=== PATIENT | male | born 1955 | race Caucasian/White ===

== ENCOUNTER 2018-11-27 08:23 | Outpatient (REF) | payer OTHER, SELFPAY ==
[2018-11-27 14:50] LABS: Anion Gap 4.6 mmol/L (3-11); BUN 12 mg/dL (7-18); CO2 33.4 mmol/L (21.0-32.0); CREATININE 0.86 mg/dL (0.70-1.30); Calcium 9.2 mg/dL (8.5-10.1); Chloride 102 mmol/L (98-107); Cholesterol 158 mg/dL (50-200); Glucose 118 mg/dL (70-100); HDL Cholesterol 49 mg/dL (40-60); LDL CHOLESTEROL 94 mg/dL (<100); Potassium 4.3 mmol/L (3.5-5.1); Sodium 140 mmol/L (136-145); Triglyceride 96 mg/dL (30-150)
== END 2018-11-27 08:43 ==
LOC: NCHCN 08:23
PROVIDERS: PCP Nurse Practitioner Family; Visit Provider Nurse Practitioner Family
DX: I10 Essential (primary) hypertension (principal)
CPT/HCPCS: 80048; 80061; 83721

== ENCOUNTER 2019-01-20 12:29 | Emergency (ER) | payer OTHER, SELFPAY ==
[2019-01-20] VITALS (12 sets, daily range): BP systolic 133–153; BP diastolic 53–78; PULSE 49–67; RESP 12–26; TEMP 36.5; O2SAT 87–96
--- NOTE | 2019-01-20 13:06 | DI.RAD_ITS ---
SYMPTOM/DIAGNOSIS: PAIN, FELL LEFT SHOULDER: Three views. There is an anterior dislocation of the left shoulder. No fracture is identified. The soft tissues are unremarkable. Degenerative changes are seen at the acromioclavicular and the glenohumeral joint. IMPRESSION: Left anterior shoulder dislocation. LEFT SHOULDER: Two views. Comparison is made with examination from earlier in the day. There has been successful reduction of the left shoulder dislocation. There is an 8 mm osseous density inferior to the glenoid suspicious for a displaced fracture fragment. Soft tissues are unremarkable. IMPRESSION: Interval reduction of the left shoulder dislocation with a tiny fracture fragment inferior to the glenoid.
--- NOTE | 2019-01-20 13:29 | ED.GENADUL_ITS ---
Discharge Plan Disposition Patient Disposition: HOME Discharge Details Chief Complaint: Orthopedic Clinical Impression: Anterior dislocation of left shoulder Primary Care Provider: Kimberly Stout ED Provider: Altaf Fletcher Home Meds and New Rx's Prescriptions: Continued diphenhydramine HCl 12.5 MG/5 ML liquid 25 mg PO Q4H PRN RF: 0 atenolol 100 MG tablet 100 mg PO DAILY RF: 0 aspirin [Aspir-81] 81 MG tablet,delayed release (DR/EC) 81 mg PO DAILY RF: 0 allopurinol 300 MG tablet 300 mg PO DAILY RF: 0 calcipotriene 60 ML solution 60 ml Topical BID PRNRF: 0 ibuprofen 600 MG tablet 600 mg PO Q8H PRN PRNQty: 30 RF: 0 amlodipine 2.5 mg Tablet 2.5 mg PO DAILY RF: 0 furosemide 20 mg Tablet 20 mg PO DAILY RF: 0 Discharge Instructions Additional Instructions: Use sling for the next 2 weeks. Remove your arm from sling on and perform pendulum exercises daily as discussed. Please follow-up with orthopedics. Return to the ER for any worsening or new concerning symptoms. Referrals: Kimberly Stout [Primary Care Provider] - Tashi Saba MD [ [facility] STAFF PHYSICIAN] - Medical Decision Making Medical Records 13:30 -- 63-year-old male presents with left shoulder pain after mechanical slip and fall on ice that occurred earlier today. Patient is tender left shoulder. He is neurovascularly intact distal left upper extremity. Concern for fracture versus dislocation. Plan to obtain x-ray. 14:23 --x-ray of the shoulder reviewed and interpreted by me and radiology: Anterior shoulder dislocation. Patient given Ativan for muscle relaxation. Attempted fares technique and unable to reduce. Plan for procedural sedation and joint reduction. Patient provided informed consent to procedure was sedated for procedure. 14:50 -- Patient sedated with 150mg propofol and joint reduced by Dr. Sanches and myself. Sling applied. --Postreduction film interpreted by radiology: Interval relocation of anterior shoulder dislocation with tiny fracture fragment. HPI General Mode of arrival: ambulatory . Date/Time Provider Initiated Documentation: 01/20/19 13:06 . Limitations to Documentation: no limitations . Information obtained by: patient . HPI Narrative: 63-year-old male presents with chief complaint of shoulder pain. Patient notes severe left shoulder pain that started around noon today when he slipped on the ice and fell on his shoulder. Pain is constant and worse with any movement of his shoulder. He has limited range of motion secondary to pain. He has no associated numbness or weakness. He did not hit his head or lose consciousness and denies neck pain. No other injuries were sustained during the fall. Pain feels exactly the same as when he dislocated his shoulder in the past. Prior dislocation required procedural sedation for relocation. Related Data Home Medications Medication Instructions Recorded Confirmed allopurinol 300 mg PO DAILY tab-cap 08/18/14 01/20/19 aspirin [Aspir-81] 81 mg PO DAILY tab-cap 08/18/14 01/20/19 atenolol 100 mg PO DAILY tab-cap 08/18/14 01/20/19 calcipotriene 60 ml TOPICAL BID PRN script 08/18/14 01/20/19 diphenhydramine HCl 25 mg PO Q4H PRN ml 08/18/14 01/20/19 ibuprofen 600 mg PO Q8H PRN PRN #30 tab 09/27/15 01/20/19 amlodipine 2.5 mg PO DAILY 01/20/19 furosemide 20 mg PO DAILY 01/20/19 01/20/19 Previous Rx's Medication Instructions Recorded ibuprofen 600 mg PO Q8H PRN PRN #30 tab 09/27/15 Allergies Allergy/AdvReac Type Severity Reaction Status Date / Time ampicillin Allergy Unknown rash,bliste Unverified 01/20/19 12:38 rs lisinopril AdvReac Unknown cough Unverified 01/20/19 12:38 losartan [Losartan] AdvReac Unknown leg cramps Unverified 01/20/19 12:38 General Stated Complaint: Orthopedic SUE: 4 Review of Systems Cardiovascular Denies chest pain and Denies dyspnea Respiratory Denies dyspnea Musculoskeletal Reports as per HPI Neurologic Reports as per HPI PFSH Medical History Shoulder dislocation (Acute) Social History Smoking/Tobacco Use Status: Never Alcohol Intake: current Alcohol Intake frequency: 0-2 drinks per day Alcohol type: beer Drug use: Never Substance use type: does not use Do you feel safe at home: Yes Do you feel safe in your relationship?: Yes Exam Const General: cooperative and no acute distress HENMT Head: normocephalic and atraumatic Mouth: moist mucous membranes Eyes Conjunctivae: normal conjunctivae Sclera: normal sclerae Neck Neck: trachea midline and supple Resp Auscultation: clear to auscultation bilaterally, no rales, no rhonchi and no wheezes Cardio Jugular venous pressure: no JVD Rate: regular rate and not tachycardic Rhythm: regular rhythm GI Palpation: soft, not firm, no guarding, no masses, not rigid and nontender Skin General skin exam: no rashes or lesions noted Neuro General: alert, awake and tone normal Extrem General: no edema Left upper extremity: shoulder/upper arm Details: tenderness Location: of the proximal humerus, axillary nerve sensory function normal and abnormal ROM Details: pain with active ROM Details: in ABduction and elbow/forearm Details: normal ROM; no tenderness and no swelling Psych Mental Status: mental status grossly normal Course Vital Signs Temperature 36.5 C 01/20/19 12:35 Pulse 61 01/20/19 12:35 Respiratory Rate 26 H 01/20/19 12:35 Blood Pressure 133/53 L 01/20/19 12:35 Pulse Oximetry 94 L 01/20/19 12:35 Temperature 36.5 C 01/20/19 12:35 Temperature Source Skin 01/20/19 12:35 Pulse 61 01/20/19 12:35 Respiratory Rate 26 H 01/20/19 12:35 Respiratory Effort 01/20/19 12:39 Blood Pressure 133/53 L 01/20/19 12:35 Blood Pressure Position Sitting 01/20/19 12:35 Pulse Oximetry 94 L 01/20/19 12:35 Oxygen Delivery Method Room Air 01/20/19 12:35 Oxygen Flow Rate 0 01/20/19 12:35 Pain Level 7 01/20/19 13:24 Procedures Orthopedic Joint Reduction Joint #1: Time Out Performed: Yes Side: left Joint Reduction Location: shoulder Analgesia: procedural sedation Shoulder Technique Used (if applicable): traction/counter-traction and external rotation Post-reduction neuro exam: intact Post-reduction vascular: intact Post Reduction X-Ray Obtained: Yes Post Reduction X-Ray Results: reduced Splint Applied: Yes Patient Tolerated Procedure: well Procedural Sedation Indication: fracture/dislocation reduction ASA Class: II Time of Last PO Intake: 00:00 Preparation: radiation monitor applied, pulse oximeter, capnometry used, supplemental O2 applied, suction/airway equipment at bedside and IV secured IV Propofol dose (mg): 150 Patient Tolerated Procedure: well and no complications Complications: none Interventions: oxygen applied Additional Comments: Dr. Sanches pushed med
--- NOTE | 2019-01-20 13:59 | DI.VRAD_ITS ---
EXAM: XR Left Shoulder, Complete, 2 or More Views EXAM DATE/TIME: 01/20/2019 1:07 PM CLINICAL HISTORY: 63 years old, male; Signs and symptoms; Other: Fall, pain; Additional info: Best images possible TECHNIQUE: XR Left shoulder, complete 2 or more views. COMPARISON: CR LEFT SHOULDER COMP. POST REDUC 09/27/2015 1:06 PM FINDINGS: Anterior shoulder dislocation. Degenerative changes of the shoulder joint and acromioclavicular joint. No definite evidence of acute fracture. IMPRESSION: Anterior shoulder dislocation. Dictated and Authenticated by: Attila Wilder MD. Ordering:ENA Solitario MD
[2019-01-20] MEDS: LORazepam 2 MG/ML VIAL 1 MG IVP (14:00)
[2019-01-20] MEDS: Propofol 200 MG/20 ML VIAL 142 MG IVP (14:45)
--- NOTE | 2019-01-20 15:42 | DI.VRAD_ITS ---
EXAM: XR Left Shoulder, Complete, 2 or More Views EXAM DATE/TIME: 01/20/2019 2:51 PM CLINICAL HISTORY: 63 years old, male; Signs and symptoms; Other: Post reduction lt shoulder TECHNIQUE: XR Left shoulder, complete 2 or more views. COMPARISON: CR XR shoulder LT complete 2+V 01/20/2019 1:34 PM FINDINGS: Interval relocation of an anterior shoulder dislocation. Approximate 8mm calcific density just beneath the glenoid on the frontal view suggesting a tiny fracture fragment. No other evidence of acute fracture. IMPRESSION: Interval relocation of anterior shoulder dislocation with tiny fracture fragment. Dictated and Authenticated by: Attila Wilder MD. Ordering:ENA Solitario MD
== END 2019-01-20 16:18 | disposition home or self-care (01) ==
PROVIDERS: Emergency Provider Student in an Organized Health Care Education/Training Program; PCP Nurse Practitioner Family
DX: S53.012A Anterior subluxation of left radial head, initial encounter (principal); W00.0XXA Fall on same level due to ice and snow, initial encounter
CPT/HCPCS: 23650; 73030; 96374; 96375; 96376; J2060; L3650

== ENCOUNTER 2019-11-07 13:07 | Outpatient (REF) | payer MEDICARE, SELFPAY ==
[2019-11-07 13:33] LABS: Anion Gap 6.4 mmol/L (3-11); BUN 12 mg/dL (7-18); CO2 32.6 mmol/L (21.0-32.0); CREATININE 0.67 mg/dL (0.70-1.30); Calcium 9.1 mg/dL (8.5-10.1); Chloride 102 mmol/L (98-107); Glucose 117 mg/dL (74-106); Potassium 4.4 mmol/L (3.5-5.1); Sodium 141 mmol/L (136-145)
[2019-11-07 13:58] LABS: Hemoglobin A1C 5.9 % (3.8-5.6)
== END 2019-11-07 13:27 ==
LOC: NCHCN 13:07
PROVIDERS: PCP Nurse Practitioner Family; Visit Provider Nurse Practitioner Family
DX: R73.03 Prediabetes (principal); I10 Essential (primary) hypertension
CPT/HCPCS: 80048; 83036

== ENCOUNTER → 2020-01-10 10:53 | Outpatient (BNVA) | payer MEDICARE, SELFPAY | PROVIDERS: PCP Nurse Practitioner Family; Referring Provider Nurse Practitioner Family; Visit Provider Internal Medicine Cardiovascular Disease | DX: R69 Illness, unspecified (principal) ==

== ENCOUNTER 2020-01-10 11:12 | Outpatient (CLI) | payer MEDICARE, SELFPAY | END 2020-01-10 11:32 | PROVIDERS: PCP Nurse Practitioner Family; Visit Provider Internal Medicine Cardiovascular Disease | DX: I48.91 Unspecified atrial fibrillation (principal); I10 Essential (primary) hypertension | CPT/HCPCS: 99204; 99215; 93005; 93010 ==

== ENCOUNTER 2020-01-14 10:22 | Outpatient (CLI) | payer MEDICARE, SELFPAY ==
--- NOTE | 2020-01-14 07:33 | DI.US_ITS ---
APPROVED REPORT EXAM: Comprehensive 2D, Doppler, and color-flow Echocardiogram Patient Location: Out-Patient Rn Cardiac Rehab: Ana Gupta RDCS ([facility]) Indications: Atrial Fibrillation Conclusion Left Ventricle : The left ventricle is grossly normal size. The overall left ventricular systolic fu nction appears normal. Left ventricular systolic function is normal. The posterior wall thickness is mildly increased. The septal thickness is mildly increased. Regional wall motion is grossly normal. L V diastolic function appears normal. LVEF is 55-59%. Right Ventricle : Right ventricle is not well visualized. Atria : Left atrium is borderline dilated. Right atrium is borderline dilated. Aortic Valve : Aortic valve is calcified and not well visualized. Mild aortic stenosis. No aortic reg urgitation is present. Mitral Valve : The mitral valve is normal in structure. Trace mitral regurgitation. Great Vessels : The IVC was not well visualized. Estimated RVSP is 35-40 mmHg. There is no prior echocardiogram available for comparison. Wall motion Left Ventricle The left ventricle is grossly normal size. The overall left ventricular systolic function appears nor mal. Left ventricular systolic function is normal. The posterior wall thickness is mildly increased. The septal thickness is mildly increased. Regional wall motion is grossly normal. LV diastolic functi on appears normal. LVEF is 55-59%. Right Ventricle Right ventricle is not well visualized. Atria Left atrium is borderline dilated. Right atrium is borderline dilated. Aortic Valve Aortic valve is calcified and not well visualized. Mild aortic stenosis. No aortic regurgitation is p resent. Mitral Valve The mitral valve is normal in structure. No evidence of mitral valve stenosis. Trace mitral regurgita tion. Tricuspid Valve The tricuspid valve is normal in structure. There is no tricuspid valve stenosis. Trace tricuspid reg urgitation. Pulmonic Valve Pulmonic valve is not well visualized. There is no pulmonic valvular stenosis. There is no pulmonic v alvular regurgitation. Great Vessels The aortic root is normal in size. The ascending aorta is mildly dilated. The IVC was not well visual ized. Estimated RVSP is 35-40 mmHg. Pericardium There is no pericardial effusion. 2D Dimensions IVSD d PLAX 1.28 cm M: 0.6-1.2 LV Vol A2C d MOD 187.0 mL LVPW d PLAX 1.25 cm M: 0.6 - 1.2 LV Vol A4C d MOD 158.1 mL LVID d PLAX 4.66 cm M: 4.2 - 5.8 LA vol/ BSA A2C s A-L 55.1 mL/m2 LVDs 3.35 cm M: 2.5 - 4.0 LA vol/ BSA A4C s A-L 54.6 mL/m2 Ao Root d 3.71 cm M: 3.1 - 3.7 LA Vol/ BSA Biplane s A-L 54.9 mL/m2 RA Area A4C 36.09 cm2 LA Area A4C s MOD 34.19 cm2 RA Vol/ BSA A4C s A-L 60.8 mL/m2 LA Area A2C s MOD 34.33 cm2 Ao Asc Diam d 4.24 cm M: 2.6 - 3.4 LV EF A4C MOD 51.1 % LV EF Teichholz 53.4 % LV EF A2C MOD 60.0 % LVEF (Calle's) 55.35 % M: 52 - 72 LV EF Biplane MOD 55.3 % LV Volume 128.09 mL M: 62 - 150 LV Volume Index 50.23 mL/m2 M: 34 - 74 LV Vol Biplane MOD 184.1 mL FS 27.45 % LV Diastology MV E' medial 0.100 (>0.07 m/s) E/A Ratio 3.6 LV E/e MED 12.65 (<14) MV E Vmax 1.27 (0.4-1.3 m/s) MV E' lateral 0.110 (>0.1 m/s) MV A Vmax 0.35 (0.4-1.3 m/s) LV E/e LAT 11.45 (<14) MV E/A Ratio 3.55 MV E/E' medial 12.70 MV E/E' lateral 11.46 Aortic Valve LVOT Area 3.35 cm2 AoV Area Vmax 1.46 cm2 LVOT Vmax 1.01 m/s AoV Area/ BSA (Vmax) 0.57 cm2/m2 LVOT Mean Zi. 0.67 m/s ALINE Mean Zi. 1.46 cm2 LVOT Peak Grad 4.1 mmHg ALINE Mean Zi. Index 0.57 cm2/m2 LVOT Mean Grad 2.1 mmHg LVOT VTI 0.230 m LVOT Diam s 2.05 cm (M/F) 1.5-2.5 AoV Vmax 2.33 (0.5-1.3 m/s) Velocity Ratio 0.43 AoV Mean Zi. 1.54 m/s AoV Peak Grad 21.7 mmHg LVOT SV 77.01 mL AoV Mean Grad 10.9 (<5 mmHg) AoV VTI 0.492 (0.18-0.25 m) AoV Area VTI 1.57 (2.5-4.5 cm2) AoV Area/ BSA (VTI) 0.61 cm/m2 Mitral Valve MV DT 220 (160-240 msec) MV PHT 64 msec MV Area PHT 3.45 cm2 Pulmonary Valve PV Vmax 0.79 (0.5-1.5 m/s) RVOT Peak Gr. 1.90 mmHg PV Peak Grad 2.5 mmHg RVOT Mean Gr. 0.95 mmHg PV Mean Grad 1.3 mmHg RVOT VTI 0.154 m PV VTI 0.174 m RVOT Vmax 0.69 m/s Tricuspid Valve TR Peak Grad 36.7 mmHg TR Vmax 3.03 m/s RA Pressure 3.00 mmHg RVSP (TR) 39.8 mmHg
== END 2020-01-14 10:42 ==
PROVIDERS: PCP Nurse Practitioner Family; Visit Provider Internal Medicine Cardiovascular Disease
DX: I48.91 Unspecified atrial fibrillation (principal); I35.0 Nonrheumatic aortic (valve) stenosis; I10 Essential (primary) hypertension
CPT/HCPCS: 93306

== ENCOUNTER 2020-07-02 08:23 | Outpatient (REF) | payer MEDICARE, SELFPAY ==
[2020-07-02 18:56] LABS: Prothrombin Time 27.9 sec (9.3-11.0)
[2020-07-02 18:57] LABS: INR 2.8 (0.9-1.1)
== END 2020-07-02 08:43 ==
LOC: NCHCN 08:23
PROVIDERS: PCP Nurse Practitioner Family; Visit Provider Nurse Practitioner Family
DX: I48.0 Paroxysmal atrial fibrillation (principal); Z79.01 Long term (current) use of anticoagulants
CPT/HCPCS: 85610

== ENCOUNTER 2020-08-28 07:44 | Outpatient (CLI) | payer MEDICARE, SELFPAY ==
[2020-08-29 12:44] LABS: COVID-19 RT-PCR Result NEGATIVE (Negative)
== END 2020-08-28 08:04 ==
PROVIDERS: PCP Nurse Practitioner Family; Visit Provider Internal Medicine Sleep Medicine
DX: Z01.818 Encounter for other preprocedural examination (principal); Z11.59 Encounter for screening for other viral diseases
CPT/HCPCS: U0003

== ENCOUNTER 2020-09-27 12:29 | Emergency (ER) | payer MEDICARE, SELFPAY ==
[2020-09-27 12:37] VITALS: BP 164/78; PULSE 67; RESP 20; TEMP 36.7; O2SAT 96
--- NOTE | 2020-09-27 12:44 | W.ED.GENAD ---
Discharge Plan Disposition Patient Disposition: HOME Condition: Improving Discharge Details Clinical Impression: Ear ache Primary Care Provider: Kimberly Stout ED Provider: Sohail Sanches Home Meds and New Rx's Prescriptions: Continued amlodipine 10 mg tablet 10 mg PO DAILY RF: 0 furosemide 40 mg tablet 80 mg PO DAILY RF: 0 diphenhydramine HCl 12.5 MG/5 ML liquid 25 mg PO Q4H PRN RF: 0 atenolol 100 MG tablet 100 mg PO DAILY RF: 0 allopurinol 300 MG tablet 300 mg PO DAILY RF: 0 calcipotriene 60 ML solution 60 ml Topical BID PRNRF: 0 warfarin 5 mg tablet 5 mg PO DAILY Qty: 60 RF: 3 Discharge Instructions Instructions: Earache (ED) Additional Instructions: If you develop foul-smelling discharge from the ear, progressive pain, or any other acute concerns please return for reevaluation. Continue your regular medications. Medical Decision Making 65-year-old male presents from home stating he put his right hearing aid in this morning, then took it out and felt the silicone earpiece remained lodged in the right ear. He attempted to remove with a paperclip and was unsuccessful. No clear evidence of retained foreign body on my exam. The ear was irrigated and reexamined with the same finding. Discussed with patient that there is no clear evidence of foreign body at this time. He will maintain home surveillance for developing otorrhea or pain. He is stable for discharge home at this time. HPI General Mode of arrival: ambulatory. Date/Time Provider Initiated Documentation: 09/27/20 12:29. Limitations to Documentation: no limitations. Information obtained by: patient. History of Present Illness 65 year old M presents to the emergency department with the chief complaint of Right ear retained foreign body, described as mild and moderate, Quality is described as dull and constant, and is localized to the head and right. Patient reports no radiation. and it has been constant. No relieving factors improve symptom(s), No exacerbating factors reported . Patient did receive the following treatments prior to arrival, none Related Data Home Medications Medication Instructions Recorded Confirmed allopurinol 300 mg PO DAILY tab-cap 08/18/14 09/27/20 atenolol 100 mg PO DAILY tab-cap 08/18/14 09/27/20 calcipotriene 60 ml TOPICAL BID PRN script 08/18/14 09/27/20 diphenhydramine HCl 25 mg PO Q4H PRN ml 08/18/14 09/27/20 amlodipine 10 mg tablet 10 mg PO DAILY 01/02/20 09/27/20 furosemide 40 mg tablet 80 mg PO DAILY tab 01/02/20 09/27/20 warfarin 5 mg tablet 5 mg PO DAILY #60 tab 04/21/20 09/27/20 Previous Rx's Medication Instructions Recorded warfarin 5 mg tablet 5 mg PO DAILY #60 tab 04/21/20 Allergies Allergy/AdvReac Type Severity Reaction Status Date / Time ampicillin Allergy Unknown rash,bliste Unverified 09/27/20 12:40 rs lisinopril AdvReac Unknown cough Unverified 09/27/20 12:40 losartan [Losartan] AdvReac Unknown leg cramps Unverified 09/27/20 12:40 General Stated Complaint: EarProblem SUE: 4 Review of Systems Narrative: 5 systems reviewed and otherwise negative [facility] Medical History (Updated 09/27/20 @ 12:56 by Sohail Sanches MD) Atrial fibrillation Bilateral leg edema BMI 50.0-59.9, adult Erectile dysfunction Gout Hypertension Peripheral neuropathy Prediabetes Psoriasis Shoulder dislocation Social History Smoking/Tobacco Use Status: Never Smoking risk assessment performed?: Yes Alcohol Intake: current Alcohol Intake frequency: a few times a week Alcohol type: beer Drug use: Never Substance use type: does not use What type of physical activity do you participate in: independent ambulation Do you feel safe at home: Yes Do you feel safe in your relationship?: Yes Exam Narrative Exam Narrative: GEN: awake, alert, oriented 3. Pleasant, well groomed, interactive. HEAD: Normocephalic, atraumatic ENT: Mucous membranes moist, oropharynx unremarkable, tympanic membranes visualized bilaterally, small amount of blood external ear canal right. External ear exam unremarkable EYES: PERRL, EOMI NECK: Full ROM, no JAMI, no menigismus Neuro: Grossly normal neurologic exam, conversant, interactive. Psych: Speech fluent, thoughts congruent, affect normal Course Vital Signs Vital signs: Vital Signs Temperature 36.7 C 09/27/20 12:37 Pulse 67 09/27/20 12:37 Respiratory Rate 20 09/27/20 12:37 Blood Pressure 164/78 H 09/27/20 12:37 Pulse Oximetry 96 09/27/20 12:37 Temperature 36.7 C 09/27/20 12:37 Temperature Source Temporal Artery Scan 09/27/20 12:37 Pulse 67 09/27/20 12:37 Respiratory Rate 20 09/27/20 12:37 Respiratory Effort Non-Labored 09/27/20 12:42 Blood Pressure 164/78 H 09/27/20 12:37 Blood Pressure Position Sitting 09/27/20 12:37 Pulse Oximetry 96 09/27/20 12:37 Oxygen Delivery Method Room Air 09/27/20 12:37 Oxygen Flow Rate 0 09/27/20 12:37 Pain Level 5 09/27/20 12:37
--- NOTE | 2020-09-27 12:50 | NUR.NOTE ---
Nursing Note: Irrigated patient's right ear, only clear irrigation fluid produced, no sign of any foreign body. Dr Sanches notified. Patient's ear canal with some mild irritation.
== END 2020-09-27 13:01 | disposition home or self-care (01) ==
PROVIDERS: Emergency Provider Emergency Medicine; PCP Nurse Practitioner Family
DX: H92.01 Otalgia, right ear (principal); I10 Essential (primary) hypertension
CPT/HCPCS: 69209; 99282; 99283

== ENCOUNTER 2020-12-31 09:13 | Outpatient (REF) | payer MEDICARE, SELFPAY ==
[2020-12-31 15:38] LABS: HCT 39.9 % (40.0-50.0); MCH 33.4 pg (27.0-33.0); MCHC 35.1 % (32.0-36.0); MCV 95.2 fL (80-95); MPV 11.5 fL (8.0-11.0); Platelet Count 241 10^3/uL (130-400); RBC 4.19 10^6/uL (4.36-5.78); RDW 12.3 % (11.8-14.1); RDW-SD 41.8 fL
[2020-12-31 15:53] LABS: ALT 39 U/L (16-63); AST 30 U/L (15-37); Albumin 3.4 g/dL (3.4-5.0); Alkaline Phosphatase 99 U/L (46-116); Anion Gap 6.5 mmol/L (3-11); BUN 18 mg/dL (7-18); Bilirubin, Total 0.6 mg/dL (0.2-1.0); CO2 30.5 mmol/L (21.0-32.0); CREATININE 0.9 mg/dL (0.70-1.30); Calcium 9.1 mg/dL (8.5-10.1); Calculated LDL 80 mg/dL (<100); Chloride 104 mmol/L (98-107); Cholesterol 149 mg/dL (<200); Glucose 107 mg/dL (74-106); HDL Cholesterol 41 mg/dL (40-60); Potassium 4.5 mmol/L (3.5-5.1); Sodium 141 mmol/L (136-145); Triglyceride 142 mg/dL (<150)
[2020-12-31 16:20] LABS: Hemoglobin A1C 5.8 % (<5.7)
[2020-12-31 22:03] LABS: PSA, Screening 1.5 ng/mL (0.0-4.5)
== END 2020-12-31 09:14 | disposition home or self-care (01) ==
LOC: NCHCN 09:13
PROVIDERS: PCP Nurse Practitioner Family; Visit Provider Physician Assistant
DX: I10 Essential (primary) hypertension (principal); R73.03 Prediabetes; Z12.5 Encounter for screening for malignant neoplasm of prostate
CPT/HCPCS: 80053; 80061; 84153; 85027; 83036

== ENCOUNTER → 2021-01-11 09:55 | Outpatient (BNVA) | payer MEDICARE, SELFPAY | PROVIDERS: PCP Nurse Practitioner Family; Referring Provider Nurse Practitioner Family; Visit Provider Internal Medicine Cardiovascular Disease | DX: I48.21 Permanent atrial fibrillation (principal); I10 Essential (primary) hypertension; G47.33 Obstructive sleep apnea (adult) (pediatric); Z79.01 Long term (current) use of anticoagulants | CPT/HCPCS: 99214; 99213 ==

== ENCOUNTER 2021-06-24 12:53 | Emergency (ER) | payer MEDICARE, SELFPAY ==
[2021-06-24 13:00] VITALS: BP 155/79; PULSE 67; RESP 18; TEMP 36.6; O2SAT 95
--- NOTE | 2021-06-24 13:38 | W.ED.GENAD ---
Discharge Plan Disposition Patient Disposition: HOME Condition: Stable Discharge Details Clinical Impression: Elevated INR, Bleeding from wound Primary Care Provider: Kimberly Stout ED Provider: Carlos Giron Home Meds and New Rx's Prescriptions: Continued warfarin 5 mg tablet 5 mg PO DAILY Qty: 90 RF: 3 amlodipine 10 mg tablet 10 mg PO DAILY RF: 0 furosemide 40 mg tablet 80 mg PO DAILY RF: 0 diphenhydramine HCl 12.5 MG/5 ML liquid 25 mg PO Q4H PRN RF: 0 atenolol 100 MG tablet 100 mg PO DAILY RF: 0 allopurinol 300 MG tablet 300 mg PO DAILY RF: 0 calcipotriene 60 ML solution 60 ml Topical BID PRNRF: 0 Discharge Instructions Additional Instructions: INR is elevated at 3.6. I recommend holding any Coumadin dose today and tomorrow and then starting the regular dose, contact your primary care provider to have your INR rechecked to make sure it is therapeutic. The wound was thoroughly cleaned and dressed, leave the most tender dressing on for the next few days this will help stop the bleeding, do not pull this from your skin as it will begin to bleed once again. You may change the outer dressing daily. Please watch for new or worsening symptoms and return to the ER for any concerns. Please contact your primary care provider to discuss your ER visit and need for outpatient reevaluation Discharge Data Discharge Date/Time-TO BE ENTERED AT DEPARTURE: 06/24/21 15:03 Medical Decision Making 66-year-old gentleman presenting with bleeding wound to his pannus, no obvious injury, tetanus status is up-to-date, is chronically anticoagulated. I would like to check his INR level. The wound was to be thoroughly cleaned and treated appropriately. There is no indication for closure, rather we will place on a Xeroform dressing to help with the hemostasis INR is 3.6, supratherapeutic. Discussed laboratory values with patient. He will hold his Coumadin dose today and tomorrow and then initiate his normal regimen, also recommend having his levels checked in the next 2-3 days to be sure they are appropriate. Xeroform dressing was applied without difficulty. Patient has no additional questions or concerns and is comfortable this plan. Encouraged to return to the ER for new or worsening symptoms. This documentation was generated using Jemstepation system, please disregard any oddities of phrase or misspellings. Medical Records Medical records reviewed: Yes I reviewed the patient's medical records. Lab Data Lab results reviewed: Yes I reviewed the patient's lab results. Labs: Laboratory Tests Range/Units 06/24/21 13:52 PT (9.3-11.0) sec 35.3 H INR (0.9-1.1) 3.6 H HPI General Mode of arrival: ambulatory. Date/Time Provider Initiated Documentation: 06/24/21 13:09. Limitations to Documentation: no limitations. Information obtained by: patient. HPI Narrative: This is a 66-year-old gentleman, past medical history of hypertension, atrial fibrillation, chronic anticoagulation, morbid obesity, presenting for a wound on his right abdomen. Patient states that he was working outside today getting up and down off of his tractor multiple times, denies any obvious injury but noticed that the area was bleeding. The area that is bleeding is in an area of higher friction, on his large pannus. Patient states that his tetanus status is up-to-date. He denies any discomfort. No additional concerns or complaints Related Data Home Medications Medication Instructions Recorded Confirmed allopurinol 300 mg PO DAILY tab-cap 08/18/14 06/24/21 atenolol 100 mg PO DAILY tab-cap 08/18/14 06/24/21 calcipotriene 60 ml TOPICAL BID PRN script 08/18/14 06/24/21 diphenhydramine HCl 25 mg PO Q4H PRN ml 08/18/14 06/24/21 amlodipine 10 mg tablet 10 mg PO DAILY 01/02/20 06/24/21 furosemide 40 mg tablet 80 mg PO DAILY tab 01/02/20 06/24/21 warfarin 5 mg tablet 5 mg PO DAILY #90 tab 01/11/21 06/24/21 Previous Rx's Medication Instructions Recorded warfarin 5 mg tablet 5 mg PO DAILY #90 tab 01/11/21 Allergies Allergy/AdvReac Type Severity Reaction Status Date / Time ampicillin Allergy Unknown rash,bliste Unverified 06/24/21 13:05 rs lisinopril AdvReac Unknown cough Unverified 06/24/21 13:05 losartan [Losartan] AdvReac Unknown leg cramps Unverified 06/24/21 13:05 General Stated Complaint: Laceration SUE: 4 Review of Systems Constitutional Constitutional: Denies fever(s) Gastrointestinal Gastrointestinal: Denies abdominal pain, Denies nausea and Denies vomiting Integumentary/Breasts Skin/Breast: Denies rash Hematologic/Lymphatic Hematologic/Lymphatic: Reports easy bleeding and Reports easy bruising [facility] Medical History Atrial fibrillation Bilateral leg edema BMI 50.0-59.9, adult Erectile dysfunction Gout Hypertension Peripheral neuropathy Prediabetes Psoriasis Shoulder dislocation Social History Smoking/Tobacco Use Status: Never Smoking risk assessment performed?: Yes Alcohol Intake: current Alcohol Intake frequency: a few times a week Alcohol type: beer Drug use: Never Substance use type: does not use Household members: none Housing: house Communication Needs: Hard of Hearing Pets and animals: No What type of physical activity do you participate in: independent ambulation Do you feel safe at home: Yes Do you feel safe in your relationship?: Yes Exam Const General: cooperative, comfortable and no acute distress Orientation: alert and awake [facility] Head: normal to inspection, normocephalic and atraumatic Face and sinus: normal facial exam Mouth: moist mucous membranes Eyes General: appearance normal, both eyes and all related structures Conjunctivae: conjunctivae normal Neck Neck: normal visual inspection, trachea midline and supple Resp Effort & Inspection: normal respiratory effort and able to speak in complete sentences GI Inspection: large pannus and obesity Palpation: soft and nontender Other: Along the right inferior lateral aspect of his hand there is a circular wound-abrasion approximately 0.5 diameter. There is no pulsatile bleeding but there is a small ooze of blood. There is no true laceration to repair. Without erythema, warmth, tenderness, foreign body Skin General skin exam: no rashes or lesions noted Neuro General: patient alert, patient awake, moves all extremities and no focal motor deficits Sensory Exam: no sensory deficits noted Psych Appearance: grossly normal Mental Status: mental status grossly normal Course Vital Signs Vital signs: Vital Signs Temperature 36.6 C 06/24/21 13:00 Pulse 67 06/24/21 13:00 Respiratory Rate 18 06/24/21 13:00 Blood Pressure 155/79 H 06/24/21 13:00 Pulse Oximetry 95 06/24/21 13:00 Temperature 36.6 C 06/24/21 13:00 Temperature Source Temporal Artery Scan 06/24/21 13:00 Pulse 67 06/24/21 13:00 Respiratory Rate 18 06/24/21 13:00 Respiratory Effort Non-Labored 06/24/21 13:07 Blood Pressure 155/79 H 06/24/21 13:00 Blood Pressure Position Sitting 06/24/21 13:00 Pulse Oximetry 95 06/24/21 13:00 Oxygen Delivery Method Room Air 06/24/21 13:00 Oxygen Flow Rate 0 06/24/21 13:00
[2021-06-24 14:27] LABS: INR 3.6 (0.9-1.1); Prothrombin Time 35.3 sec (9.3-11.0)
== END 2021-06-24 15:03 | disposition home or self-care (01) ==
PROVIDERS: Emergency Provider Physician Assistant; PCP Nurse Practitioner Family
DX: S31.113A Laceration without foreign body of abdominal wall, right lower quadrant without penetration into peritoneal cavity, initial encounter (principal); X58.XXXA Exposure to other specified factors, initial encounter; R79.1 Abnormal coagulation profile; Z79.01 Long term (current) use of anticoagulants
CPT/HCPCS: 99281; 85610; 99283

== ENCOUNTER 2022-01-10 12:18 | Outpatient (REF) | payer MEDICARE, SELFPAY ==
[2022-01-10 15:51] LABS: Anion Gap 8.1 mmol/L (3-11); BUN 11 mg/dL (7-18); CO2 28.9 mmol/L (21.0-32.0); CREATININE 0.8 mg/dL (0.70-1.30); Calcium 8.8 mg/dL (8.5-10.1); Calculated LDL 74 mg/dL (<100); Chloride 103 mmol/L (98-107); Cholesterol 141 mg/dL (<200); Glucose 103 mg/dL (74-106); HDL Cholesterol 40 mg/dL (40-60); Potassium 4.2 mmol/L (3.5-5.1); Sodium 140 mmol/L (136-145); Triglyceride 139 mg/dL (<150)
== END 2022-01-10 12:19 | disposition home or self-care (01) ==
LOC: NCHCN 12:18
PROVIDERS: PCP Nurse Practitioner Family; Visit Provider Nurse Practitioner Family
DX: I10 Essential (primary) hypertension (principal); R73.03 Prediabetes; Z68.43 Body mass index [BMI] 50.0-59.9, adult
CPT/HCPCS: 80048; 80061

== ENCOUNTER → 2022-01-11 10:04 | Outpatient (BNVA) | payer MEDICARE, SELFPAY | PROVIDERS: PCP Nurse Practitioner Family; Visit Provider Internal Medicine Cardiovascular Disease | DX: I10 Essential (primary) hypertension (principal); I48.21 Permanent atrial fibrillation | CPT/HCPCS: 99213 ==

== ENCOUNTER 2022-05-06 15:35 | Outpatient (REF) | payer MEDICARE, SELFPAY ==
[2022-05-06 15:26] LABS: C-Reactive Protein 1.84 mg/dL (0.0-0.3)
[2022-05-06 15:36] LABS: ESR 15 mm/hr (0-20)
== END 2022-05-06 15:36 | disposition home or self-care (01) ==
LOC: NCHCN 15:35
PROVIDERS: PCP Nurse Practitioner Family; Visit Provider Nurse Practitioner Family
DX: H54.7 Unspecified visual loss (principal)
CPT/HCPCS: 85652; 86140

== ENCOUNTER 2022-05-14 17:56 | Inpatient (IN) | payer MEDICARE, SELFPAY ==
[2022-05-14] VITALS (63 sets, daily range): BP systolic 120–158; BP diastolic 62–94; PULSE 48–95; RESP 14–36; TEMP 36.8–39.3; O2SAT 93–98
--- NOTE | 2022-05-14 18:00 | RT.EKG_ITS ---
APPROVED REPORT Exam: Resting ECG Reason for Exam: sob Patient Location: E HR:83 bpm ECG Measurements Heart Rate 83 AXIS WI [id number] P [id number] QRSd 101 QRS 61 QT 393 T 43 QTc 462 Conclusion Atrial fibrillation...V-rate 61-100, irreg A-activity. Afib. Normal axis. No STEMI. I have reviewed and interpreted ECG and agree with software generated interpretation.
--- NOTE | 2022-05-14 18:21 | ED.GENADUL_ITS ---
Discharge Plan Disposition Patient Disposition: [facility] INPATIENT Condition: Stable Discharge Details Clinical Impression: Fever, Elevated LFTs, Leukocytosis Admit Date/Time: 05/14/22 22:18 Admit Provider: Yolanda Velasquez Attending Provider: Yolanda Velasquez Primary Care Provider: Kimberly Stout ED Provider: Giovanny Gao Discharge Data Discharge Date/Time-TO BE ENTERED AT DEPARTURE: 05/14/22 22:15 Medical Decision Making <Kourtney Harden DO - Last Filed: 05/15/22 18:09> 05/14/22 Dr. Harden 67-year-old male with a history of obesity, prediabetes, hypertension, atrial fibrillation on warfarin, psoriasis who presents with sweats, chills, slight headache and dry mouth today. He states he has received a total of 3 COVID vaccines. Oral temp on arrival 102.8. Patient is diaphoretic but answering questions appropriately and oriented x3. Normal ENT exam. Lungs clear bilaterally. Abdomen soft and nontender. No meningeal signs. Differential diagnosis includes COVID, influenza, pneumonia, UTI. History and presentation does not appear consistent with meningitis however if work-up negative and headache remains, consider possible LP. We will place an IV, bolus IV fluids, screening labs, lactate, blood cultures, fluvid, urinalysis and give IV Tylenol and reassess. Labs reviewed. White blood cell count 18. Elevation of LFTs and bilirubin. Will refer for CT chest, abdomen and pelvis imaging. Case endorsed to Dr. Gao to follow-up on labs and imaging and final disposition. 05/14/22 Dr. Gao pt signed out to me, his ct shows gallstones and otherwise limited exam, does have ruq tenderness on exam though due to obesity exam is limited. Given the fever, leukocytosis and elevated lfts suspect cholecystitis, ordered cipro and flagyl due to ampicillin allergy. Discussed with Dr. Silver who accepts for admission. Medical Records Medical records reviewed: Yes I reviewed the patient's medical records. ECG Data Attestation: I personally reviewed and interpreted this ECG (s) as follows: Interpretation: Rate of 83, atrial fibrillation, normal axis, no STEMI <Giovanny Gao MD - Last Filed: 05/14/22 22:27> 67-year-old male with a history of obesity, prediabetes, hypertension, atrial fibrillation on warfarin, psoriasis who presents with sweats, chills, slight headache and dry mouth today. He states he has received a total of 3 COVID vaccines. Oral temp on arrival 102.8. Patient is diaphoretic but answering questions appropriately and oriented x3. Normal ENT exam. Lungs clear bilaterally. Abdomen soft and nontender. No meningeal signs. Differential diagnosis includes COVID, influenza, pneumonia, UTI. History and presentation does not appear consistent with meningitis however if work-up negative and headache remains, consider possible LP. We will place an IV, bolus IV fluids, screening labs, lactate, blood cultures, fluvid, urinalysis and give IV Tylenol and reassess. Labs reviewed. White blood cell count 18. Significant elevation of LFTs and bilirubin. Will refer for CT chest, abdomen and pelvis imaging. Case endorsed to Dr. Gao to follow-up on labs and imaging and final disposition. pt signed out to me, his ct shows gallstones and otherwise limited exam, does have ruq tenderness on exam though due to obesity exam is limited. Given the fever, leukocytosis and elevated lfts suspect cholecystitis, ordered cipro and flagyl due to ampicillin allergy. Discussed with Dr. Silver who accepts for admission Imaging Data Radiologic Study: Attestation: I personally reviewed and interpreted this imaging study as follows: Imaging: CT Scan Radiologist's impression: IMPRESSION: 1. Multiple stones are seen in the gallbladder. There is suboptimal evaluation of gallbladder wall for gallbladder pathology secondary to significant motion related artifact at the time of imaging. Recommend ultrasound for more detailed evaluation if there is clinical concern for acute cholecystitis and further imaging evaluation is needed. 2. Hepatomegaly with fatty changes in the liver. 3. Fluid filled large bowel. Lab Data Lab results reviewed: Yes I reviewed the patient's lab results. HPI <Kourtney Harden DO - Last Filed: 05/15/22 18:09> General Mode of arrival: ambulatory . Date/Time Provider Initiated Documentation: 05/14/22 17:57 . Limitations to Documentation: no limitations . Information obtained by: patient . HPI Narrative: Patient is a 67-year-old male with a history of obesity, atrial fibrillation on warfarin, hypertension, and psoriasis who presents with fever, chills and sweating today. Patient is unaware of having a fever. He admits to slight diffuse headache and dry throat but otherwise denies neck pain, ear pain, chest pain, shortness of breath, abdominal pain, coughing, vomiting, diarrhea or urinary symptoms. Related Data Home Medications Medication Instructions Recorded Confirmed allopurinol 300 mg tablet 300 mg PO DAILY 08/18/14 05/14/22 atenolol 100 mg tablet 100 mg PO DAILY 08/18/14 05/14/22 calcipotriene 0.005 % scalp 60 ml topical BID PRN 08/18/14 05/14/22 solution diphenhydramine HCl 12.5 mg/5 mL 25 mg PO Q4H PRN 08/18/14 05/14/22 oral liquid amlodipine 10 mg tablet 10 mg PO DAILY 01/02/20 05/14/22 furosemide 40 mg tablet 80 mg PO DAILY 01/02/20 05/14/22 warfarin 5 mg tablet 5 mg PO DAILY #90 tabs 12/21/21 05/14/22 Previous Rx's Medication Instructions Recorded warfarin 5 mg tablet 5 mg PO DAILY #90 tabs 12/21/21 Allergies Allergy/AdvReac Type Severity Reaction Status Date / Time ampicillin Allergy Unknown rash,bliste Unverified 05/14/22 18:02 rs lisinopril AdvReac Unknown cough Unverified 05/14/22 18:02 losartan [Losartan] AdvReac Unknown leg cramps Unverified 05/14/22 18:02 General Stated Complaint: GenMedical SUE: 4 Review of Systems <Kourtney Harden DO - Last Filed: 05/15/22 18:09> All systems reviewed & are unremarkable except as noted in HPI and below Constitutional Constitutional: Reports body ache(s), Reports chills, Denies excessive sweating, Denies fatigue, Reports fever(s), Denies weakness and Denies weight loss Eyes Eyes: Reports system reviewed and no additional complaints, except as documented and Denies blurry vision ENT Ears, Nose, Mouth, and Throat: Denies vertigo, Denies dizziness, Denies otalgia, Denies nasal congestion, Denies sore throat and Denies throat swelling Cardiovascular Cardiovascular: Denies chest pain, Denies syncope, Denies rapid heart rate and D enies dyspnea Respiratory Respiratory: Denies chest congestion, Denies cough, Denies pain on inspiration and Denies dyspnea Gastrointestinal Gastrointestinal: Denies abdominal pain, Denies diarrhea and Denies vomiting Genitourinary Genitourinary: Denies hematuria, Denies dysuria and Denies flank pain Musculoskeletal Musculoskeletal: Denies back pain and Denies joint swelling Integumentary/Breasts Skin/Breast: Denies lesions and Denies rash Neurologic Neurologic: Denies behavioral changes, Denies confusion, Denies vertigo, Denies dizziness, Denies syncope, Denies localized weakness and Denies weakness Psychiatric Psychiatric: Denies behavioral changes, Denies confusion and Denies depression Endocrine Endocrine: Denies excessive sweating and Denies fatigue Hematologic/Lymphatic Hematologic/Lymphatic: Denies easy bruising and Denies lymphadenopathy Allergic/Immunologic Allergic/Immunologic: Denies throat swelling PFSH <Kourtney Harden DO - Last Filed: 05/15/22 18:09> All Active Problems Fever (Acute) Elevated LFTs (Acute) Leukocytosis (Acute) Elevated INR (Acute) Bleeding from wound (Acute) Hypertension (Chronic) Atrial fibrillation (Chronic) Medical History Bilateral leg edema BMI 50.0-59.9, adult Erectile dysfunction Gout Peripheral neuropathy Prediabetes Psoriasis Shoulder dislocation Social History Smoking/Tobacco Use Status: Never Smoking risk assessment performed?: Yes Alcohol Intake: current Alcohol Intake frequency: a few times a week Alcohol type: beer Drug use: Never Substance use type: does not use Household members: none Housing: house Communication Needs: Hard of Hearing Pets and animals: No What type of physical activity do you participate in: independent ambulation Do you feel safe at home: Yes Do you feel safe in your relationship?: Yes Exam <Kourtney Harden DO - Last Filed: 05/15/22 18:09> Const General: cooperative and disheveled Nutritional Appearance: obese morbidly obese Orientation: alert, awake and oriented x3 HENMT Head: normal to inspection Ears: hearing grossly normal bilaterally, external ears normal and TM's normal bilaterally General nose exam: external nose normal Face and sinus: normal facial exam Mouth: oral mucosae normal Teeth and gingiva: dentition normal Throat: posterior oropharynx normal Eyes General: appearance normal, both eyes and all related structures Eyelids: eyelids normal Pupils: PERRL EOM: EOM intact bilaterally Neck Neck: normal visual inspection Lymphatic: no lymphadenopathy noted Chest Chest: normal inspection of the chest Resp Effort & Inspection: normal respiratory effort and able to speak in complete sentences Auscultation: clear to auscultation bilaterally Cardio Rate: tachycardic Rhythm: regular rhythm GI Inspection: normal to inspection Palpation: soft, not firm, no guarding, no hepatosplenomegaly, no masses and nontender Auscultation: normal bowel sounds Back/Spine/Pelvis Back: no CVA tenderness Skin General skin exam: no rashes or lesions noted Neuro General: patient alert and patient awake Cognition: normal cognition Speech: speech normal Gait: normal gait Motor: muscle tone normal throughout Sensory Exam: no sensory deficits noted Extrem General: normal to inspection, full ROM and capillary refill normal Psych Appearance: grossly normal Mental Status: mental status grossly normal Speech and Movement: speech and movement normal Affect: normal affect Thought Process: normal Course <DO Harvinder Loja Last Filed: 05/15/22 18:09> Vital Signs Vital signs: Vital Signs Temperature 99.3 F 05/14/22 17:59 Pulse 95 H 05/14/22 17:59 Respiratory Rate 16 05/14/22 17:59 Blood Pressure 158/75 H 05/14/22 17:59 Pulse Oximetry 95 05/14/22 17:59 Temperature 99.3 F 05/14/22 17:59 Temperature Source Temporal Artery Scan 05/14/22 17:59 Pulse 95 H 05/14/22 17:59 Respiratory Rate 16 05/14/22 17:59 Respiratory Effort 05/14/22 18:01 Blood Pressure 158/75 H 05/14/22 17:59 Blood Pressure Position Supine 05/14/22 17:59 Pulse Oximetry 95 05/14/22 17:59 Oxygen Delivery Method Room Air 05/14/22 17:59 Oxygen Flow Rate 0 05/14/22 17:59 Pain Level 5 05/14/22 17:59 Sign Out <DO Harvinder Loja Filed: 05/15/22 18:09> Sign Out Data: Sign Out Comment: Follow-up on labs and imaging and final disposition. Consider admission for possible sepsis. Last updated by Kourtney Harden DO at 05/14/22 19:51
[2022-05-14] MEDS: ACETAMINOPHEN 1,000 MG/100 ML BTL 400 MG IVPB (19:00)
[2022-05-14 19:03] LABS: Abs Immature Grans 0.14 10^3/uL (0.0-0.06); Absolute Basophil Count 0.06 10^3/uL (0.0-0.2); Absolute Lymphocyte Count 0.41 10^3/uL (1.2-3.4); Basophils % 0.3; Eosinophils % 0.1; HGB 14.5 g/dL (13.5-17.5); Immature Grans % 0.8; Lymphocytes % 2.2; MCH 31.8 pg (27.0-33.0); MCHC 34.5 % (32.0-36.0); MCV 92 fL (80-95); MPV 11.4 fL (8.0-11.0); Monocytes % 8.2; Neutrophils % 88.4; Platelet Count 185 10^3/uL (130-400); RBC 4.56 10^6/uL (4.36-5.78); RDW 12.7 % (11.8-14.1); RDW-SD 42.5 fL; WBC 18.62 10^3/uL (4.4-10.8)
[2022-05-14] MEDS: Normal Saline 1,000 ML 1000 ML IV (19:03)
[2022-05-14 19:09] LABS: Lactate 2.3 mmol/L (0.6-1.4)
[2022-05-14 19:32] LABS: ALT 168 U/L (16-63); AST 103 U/L (15-37); Albumin 3.5 g/dL (3.4-5.0); Alkaline Phosphatase 117 U/L (46-116); Anion Gap 11.2 mmol/L (3-11); BUN 22 mg/dL (7-18); Bilirubin, Total 1.4 mg/dL (0.2-1.0); CO2 26.8 mmol/L (21.0-32.0); CREATININE 1.1 mg/dL (0.70-1.30); Calcium 9.1 mg/dL (8.5-10.1); Chloride 100 mmol/L (98-107); Glucose 116 mg/dL (74-106); Lipase 36 U/L (73-393); PTT Activated 36.3 sec (21.0-27.5); Potassium 3.6 mmol/L (3.5-5.1); Prothrombin Time 19.6 sec (9.3-11.0); Sodium 138 mmol/L (136-145); Total Protein 7.8 g/dL (6.4-8.2)
[2022-05-14 19:40] LABS: Absolute Eosinophil Count 0.02 10^3/uL (0.0-0.7); Absolute Monocyte Count 1.53 10^3/uL (0.1-0.8); Absolute Neutrophil Count 16.46 10^3/uL (1.2-6.7); Diff Comment Agrees w/ Instrument
--- NOTE | 2022-05-14 20:15 | DI.CT_ITS ---
Exam(s) CT CHEST/ABD/PEL WO EXAM: CT CHEST/ABD/PEL WO CLINICAL HISTORY: fever, ?pneumonia vs cholecystitis TECHNIQUE: Imaging Protocol: Axial computed tomography images with coronal and sagittal reformatted images were created and reviewed COMPARISON: CT ABD PELVIS WITH CONTRAST from 05/18/2012 FINDINGS: The examination is limited due to patient motion artifact. CHEST: Tracheobronchial tree: Patent where visualized. Pulmonary parenchyma: No consolidation or dominant measurable mass. No architectural distortion. Mediastinum and Gillian: No dominant adenopathy or fluid collection. The esophagus is unremarkable. Thyroid gland: Unremarkable. Pleura: No effusion or pneumothorax. Heart: Moderate cardiomegaly. Coronary artery calcifications are present. No pericardial effusion. Aorta: Thoracic aorta non-dilated. Atherosclerosis is present. Lymph nodes: Within normal limits. Bones:Within normal limits for the patient's age. Right rib deformities are seen anterior laterally likely reflecting old fractures. Soft tissues: Unremarkable. ABDOMEN: Liver: There is diffuse fatty infiltration of the liver. No measurable mass. Hepatomegaly. Gallbladder and Biliary Tract: Cholelithiasis. No biliary ductal dilatation. Pancreas: Normal density, no abnormal calcifications or inflammatory process. Spleen: Normal. Adrenals: No masses seen. Kidneys: Normal size, contour and axis. No radiodense stones or obstructive uropathy. No masses seen. Abdominal Aorta: Abdominal portion non-dilated. Marked atherosclerosis. Bowel: No obstruction or bowel wall thickening. The appendix is not visualized. The large bowel is l obe predominantly fluid-filled. Peritoneal Cavity: No ascites, collection or mesenteric inflammatory response. No free air. Lymph Nodes: Within normal limits. Bones: Within normal limits for the patient's age. Unchanged sclerosis seen in the right pubic bone. Soft Tissues: Unremarkable. There is a small fat containing left paracentral anterior abdominal wall hernia. PELVIS: Bladder: Symmetric distention, no gross wall thickening. Reproductive Organs: Unremarkable as visualized. Lymph Nodes: Within normal limits. Bones: Within normal limits for the patient's age. IMPRESSION: 1. No acute pulmonary process. 2. Cholelithiasis. No definite biliary ductal dilatation. There is patient motion artifact which do es limit the evaluation. If there is continued clinical concern, ultrasound may be indicated. 3. Hepatomegaly and hepatic steatosis. RADIATION DOSE DELIVERED: 2,152.27mGy.cm Total DLP 2,152.27mGy.cm Total DLP DATA REPOSITORY: All CT scans at this facility are submitted to the National Radiology Data Registry (NRDR) Dose Index Registry (DIR) with the [employer] (A[employer]). RADIATION OPTIMIZATION: All CT scans at this facility use at least one of these dose optimization te chniques: automated exposure control; mA and/or kV adjustment per patient size (includes targeted exa ms where dose is matched to clinical indication); or iterative reconstruction.
[2022-05-14 20:57] LABS: COVID-19 PCR Negative (Negative)
[2022-05-14 20:58] LABS: Source Nasopharynx
[2022-05-14 21:19] LABS: Influenza A PCR Negative (Negative); Influenza B PCR Negative (Negative); RSV PCR Negative (Negative)
[2022-05-14] MEDS: CIPROFLOXACIN 400 MG/200 ML BAG 200 MG IVPB (21:51)
[2022-05-14] MEDS: metroNIDAZOLE 500 MG/100 ML BAG 100 MG IVPB (21:59)
--- NOTE | 2022-05-14 22:07 | DI.VRAD_ITS ---
PROCEDURE INFORMATION: Exam: CT Chest Without Contrast; Diagnostic Exam date and time: 05/14/2022 9:00 PM Age: 67 years old Clinical indication: Patient HX: Fever, ? pneumonia vs cholecystitis TECHNIQUE: Imaging protocol: Diagnostic computed tomography of the chest without contrast. COMPARISON: CR XR shoulder LT comp post reduc 01/20/2019 3:34 PM FINDINGS: Lungs: No infiltrates. No mass lesion or nodule seen. Pleural spaces: Unremarkable. No pneumothorax. No pleural effusion. Heart: Atherosclerotic calcifications seen in coronary arteries. Mild cardiomegaly. Lymph nodes: Unremarkable. No enlarged lymph nodes. Vasculature: Unremarkable. No aortic aneurysm. Bones/joints: Unremarkable. No acute fracture. Soft tissues: Unremarkable. IMPRESSION: No infiltrates are seen in the lungs to suggest pneumonia. No evidence of acute pathology. Atherosclerotic calcifications are seen in coronary arteries with mild cardiomegaly. PROCEDURE INFORMATION: Exam: CT Abdomen And Pelvis Without Contrast Exam date and time: 05/14/2022 9:00 PM Age: 67 years old Clinical indication: Patient HX: Fever, ? pneumonia vs cholecystitis TECHNIQUE: Imaging protocol: Computed tomography of the abdomen and pelvis without contrast. COMPARISON: MRI - LUMBAR SPINE WO CONTRAST 06/12/2015 10:38 PM FINDINGS: Liver: Liver is enlarged with diffuse fatty changes in the liver parenchyma. Liver measures 30.0 x 13.8 cm. Gallbladder and bile ducts: Multiple stones are seen in the gallbladder. Gallbladder is partially contracted and there is significant motion related artifact overlying the gallbladder at the time of imaging. Evaluation for gallbladder wall thickening or pericholecystic fluid is very limited. Pancreas: Normal. No ductal dilation. Spleen: Normal. No splenomegaly. Adrenal glands: Normal. No mass. Kidneys and ureters: Normal. No hydronephrosis. Stomach and bowel: Fluid filled large bowel. No areas of wall thickening in the large bowel. No evidence of large bowel obstruction. No pericolonic inflammatory changes to suggest acute diverticulitis. Stomach is unremarkable. Appendix: No evidence of appendicitis. Intraperitoneal space: Unremarkable. No free air. No significant fluid collection. Vasculature: Moderate atherosclerotic disease in the aorta. No significant aneurysmal dilatation. Lymph nodes: Unremarkable. No enlarged lymph nodes. Urinary bladder: Unremarkable as visualized. Reproductive: Unremarkable as visualized. Bones/joints: Unremarkable. No acute fracture. Soft tissues: Unremarkable. IMPRESSION: 1. Multiple stones are seen in the gallbladder. There is suboptimal evaluation of gallbladder wall for gallbladder pathology secondary to significant motion related artifact at the time of imaging. Recommend ultrasound for more detailed evaluation if there is clinical concern for acute cholecystitis and further imaging evaluation is needed. 2. Hepatomegaly with fatty changes in the liver. 3. Fluid filled large bowel. Dictated and Authenticated by: Sage Ashby MD. Ordering:KARTHIKEYAN Baltazar MD
[2022-05-14] MEDS: Normal Saline 1,000 ML 150 ML IV (23:34)
[2022-05-15] VITALS (11 sets, daily range): BP systolic 111–133; BP diastolic 57–77; PULSE 49–69; RESP 18–26; TEMP 36.6–38.6; O2SAT 88–96
[2022-05-15] MEDS: Acetaminophen 500 MG TAB 1000 MG PO (01:10)
[2022-05-15] MEDS: Ondansetron 4 MG/2 ML VIAL IVP (01:16)
[2022-05-15] MEDS: Normal Saline 1,000 ML 150 ML IV (06:05)
[2022-05-15] MEDS: Lactated Ringers 1,000 ML 125 ML IV (07:43)
[2022-05-15 07:59] LABS: Abs Immature Grans 0.11 10^3/uL (0.0-0.06); Absolute Basophil Count 0.03 10^3/uL (0.0-0.2); Absolute Eosinophil Count 0.03 10^3/uL (0.0-0.7); Absolute Lymphocyte Count 0.46 10^3/uL (1.2-3.4); Absolute Monocyte Count 1.07 10^3/uL (0.1-0.8); Basophils % 0.2; Eosinophils % 0.2; HCT 39.2 % (40.0-50.0); HGB 13.2 g/dL (13.5-17.5); Immature Grans % 0.8; Lymphocytes % 3.5; MCHC 33.7 % (32.0-36.0); MCV 95 fL (80-95); MPV 10.8 fL (8.0-11.0); Monocytes % 8.2; Neutrophils % 87.1; Platelet Count 144 10^3/uL (130-400); RBC 4.13 10^6/uL (4.36-5.78); RDW 12.9 % (11.8-14.1); WBC 13.01 10^3/uL (4.4-10.8)
[2022-05-15] MEDS: Enoxaparin 40 MG/0.4 ML SYR SC (07:59)
[2022-05-15] MEDS: amLODIPine 10 MG TAB PO (07:59)
[2022-05-15] MEDS: Pantoprazole 40 MG VIAL IVP (07:59)
[2022-05-15] MEDS: Atenolol 50 MG TAB 100 MG PO (08:04)
[2022-05-15] MEDS: Allopurinol 300 MG TAB PO (08:05)
[2022-05-15] MEDS: Furosemide 40 MG TAB 80 MG PO (08:05)
[2022-05-15 08:06] LABS: Absolute Neutrophil Count 11.33 10^3/uL (1.2-6.7)
[2022-05-15 08:18] LABS: ALT 159 U/L (16-63); AST 89 U/L (15-37); Albumin 2.8 g/dL (3.4-5.0); Alkaline Phosphatase 97 U/L (46-116); Anion Gap 8.9 mmol/L (3-11); BUN 23 mg/dL (7-18); Bilirubin, Total 0.9 mg/dL (0.2-1.0); CO2 27.1 mmol/L (21.0-32.0); Calcium 8.2 mg/dL (8.5-10.1); Chloride 106 mmol/L (98-107); Glucose 126 mg/dL (74-106); Potassium 3.5 mmol/L (3.5-5.1); Sodium 142 mmol/L (136-145); Total Protein 6.7 g/dL (6.4-8.2)
[2022-05-15] MEDS: metroNIDAZOLE 500 MG/100 ML BAG 100 MG IVPB ×3 (09:18→20:08)
[2022-05-15 09:37] LABS: Bilirubin Negative (Negative); Blood Negative (Negative); Clarity Clear (Clear); Glucose Negative (Negative); Ketones Negative (Negative); Leukocyte Esterase Negative (Negative); Nitrite Negative (Negative); Specific Gravity 1.025 (1.005-1.025); Urobilinogen 0.2 EU/dL (Up TO 0.2)
--- NOTE | 2022-05-15 10:02 | INITIAL_ITS ---
- If Service Date Differs Date of service: 05/15/22 Time of Service: 10:03 Care Management Initial Assess REASON FOR HOSPITALIZATION:: cholecystitis PAST MEDICAL HISTORY/PAST SURGICAL HISTORY:: All Active Problems. Fever (Acute). Elevated LFTs (Acute). Leukocytosis (Acute). Elevated INR (Acute). Bleeding from wound (Acute). Hypertension (Chronic). Atrial fibrillation (Chronic). Medical History. Bilateral leg edema. BMI 50.0-59.9, adult. Erectile dysfunction. Gout. Peripheral neuropathy. Prediabetes. Psoriasis. Shoulder dislocation PREVIOUS FUNCTIONAL STATUS/SOCIAL/FAMILY SUPPORTS:: Hunter lives in [facility] th his girlfriend, Suri. They have separate houses, but spend all of their time together, between the two houses. He is retired from working at [employer], but keeps himself busy working on his property. He grew up in [place] with 8 siblings on a farm, and is close with his family. His children are grown up and live locally. He has friends and family to support him if needed, but he is very independent. CURRENT FUNCTIONAL STATUS:: Hunter was sitting up in bed when CM met with him. He stated that he is feeling a lot better today, but was very worried about how high his fever was yesterday when he arrived at the ED. He stated that per MD, he will have an ultrasound tomorrow, and may be ready for discharge. He stated that he does not have prescription coverage, and pays out of pocket for all of his meds. CM sent a referral to [employer] to assist with prescription coverage. CM will continue to follow. ADVANCE DIRECTIVES:: None on file. Has patient been provided with info about the portal/API?: Yes Did the patient sign up for the portal?: No CODE STATUS:: Full Code INSURANCE COVERAGE / FINANCIAL ISSUES:: [facility]/ [employer] CURRENT HOME/COMMUNITY SERVICES/EQUIPMENT:: None PRIMARY CARE PHYSICIAN:: Kimberly Stout POTENTIAL DISCHARGE NEEDS:: Follow up appointments. PATIENT/FAMILY EDUCATION NEEDS:: Review discharge instructions and limitations, discussion of self care needs including ask me three. ANTICIPATED BARRIERS TO DISCHARGE:: None identified. TRANSPORTATION:: Via private vehicle PLAN:: Anticipate Hunter will return home when medically cleared. He will be driven home via private vehicle by a friend vs RCT. He will follow up with his PCP and discharge plan of care. CM will continue to follow.
--- NOTE | 2022-05-15 10:30 | HPE_ITS ---
Date of service: 05/15/22 Time of Service: 10:30 Assessment and Plan Assessment and plan (1) Fever: Status: Acute Assessment and plan: Unknown source (2) Elevated LFTs: Status: Acute Assessment and plan: Improving (3) Leukocytosis: Status: Acute Assessment and plan: 67 year old male with fevers, leukocytosis, roiggors and slight elevation of his LFTs. CT showed Gallstones. There are no signs of inflammation on the CT scan. He has never had any pain. He has lost some weight intentionally over the last year. I doubt that this is cholecystitis. ? viral vs bacterial infection Blood Cx are pending- will continue Abx until Blood Cx are back P: Diet: Heart Healthy until midnight then NPO Activity: Up and walk tid US tomorrow If US negative and blood Cx negative then will D/C to home and follow up with PCP (4) Atrial fibrillation: Status: Chronic Assessment and plan: On his meds and Lovenox (5) Hypertension: Status: Chronic History of Present Illness Narrative: Mr. Ortiz is a pleasant 67 year old male who came to the ER complaining of riggors, headache, sweats and fevers. Denies abdominal pain, N/V, changes in bowel habits or unrinary symptoms. Workup in the ER revealed a leukocytosis of >18, fever of 103.8. CT scan done of the chest/abdo/ pelvis showed Gallstones. I was called to admit patient for cholecystitis. Patient has no symptoms of cholecystitis. He was started on Cipro and Flagyl and Leukocytosis has improved. LFTs were slightly elevated and also have improved overnight with hydration. His PMHx is significant for Afib for which he is on Coumadin. His HR is well controlled. He is obese, per patient and girlfriend he has lost more the 70 lb over the last year and his HgA1C is now normal. Review of Systems Constitutional Constitutional: Reports as per HPI Eyes Eyes: Denies change in vision ENT Ears, Nose, Mouth, and Throat: Reports system reviewed and no additional complaints, except as documented and Reports change in voice Cardiovascular Cardiovascular: Denies chest pain, Denies chest pain at rest, Denies irregular heart rhythm, Denies palpitations and Denies dyspnea Respiratory Respiratory: Denies cough and Denies dyspnea Gastrointestinal Gastrointestinal: Denies abdominal pain, Denies bloating, Denies change in bowel habits, Denies constipation, Denies dyspepsia, Denies heartburn, Denies diarrhea, Denies nausea and Denies vomiting Genitourinary Genitourinary: Denies oliguria, Denies difficulty urinating, Denies dysuria, Denies urinary frequency and Denies urinary incontinence Musculoskeletal Musculoskeletal: Reports system reviewed and no additional complaints, except as documented Integumentary/Breasts Skin/Breast: Reports system reviewed and no additional complaints, except as documented Neurologic Neurologic: Reports system reviewed and no additional complaints, except as documented Psychiatric Psychiatric: Reports system reviewed and no additional complaints, except as documented Endocrine Endocrine: Reports system reviewed and no additional complaints, except as documented and Denies palpitations Hematologic/Lymphatic Hematologic/Lymphatic: Reports system reviewed and no additional complaints, except as documented PFSH All Active Problems Fever (Acute) Elevated LFTs (Acute) Leukocytosis (Acute) Elevated INR (Acute) Bleeding from wound (Acute) Hypertension (Chronic) Atrial fibrillation (Chronic) Medical History Bilateral leg edema BMI 50.0-59.9, adult Erectile dysfunction Gout Peripheral neuropathy Prediabetes Psoriasis Shoulder dislocation Social History Smoking/Tobacco Use Status: Never Smoking risk assessment performed?: Yes Alcohol Intake: current Alcohol Intake frequency: a few times a week Alcohol type: beer Drug use: Never Substance use type: does not use Household members: none Housing: house Communication Needs: Hard of Hearing Pets and animals: No What type of physical activity do you participate in: independent ambulation Do you feel safe at home: Yes Do you feel safe in your relationship?: Yes Meds Allergies and Home Medications Allergies Allergy/AdvReac Type Severity Reaction Status Date / Time ampicillin Allergy Unknown rash,bliste Unverified 05/14/22 18:02 rs lisinopril AdvReac Unknown cough Unverified 05/14/22 18:02 losartan [Losartan] AdvReac Unknown leg cramps Unverified 05/14/22 18:02 Home Medications Medication Instructions Recorded Confirmed Type allopurinol 300 mg tablet 300 mg PO DAILY 08/18/14 05/14/22 History atenolol 100 mg tablet 100 mg PO DAILY 08/18/14 05/14/22 History calcipotriene 0.005 % scalp 60 ml topical BID PRN 08/18/14 05/14/22 History solution diphenhydramine HCl 12.5 mg/5 mL 25 mg PO Q4H PRN 08/18/14 05/14/22 History oral liquid amlodipine 10 mg tablet 10 mg PO DAILY 01/02/20 05/14/22 History furosemide 40 mg tablet 80 mg PO DAILY 01/02/20 05/14/22 History warfarin 5 mg tablet 5 mg PO DAILY #90 tabs 12/21/21 05/14/22 Rx Exam Const General: cooperative, healthy appearing, comfortable and no acute distress Nutritional Appearance: obese Orientation: alert and oriented x3 HENMT Head: normocephalic and atraumatic Eyes Pupils: PERRL Resp Effort & Inspection: normal respiratory effort Auscultation: clear to auscultation bilaterally Cardio Rate: regular rate Rhythm: regular rhythm Heart Sounds: no gallops, no murmurs and no rubs GI Inspection: large pannus Palpation: soft, no hernias, no masses and nontender Auscultation: normal bowel sounds Rectal Exam: deferred Male General Exam: Yes normal external exam Skin Other: No open wounds noted anywhere Has some scabs on his bilateral lower extremities Groins- Left groin with redness in the fold- looks fungal Extrem Other: Lower extremities- venous stasis changes noted. No edema Results Labs Result diagrams: 05/15/22 07:50 05/15/22 07:50 Labs: Laboratory Results - last 24 hr 05/14/22 05/14/22 05/14/22 18:30 18:30 18:30 WBC 18.62 H RBC 4.56 Hgb 14.5 Hct 42.0 MCV 92 MCH 31.8 MCHC 34.5 RDW 12.7 Plt Count 185 MPV 11.4 H Immature Gran % 0.8 Neutrophils % 88.4 Lymphocytes % 2.2 Monocytes % 8.2 Eosinophils % 0.1 Basophils % 0.3 Nucleated RBC % 0.0 Absolute Neutrophils 16.46 H Absolute Lymphocytes 0.41 L Absolute Monocytes 1.53 H Absolute Eosinophils 0.02 Absolute Basophils 0.06 PT 19.6 H INR 2.0 H APTT 36.3 H VBG Lactate Sodium 138 Potassium 3.6 Chloride 100 Carbon Dioxide 26.8 Anion Gap 11.2 H BUN 22 H Creatinine 1.1 Estimated GFR/1.73 m2 >= 60.00 Glucose 116 H Calcium 9.1 Total Bilirubin 1.4 H AST 103 H ALT 168 H Alkaline Phosphatase 117 H Total Protein 7.8 Albumin 3.5 Lipase 36 Urine Color Urine Clarity Urine pH Ur Specific [place] Urine Protein Urine Ketones Urine Blood Urine Nitrite Urine Bilirubin Urine Urobilinogen Ur Leukocyte Esterase Urine Glucose COVID-19 Source SARS-CoV-2 (PCR) Influenza Type A (PCR) Influenza Type B (PCR) RSV (PCR) 05/14/22 05/14/22 05/15/22 18:30 18:50 07:50 WBC RBC Hgb Hct MCV MCH MCHC RDW Plt Count MPV Immature Gran % Neutrophils % Lymphocytes % Monocytes % Eosinophils % Basophils % Nucleated RBC % Absolute Neutrophils Absolute Lymphocytes Absolute Monocytes Absolute Eosinophils Absolute Basophils PT INR APTT VBG Lactate 2.3 H* Sodium 142 Potassium 3.5 Chloride 106 Carbon Dioxide 27.1 Anion Gap 8.9 BUN 23 H Creatinine 1.0 Estimated GFR/1.73 m2 >= 60.00 Glucose 126 H Calcium 8.2 L Total Bilirubin 0.9 AST 89 H ALT 159 H Alkaline Phosphatase 97 Total Protein 6.7 Albumin 2.8 L Lipase Urine Color Urine Clarity Urine pH Ur Specific [place] Urine Protein Urine Ketones Urine Blood Urine Nitrite Urine Bilirubin Urine Urobilinogen Ur Leukocyte Esterase Urine Glucose COVID-19 Source Nasopharynx SARS-CoV-2 (PCR) Negative Influenza Type A (PCR) Negative Influenza Type B (PCR) Negative RSV (PCR) Negative 05/15/22 05/15/22 07:50 09:22 WBC 13.01 H RBC 4.13 L Hgb 13.2 L Hct 39.2 L MCV 95 MCH 32.0 MCHC 33.7 RDW 12.9 Plt Count 144 MPV 10.8 Immature Gran % 0.8 Neutrophils % 87.1 Lymphocytes % 3.5 Monocytes % 8.2 Eosinophils % 0.2 Basophils % 0.2 Nucleated RBC % 0.0 Absolute Neutrophils 11.33 H Absolute Lymphocytes 0.46 L Absolute Monocytes 1.07 H Absolute Eosinophils 0.03 Absolute Basophils 0.03 PT INR APTT VBG Lactate Sodium Potassium Chloride Carbon Dioxide Anion Gap BUN Creatinine Estimated GFR/1.73 m2 Glucose Calcium Total Bilirubin AST ALT Alkaline Phosphatase Total Protein Albumin Lipase Urine Color Yellow Urine Clarity Clear Urine pH 6.0 Ur Specific [place] 1.025 Urine Protein Negative Urine Ketones Negative Urine Blood Negative Urine Nitrite Negative Urine Bilirubin Negative Urine Urobilinogen 0.2 Ur Leukocyte Esterase Negative Urine Glucose Negative COVID-19 Source SARS-CoV-2 (PCR) Influenza Type A (PCR) Influenza Type B (PCR) RSV (PCR) Last Vital Signs Temp 97.9 F 05/15/22 07:19 Pulse 65 05/15/22 08:05 Resp 18 05/15/22 07:19 BP 122/76 05/15/22 07:19 Pulse Ox 95 05/15/22 07:19
[2022-05-15] MEDS: CIPROFLOXACIN 400 MG/200 ML BAG 200 MG IVPB ×2 (10:33→21:53)
[2022-05-15 10:50] LABS: INR 1.9 (0.9-1.1); Prothrombin Time 18.3 sec (9.3-11.0)
[2022-05-15] MEDS: Normal Saline Flush 10 ML SYR IVP ×2 (20:08→22:08)
[2022-05-15] MEDS: Nystatin POWDER 60 GM JAR TP (21:53)
[2022-05-15] MEDS: Normal Saline 500 ML 30 ML IV (21:53)
--- NOTE | 2022-05-16 | DI.US_ITS ---
Exam(s) US ABDOMEN LIMITED EXAM: US ABDOMEN LIMITED CLINICAL HISTORY: Abdominal pain, fevers TECHNIQUE: Ultrasound abdomen performed using standard protocol. COMPARISON: US US ECHOCARDIOGRAM from 01/14/[address] CHEST/ABD/PEL WO from 05/14/2022 FINDINGS: There is no ascites evident. LIVER: Liver is hyperechoic indicating steatosis. There are no discrete focal hepatic lesions GALLBLADDER/BILIARY: There are multiple small gallstones. No obvious gallbladder wall edema. No per icholecystic fluid. The common hepatic duct isnot dilated, measuring 4-5mm at the level of paz hepatis. PANCREAS: There is no evidence of pancreatic mass nor dilatation of the pancreatic duct. RIGHT KIDNEY:No evidence of solid mass, calculus, nor hydronephrosis. No cortical cysts evident. IMPRESSION: 1. Cholelithiasis. There are multiple layering gallstones in the gallbladder, consistent with what is seen on recent CT scan. Gallbladder wall does not appear edematous and there is no pericholecysti c fluid. There is no dilatation of the common hepatic duct which measures 4.6 millimeters. 2. Liver is hyperechoic indicating steatosis. No discrete focal hepatic lesions identified. 3. No ascites nor other significant right upper quadrant ultrasound findings. DATA REPOSITORY:
[2022-05-16 00:01] VITALS: BP 138/73; PULSE 58; RESP 18; TEMP 37.2; O2SAT 98
[2022-05-16] MEDS: metroNIDAZOLE 500 MG/100 ML BAG 100 MG IVPB ×2 (01:09→07:58)
[2022-05-16 03:48] VITALS: BP 126/71; PULSE 57; RESP 18; TEMP 36.5; O2SAT 92
[2022-05-16] MEDS: Lactated Ringers 1,000 ML 125 ML IV (05:53)
[2022-05-16] MEDS: Normal Saline Flush 10 ML SYR IVP ×2 (05:54→08:23)
[2022-05-16 07:22] LABS: Abs Immature Grans 0.08 10^3/uL (0.0-0.06); Absolute Basophil Count 0.03 10^3/uL (0.0-0.2); Absolute Eosinophil Count 0.31 10^3/uL (0.0-0.7); Absolute Lymphocyte Count 0.83 10^3/uL (1.2-3.4); Absolute Monocyte Count 1.03 10^3/uL (0.1-0.8); Basophils % 0.4; HCT 36.8 % (40.0-50.0); HGB 12.5 g/dL (13.5-17.5); Lymphocytes % 10.8; MCH 32.2 pg (27.0-33.0); MCV 95 fL (80-95); MPV 11.1 fL (8.0-11.0); Monocytes % 13.4; Neutrophils % 70.4; Platelet Count 148 10^3/uL (130-400); RBC 3.88 10^6/uL (4.36-5.78); RDW 12.8 % (11.8-14.1); RDW-SD 44.1 fL; WBC 7.68 10^3/uL (4.4-10.8)
[2022-05-16 07:53] LABS: ALT 146 U/L (16-63); AST 70 U/L (15-37); Albumin 2.8 g/dL (3.4-5.0); Alkaline Phosphatase 98 U/L (46-116); Anion Gap 9.3 mmol/L (3-11); BUN 16 mg/dL (7-18); Bilirubin, Total 0.6 mg/dL (0.2-1.0); CO2 27.7 mmol/L (21.0-32.0); CREATININE 0.8 mg/dL (0.70-1.30); Calcium 8.4 mg/dL (8.5-10.1); Chloride 106 mmol/L (98-107); Glucose 119 mg/dL (74-106); Magnesium 1.6 mg/dL (1.8-2.4); Potassium 3.5 mmol/L (3.5-5.1); Sodium 143 mmol/L (136-145); Total Protein 6.5 g/dL (6.4-8.2)
[2022-05-16] MEDS: Furosemide 40 MG TAB 80 MG PO (07:56)
[2022-05-16] MEDS: Atenolol 50 MG TAB 100 MG PO (07:56)
[2022-05-16] MEDS: amLODIPine 10 MG TAB PO (07:57)
[2022-05-16] MEDS: Enoxaparin 40 MG/0.4 ML SYR SC (07:57)
[2022-05-16] MEDS: Nystatin POWDER 60 GM JAR TP (07:59)
--- NOTE | 2022-05-16 08:12 | PGE_ITS ---
Date of Service Date of service: 05/16/22 Time of Service: 08:12 Assessment and Plan Assessment and plan (1) Fever: Status: Acute Assessment and plan: Unknown source (2) Elevated LFTs: Status: Acute Assessment and plan: Improving (3) Leukocytosis: Status: Acute Assessment and plan: Patient reports all of his symptoms have resolved and he is feeling much better. Ultrasound this morning N.p.o. until after the ultrasound Encourage activity out of bed, ambulation and sitting in the chair. Will reassess labs and ultrasound results if patient continues to improve will discharge home later today. Pt was d/c'ed home by Dr. Velasquez (4) Atrial fibrillation: Status: Chronic Assessment and plan: On his meds and Lovenox (5) Hypertension: Status: Chronic Subjective Subjective Interval history since last seen: Arrived with the patient sitting comfortably at the edge of bed. Patient denies having any abdominal pain, nausea or vomiting. Patient states he feels great and his feels better than he has in the past several days. Patient verbalized understanding that he is n.p.o. until after he has the ultrasound. Exam Const General: cooperative, healthy appearing and comfortable Orientation: alert and oriented x3 Resp Effort & Inspection: normal respiratory effort, no audible wheezes and no cough GI Inspection: normal to inspection Palpation: soft, no guarding and nontender Auscultation: normal bowel sounds Objective Last Vital Signs Temp 36.5 C 05/16/22 03:48 Pulse 57 L 05/16/22 03:48 Resp 18 05/16/22 03:48 BP 126/71 05/16/22 03:48 Pulse Ox 92 05/16/22 03:48 Laboratory Results - last 24 hr 05/15/22 05/15/22 05/15/22 07:50 09:22 10:10 WBC RBC Hgb Hct MCV MCH MCHC RDW Plt Count MPV Immature Gran % Neutrophils % Lymphocytes % Monocytes % Eosinophils % Basophils % Nucleated RBC % Absolute Neutrophils Absolute Lymphocytes Absolute Monocytes Absolute Eosinophils Absolute Basophils PT 18.3 H INR 1.9 H Sodium 142 Potassium 3.5 Chloride 106 Carbon Dioxide 27.1 Anion Gap 8.9 BUN 23 H Creatinine 1.0 Estimated GFR/1.73 m2 >= 60.00 Glucose 126 H Calcium 8.2 L Magnesium Total Bilirubin 0.9 AST 89 H ALT 159 H Alkaline Phosphatase 97 Total Protein 6.7 Albumin 2.8 L Urine Color Yellow Urine Clarity Clear Urine pH 6.0 Ur Specific [place] 1.025 Urine Protein Negative Urine Ketones Negative Urine Blood Negative Urine Nitrite Negative Urine Bilirubin Negative Urine Urobilinogen 0.2 Ur Leukocyte Esterase Negative Urine Glucose Negative 05/16/22 05/16/22 07:12 07:12 WBC 7.68 RBC 3.88 L Hgb 12.5 L Hct 36.8 L MCV 95 MCH 32.2 MCHC 34.0 RDW 12.8 Plt Count 148 MPV 11.1 H Immature Gran % 1.0 Neutrophils % 70.4 Lymphocytes % 10.8 Monocytes % 13.4 Eosinophils % 4.0 Basophils % 0.4 Nucleated RBC % 0.0 Absolute Neutrophils 5.40 Absolute Lymphocytes 0.83 L Absolute Monocytes 1.03 H Absolute Eosinophils 0.31 Absolute Basophils 0.03 PT INR Sodium 143 Potassium 3.5 Chloride 106 Carbon Dioxide 27.7 Anion Gap 9.3 BUN 16 Creatinine 0.8 Estimated GFR/1.73 m2 >= 60.00 Glucose 119 H Calcium 8.4 L Magnesium 1.6 L Total Bilirubin 0.6 AST 70 H ALT 146 H Alkaline Phosphatase 98 Total Protein 6.5 Albumin 2.8 L Urine Color Urine Clarity Urine pH Ur Specific [place] Urine Protein Urine Ketones Urine Blood Urine Nitrite Urine Bilirubin Urine Urobilinogen Ur Leukocyte Esterase Urine Glucose
[2022-05-16] MEDS: Pantoprazole 40 MG VIAL IVP (08:23)
[2022-05-16 08:27] VITALS: BP 142/90; PULSE 60; RESP 18; TEMP 36.4; O2SAT 97
[2022-05-16] MEDS: Allopurinol 300 MG TAB PO (11:29)
[2022-05-16] MEDS: CIPROFLOXACIN 400 MG/200 ML BAG 200 MG IVPB (11:30)
[2022-05-16 11:54] VITALS: BP 138/86; PULSE 71; RESP 18; TEMP 36.6; O2SAT 95
[2022-05-16 12:28] LABS: Lyme Ab w Rflx to Lyme Confirm Negative (Negative)
--- NOTE | 2022-05-16 12:57 | W.PM.DS.N ---
Date of service: 05/16/22 Time of Service: 13:06 DS: Diagnosis Discharge Diagnosis (1) Fever: Status: Acute (2) Elevated LFTs: Status: Acute (3) Leukocytosis: Status: Acute (4) Atrial fibrillation: Status: Chronic (5) Hypertension: Status: Chronic Discharge Plan Disposition Patient Disposition: HOME Condition: Stable Discharge Details Reason For Visit: Cholecystitis Admit Date/Time: 05/14/22 22:18 Admit Provider: Yolanda Velasquez Attending Provider: Yolanda Velasquez [facility]: Hunter is a pleasant 67 year old male admitted on Monday evening with riggors, fevers and headache. He had a leukocytosis and gallstones on his CT scan. He never complained of abdominal pain, N/V or changes in bowel habits. US on Monday showed Stones as well but no pericholecystic fluid, wall thickening or inflammatory changes. He has been able to eat. One of 2 blood cultures was positive for Gram Positive cocci in chains. ? Contaminant. I will d/c him home on Cipro and flagyl to finish out a 7 day course of antibiotics. I am not sure were the infection was. Home Meds and New Rx's Prescriptions: New ciprofloxacin HCl [Cipro] 500 mg tablet 500 mg PO Q12H Qty: 10 0RF metronidazole 500 mg tablet 500 mg PO TID Qty: 15 0RF nystatin 100,000 unit/gram Powder 1 applic topical BID Qty: 60 5RF Continued amlodipine 10 mg tablet 10 mg PO DAILY furosemide 40 mg tablet 80 mg PO DAILY diphenhydramine HCl 12.5 MG/5 ML liquid 25 mg PO Q4H PRN Label Comments: 09/05/14- took about 1 month ago atenolol 100 MG tablet 100 mg PO DAILY allopurinol 300 MG tablet 300 mg PO DAILY calcipotriene 60 ML solution 60 ml Topical BID PRN Label Comments: 09/05/14- pt has not used for about 1 month.KL warfarin 5 mg tablet 5 mg PO DAILY Qty: 90 3RF Discharge Instructions Additional Instructions: Activity at Home after surgery: 1. As tolerated Diet, Nutrition, & wound healin. Heart Healthy New Medicaqtions; Antibiotics- Cipro and Flagyl. Take until finished Anti-fungal powder For Constipation: 1. Take Milk of Magnesia or MiraLax as needed for constipation Other: 1. You may shower daily. Do not scrub the incisions 2. Do not soak the incisions for 1 week 3. You may alternate ice and heat as needed for pain and swelling Please call our office if you develop: 1. Fevers >101.5 2. Nausea or Vomiting 3. Worsening pain 4. Redness and thick discharge from the wounds If after hours please call the Hospital at and ask to speak to the on-call surgeon Referrals: Kimberly Stout [Primary Care Provider] - (7-10 days ) Activity:: Activity as Tolerated Equipment/Supplies:: No Equipment Needed Diet:: As Tolerated DS: Summary Time Spent with Patient providing and/or coordinating discharge services: Greater than 30 minutes Status at Discharge Functional status at discharge: independent ambulation Overall status at discharge: patient is back to baseline Mental Status: mental status grossly normal Speech and Movement: speech and movement normal Mood: congruent mood Affect: normal affect Exam Psych Mental Status: mental status grossly normal Speech and Movement: speech and movement normal Mood: congruent mood Affect: normal affect DS: Data Vitals/I&O Vitals and I&O: Vital Signs Temperature 97.9 F 05/16/22 11:54 Temperature Source Tympanic 05/16/22 11:54 Pulse 71 05/16/22 11:54 Pulse Rhythm Regular 05/16/22 07:35 Pulse 63 05/14/22 20:53 Respiratory Rate 18 05/16/22 11:54 Respiratory Effort Non-Labored 05/16/22 07:35 Respiratory Depth Normal 05/16/22 07:35 Respiratory Pattern Normal 05/16/22 07:35 Blood Pressure 138/86 05/16/22 11:54 Blood Pressure Mean 100 05/14/22 20:36 Blood Pressure Position Supine 05/14/22 17:59 Pulse Oximetry 95 05/16/22 11:54 Oxygen Delivery Method Room Air 05/16/22 11:54 Oxygen Flow Rate 0 05/16/22 11:54 Pain Level 0 05/16/22 11:54 Intake & Output 05/15/22 05/16/22 05/16/22 23:59 11:59 23:59 Intake Total 682.5 / 2554.583 242 / 242 Output Total 600 / 600 Balance 82.5 / 1954.583 242 / 242 Weight 304 lb 0.279 oz Intake: IV 442.5 / 2314.583 242 / 242 Oral 240 / 240 Output: Urine 600 / 600 Other: Urine Appearance Clear Comment voided in toilet Voiding Methods Toilet Toilet Data Completed and Pending Labs on day of discharge: Labs from last 24 hours 05/16/22 05/16/22 05/16/22 11:37 11:37 07:12 WBC 7.68 RBC 3.88 L Hgb 12.5 L Hct 36.8 L MCV 95 MCH 32.2 MCHC 34.0 RDW 12.8 Plt Count 148 MPV 11.1 H Immature Gran % 1.0 Neutrophils % 70.4 Lymphocytes % 10.8 Monocytes % 13.4 Eosinophils % 4.0 Basophils % 0.4 Nucleated RBC % 0.0 Absolute Neutrophils 5.40 Absolute Lymphocytes 0.83 L Absolute Monocytes 1.03 H Absolute Eosinophils 0.31 Absolute Basophils 0.03 PT Cancelled INR Cancelled Sodium Potassium Chloride Carbon Dioxide Anion Gap BUN Creatinine Estimated GFR/1.73 m2 Glucose Calcium Magnesium Total Bilirubin AST ALT Alkaline Phosphatase Total Protein Albumin Patient ABO/Rh Cancelled 05/16/22 07:12 WBC RBC Hgb Hct MCV MCH MCHC RDW Plt Count MPV Immature Gran % Neutrophils % Lymphocytes % Monocytes % Eosinophils % Basophils % Nucleated RBC % Absolute Neutrophils Absolute Lymphocytes Absolute Monocytes Absolute Eosinophils Absolute Basophils PT INR Sodium 143 Potassium 3.5 Chloride 106 Carbon Dioxide 27.7 Anion Gap 9.3 BUN 16 Creatinine 0.8 Estimated GFR/1.73 m2 >= 60.00 Glucose 119 H Calcium 8.4 L Magnesium 1.6 L Total Bilirubin 0.6 AST 70 H ALT 146 H Alkaline Phosphatase 98 Total Protein 6.5 Albumin 2.8 L Patient ABO/Rh Preliminary micro results at discharge 05/14/22 19:10 Blood Culture - Preliminary Blood Enterococcus Species 05/14/22 19:10 Blood Culture - Preliminary Blood NO GROWTH 24 HOURS PFSH All Active Problems Fever (Acute) Elevated LFTs (Acute) Leukocytosis (Acute) Elevated INR (Acute) Bleeding from wound (Acute) Hypertension (Chronic) Atrial fibrillation (Chronic) Medical History Bilateral leg edema BMI 50.0-59.9, adult Erectile dysfunction Gout Peripheral neuropathy Prediabetes Psoriasis Shoulder dislocation Social History Smoking/Tobacco Use Status: Never Smoking risk assessment performed?: Yes Alcohol Intake: current Alcohol Intake frequency: a few times a week Alcohol type: beer Drug use: Never Substance use type: does not use Household members: none Housing: house Communication Needs: Hard of Hearing Pets and animals: No What type of physical activity do you participate in: independent ambulation Do you feel safe at home: Yes Do you feel safe in your relationship?: Yes
--- NOTE | 2022-05-16 17:28 | PDOC.CMDIS ---
- If Service Date Differs Date of service: 05/16/22 Time of Service: 17:28 LACE Index Scoring Tool - Questions: Length of Stay (in days): 2 Acuity (Admit via E.D.?): Yes E.D. Visits: 1 - Answers: Total Score: 6 Risk of Readmission: Low Risk Care Management Discharge Reason for Hospitalization: cholecystitis Discharge Plan: Hunter returned home today with no new services. His girlfriend drove him home via private vehicle. He will follow up with his PCP and discharge plan of care. He is happy to be going home. Patient/Family Education Needs: Review discharge instructions and limitations, discussion of self care needs including ask me three.
[2022-05-18 12:00] LABS: Anaplasma phagocytophilum Negative (Negative); B. miyamotoi PCR Negative (Negative); Babesia divergens/MO-1 Negative (Negative); Babesia duncani Negative (Negative); Babesia microti Negative (Negative); Ehrlichia chaffeensis Negative (Negative); Ehrlichia ewingii/canis Negative (Negative); Ehrlichia muris eauclairensis Negative (Negative)
== END 2022-05-16 14:43 | disposition home or self-care (01) | DRG 864 ==
LOC: ER 22:27 → MS 23:09
PROVIDERS: Physician Assistant; Admitting Provider Surgery; Emergency Provider Emergency Medicine; PCP Nurse Practitioner Family; Visit Provider Surgery
DX: R50.9 Fever, unspecified (principal); I48.20 Chronic atrial fibrillation, unspecified; Z68.41 Body mass index [BMI] 40.0-44.9, adult; R74.01 Elevation of levels of liver transaminase levels; I10 Essential (primary) hypertension; Z79.01 Long term (current) use of anticoagulants; E66.9 Obesity, unspecified; D72.829 Elevated white blood cell count, unspecified; R51.9 Headache, unspecified; K80.20 Calculus of gallbladder without cholecystitis without obstruction
CPT/HCPCS: 36415; 71250; 80053; 83690; 86900; 86901; 87040; 87077; 87637; 87798; 93005; 96365; 96367; 96375; 99223; 99232; 99239; 99285; J1650; 74176; 76705; 81003; 83605; 83735; 85025; 85610; 85730; 86618; 87186; 93010; J0131; J0744; J2405

== ENCOUNTER 2022-07-28 14:43 | Inpatient (IN) | payer MEDICARE, SELFPAY ==
[2022-07-28] VITALS (13 sets, daily range): BP systolic 106–154; BP diastolic 58–78; PULSE 68–99; RESP 18–22; TEMP 37.2–38.6; O2SAT 88–95
--- NOTE | 2022-07-28 14:45 | RT.EKG_ITS ---
APPROVED REPORT Exam: Resting ECG Reason for Exam: SOB Patient Location: E HR:96 bpm ECG Measurements Heart Rate 96 AXIS RI [id number] P [id number] QRSd 99 QRS 58 QT 447 T 42 QTc 564 Conclusion Atrial fibrillation. Minimal ST depression, diffuse leads...ST <-0.03mV, ant/lat/inf Prolonged QT interval...QTc >500mS
[2022-07-28 15:30] LABS: Source Nasal/Nares
[2022-07-28 15:41] LABS: Abs Immature Grans 0.23 10^3/uL (0.0-0.06); Absolute Basophil Count 0.02 10^3/uL (0.0-0.2); Absolute Eosinophil Count 0.06 10^3/uL (0.0-0.7); Absolute Lymphocyte Count 0.38 10^3/uL (1.2-3.4); Absolute Monocyte Count 0.69 10^3/uL (0.1-0.8); Basophils % 0.2; Eosinophils % 0.6; HCT 41.4 % (40.0-50.0); HGB 14.1 g/dL (13.5-17.5); Immature Grans % 2.2; Lymphocytes % 3.6; MCH 31.8 pg (27.0-33.0); MCHC 34.1 % (32.0-36.0); MCV 94 fL (80-95); MPV 10.7 fL (8.0-11.0); Monocytes % 6.5; Neutrophils % 86.9; Platelet Count 219 10^3/uL (130-400); RBC 4.43 10^6/uL (4.36-5.78); RDW 12.6 % (11.8-14.1); RDW-SD 43.3 fL; WBC 10.68 10^3/uL (4.4-10.8)
[2022-07-28 15:54] LABS: INR 2.7 (0.9-1.1); PTT Activated 31.8 sec (21.0-27.5); Prothrombin Time 25.6 sec (9.3-11.0)
[2022-07-28 16:02] LABS: ALT 238 U/L (16-63); AST 362 U/L (15-37); Albumin 3.3 g/dL (3.4-5.0); Alkaline Phosphatase 193 U/L (46-116); Anion Gap 8.9 mmol/L (3-11); BUN 19 mg/dL (7-18); Bilirubin, Total 2.3 mg/dL (0.2-1.0); CO2 30.1 mmol/L (21.0-32.0); Calcium 9.2 mg/dL (8.5-10.1); Chloride 101 mmol/L (98-107); Estimated GFR 81.98 (mL/min/1.73m2); Glucose 110 mg/dL (74-106); Potassium 3.6 mmol/L (3.5-5.1); Sodium 140 mmol/L (136-145); Total Protein 7.4 g/dL (6.4-8.2)
[2022-07-28 16:04] LABS: COVID-19 PCR Negative (Negative)
[2022-07-28 16:07] LABS: NT-proBNP 935 pg/mL (<300); Troponin I < 50 ng/L (<or=60)
[2022-07-28 16:17] LABS: D-Dimer 644 ng/mlFEU (<500)
--- NOTE | 2022-07-28 16:26 | DI.CT_ITS ---
Exam(s) CT CHEST PE ABD PELVIS W EXAM: CT CHEST PE ABD PELVIS W CLINICAL HISTORY: elevated dimer, shortness of breath. TECHNIQUE: Imaging Protocol: Axial CT angiography was performed with multi-slice acquisition and mu lti-planar and/or 3D reconstructions. CONTRAST MATERIAL: Intravenous: Omnipaque 350 Contrast volume:100 ml COMPARISON: CT CT CHEST/ABD/PEL WO from 05/14/2022 FINDINGS: CHEST: Pulmonary Arteries: No evidence of filling defect to suggest pulmonary emboli. Tracheobronchial tree: Patent where visualized. Mediastinum and Gillian: No dominant adenopathy or fluid collection. Pulmonary parenchyma: No consolidation or dominant measurable mass. Pleura: No effusion or pneumothorax. Heart: The heart is moderately dilated. Moderate coronary artery calcifications are seen. Calcifica tion is also noted at the aortic valve and mitral valve. Aorta: Thoracic aorta non-dilated. Bones: No compression fracture. Prominent endplate osteophytes. ABDOMEN: Liver: Enlarged. Hepatic steatosis.. No measurable mass. Portal, Superior Mesenteric, and Splenic Veins: Unremarkable. Gallbladder and Biliary Tract: Several tiny calcified gallstones. Question stone in gallbladder neck versus gallbladder wall. No gallbladder wall thickening. No pericholecystic fluid or abnormal dist ension. No change in appearance from prior exam. No biliary dilation. Pancreas: Normal density, no abnormal calcifications or inflammatory process. Spleen: Normal. Adrenals: No masses seen. Kidneys: Normal size, contour and axis. No radiodense stones or obstructive uropathy. No masses seen. Abdominal Aorta: Abdominal portion non-dilated. Moderate atherosclerotic changes. Bowel: Right partial colectomy. Anastomosis is unremarkable. Normal quantity of stool. Diverticul osis is noted in the sigmoid region. No diverticulitis. No obstruction or bowel wall thickening. Peritoneal Cavity: No ascites, collection or mesenteric inflammatory response. Lymph Nodes: Within normal limits. Bones: Degenerative disc changes and facet degenerative changes. No compression fractures. Soft Tissues: Large inferior abdominal wall pannus, not fully included in field of view. Some skin th ickening is seen. No focal collection visible in field of view. PELVIS: Bladder: Symmetric distention, no gross wall thickening. Reproductive Organs: Unremarkable as visualized. Lymph Nodes: Within normal limits. Bones: Within normal limits. IMPRESSION: 1. No evidence of pulmonary embolism. Cardiomegaly. 2. No acute abdominal or pelvic process. Cholelithiasis. Diverticulosis. RADIATION DOSE DELIVERED: 2,659.4mGy.cm Total DLP 2,659.4mGy.cm Total DLP DATA REPOSITORY: All CT scans at this facility are submitted to the National Radiology Data Registry (NRDR) Dose Index Registry (DIR) with the [employer] (ACR). RADIATION OPTIMIZATION: All CT scans at this facility use at least one of these dose optimization te chniques: automated exposure control; mA and/or kV adjustment per patient size (includes targeted exa ms where dose is matched to clinical indication); or iterative reconstruction.
[2022-07-28] MEDS: Omnipaque 350 MG/ML 100 ML BTL IJ (17:16)
[2022-07-28] MEDS: Normal Saline Flush 10 ML SYR IVP ×2 (17:17→23:24)
[2022-07-28] MEDS: Albuterol/Ipratropium 3 ML UPD VIAL UPD ×2 (17:49→19:22)
--- NOTE | 2022-07-28 17:55 | DI.VRAD_ITS ---
PROCEDURE INFORMATION: Exam: CTA Chest With Contrast Exam date and time: 07/28/2022 5:07 PM Age: 67 years old Clinical indication: Abdominal pain; Other: Elevated bili and lfts; Other: Elevated d-dimer, SOB; Prior surgery; Surgery date: 6+ months; Surgery type: Partial colectomy 10 years ago TECHNIQUE: Imaging protocol: Computed tomographic angiography of the chest with contrast. 3D rendering (Not supervised by radiologist): MIP and/or 3D reconstructed images were created by the technologist. Contrast material: OMNIPAQUE 350; Contrast volume: 100 ml; Contrast route: INTRAVENOUS (IV); COMPARISON: CT CHEST/ABD/PEL WO 05/14/2022 9:00 PM FINDINGS: Pulmonary arteries: Pulmonary arteries unremarkable. Study is not optimized for pulmonary arterial opacification. No PE is identified. Aorta: Thoracic aorta with atherosclerotic calcium. No aneurysm. No dissection. Lungs: No acute lung infiltrates or edema. No suspicious focal lung lesions. Pleural spaces: No pleural effusion. Heart: Moderate cardiac enlargement. Moderate coronary artery atherosclerotic calcium. No pericardial effusion. Mitral valve calcium. Aortic valve calcium. Lymph nodes: Unremarkable. No enlarged lymph nodes. Bones/joints: Degenerative thoracic spine disease. Soft tissues: Unremarkable. IMPRESSION: 1. No acute lung infiltrates. 2. Pulmonary arteries are fairly well opacified. No embolism evident. Study is not optimized based on contrast opacification for high sensitivity evaluation. 3. Thoracic aorta is unremarkable. 4. Cardiomegaly. Coronary artery atherosclerotic calcium. PROCEDURE INFORMATION: Exam: CT Abdomen And Pelvis With Contrast Exam date and time: 07/28/2022 5:07 PM Age: 67 years old Clinical indication: Abdominal pain; Other: Elevated bili and lfts; Other: Elevated d-dimer, SOB; Prior surgery; Surgery date: 6+ months; Surgery type: Partial colectomy 10 years ago TECHNIQUE: Imaging protocol: Computed tomography of the abdomen and pelvis with contrast. Contrast material: OMNIPAQUE 350; Contrast volume: 100 ml; Contrast route: INTRAVENOUS (IV); COMPARISON: CT CHEST/ABD/PEL WO 05/14/2022 9:00 PM FINDINGS: Liver: Diffuse moderate fatty liver infiltration and mild hepatic enlargement. Gallbladder and bile ducts: Multiple gallstones are seen layering within the gallbladder. There is a small stone which appears to be impacted in the gallbladder neck or possibly the proximal cystic duct. This measures 5 mm. See series 12, image 28. There is gallbladder distension. There is no gallbladder wall thickening or pericholecystic fluid. There is no extrahepatic biliary dilatation. Ultrasound follow-up of the gallbladder is suggested. Similar features of the gallbladder were noted 05/14/2022, however. Pancreas: Moderate pancreatic atrophy. No acute inflammation. Spleen: The spleen is normal in size, contour and attenuation. Adrenal glands: The adrenal glands are normal in size and contour bilaterally. Kidneys and ureters: Normal. No hydronephrosis. Stomach and bowel: Gastric morphology is unremarkable. No edema. No gastric outlet obstruction. Small bowel loops are normal in course and caliber. There is no mucosal edema or bowel wall thickening. No obstructive features. Large bowel with diverticulosis . No acute diverticulitis. Patient has had a previous right-sided partial colectomy. No acute features. Small hiatal hernia. No acute features. Appendix: Appendix: No evidence of appendicitis. Intraperitoneal space: Unremarkable. No free air. No significant fluid collection. Vasculature: Atherosclerotic aortoiliac calcifications. No aneurysmal features. Lymph nodes: Unremarkable. No enlarged lymph nodes. Urinary bladder: Unremarkable as visualized. Reproductive: Unremarkable as visualized. Bones/joints: Degenerative lumbar spine disease. No acute skeletal pathology. Soft tissues: Unremarkable. IMPRESSION: 1. Fatty liver change. 2. Gallstones. No biliary dilatation. Correlation with serum bilirubin and right upper quadrant ultrasound may be warranted. Similar appearance of the gallbladder 05/14/2022. 3. Degenerative lumbar spine changes. 4. Colonic diverticulosis. No acute diverticulitis. The previous right hemicolectomy. 5. Previous abdominal wall hernia repair. Patulous nature of the linea alba region. Dictated and Authenticated by: Roger Coffey MD. Ordering:OLIVER Arnold MD
--- NOTE | 2022-07-28 19:10 | W.ED.GENAD ---
Discharge Plan Disposition Patient Disposition: [facility] INPATIENT Condition: Serious Discharge Details Clinical Impression: Hypoxemia, Cholelithiasis, Respiratory failure, Sepsis, CHF (congestive heart failure) Admit Date/Time: 07/28/22 21:02 Admit Provider: Naveed Foley Attending Provider: Naveed Foley Primary Care Provider: Kimberly Stout ED Provider: Catalina Waterman Discharge Data Discharge Date/Time-TO BE ENTERED AT DEPARTURE: 07/28/22 22:09 Medical Decision Making Patient with hypoxia, diminished lung sounds, 2 DuoNeb's administered mild improvement in symptoms, cardiomegaly on CT scan, it is evident of gallbladder sludge and stone in the presence of elevated bilirubin and elevated LFTs Radiologist states that CT is similar in appearance to prior assessment Of note, patient does have a temperature of 102.0 on reassessment Blood cultures and lactate obtained, lactate positive at 229 Antibiotics initiated, ceftriaxone, doxycycline initially to cover respiratory and subsequently Flagyl to cover intra-abdominal process Consult with Dr. Reese as GI do not see a respiratory cause of patient's fever, however concern regarding his gallbladder He is not reporting any abdominal pain but have abnormal CTA with elevated lab with concern for biliary process At this time, patient is on 2 L oxygen and 94% Given dose of 40 mg of IV Lasix to treat for CHF He is agreeable to admission for further evaluation and observation with INR elevated at 2.7, chronic anticoagulation on Coumadin, denies any bleeding Medical Records Medical records reviewed: Yes I reviewed the patient's medical records. Lab Data Lab results reviewed: Yes I reviewed the patient's lab results. HPI General Date/Time Provider Initiated Documentation: 07/28/22 14:52. HPI Narrative: this 67 yo male presents with pmh of chf, afib, and chronic anticoagulation for acute onset of dypnea. denies chest pain complaints but reports chills and myalgias. states felt well this morning and was walking out from eating breakfast when symptoms began. He has taken tylenol x2 for chills. denies new calf pain or swelling. denies known sick contacts. denies nausea, vomiting, diarrhea. Related Data Home Medications Medication Instructions Recorded Confirmed allopurinol 300 mg tablet 300 mg PO DAILY 08/18/14 07/28/22 atenolol 100 mg tablet 100 mg PO DAILY 08/18/14 07/28/22 calcipotriene 0.005 % scalp 60 ml topical BID PRN 08/18/14 07/28/22 solution diphenhydramine HCl 12.5 mg/5 mL 25 mg PO Q4H PRN 08/18/14 07/28/22 oral liquid amlodipine 10 mg tablet 10 mg PO DAILY 01/02/20 07/28/22 furosemide 40 mg tablet 80 mg PO DAILY 01/02/20 07/28/22 warfarin 5 mg tablet 5 mg PO DAILY #90 tabs 12/21/21 07/28/22 ciprofloxacin HCl 500 mg tablet 500 mg PO Q12H #10 tabs 05/16/22 07/28/22 (Cipro) metronidazole 500 mg tablet 500 mg PO TID #15 tabs 05/16/22 07/28/22 nystatin 100,000 unit/gram topical 1 applic topical BID #60 grams 05/16/22 07/28/22 powder Previous Rx's Medication Instructions Recorded warfarin 5 mg tablet 5 mg PO DAILY #90 tabs 12/21/21 ciprofloxacin HCl 500 mg tablet 500 mg PO Q12H #10 tabs 05/16/22 (Cipro) metronidazole 500 mg tablet 500 mg PO TID #15 tabs 05/16/22 nystatin 100,000 unit/gram topical 1 applic topical BID #60 grams 05/16/22 powder Allergies Allergy/AdvReac Type Severity Reaction Status Date / Time ampicillin Allergy Unknown rash,bliste Unverified 07/28/22 20:50 rs lisinopril AdvReac Unknown cough Unverified 07/28/22 20:50 losartan [Losartan] AdvReac Unknown leg cramps Unverified 07/28/22 20:50 General Stated Complaint: RespSymp SUE: 2 Review of Systems All systems reviewed & are unremarkable except as noted in HPI and below PFSH All Active Problems (Updated 07/29/22 @ 09:59 by CITLALI Dia) Cholelithiasis (Acute) Respiratory failure (Acute) Sepsis (Acute) CHF (congestive heart failure) (Chronic) Hypoxemia (Acute) Acute right-sided CHF (congestive heart failure) (Acute) Cholelithiasis (Acute) Elevated INR (Acute) Bleeding from wound (Acute) Medical History Atrial fibrillation Bilateral leg edema BMI 50.0-59.9, adult Elevated LFTs Erectile dysfunction Gout Hypertension Peripheral neuropathy Prediabetes Psoriasis Shoulder dislocation Surgical History S/P exploratory laparotomy S/P right hemicolectomy Social History Smoking/Tobacco Use Status: Never Smoking risk assessment performed?: Yes Alcohol Intake: current Alcohol Intake frequency: a few times a week Alcohol type: beer Drug use: Never Substance use type: does not use Household members: none Housing: house Communication Needs: Hard of Hearing Pets and animals: No What type of physical activity do you participate in: independent ambulation Do you feel safe at home: Yes Do you feel safe in your relationship?: Yes Exam Const General: cooperative and no acute distress Eyes Pupils: PERRL Resp Auscultation: diminished lung sounds Cardio Rate: regular rate Heart Sounds: no murmurs Skin Other: see below Neuro General: patient alert and patient oriented x3 Extrem Other: peripheral edema noted 3+ non-tender, discoloration likely associated with peripheral vascular disease Course Vital Signs Vital signs: Vital Signs Temperature 37.2 C 07/28/22 14:48 Pulse 95 H 07/28/22 14:48 Respiratory Rate 18 07/28/22 14:48 Blood Pressure 152/58 H 07/28/22 14:48 Pulse Oximetry 88 L 07/28/22 14:48 Temperature 37.2 C 07/28/22 14:48 Temperature Source Temporal Artery Scan 07/28/22 14:48 Pulse 68 07/28/22 19:03 Pulse 96 H 07/28/22 15:21 Respiratory Rate 18 07/28/22 19:03 Respiratory Effort Labored 07/28/22 17:49 Respiratory Depth Shallow 07/28/22 17:49 Blood Pressure 154/78 H 07/28/22 19:03 Blood Pressure Position Sitting 07/28/22 14:48 Pulse Oximetry 93 07/28/22 19:03 Oxygen Delivery Method Nasal Cannula 07/28/22 19:03 Oxygen Flow Rate 2 07/28/22 15:19 Pain Level 0 07/28/22 14:48 Lab/Test Results Lab/Test Results: 07/28/22 19:04 Blood Blood Culture - Pending 07/28/22 19:04 Blood Blood Culture - Pending Laboratory Tests Range/Units 07/28/22 07/28/22 07/28/22 15:25 15:30 15:30 WBC (4.4-10.8) 10^3/uL 10.68 RBC (4.36-5.78) 10^6/uL 4.43 Hgb (13.5-17.5) g/dL 14.1 Hct (40.0-50.0) % 41.4 MCV (80-95) fL 94 MCH (27.0-33.0) pg 31.8 MCHC (32.0-36.0) % 34.1 RDW (11.8-14.1) % 12.6 Plt Count (130-400) 10^3/uL 219 MPV (8.0-11.0) fL 10.7 Immature Gran % 2.2 Neutrophils % 86.9 Lymphocytes % 3.6 Monocytes % 6.5 Eosinophils % 0.6 Basophils % 0.2 Nucleated RBC % (0.0-0.3) % 0.0 Absolute Neutrophils (1.2-6.7) 10^3/uL 9.30 H Absolute Lymphocytes (1.2-3.4) 10^3/uL 0.38 L Absolute Monocytes (0.1-0.8) 10^3/uL 0.69 Absolute Eosinophils (0.0-0.7) 10^3/uL 0.06 Absolute Basophils (0.0-0.2) 10^3/uL 0.02 PT (9.3-11.0) sec INR (0.9-1.1) APTT (21.0-27.5) sec D-Dimer (<500) ng/mlFEU Sodium (136-145) mmol/L 140 Potassium (3.5-5.1) mmol/L 3.6 Chloride (98-107) mmol/L 101 Carbon Dioxide (21.0-32.0) mmol/L 30.1 Anion Gap (3-11) mmol/L 8.9 BUN (7-18) mg/dL 19 H Creatinine (0.70-1.30) mg/dL 1.0 Est GFR (CKD-EPI 2020) (mL/min/1.73m2) 81.98 Glucose (74-106) mg/dL 110 H Calcium (8.5-10.1) mg/dL 9.2 Total Bilirubin (0.2-1.0) mg/dL 2.3 H AST (15-37) U/L 362 H ALT (16-63) U/L 238 H Alkaline Phosphatase (46-116) U/L 193 H Troponin I (<or=60) ng/L NT-Pro-B Natriuret Pep (<300) pg/mL Total Protein (6.4-8.2) g/dL 7.4 Albumin (3.4-5.0) g/dL 3.3 L COVID-19 Source Nasal/Nares SARS-CoV-2 (PCR) (Negative) Negative Range/Units 07/28/22 07/28/22 07/28/22 15:30 15:30 15:30 WBC (4.4-10.8) 10^3/uL RBC (4.36-5.78) 10^6/uL Hgb (13.5-17.5) g/dL Hct (40.0-50.0) % MCV (80-95) fL MCH (27.0-33.0) pg MCHC (32.0-36.0) % RDW (11.8-14.1) % Plt Count (130-400) 10^3/uL MPV (8.0-11.0) fL Immature Gran % Neutrophils % Lymphocytes % Monocytes % Eosinophils % Basophils % Nucleated RBC % (0.0-0.3) % Absolute Neutrophils (1.2-6.7) 10^3/uL Absolute Lymphocytes (1.2-3.4) 10^3/uL Absolute Monocytes (0.1-0.8) 10^3/uL Absolute Eosinophils (0.0-0.7) 10^3/uL Absolute Basophils (0.0-0.2) 10^3/uL PT (9.3-11.0) sec 25.6 H INR (0.9-1.1) 2.7 H APTT (21.0-27.5) sec 31.8 H D-Dimer (<500) ng/mlFEU 644 H Sodium (136-145) mmol/L Potassium (3.5-5.1) mmol/L Chloride (98-107) mmol/L Carbon Dioxide (21.0-32.0) mmol/L Anion Gap (3-11) mmol/L BUN (7-18) mg/dL Creatinine (0.70-1.30) mg/dL Est GFR (CKD-EPI 2020) (mL/min/1.73m2) Glucose (74-106) mg/dL Calcium (8.5-10.1) mg/dL Total Bilirubin (0.2-1.0) mg/dL AST (15-37) U/L ALT (16-63) U/L Alkaline Phosphatase (46-116) U/L Troponin I (<or=60) ng/L < 50 NT-Pro-B Natriuret Pep (<300) pg/mL 935 H Total Protein (6.4-8.2) g/dL Albumin (3.4-5.0) g/dL COVID-19 Source SARS-CoV-2 (PCR) (Negative) Critical Care Time Critical Care Time Critical Care Time: Yes Total Critical Care Time: 45 Attestation: Acute respiratory failure with oxygen supplementation, 2 L, IV antibiotics for suspected sepsis, causes intra-abdominal versus respiratory, admission to hospital, diagnostic lab interpretation, diagnostic imaging interpretation
[2022-07-28] MEDS: Acetaminophen 325 MG TAB 650 MG PO (19:21)
[2022-07-28] MEDS: Furosemide 40 MG/4 ML VIAL IVP (19:22)
[2022-07-28 19:56] LABS: Lactate 2.9 mmol/L (0.6-1.4)
[2022-07-28 20:05] LABS: Lipase 96 U/L (73-393)
[2022-07-28] MEDS: cefTRIAXone 1 GM/50 ML BAG IVPB (20:14)
--- NOTE | 2022-07-28 20:21 | SCONE_ITS ---
Date of service: 07/28/22 Time of Service: 20:21 Assessment and Plan Assessment and plan (1) Cholelithiasis: Status: Acute Assessment and plan: Similar to his last hospital admission, his absence of abdominal complaints make acute cholecystitis less likely diagnosis. Certainly, his elevated BNP suggest some element of heart failure here. I suppose that could be contributing to the elevated bilirubin and some of the abnormal biochemistry. I suppose the most definitive test to rule out cholecystitis would be a HIDA scan. Since his obesity and previous open abdominal surgeries increases risk for perioperative complications, I think that would be the most useful test if he does not start to improve in the next day or so. In the meantime, I think it would be reasonable to add broad-spectrum antibiotics in light of his leukocytosis, fevers, and rigors. I would also be repeat the LFTs in the next 24 hours. History of Present Illness History of Present Illness Chief Complaint: Shortness of breath Narrative: Hunter is 67 years old. He went out to breakfast with his girlfriend this morning. After that, he started to develop some shortness of breath and a sense that he did not feel himself. He denied any coughing at that time. He denied any chest pain. He says his shortness of breath got worse through the day, so he came to the emergency department to get checked out. While he was in the emergency department, he was found to have a mild leukocytosis at 10,000. He had an elevated BNP, as well as elevated liver transaminases, alkaline phosphatase, and total bilirubin (2.3). He underwent a CAT scan of the abdomen and pelvis that demonstrated some cholelithiasis, but no biliary ductal dilatation. The CAT scan was interpreted as similar to a study performed in May. When I spoke with him tonight, his chief complaint was shaking that seems consistent with rigors during a fever. He says he felt short of breath through the day. He denied nausea, vomiting, abdominal pain, or change in his bowel habits. He says the breakfast he had this morning was about his usual, and did not have any postprandial symptoms. He says the symptoms that brought him to the hospital today are the same the brought him back here in May. He tells me this past surgical history is significant for a polyp that was not amenable to colonoscopic resection. Therefore, he underwent exploratory laparotomy with right hemicolectomy. 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 He tells me he also underwent a second laparotomy afterwards for what sounds like a bowel obstruction. Review of Systems Constitutional Constitutional: Denies difficulty sleeping, Denies poor appetite, Denies weakness and Denies weight loss Eyes Eyes: Reports system reviewed and no additional complaints, except as documented ENT Ears, Nose, Mouth, and Throat: Reports system reviewed and no additional complaints, except as documented Cardiovascular Cardiovascular: Denies chest pain, Reports leg edema and Denies dyspnea Respiratory Respiratory: Reports cough and Denies dyspnea Gastrointestinal Gastrointestinal: Denies abdominal pain, Denies belching, Denies change in bowel habits, Denies constipation, Denies early satiety, Denies dyspepsia, Denies heartburn, Denies nausea and Denies vomiting Musculoskeletal Musculoskeletal: Reports back pain and Denies myalgias Neurologic Neurologic: Reports system reviewed and no additional complaints, except as documented and Denies weakness Hematologic/Lymphatic Hematologic/Lymphatic: Reports easy bleeding and Reports easy bruising Comments: He is on warfarin for atrial fibrillation PFSH All Active Problems (Updated 07/28/22 @ 20:34 by Jarocho Reese MD) Cholelithiasis (Acute) Elevated INR (Acute) Bleeding from wound (Acute) Medical History (Updated 07/28/22 @ 20:34 by Jarocho Reese MD) Atrial fibrillation Bilateral leg edema BMI 50.0-59.9, adult Elevated LFTs Erectile dysfunction Gout Hypertension Peripheral neuropathy Prediabetes Psoriasis Shoulder dislocation Surgical History (Updated 07/28/22 @ 20:31 by Jarocho Reese MD) S/P exploratory laparotomy S/P right hemicolectomy Social History Smoking/Tobacco Use Status: Never Smoking risk assessment performed?: Yes Alcohol Intake: current Alcohol Intake frequency: a few times a week Alcohol type: beer Drug use: Never Substance use type: does not use Household members: none Housing: house Communication Needs: Hard of Hearing Pets and animals: No What type of physical activity do you participate in: independent ambulation Do you feel safe at home: Yes Do you feel safe in your relationship?: Yes Exam Const General: cooperative and ill appearing Orientation: awake and oriented x3 HENMT Mouth: moist mucous membranes Eyes General: appearance normal, both eyes and all related structures Conjunctivae: conjunctivae normal Sclera: sclerae normal Neck Neck: normal visual inspection, full ROM, supple and no lymphadenopathy noted Resp Effort & Inspection: normal respiratory effort, able to speak in complete sentences and cough Auscultation: clear to auscultation bilaterally Cardio Rate: regular rate Rhythm: regular rhythm Heart Sounds: S1 normal and S2 normal GI Inspection: non-distended, large pannus and scar Palpation: soft, no guarding, no hernias and nontender Auscultation: normal bowel sounds Skin General skin exam: normal turgor Neuro General: patient alert, patient awake and patient oriented x3 Cognition: normal cognition Extrem Right lower extremity: edema Left lower extremity: edema Results Last Vital Signs Temp 101.5 F H 07/28/22 20:20 Pulse 68 07/28/22 19:03 Resp 18 07/28/22 19:03 BP 154/78 H 07/28/22 19:03 Pulse Ox 93 07/28/22 19:03 Labs Result diagrams: 07/28/22 15:30 07/28/22 15:30 Labs: Laboratory Results - last 24 hr 07/28/22 07/28/22 07/28/22 15:25 15:30 15:30 WBC 10.68 RBC 4.43 Hgb 14.1 Hct 41.4 MCV 94 MCH 31.8 MCHC 34.1 RDW 12.6 Plt Count 219 MPV 10.7 Immature Gran % 2.2 Neutrophils % 86.9 Lymphocytes % 3.6 Monocytes % 6.5 Eosinophils % 0.6 Basophils % 0.2 Nucleated RBC % 0.0 Absolute Neutrophils 9.30 H Absolute Lymphocytes 0.38 L Absolute Monocytes 0.69 Absolute Eosinophils 0.06 Absolute Basophils 0.02 PT INR APTT D-Dimer VBG Lactate Sodium 140 Potassium 3.6 Chloride 101 Carbon Dioxide 30.1 Anion Gap 8.9 BUN 19 H Creatinine 1.0 Est GFR (CKD-EPI 2020) 81.98 Glucose 110 H Calcium 9.2 Total Bilirubin 2.3 H AST 362 H ALT 238 H Alkaline Phosphatase 193 H Troponin I NT-Pro-B Natriuret Pep Total Protein 7.4 Albumin 3.3 L COVID-19 Source Nasal/Nares SARS-CoV-2 (PCR) Negative 07/28/22 07/28/22 07/28/22 15:30 15:30 15:30 WBC RBC Hgb Hct MCV MCH MCHC RDW Plt Count MPV Immature Gran % Neutrophils % Lymphocytes % Monocytes % Eosinophils % Basophils % Nucleated RBC % Absolute Neutrophils Absolute Lymphocytes Absolute Monocytes Absolute Eosinophils Absolute Basophils PT 25.6 H INR 2.7 H APTT 31.8 H D-Dimer 644 H VBG Lactate Sodium Potassium Chloride Carbon Dioxide Anion Gap BUN Creatinine Est GFR (CKD-EPI 2020) Glucose Calcium Total Bilirubin AST ALT Alkaline Phosphatase Troponin I < 50 NT-Pro-B Natriuret Pep 935 H Total Protein Albumin COVID-19 Source SARS-CoV-2 (PCR) 07/28/22 19:30 WBC RBC Hgb Hct MCV MCH MCHC RDW Plt Count MPV Immature Gran % Neutrophils % Lymphocytes % Monocytes % Eosinophils % Basophils % Nucleated RBC % Absolute Neutrophils Absolute Lymphocytes Absolute Monocytes Absolute Eosinophils Absolute Basophils PT INR APTT D-Dimer VBG Lactate 2.9 H* Sodium Potassium Chloride Carbon Dioxide Anion Gap BUN Creatinine Est GFR (CKD-EPI 2020) Glucose Calcium Total Bilirubin AST ALT Alkaline Phosphatase Troponin I NT-Pro-B Natriuret Pep Total Protein Albumin COVID-19 Source SARS-CoV-2 (PCR)
[2022-07-28 20:24] LABS: Troponin I < 50 ng/L (<or=60)
--- NOTE | 2022-07-28 20:45 | HPE_ITS ---
Date of service: 07/28/22 Time of Service: 20:45 Assessment and Plan Assessment and plan (1) Acute right-sided CHF (congestive heart failure): Start date: 07/28/22 Status: Acute Assessment and plan: This is a 67-year-old gentleman who had sudden onset of shortness of breath prior to admission and is respond to IV Lasix therapy. He is on 40 mg twice daily. He is also having significant fever with a question of cholecystitis and gallstones in his gallbladder though the imaging appears stable. He may have a viral respiratory process exacerbating his chronic gallbladder issues but was negative for COVID-19. Surgical consultation will be sought. The patient was given Rocephin and Flagyl for antibiotic coverage of lungs and abdomen. He appears more comfortable. He is a full code. (2) Hypoxemia: Status: Acute Assessment and plan: Oxygen supplementation and diuresed with IV Lasix. Monitor labs. (3) Cholelithiasis: Status: Chronic Assessment and plan: Previously present but now question of cholecystitis. IV antibiotic coverage and surgical consultation. Further imaging with ultrasound if indicated. (4) Atrial fibrillation: Assessment and plan: Rate controlled and patient to continue on medical therapy with Coumadin held and to be adjusted according to PT/INR done daily. Metoprolol will be used in split dosing rather than his usual atenolol. Qualifiers: Atrial fibrillation type: longstanding persistent Qualified Code(s): I4 8.11 - Longstanding persistent atrial fibrillation History of Present Illness History of Present Illness Chief Complaint: Fever, Dyspnea, Hypoxemia, Peripheral Edema, Cholelithiasis Asymptomatic Narrative: This is a 67-year-old male patient who the morning of presentation to the ED had breakfast and then became acutely short of breath. He had fevers with chills and myalgias and denied chest pain. Dyspnea was of acute onset. He has had no calf pain or swelling in his lower extremities and had no nausea, vomiting or diarrhea. ED evaluation did reveal temperature up to 102 ?F [address] evaluation revealed gallstones with a question of cholecystitis the patient had no abdominal pain. He was on oxygen supplement and was initiated on IV Lasix for treatment of CHF. He did have diminished sounds in his lungs but no overt infiltrate on imaging. He was covered with Rocephin and Flagyl for his possible respiratory infection which appear to be viral but non-COVID and possible c holecystitis. Patient did have penicillin allergies. Patient is a full code. He appeared more comfortable at the time I examined him. He does have a history of chronic atrial fibrillation on Coumadin and PT/INR was therapeutic with Coumadin held and daily PT/INR to be checked prior to restarting therapy. Review of Systems Narrative: 13 point review of systems otherwise unrevealing or stable per patient. He does live at home. PFS All Active Problems (Updated 07/29/22 @ 19:21 by Naveed Foley) Cholelithiasis (Acute) Respiratory failure (Acute) Sepsis (Acute) CHF (congestive heart failure) (Chronic) Hypoxemia (Acute) Acute right-sided CHF (congestive heart failure) (Acute) Cholelithiasis (Chronic) Elevated INR (Acute) Bleeding from wound (Acute) Medical History Atrial fibrillation Bilateral leg edema BMI 50.0-59.9, adult Elevated LFTs Erectile dysfunction Gout Hypertension Peripheral neuropathy Prediabetes Psoriasis Shoulder dislocation Surgical History S/P exploratory laparotomy S/P right hemicolectomy Social History Smoking/Tobacco Use Status: Never Smoking risk assessment performed?: Yes Alcohol Intake: current Alcohol Intake frequency: a few times a week Alcohol type: beer Drug use: Never Substance use type: does not use Household members: none Housing: house Communication Needs: Hard of Hearing Pets and animals: No What type of physical activity do you participate in: independent ambulation Do you feel safe at home: Yes Do you feel safe in your relationship?: Yes Meds Allergies and Home Medications Allergies Allergy/AdvReac Type Severity Reaction Status Date / Time ampicillin Allergy Unknown rash,bliste Unverified 07/28/22 20:50 rs lisinopril AdvReac Unknown cough Unverified 07/28/22 20:50 losartan [Losartan] AdvReac Unknown leg cramps Unverified 07/28/22 20:50 Home Medications Medication Instructions Recorded Confirmed Type allopurinol 300 mg tablet 300 mg PO DAILY 08/18/14 07/28/22 History atenolol 100 mg tablet 100 mg PO DAILY 08/18/14 07/28/22 History calcipotriene 0.005 % scalp 60 ml topical BID PRN 08/18/14 07/28/22 History solution diphenhydramine HCl 12.5 mg/5 mL 25 mg PO Q4H PRN 08/18/14 07/28/22 History oral liquid amlodipine 10 mg tablet 10 mg PO DAILY 01/02/20 07/28/22 History furosemide 40 mg tablet 80 mg PO DAILY 01/02/20 07/28/22 History warfarin 5 mg tablet 5 mg PO DAILY #90 tabs 12/21/21 07/28/22 Rx ciprofloxacin HCl 500 mg tablet 500 mg PO Q12H #10 tabs 05/16/22 07/28/22 Rx (Cipro) metronidazole 500 mg tablet 500 mg PO TID #15 tabs 05/16/22 07/28/22 Rx nystatin 100,000 unit/gram topical 1 applic topical BID #60 grams 05/16/22 07/28/22 Rx powder Exam Narrative Exam Narrative: General: Patient appears older than stated age, moderately obese, alert and oriented x3 and in no acute distress. He does have rigors and sweats at the time I was examined him with a temperature just biking at 39.1 ?C. HEENT: Normocephalic, eyes with pupils equal and reactive light symmetrically, extraocular movement intact and sclera anicteric. Oropharynx with dry mucosa. Neck: Supple without JVD. Back: Stooped posture without CVA tenderness. Lungs: Bronchovesicular breath sounds diffusely without any focalizing rales or rhonchi. Abdomen: Obese contour, soft and nontender to palpation except for slight guarding right upper quadrant with negative Mcfarland sign. No rebound. Bowel sounds positive all quadrants. Genitalia/rectal: Exam deferred. Extremities: Chronic nonpitting edema over lower extremities with chronic skin changes but no skin breakdown. No clubbing or cyanosis. Cap refill fair. Skin: Normal color except over lower extremities, warm and dry. Normal turgor. Neuro: Cranial nerves II to XII grossly intact, no focalized motor deficits or tremor. Psych: Normal affect and mood. No abnormal thought processes. Remote and recent memory grossly intact. Results Imaging Additional studies: EXAM: Comprehensive 2D, Doppler, and color-flow Echocardiogram 01/14/2020 Patient Location: Out-Patient [facility] Machine Operator: Ana Gupta RDCS (AE) Indications: Atrial Fibrillation Conclusion Left Ventricle : The left ventricle is grossly normal size.? The overall left ventricular systolic function appears normal. Left ventricular systolic function is normal. The posterior wall thickness is mildly increased. The septal th ickness is mildly increased. Regional wall motion is grossly normal. LV diastolic function appears normal. LVEF is 55-59%. Right Ventricle : Right ventricle is not well visualized. Atria : Left atrium is borderline dilated. Right atrium is borderline dilated. Aortic Valve : Aortic valve is calcified and not well visualized. Mild aortic stenosis. No aortic regurgitation is present. Mitral Valve : The mitral valve is normal in structure. Trace mitral regurgitation. Great Vessels : The IVC was not well visualized.? Estimated RVSP is 35-40 mmHg. There is no prior echocardiogram available for comparison. Imaging Studies: Exam: CTA Chest With Contrast Exam date and time: 07/28/2022 5:07 PM Age: 67 years old Clinical indication: Abdominal pain; Other: Elevated bili and lfts; Other: Elevated d-dimer, SOB; Prior surgery; Surgery date: 6+ months; Surgery type: Partial colectomy 10 years ago TECHNIQUE: Imaging protocol: Computed tomographic angiography of the chest with contrast. 3D rendering (Not supervised by radiologist): MIP and/or 3D reconstructed images were created by the technologist. Contrast material: OMNIPAQUE 350; Contrast volume: 100 ml; Contrast route: INTRAVENOUS (IV);? COMPARISON: CT CHEST/ABD/PEL WO 05/14/2022 9:00 PM FINDINGS: Pulmonary arteries: Pulmonary arteries unremarkable. Study is not optimized for pulmonary arterial opacification. No PE is identified. Aorta: Thoracic aorta with atherosclerotic calcium. No aneurysm. No dissection. Lungs: No acute lung infiltrates or edema. No suspicious focal lung lesions. Pleural spaces: No pleural effusion. Heart: Moderate cardiac enlargement. Moderate coronary artery atherosclerotic calcium. No pericardial effusion. Mitral valve calcium. Aortic valve calcium. Lymph nodes: Unremarkable. No enlarged lymph nodes. Bones/joints: Degenerative thoracic spine disease. Soft tissues: Unremarkable. IMPRESSION: 1. No acute lung infiltrates. 2. Pulmonary arteries are fairly well opacified. No embolism evident. Study is not optimized based on contrast opacification for high sensitivity evaluation. 3. Thoracic aorta is unremarkable. 4. Cardiomegaly. Coronary artery atherosclerotic calcium. PROCEDURE INFORMATION: Exam: CT Abdomen And Pelvis With Contrast Exam date and time: 07/28/2022 5:07 PM Age: 67 years old Clinical indication: Abdominal pain; Other: Elevated bili and lfts; Other: Elevated d-dimer, SOB; Prior surgery; Surgery date: 6+ months; Surgery type: Partial colectomy 10 years ago TECHNIQUE: Imaging protocol: Computed tomography of the abdomen and pelvis with contrast. Contrast material: OMNIPAQUE 350; Contrast volume: 100 ml; Contrast route: INTRAVENOUS (IV);? COMPARISON: CT CHEST/ABD/PEL WO 05/14/2022 9:00 PM FINDINGS: Liver: Diffuse moderate fatty liver infiltration and mild hepatic enlargement. Gallbladder and bile ducts: Multiple gallstones are seen layering within the gallbladder. There is a small stone which appears to be impacted in the gallbladder neck or possibly the proximal cystic duct. This measures 5 mm. See series 12, image 28. There is gallbladder distension. There is no gallbladder wall thickening or pericholecystic fluid. There is no extrahepatic biliary dilatation. Ultrasound follow-up of the gallbladder is suggested. Similar features of the gallbladder were noted 05/14/2022, however. Pancreas: Moderate pancreatic atrophy. No acute inflammation. Spleen: The spleen is normal in size, contour and attenuation. Adrenal glands: The adrenal glands are normal in size and contour bilaterally. Kidneys and ureters: Normal. No hydronephrosis. Stomach and bowel: Gastric morphology is unremarkable. No edema. No gastric outlet obstruction. Small bowel loops are normal in course and caliber. There is no mucosal edema or bowel wall thickening. No obstructive features. Large bowel with diverticulosis . No acute diverticulitis. Patient has had a previous right-sided partial colectomy. No acute features.? Small hiatal hernia.? No acute features. Appendix: Appendix: No evidence of appendicitis. Intraperitoneal space: Unremarkable. No free air. No significant fluid collection. Vasculature: Atherosclerotic aortoiliac calcifications. No aneurysmal features. Lymph nodes: Unremarkable. No enlarged lymph nodes. Urinary bladder: Unremarkable as visualized. Reproductive: Unremarkable as visualized. Bones/joints: Degenerative lumbar spine disease. No acute skeletal pathology. Soft tissues: Unremarkable. IMPRESSION: 1. Fatty liver change. 2. Gallstones. No biliary dilatation. Correlation with serum bilirubin and right upper quadrant ultrasound may be warranted. Similar appearance of the gallbladder 05/14/2022. 3. Degenerative lumbar spine changes. 4. Colonic diverticulosis. No acute diverticulitis.? The previous right hemicolectomy. 5. Previous abdominal wall hernia repair. Patulous nature of the linea alba region. Labs Result diagrams: 07/29/22 06:25 07/29/22 06:25 Labs: Laboratory Results - last 24 hr 07/28/22 07/28/22 07/28/22 15:25 15:30 15:30 WBC 10.68 RBC 4.43 Hgb 14.1 Hct 41.4 MCV 94 MCH 31.8 MCHC 34.1 RDW 12.6 Plt Count 219 MPV 10.7 Immature Gran % 2.2 Neutrophils % 86.9 Lymphocytes % 3.6 Monocytes % 6.5 Eosinophils % 0.6 Basophils % 0.2 Nucleated RBC % 0.0 Absolute Neutrophils 9.30 H Absolute Lymphocytes 0.38 L Absolute Monocytes 0.69 Absolute Eosinophils 0.06 Absolute Basophils 0.02 PT INR APTT D-Dimer VBG Lactate Sodium 140 Potassium 3.6 Chloride 101 Carbon Dioxide 30.1 Anion Gap 8.9 BUN 19 H Creatinine 1.0 Est GFR (CKD-EPI 2020) 81.98 Glucose 110 H Calcium 9.2 Total Bilirubin 2.3 H AST 362 H ALT 238 H Alkaline Phosphatase 193 H Troponin I NT-Pro-B Natriuret Pep Total Protein 7.4 Albumin 3.3 L Lipase COVID-19 Source Nasal/Nares SARS-CoV-2 (PCR) Negative 07/28/22 07/28/22 07/28/22 15:30 15:30 15:30 WBC RBC Hgb Hct MCV MCH MCHC RDW Plt Count MPV Immature Gran % Neutrophils % Lymphocytes % Monocytes % Eosinophils % Basophils % Nucleated RBC % Absolute Neutrophils Absolute Lymphocytes Absolute Monocytes Absolute Eosinophils Absolute Basophils PT 25.6 H INR 2.7 H APTT 31.8 H D-Dimer 644 H VBG Lactate Sodium Potassium Chloride Carbon Dioxide Anion Gap BUN Creatinine Est GFR (CKD-EPI 2020) Glucose Calcium Total Bilirubin AST ALT Alkaline Phosphatase Troponin I < 50 NT-Pro-B Natriuret Pep 935 H Total Protein Albumin Lipase COVID-19 Source SARS-CoV-2 (PCR) 07/28/22 07/28/22 07/28/22 19:30 19:30 19:30 WBC RBC Hgb Hct MCV MCH MCHC RDW Plt Count MPV Immature Gran % Neutrophils % Lymphocytes % Monocytes % Eosinophils % Basophils % Nucleated RBC % Absolute Neutrophils Absolute Lymphocytes Absolute Monocytes Absolute Eosinophils Absolute Basophils PT INR APTT D-Dimer VBG Lactate 2.9 H* Sodium Potassium Chloride Carbon Dioxide Anion Gap BUN Creatinine Est GFR (CKD-EPI 2020) Glucose Calcium Total Bilirubin AST ALT Alkaline Phosphatase Troponin I < 50 NT-Pro-B Natriuret Pep Total Protein Albumin Lipase 96 COVID-19 Source SARS-CoV-2 (PCR) Last Vital Signs Temp 38.6 C H 07/28/22 20:20 Pulse 68 07/28/22 19:03 Resp 18 07/28/22 19:03 BP 154/78 H 07/28/22 19:03 Pulse Ox 93 07/28/22 19:03
[2022-07-28] MEDS: DOXYCYCLINE 100 MG in Normal Saline 100 ML IVPB (21:00)
[2022-07-28] MEDS: metroNIDAZOLE 500 MG/100 ML BAG 100 MG IVPB (23:25)
[2022-07-29] VITALS (10 sets, daily range): BP systolic 105–150; BP diastolic 52–80; PULSE 50–88; RESP 17–20; TEMP 36.4–39.1; O2SAT 92–98
--- NOTE | 2022-07-29 | DI.NM_ITS ---
Exam(s) NM HEPATOBILIARY SCAN GRP EXAM: NM HEPATOBILIARY SCAN GRP CLINICAL HISTORY: ? cholecystitis. TECHNIQUE: Injected dose: 5 mCi Tc-99 mebrofenin Initial dynamic images: 60 minutes Delayed images performed 90 minutes, 2 hours and at 3 hour delay. COMPARISON: CT CT CHEST PE ABD PELVIS W from 07/28/2022 FINDINGS: Normal hepatic transit time. Prompt excretion into the small bowel. Nonvisualization of the gallbladder at 3 hours, suspicious for acute cholecystitis. IMPRESSION: 1. Nonvisualization of the gallbladder 3 hours, suspicious for acute cholecystitis [facility] guidelines: Gallbladder visualization should be present by 3 hours. Delayed [id number] bee sit beyond 60 min raises the suspicion for partial common bile duct (CBD) obstruction. Gallbladder ejection fraction <35% has a good correlation with acalculous disease (i.e., chronic acal culous cholecystitis, cystic duct syndrome, sphincter of Oddi disease).
[2022-07-29] MEDS: Acetaminophen 325 MG TAB PO ×2 (01:17→21:22)
[2022-07-29] MEDS: metroNIDAZOLE 500 MG/100 ML BAG 100 MG IVPB ×3 (05:43→21:23)
[2022-07-29 06:32] LABS: Absolute Basophil Count 0.03 10^3/uL (0.0-0.2); Absolute Eosinophil Count 0.12 10^3/uL (0.0-0.7); Absolute Lymphocyte Count 0.86 10^3/uL (1.2-3.4); Absolute Monocyte Count 1.48 10^3/uL (0.1-0.8); Absolute Neutrophil Count 11.24 10^3/uL (1.2-6.7); Basophils % 0.2; Eosinophils % 0.9; HGB 13.6 g/dL (13.5-17.5); Immature Grans % 0.7; Lactate 1.5 mmol/L (0.6-1.4); Lymphocytes % 6.2; MCH 32.1 pg (27.0-33.0); MCV 94 fL (80-95); MPV 10.8 fL (8.0-11.0); Monocytes % 10.7; Neutrophils % 81.3; Platelet Count 180 10^3/uL (130-400); RBC 4.24 10^6/uL (4.36-5.78); RDW 12.9 % (11.8-14.1); RDW-SD 44.5 fL; WBC 13.83 10^3/uL (4.4-10.8)
[2022-07-29 06:44] LABS: INR 2.3 (0.9-1.1); Prothrombin Time 21.8 sec (9.3-11.0)
[2022-07-29 06:54] LABS: ALT 299 U/L (16-63); AST 229 U/L (15-37); Albumin 3.1 g/dL (3.4-5.0); Alkaline Phosphatase 162 U/L (46-116); Anion Gap 9.5 mmol/L (3-11); BUN 19 mg/dL (7-18); Bilirubin, Total 2.9 mg/dL (0.2-1.0); CO2 28.5 mmol/L (21.0-32.0); Calcium 9.1 mg/dL (8.5-10.1); Chloride 101 mmol/L (98-107); Estimated GFR 81.98 (mL/min/1.73m2); Glucose 108 mg/dL (74-106); Potassium 3.5 mmol/L (3.5-5.1); Sodium 139 mmol/L (136-145); Total Protein 7.3 g/dL (6.4-8.2); Troponin I < 50 ng/L (<or=60)
[2022-07-29] MEDS: amLODIPine 10 MG TAB PO (08:59)
[2022-07-29] MEDS: Allopurinol 300 MG TAB PO (09:00)
[2022-07-29] MEDS: Atenolol 50 MG TAB 100 MG PO (09:00)
[2022-07-29] MEDS: Nystatin POWDER 15 GM JAR TP (09:28)
[2022-07-29] MEDS: Furosemide 40 MG/4 ML VIAL IVP ×2 (09:57→17:16)
[2022-07-29] MEDS: Normal Saline Flush 10 ML SYR IVP ×3 (09:58→20:03)
--- NOTE | 2022-07-29 10:15 | INITIAL_ITS ---
- If Service Date Differs Date of service: 07/29/22 Time of Service: 10:15 Care Management Initial Assess REASON FOR HOSPITALIZATION:: Acute right-sided CHF, Hypoxemia, Cholelithiasis PAST MEDICAL HISTORY/PAST SURGICAL HISTORY:: All Active Problems (Updated 07/29/22 @ 05:58 by Naveed Foley). Hypoxemia (Acute). Acute right-sided CHF (congestive heart failure) (Acute). Cholelithiasis (Acute). Elevated INR (Acute). Bleeding from wound (Acute). Medical History . Atrial fibrillation. Bilateral leg edema. BMI 50.0-59.9, adult. Elevated LFTs. Erectile dysfunction. Gout. Hypertension. Peripheral neuropathy. Prediabetes. Psoriasis. Shoulder dislocation. Surgical History . S/P exploratory laparotomy. S/P right hemicolectomy PREVIOUS FUNCTIONAL STATUS/SOCIAL/FAMILY SUPPORTS:: Hunter lives in [place]. He is retired from working at [employer], but keeps himself busy working on his property. He grew up in [place] with 8 siblings on a farm, and is close with his family. His children are grown up and live locally. He has friends and family to support him if needed, but he is very independent. 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 CURRENT FUNCTIONAL STATUS:: Hunter was sitting up in his chair when CM met with him. He is alert, oriented and pleasant. He has been keeping himself busy drawing. 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 ADVANCE DIRECTIVES:: None on file, CM will offer forms. Has patient been provided with info about the portal/API?: Yes Did the patient sign up for the portal?: No CODE STATUS:: Full Code INSURANCE COVERAGE / FINANCIAL ISSUES:: Medicare, [employer] CURRENT HOME/COMMUNITY SERVICES/EQUIPMENT:: None PRIMARY CARE PHYSICIAN:: Kimberly Stout POTENTIAL DISCHARGE NEEDS:: [facility] up [facility]. PATIENT/FAMILY EDUCATION NEEDS:: Review discharge instructions and limitations, discussion of self care needs including ask me three. TRANSPORTATION:: Via private vehicle with [facility]. PLAN:: Anticipate, Hunter will return home when medically cleared. He will be driven home via private vehicle by a friend, but also has a car in the parkinglot if able to drive home. He will follow up with his PCP and discharge plan of care. CM will continue to follow.
[2022-07-29 12:22] LABS: Lab Add On Test DONE
[2022-07-29 12:53] LABS: COVID-19 PCR Negative (Negative); Influenza A PCR Negative (Negative); Influenza B PCR Negative (Negative); RSV PCR Negative (Negative)
[2022-07-29 12:58] LABS: Procalcitonin 12.8 ng/mL
--- NOTE | 2022-07-29 13:28 | W.PM.PROGNOT ---
Date of Service Date of service: 07/29/22 Time of Service: 13:29 Assessment and Plan Assessment and plan (1) Cholelithiasis: Status: Acute Assessment and plan: Similar to his last hospital admission, his absence of abdominal complaints make acute cholecystitis less likely diagnosis. Because his WBC count is elevated and his Bili is slightly worse I have ordered a HIDA scan for today. Once I have the results I will make more recommendations Subjective Subjective Interval history since last seen: Hunter is feeling better today. He has no abdominal pain just like the last time he was admitted. His labs show a bump in his WBC. T.Bili is elevated at 2.9 (2.3 yesterday), AST and ALK Phos have decreased and ALT in elevated. INR is still elevated at 2.3 Exam Const General: cooperative, comfortable and no acute distress Nutritional Appearance: obese Orientation: alert and oriented x3 HENMT Head: normocephalic and atraumatic Resp Effort & Inspection: normal respiratory effort Auscultation: clear to auscultation bilaterally Cardio Rate: regular rate Rhythm: regular rhythm GI Inspection: obesity Palpation: soft, no hepatosplenomegaly and nontender Auscultation: normal bowel sounds Objective Last Vital Signs Temp 97.5 F L 07/29/22 11:31 Pulse 54 L 07/29/22 11:31 Resp 20 07/29/22 11:31 BP 130/77 07/29/22 11:31 Pulse Ox 94 07/29/22 11:31 Laboratory Results - last 24 hr 07/28/22 07/28/22 07/28/22 15:25 15:30 15:30 WBC 10.68 RBC 4.43 Hgb 14.1 Hct 41.4 MCV 94 MCH 31.8 MCHC 34.1 RDW 12.6 Plt Count 219 MPV 10.7 Immature Gran % 2.2 Neutrophils % 86.9 Lymphocytes % 3.6 Monocytes % 6.5 Eosinophils % 0.6 Basophils % 0.2 Nucleated RBC % 0.0 Absolute Neutrophils 9.30 H Absolute Lymphocytes 0.38 L Absolute Monocytes 0.69 Absolute Eosinophils 0.06 Absolute Basophils 0.02 PT INR APTT D-Dimer VBG Lactate Sodium 140 Potassium 3.6 Chloride 101 Carbon Dioxide 30.1 Anion Gap 8.9 BUN 19 H Creatinine 1.0 Est GFR (CKD-EPI 2020) 81.98 Glucose 110 H Calcium 9.2 Total Bilirubin 2.3 H AST 362 H ALT 238 H Alkaline Phosphatase 193 H Troponin I NT-Pro-B Natriuret Pep Total Protein 7.4 Albumin 3.3 L Lipase Procalcitonin COVID-19 Source Nasal/Nares SARS-CoV-2 (PCR) Negative Influenza Type A (PCR) Influenza Type B (PCR) RSV (PCR) Add-On Test Request 07/28/22 07/28/22 07/28/22 15:30 15:30 15:30 WBC RBC Hgb Hct MCV MCH MCHC RDW Plt Count MPV Immature Gran % Neutrophils % Lymphocytes % Monocytes % Eosinophils % Basophils % Nucleated RBC % Absolute Neutrophils Absolute Lymphocytes Absolute Monocytes Absolute Eosinophils Absolute Basophils PT 25.6 H INR 2.7 H APTT 31.8 H D-Dimer 644 H VBG Lactate Sodium Potassium Chloride Carbon Dioxide Anion Gap BUN Creatinine Est GFR (CKD-EPI 2020) Glucose Calcium Total Bilirubin AST ALT Alkaline Phosphatase Troponin I < 50 NT-Pro-B Natriuret Pep 935 H Total Protein Albumin Lipase Procalcitonin COVID-19 Source SARS-CoV-2 (PCR) Influenza Type A (PCR) Influenza Type B (PCR) RSV (PCR) Add-On Test Request 07/28/22 07/28/22 07/28/22 19:30 19:30 19:30 WBC RBC Hgb Hct MCV MCH MCHC RDW Plt Count MPV Immature Gran % Neutrophils % Lymphocytes % Monocytes % Eosinophils % Basophils % Nucleated RBC % Absolute Neutrophils Absolute Lymphocytes Absolute Monocytes Absolute Eosinophils Absolute Basophils PT INR APTT D-Dimer VBG Lactate 2.9 H* Sodium Potassium Chloride Carbon Dioxide Anion Gap BUN Creatinine Est GFR (CKD-EPI 2020) Glucose Calcium Total Bilirubin AST ALT Alkaline Phosphatase Troponin I < 50 NT-Pro-B Natriuret Pep Total Protein Albumin Lipase 96 Procalcitonin COVID-19 Source SARS-CoV-2 (PCR) Influenza Type A (PCR) Influenza Type B (PCR) RSV (PCR) Add-On Test Request 07/29/22 07/29/22 07/29/22 06:25 06:25 06:25 WBC 13.83 H RBC 4.24 L Hgb 13.6 Hct 40.0 MCV 94 MCH 32.1 MCHC 34.0 RDW 12.9 Plt Count 180 MPV 10.8 Immature Gran % 0.7 Neutrophils % 81.3 Lymphocytes % 6.2 Monocytes % 10.7 Eosinophils % 0.9 Basophils % 0.2 Nucleated RBC % 0.0 Absolute Neutrophils 11.24 H Absolute Lymphocytes 0.86 L Absolute Monocytes 1.48 H Absolute Eosinophils 0.12 Absolute Basophils 0.03 PT 21.8 H INR 2.3 H APTT D-Dimer VBG Lactate Sodium 139 Potassium 3.5 Chloride 101 Carbon Dioxide 28.5 Anion Gap 9.5 BUN 19 H Creatinine 1.0 Est GFR (CKD-EPI 2020) 81.98 Glucose 108 H Calcium 9.1 Total Bilirubin 2.9 H AST 229 H ALT 299 H Alkaline Phosphatase 162 H Troponin I < 50 NT-Pro-B Natriuret Pep Total Protein 7.3 Albumin 3.1 L Lipase Procalcitonin COVID-19 Source SARS-CoV-2 (PCR) Influenza Type A (PCR) Influenza Type B (PCR) RSV (PCR) Add-On Test Request 07/29/22 07/29/22 07/29/22 06:25 06:25 06:25 WBC RBC Hgb Hct MCV MCH MCHC RDW Plt Count MPV Immature Gran % Neutrophils % Lymphocytes % Monocytes % Eosinophils % Basophils % Nucleated RBC % Absolute Neutrophils Absolute Lymphocytes Absolute Monocytes Absolute Eosinophils Absolute Basophils PT INR APTT D-Dimer VBG Lactate 1.5 H Sodium Potassium Chloride Carbon Dioxide Anion Gap BUN Creatinine Est GFR (CKD-EPI 2020) Glucose Calcium Total Bilirubin AST ALT Alkaline Phosphatase Troponin I NT-Pro-B Natriuret Pep Total Protein Albumin Lipase Procalcitonin 12.8 COVID-19 Source SARS-CoV-2 (PCR) Influenza Type A (PCR) Influenza Type B (PCR) RSV (PCR) Add-On Test Request DONE 07/29/22 12:00 WBC RBC Hgb Hct MCV MCH MCHC RDW Plt Count MPV Immature Gran % Neutrophils % Lymphocytes % Monocytes % Eosinophils % Basophils % Nucleated RBC % Absolute Neutrophils Absolute Lymphocytes Absolute Monocytes Absolute Eosinophils Absolute Basophils PT INR APTT D-Dimer VBG Lactate Sodium Potassium Chloride Carbon Dioxide Anion Gap BUN Creatinine Est GFR (CKD-EPI 2020) Glucose Calcium Total Bilirubin AST ALT Alkaline Phosphatase Troponin I NT-Pro-B Natriuret Pep Total Protein Albumin Lipase Procalcitonin COVID-19 Source Not Applicable SARS-CoV-2 (PCR) Negative Influenza Type A (PCR) Negative Influenza Type B (PCR) Negative RSV (PCR) Negative Add-On Test Request
--- NOTE | 2022-07-29 19:20 | W.PM.PROGNOT ---
Date of Service Date of service: 07/29/22 Time of Service: 17:40 Assessment and Plan Assessment and plan (1) Acute cholecystitis: Status: Acute Assessment and plan: Confirmed by HIDA scan. Defer surgical plans to general surgery. Continue ceftriaxone + flagyl. (2) Hypoxemia: Status: Resolved Assessment and plan: In setting of acute on chronic R-sided CHF (milld to moderate pulmonary hypertension). On RA by the time of my exam. Plan is to transition to PO lasix tomorrow. (3) Acute on chronic right heart failure: Status: Acute Assessment and plan: As above (4) Atrial fibrillation: Assessment and plan: Rate controlled. Continue beta blockers. Hold anticoagulation in anticipation of surgery. Qualifiers: Atrial fibrillation type: longstanding persistent Qualified Code(s): I48.11 - Longstanding persistent atrial fibrillation (5) IMMANUEL treated with BiPAP: Status: Acute Assessment and plan: Provide BiPAp at night. (6) DVT prophylaxis: Status: Acute Assessment and plan: SCDs while INR subtherapeutic (7) Discharge planning issues: Status: Acute Assessment and plan: Full code Disposition dependent on surgical plans Subjective Subjective Interval history since last seen: Mr Ortiz states he feels better. Denies dizziness, chest pain, shortness of breath, nausea, abdominal pain. Exam Narrative Exam Narrative: General: Pleasant obese male who is sitting up in a chair eating dinner, A&Ox3, appears comfortable, on room air HEENT: EOMI, MMM Heart: seemingly regular rate and rhythm, nom/r/g Lungs: CTAB Abdomen: soft,nontender, no Mcfarland's sign, obese Extremities: +1 edema BLEs Objective Last Vital Signs Temp 36.4 C L 07/29/22 11:31 Pulse 54 L 07/29/22 11:31 Resp 20 07/29/22 11:31 BP 130/77 07/29/22 11:31 Pulse Ox 94 07/29/22 11:31 Laboratory Results - last 24 hr 07/28/22 07/28/22 07/28/22 19:30 19:30 19:30 WBC RBC Hgb Hct MCV MCH MCHC RDW Plt Count MPV Immature Gran % Neutrophils % Lymphocytes % Monocytes % Eosinophils % Basophils % Nucleated RBC % Absolute Neutrophils Absolute Lymphocytes Absolute Monocytes Absolute Eosinophils Absolute Basophils PT INR VBG Lactate 2.9 H* Sodium Potassium Chloride Carbon Dioxide Anion Gap BUN Creatinine Est GFR (CKD-EPI 2020) Glucose Calcium Total Bilirubin AST ALT Alkaline Phosphatase Troponin I < 50 Total Protein Albumin Lipase 96 Procalcitonin COVID-19 Source SARS-CoV-2 (PCR) Influenza Type A (PCR) Influenza Type B (PCR) RSV (PCR) Add-On Test Request 07/29/22 07/29/22 07/29/22 06:25 06:25 06:25 WBC 13.83 H RBC 4.24 L Hgb 13.6 Hct 40.0 MCV 94 MCH 32.1 MCHC 34.0 RDW 12.9 Plt Count 180 MPV 10.8 Immature Gran % 0.7 Neutrophils % 81.3 Lymphocytes % 6.2 Monocytes % 10.7 Eosinophils % 0.9 Basophils % 0.2 Nucleated RBC % 0.0 Absolute Neutrophils 11.24 H Absolute Lymphocytes 0.86 L Absolute Monocytes 1.48 H Absolute Eosinophils 0.12 Absolute Basophils 0.03 PT 21.8 H INR 2.3 H VBG Lactate Sodium 139 Potassium 3.5 Chloride 101 Carbon Dioxide 28.5 Anion Gap 9.5 BUN 19 H Creatinine 1.0 Est GFR (CKD-EPI 2020) 81.98 Glucose 108 H Calcium 9.1 Total Bilirubin 2.9 H AST 229 H ALT 299 H Alkaline Phosphatase 162 H Troponin I < 50 Total Protein 7.3 Albumin 3.1 L Lipase Procalcitonin COVID-19 Source SARS-CoV-2 (PCR) Influenza Type A (PCR) Influenza Type B (PCR) RSV (PCR) Add-On Test Request 07/29/22 07/29/22 07/29/22 06:25 06:25 06:25 WBC RBC Hgb Hct MCV MCH MCHC RDW Plt Count MPV Immature Gran % Neutrophils % Lymphocytes % Monocytes % Eosinophils % Basophils % Nucleated RBC % Absolute Neutrophils Absolute Lymphocytes Absolute Monocytes Absolute Eosinophils Absolute Basophils PT INR VBG Lactate 1.5 H Sodium Potassium Chloride Carbon Dioxide Anion Gap BUN Creatinine Est GFR (CKD-EPI 2020) Glucose Calcium Total Bilirubin AST ALT Alkaline Phosphatase Troponin I Total Protein Albumin Lipase Procalcitonin 12.8 COVID-19 Source SARS-CoV-2 (PCR) Influenza Type A (PCR) Influenza Type B (PCR) RSV (PCR) Add-On Test Request DONE 07/29/22 12:00 WBC RBC Hgb Hct MCV MCH MCHC RDW Plt Count MPV Immature Gran % Neutrophils % Lymphocytes % Monocytes % Eosinophils % Basophils % Nucleated RBC % Absolute Neutrophils Absolute Lymphocytes Absolute Monocytes Absolute Eosinophils Absolute Basophils PT INR VBG Lactate Sodium Potassium Chloride Carbon Dioxide Anion Gap BUN Creatinine Est GFR (CKD-EPI 2020) Glucose Calcium Total Bilirubin AST ALT Alkaline Phosphatase Troponin I Total Protein Albumin Lipase Procalcitonin COVID-19 Source Not Applicable SARS-CoV-2 (PCR) Negative Influenza Type A (PCR) Negative Influenza Type B (PCR) Negative RSV (PCR) Negative Add-On Test Request
[2022-07-29] MEDS: cefTRIAXone 1 GM/50 ML BAG IVPB (20:08)
[2022-07-30] VITALS (9 sets, daily range): BP systolic 118–155; BP diastolic 64–92; PULSE 44–78; RESP 16–18; TEMP 36.3–36.9; O2SAT 93–97
[2022-07-30] MEDS: metroNIDAZOLE 500 MG/100 ML BAG 100 MG IVPB ×4 (03:54→22:15)
[2022-07-30] MEDS: Normal Saline Flush 10 ML SYR IVP ×3 (03:55→22:15)
[2022-07-30 07:15] LABS: Abs Immature Grans 0.13 10^3/uL (0.0-0.06); Absolute Basophil Count 0.04 10^3/uL (0.0-0.2); Absolute Eosinophil Count 0.37 10^3/uL (0.0-0.7); Absolute Lymphocyte Count 0.98 10^3/uL (1.2-3.4); Absolute Monocyte Count 1.11 10^3/uL (0.1-0.8); Absolute Neutrophil Count 6.17 10^3/uL (1.2-6.7); Basophils % 0.5; Eosinophils % 4.2; HCT 40.4 % (40.0-50.0); Immature Grans % 1.5; Lymphocytes % 11.1; MCH 32.6 pg (27.0-33.0); MCHC 34.7 % (32.0-36.0); MCV 94 fL (80-95); MPV 11.1 fL (8.0-11.0); Monocytes % 12.6; Neutrophils % 70.1; Platelet Count 212 10^3/uL (130-400); RDW-SD 44.8 fL
[2022-07-30 07:21] LABS: INR 1.5 (0.9-1.1); Prothrombin Time 14.8 sec (9.3-11.0)
[2022-07-30 07:26] LABS: ALT 275 U/L (16-63); AST 134 U/L (15-37); Albumin 3.1 g/dL (3.4-5.0); Alkaline Phosphatase 157 U/L (46-116); Anion Gap 6.5 mmol/L (3-11); BUN 18 mg/dL (7-18); Bilirubin, Direct 0.9 mg/dL (0.0-0.2); Bilirubin, Total 1.6 mg/dL (0.2-1.0); CO2 30.5 mmol/L (21.0-32.0); Calcium 9.1 mg/dL (8.5-10.1); Chloride 102 mmol/L (98-107); Estimated GFR 81.98 (mL/min/1.73m2); Glucose 115 mg/dL (74-106); Magnesium 1.7 mg/dL (1.8-2.4); Potassium 3.7 mmol/L (3.5-5.1); Sodium 139 mmol/L (136-145); Total Protein 7.6 g/dL (6.4-8.2)
[2022-07-30] MEDS: Atenolol 50 MG TAB 100 MG PO (08:13)
[2022-07-30] MEDS: Allopurinol 300 MG TAB PO (08:13)
[2022-07-30] MEDS: amLODIPine 10 MG TAB PO (08:13)
[2022-07-30] MEDS: Furosemide 40 MG/4 ML VIAL IVP (08:55)
[2022-07-30] MEDS: cefTRIAXone 2 GM/50 ML BAG IVPB (10:25)
--- NOTE | 2022-07-30 10:39 | W.PM.PROGNOT ---
Date of Service Date of service: 07/30/22 Time of Service: 10:39 Assessment and Plan Assessment and plan (1) Acute cholecystitis: Status: Acute Assessment and plan: Medically cleared for surgery. Continue ceftriaxone + flagyl. (2) Hypoxemia: Status: Resolved Assessment and plan: In setting of acute on chronic R-sided CHF (milld to moderate pulmonary hypertension). On RA by the time of my exam. Transition to PO furosemide. (3) Acute on chronic right heart failure: Status: Acute Assessment and plan: As above (4) Atrial fibrillation: Assessment and plan: Rate controlled. Continue beta blockers. Hold anticoagulation in anticipation of surgery. Qualifiers: Atrial fibrillation type: longstanding persistent Qualified Code(s): I48.11 - Longstanding persistent atrial fibrillation (5) IMMANUEL treated with BiPAP: Status: Acute Assessment and plan: Provide BiPAp at night. (6) DVT prophylaxis: Status: Acute Assessment and plan: SCDs while INR subtherapeutic (7) Discharge planning issues: Status: Acute Assessment and plan: Full code Disposition dependent on surgical plans Discussed with Dr Velasquez. Subjective Subjective Interval history since last seen: Mr Ortiz states that he is feeling better. He states that his breathing is back to his baseline. He denies dizziness, chest pain, shortness of breath, nausea, abdominal pain. He is being planned for a cholecystectomy either today or tomorrow. Exam Narrative Exam Narrative: General: Pleasant obese male who is sitting up in a chair, A&Ox3, looks well, on RA HEENT: EOMI, MMM Heart: seemingly regular rate and rhythm, no m/r/g Lungs: CTAB Abdomen: soft,nontender, no Mcfarland's sign, obese Extremities: +1 edema BLEs, unchanged Objective Last Vital Signs Temp 36.5 C 07/30/22 07:49 Pulse 62 07/30/22 07:49 Resp 18 07/30/22 07:49 BP 135/83 07/30/22 07:49 Pulse Ox 95 07/30/22 07:49 Laboratory Results - last 24 hr 07/29/22 07/29/22 07/29/22 06:25 06:25 12:00 WBC RBC Hgb Hct MCV MCH MCHC RDW Plt Count MPV Immature Gran % Neutrophils % Lymphocytes % Monocytes % Eosinophils % Basophils % Nucleated RBC % Absolute Neutrophils Absolute Lymphocytes Absolute Monocytes Absolute Eosinophils Absolute Basophils PT INR Sodium Potassium Chloride Carbon Dioxide Anion Gap BUN Creatinine Est GFR (CKD-EPI 2020) Glucose Calcium Magnesium Total Bilirubin Conjugated Bilirubin AST ALT Alkaline Phosphatase Total Protein Albumin Procalcitonin 12.8 COVID-19 Source Not Applicable SARS-CoV-2 (PCR) Negative Influenza Type A (PCR) Negative Influenza Type B (PCR) Negative RSV (PCR) Negative Add-On Test Request DONE 07/30/22 07/30/22 07/30/22 07:00 07:00 07:00 WBC 8.80 RBC 4.30 L Hgb 14.0 Hct 40.4 MCV 94 MCH 32.6 MCHC 34.7 RDW 13.0 Plt Count 212 MPV 11.1 H Immature Gran % 1.5 Neutrophils % 70.1 Lymphocytes % 11.1 Monocytes % 12.6 Eosinophils % 4.2 Basophils % 0.5 Nucleated RBC % 0.0 Absolute Neutrophils 6.17 Absolute Lymphocytes 0.98 L Absolute Monocytes 1.11 H Absolute Eosinophils 0.37 Absolute Basophils 0.04 PT 14.8 H INR 1.5 H Sodium 139 Potassium 3.7 Chloride 102 Carbon Dioxide 30.5 Anion Gap 6.5 BUN 18 Creatinine 1.0 Est GFR (CKD-EPI 2020) 81.98 Glucose 115 H Calcium 9.1 Magnesium 1.7 L Total Bilirubin 1.6 H Conjugated Bilirubin 0.9 H AST 134 H ALT 275 H Alkaline Phosphatase 157 H Total Protein 7.6 Albumin 3.1 L Procalcitonin COVID-19 Source SARS-CoV-2 (PCR) Influenza Type A (PCR) Influenza Type B (PCR) RSV (PCR) Add-On Test Request
--- NOTE | 2022-07-30 11:00 | W.PM.PROGNOT ---
Date of Service Date of service: 07/30/22 Time of Service: 11:00 Assessment and Plan Assessment and plan (1) Cholelithiasis: Status: Chronic Assessment and plan: Similar to his last hospital admission, his absence of abdominal complaints makes his diagnosis more complicated. The HIDA scan showed no uptake of dye into his GB, this is suggestive of acute Cholecystitis. Despite the fact that he has no pain this is his second admission with elevated LFT's and this time he had Leukocytosis. No signs of pneumonia. He is on ABX. Blood cultures grew strep. Dr. Bird has cleared the patient for surgery. The plan will be for admission to the ICU for close monitoring after surgery. I discussed Laparoscopic Cholecystectomy, possible open, possible Cholangiogram. I reviewed the risks which include injury to the CBD which would require transfer to [facility] or [facility] and pssible Liver transplant. Risks, benefits, complications were reviewed with the patient in the office. Complications include but are not limited to bleeding, infection, injury to stomach, small bowel and large bowel, injury to the pancreas, injury to the common bile duct necessitating drainage and referral to tertiary center for repair, bile leak, adverse reactions to the medications, complications of intubation including a sore throat or injury to the uvula, CT, stroke and even . Questions were entertained and answered to her satisfaction and she wished to proceed. No guarantees were given or implied. Laparoscopic Cholecystectomy tomorrow Subjective Subjective Interval history since last seen: Mr. Harrison is a pleasant 67 year old admitted for SOB, Fevers and abnormal LFT's. HIDA scan from yesterday showed no uptake into the GB which is suggestive of acute Cholecystitis. He had a previous admission for SOB and elevated LFTs which normalized. He did have a Leukocytosis yesterday. Today his Labs show normalization of his WBC count and decrease in LFTs. He has never had abdominal pain. He does have a history of CHF. There was question on admission about acute on chronic CHF. He is back to baseline. He is not on O2. He does have IMMANUEL and is on CPAP at night. Exam Const General: comfortable and no acute distress Orientation: alert and oriented x3 HENMT Head: normocephalic and atraumatic Resp Effort & Inspection: normal respiratory effort Auscultation: clear to auscultation bilaterally Cardio Rate: regular rate Rhythm: abnormal rhythm GI Inspection: normal to inspection Palpation: soft, no hepatosplenomegaly and nontender Auscultation: normal bowel sounds Objective Last Vital Signs Temp 97.7 F 07/30/22 07:49 Pulse 62 07/30/22 07:49 Resp 18 07/30/22 07:49 BP 135/83 07/30/22 07:49 Pulse Ox 95 07/30/22 07:49 Laboratory Results - last 24 hr 07/29/22 07/29/22 07/29/22 06:25 06:25 12:00 WBC RBC Hgb Hct MCV MCH MCHC RDW Plt Count MPV Immature Gran % Neutrophils % Lymphocytes % Monocytes % Eosinophils % Basophils % Nucleated RBC % Absolute Neutrophils Absolute Lymphocytes Absolute Monocytes Absolute Eosinophils Absolute Basophils PT INR Sodium Potassium Chloride Carbon Dioxide Anion Gap BUN Creatinine Est GFR (CKD-EPI 2020) Glucose Calcium Magnesium Total Bilirubin Conjugated Bilirubin AST ALT Alkaline Phosphatase Total Protein Albumin Procalcitonin 12.8 COVID-19 Source Not Applicable SARS-CoV-2 (PCR) Negative Influenza Type A (PCR) Negative Influenza Type B (PCR) Negative RSV (PCR) Negative Add-On Test Request DONE 07/30/22 07/30/22 07/30/22 07:00 07:00 07:00 WBC 8.80 RBC 4.30 L Hgb 14.0 Hct 40.4 MCV 94 MCH 32.6 MCHC 34.7 RDW 13.0 Plt Count 212 MPV 11.1 H Immature Gran % 1.5 Neutrophils % 70.1 Lymphocytes % 11.1 Monocytes % 12.6 Eosinophils % 4.2 Basophils % 0.5 Nucleated RBC % 0.0 Absolute Neutrophils 6.17 Absolute Lymphocytes 0.98 L Absolute Monocytes 1.11 H Absolute Eosinophils 0.37 Absolute Basophils 0.04 PT 14.8 H INR 1.5 H Sodium 139 Potassium 3.7 Chloride 102 Carbon Dioxide 30.5 Anion Gap 6.5 BUN 18 Creatinine 1.0 Est GFR (CKD-EPI 2020) 81.98 Glucose 115 H Calcium 9.1 Magnesium 1.7 L Total Bilirubin 1.6 H Conjugated Bilirubin 0.9 H AST 134 H ALT 275 H Alkaline Phosphatase 157 H Total Protein 7.6 Albumin 3.1 L Procalcitonin COVID-19 Source SARS-CoV-2 (PCR) Influenza Type A (PCR) Influenza Type B (PCR) RSV (PCR) Add-On Test Request
[2022-07-30] MEDS: MAGNESIUM SULFATE 2 GM/50 ML BAG IVPB (11:34)
[2022-07-30] MEDS: Furosemide 40 MG TAB PO (15:28)
[2022-07-31] VITALS (122 sets, daily range): BP systolic 101–155; BP diastolic 55–95; PULSE 35–136; RESP 11–32; TEMP 36.3–36.6; O2SAT 83–97; BMI 44.1
[2022-07-31] MEDS: metroNIDAZOLE 500 MG/100 ML BAG 100 MG IVPB ×2 (03:22→11:24)
[2022-07-31 06:43] LABS: Abs Immature Grans 0.09 10^3/uL (0.0-0.06); Absolute Basophil Count 0.04 10^3/uL (0.0-0.2); Absolute Eosinophil Count 0.32 10^3/uL (0.0-0.7); Absolute Lymphocyte Count 0.95 10^3/uL (1.2-3.4); Absolute Monocyte Count 0.94 10^3/uL (0.1-0.8); Absolute Neutrophil Count 5.51 10^3/uL (1.2-6.7); Basophils % 0.5; Eosinophils % 4.1; HCT 38.6 % (40.0-50.0); HGB 13.3 g/dL (13.5-17.5); Immature Grans % 1.1; Lymphocytes % 12.1; MCHC 34.5 % (32.0-36.0); MCV 93 fL (80-95); MPV 11.4 fL (8.0-11.0); Neutrophils % 70.2; Platelet Count 200 10^3/uL (130-400); RBC 4.16 10^6/uL (4.36-5.78); RDW 12.6 % (11.8-14.1); RDW-SD 43.5 fL; WBC 7.85 10^3/uL (4.4-10.8)
[2022-07-31 06:56] LABS: ALT 186 U/L (16-63); AST 58 U/L (15-37); Albumin 2.9 g/dL (3.4-5.0); Alkaline Phosphatase 137 U/L (46-116); Anion Gap 8.6 mmol/L (3-11); BUN 17 mg/dL (7-18); Bilirubin, Direct 0.4 mg/dL (0.0-0.2); Bilirubin, Total 0.9 mg/dL (0.2-1.0); CO2 27.4 mmol/L (21.0-32.0); CREATININE 0.7 mg/dL (0.70-1.30); Calcium 8.7 mg/dL (8.5-10.1); Chloride 103 mmol/L (98-107); Estimated GFR 100.37 (mL/min/1.73m2); Glucose 117 mg/dL (74-106); Lipase 67 U/L (73-393); Magnesium 1.8 mg/dL (1.8-2.4); Potassium 3.5 mmol/L (3.5-5.1); Sodium 139 mmol/L (136-145); Total Protein 7.1 g/dL (6.4-8.2)
[2022-07-31 06:58] LABS: INR 1.2 (0.9-1.1); Prothrombin Time 12.3 sec (9.3-11.0)
[2022-07-31] MEDS: Atenolol 50 MG TAB 100 MG PO (07:38)
[2022-07-31] MEDS: Normal Saline Flush 10 ML SYR IVP (07:39)
--- NOTE | 2022-07-31 08:05 | W.ANESPRE ---
General Info Date of Service Date Performed: 07/31/22 Height: 5 ft 9 in Weight: 135.8 kg Body Mass Index (BMI): 44.1 Meds Allergies and Home Medications Allergies Allergy/AdvReac Type Severity Reaction Status Date / Time ampicillin Allergy Unknown rash,bliste Unverified 07/28/22 20:50 rs lisinopril AdvReac Unknown cough Unverified 07/28/22 20:50 losartan [Losartan] AdvReac Unknown leg cramps Unverified 07/28/22 20:50 Home Medication Medication Instructions Recorded allopurinol 300 mg tablet 300 mg PO DAILY 08/18/14 atenolol 100 mg tablet 100 mg PO DAILY 08/18/14 calcipotriene 0.005 % scalp 60 ml topical BID PRN 08/18/14 solution diphenhydramine HCl 12.5 mg/5 mL 25 mg PO Q4H PRN 08/18/14 oral liquid amlodipine 10 mg tablet 10 mg PO DAILY 01/02/20 furosemide 40 mg tablet 80 mg PO DAILY 01/02/20 warfarin 5 mg tablet 5 mg PO DAILY #90 tabs 12/21/21 ciprofloxacin HCl 500 mg tablet 500 mg PO Q12H #10 tabs 05/16/22 (Cipro) metronidazole 500 mg tablet 500 mg PO TID #15 tabs 05/16/22 nystatin 100,000 unit/gram topical 1 applic topical BID #60 grams 05/16/22 powder Current Visit Medications: Current Medications Generic Name Dose Route Start Last Admin Trade Name Freq PRN Reason Stop Dose Admin Acetaminophen 0 mg 07/28/22 21:02 07/29/22 21:22 Acetaminophen 325 Mg Tab PO 650 mg Q4H PRN PRN Administration Al Hydrox/Mg Hydrox/Simethicone 30 ml 07/28/22 21:02 Mylanta Suspension 30 Ml Cup PO Q2H PRN PRN Albuterol Sulfate 2.5 mg 07/28/22 21:02 Albuterol 2.5 Mg/3 Ml Inh Soln Vial UPD Q2H PRN PRN Albuterol/Ipratropium 3 ml 07/28/22 21:02 Albuterol/Ipratropium 3 Ml Upd Vial UPD Q6H PRN PRN Allopurinol 300 mg 07/29/22 08:30 07/30/22 08:13 Allopurinol 300 Mg Tab PO 300 mg DAILY CHUNG Administration Amlodipine Besylate 10 mg 07/29/22 08:30 07/30/22 08:13 Amlodipine 10 Mg Tab PO 10 mg DAILY CHUNG Administration Atenolol 100 mg 07/29/22 08:30 07/31/22 07:38 Atenolol 50 Mg Tab PO 100 mg DAILY CHUNG Administration Dimethicone/Zinc Oxide 0 gm 07/28/22 21:02 Yue Protect Cream 142 Gm Tube TP PRN PRN Diphenhydramine HCl 25 mg 07/28/22 22:44 Diphenhydramine 25 Mg Cap PO Q4H PRN PRN Docusate Sodium 100 mg 07/28/22 21:02 Docusate Sodium 100 Mg Cap PO TID PRN PRN Furosemide 40 mg 07/30/22 16:00 07/30/22 15:28 Furosemide 40 Mg Tab PO 40 mg BID@0830,1600 CHUNG Administration Metronidazole 500 mg in 100 mls @ 100 mls/hr 07/29/22 16:00 07/31/22 04:25 Flagyl IVPB Infused Q6H CHUNG Infusion Ceftriaxone Sodium/Dextrose 2 gm in 50 mls @ 100 mls/hr 07/30/22 10:00 07/30/22 11:10 Rocephin IVPB Infused Q24H CHUNG Infusion Vancomycin HCl / Sodium 250 mls @ 0 mls/hr 07/31/22 08:00 Chloride IVPB .[facility] Protocol As Directed IV Miscellaneous Supplies 1 each 07/28/22 15:15 Iv Access IV [facility] Magnesium Hydroxide 30 ml 07/28/22 21:02 Milk Of Magnesia 30 Ml Cup PO DAILY PRN PRN Nystatin 0 gm 07/29/22 08:30 07/30/22 20:15 Nystatin Powder 15 Gm Jar TP Not Given BID CHUNG Polyethylene Glycol 17 gm 07/28/22 21:02 Polyethylene Glycol 3350 17 Gm Packet PO DAILY PRN PRN Constipation Sodium Chloride 0 ml 07/28/22 15:05 07/31/22 07:39 Normal Saline Flush 10 Ml Syr IVP 10 ml PRN PRN Administration PFSH Active Problems Active Problems: Problem Status Onset Code Acute cholecystitis K81.0 Discharge planning issues Z02.9 DVT prophylaxis Z29.9 Acute on chronic right heart failure I50.813 IMMANUEL treated with BiPAP G47.33 Cholelithiasis K80.20 Respiratory failure J96.90 Sepsis A41.9 CHF (congestive heart failure) I50.9 Hypoxemia R09.02 Acute right-sided CHF (congestive heart failure) I50.811 Cholelithiasis K80.20 Elevated INR R79.1 Bleeding from wound T14.8XXA Medical History Medical History Atrial fibrillation Bilateral leg edema BMI 50.0-59.9, adult Elevated LFTs Erectile dysfunction Gout Hypertension Peripheral neuropathy Prediabetes Psoriasis Shoulder dislocation Surgical History Surgical History S/P exploratory laparotomy S/P right hemicolectomy Tobacco Smoking/Tobacco Use Status: Never Alcohol Alcohol Intake: current Alcohol intake frequency: a few times a week Alcohol type: beer Substance Use Substance use: Never Substance use type: does not use Vital Signs and Lab Results Vital Signs Most Recent Vital Signs in EMR: Most Recent Vital Signs Temp Pulse Resp BP Pulse Ox 36.3 C L 63 18 147/82 H 93 07/31/22 07:48 07/31/22 07:48 07/31/22 07:48 07/31/22 07:48 07/31/22 07:48 Lab Results Result Diagrams: 07/31/22 05:56 07/31/22 05:56 Blood Type / Crossmatch: No Data to Display Complete Blood Count: White Blood Count 7.85 10^3/uL (4.4-10.8) 07/31/22 05:56 Red Blood Count 4.16 10^6/uL (4.36-5.78) L 07/31/22 05:56 Hemoglobin 13.3 g/dL (13.5-17.5) L 07/31/22 05:56 Hematocrit 38.6 % (40.0-50.0) L 07/31/22 05:56 Platelet Count 200 10^3/uL (130-400) 07/31/22 05:56 Venous Blood Lactate 1.5 mmol/L (0.6-1.4) H 07/29/22 06:25 Complete Metabolic Panel: Sodium Level 139 mmol/L (136-145) 07/31/22 05:56 Potassium Level 3.5 mmol/L (3.5-5.1) 07/31/22 05:56 Chloride Level 103 mmol/L (98-107) 07/31/22 05:56 Carbon Dioxide Level 27.4 mmol/L (21.0-32.0) 07/31/22 05:56 Blood Urea Nitrogen 17 mg/dL (7-18) 07/31/22 05:56 Creatinine 0.7 mg/dL (0.70-1.30) 07/31/22 05:56 Magnesium Level 1.8 mg/dL (1.8-2.4) 07/31/22 05:56 Calcium Level 8.7 mg/dL (8.5-10.1) 07/31/22 05:56 Albumin 2.9 g/dL (3.4-5.0) L 07/31/22 05:56 Glucose Level 117 mg/dL (74-106) H 07/31/22 05:56 Liver Function Panel: Alanine Aminotransferase (ALT/SGPT) 186 U/L (16-63) H 07/31/22 05:56 Aspartate Amino Transf (AST/SGOT) 58 U/L (15-37) H 07/31/22 05:56 Coagulation Panel: INR International Normalized Ratio 1.2 (0.9-1.1) H 07/31/22 05:56 Prothrombin Time 12.3 sec (9.3-11.0) H 07/31/22 05:56 Activated Partial Thromboplast Time 31.8 sec (21.0-27.5) H 07/28/22 15:30 D-Dimer 644 ng/mlFEU (<500) H 07/28/22 15:30 Cardiac Panel: Troponin I < 50 ng/L (<or=60) 07/29/22 CM-Srw-U-Type Natriuretic Peptide 935 pg/mL (<300) H 07/28/22 Arterial Blood Gas: No Data to Display Venous Blood Gas: No Data to Display Pancreas Panel: Lipase 67 U/L (73-393) 07/31/22 05:56 Thyroid Panel: No Data to Display Infectious Disease: Coronavirus (COVID-19)(PCR) Negative (Negative) 07/29/22 12:00 Coronavirus 2019 Source Not Applicable 07/29/22 12:00 Influenza Virus Type A (PCR) Negative (Negative) 07/29/22 12:00 Influenza Virus Type B (PCR) Negative (Negative) 07/29/22 12:00 Respiratory Syncytial Virus (PCR) Negative (Negative) 07/29/22 12:00 Blood Cultures: No Data to Display Toxicology Panel: No Data to Display Imaging and Studies Imaging and Studies Study information below may be from another EMR and interpreted by another provider. Please see original notes in EMR for more complete details. EKG Summary: 07/28/2022: Conclusion Atrial fibrillation. Minimal ST depression, diffuse leads...ST <-0.03mV, ant/lat/inf Prolonged QT interval...QTc >500mS Echocardiogram Summary: 01/14/2020: Conclusion Left Ventricle : The left ventricle is grossly normal size. The overall left ventricular systolic function appears normal. Left ventricular systolic function is normal. The posterior wall thickness is mildly increased. The septal thickness is mildly increased. Regional wall motion is grossly normal. LV diastolic function appears normal. LVEF is 55-59%. Right Ventricle : Right ventricle is not well visualized. Atria : Left atrium is borderline dilated. Right atrium is borderline dilated. Aortic Valve : Aortic valve is calcified and not well visualized. Mild aortic stenosis. No aortic regurgitation is present. Mitral Valve : The mitral valve is normal in structure. Trace mitral regurgitation. Great Vessels : The IVC was not well visualized. Estimated RVSP is 35-40 mmHg. There is no prior echocardiogram available for comparison. Anesthesia Assessment and Plan Anesthesia History Personal History: No History of Anesthesia Complications Family History: No Family History of Anesthesia Complications Exercise Tolerance Exercise Tolerance: Metabolic Equivalents>4 Pertinent Negatives Pertinent Negatives: No Symptoms of GERD Cardiac & Pulmonary Exam Cardiac Exam: Normal S1/S2 Heart Sounds Pulmonary Exam: Clear Bilateral Breath Sounds Implantable Cardiac Device Does patient have a Pacemaker or an ICD?: No Airway Exam Known Difficult Airway: No Mallampati Class: 2 Mouth Opening: Normal (> 3cm) Thyromental Distance: Greater than 3 cm Neck Range of Motion: Full ROM Neck Circumference: Thick Teeth Condition: Edentulous ASA Classification ASA Score: ASA 3 Emergency Case?: No NPO Status NPO Status: NPO Clears >2 hours, Solids >8 hours Anesthesia Plan Resuscitation Status: Full Code Anesthesia Technique: General Anesthesia Airway Planned: Endotracheal Tube Monitors Used: Standard Monitors
[2022-07-31] MEDS: Furosemide 40 MG TAB PO ×2 (08:18→16:29)
[2022-07-31] MEDS: Lactated Ringers 1,000 ML 30 ML IV (08:53)
--- NOTE | 2022-07-31 09:51 | GB_PTH ---
PATIENT: Hunter Ortiz LOC: U#:[id number] AGE/SX: 67/M [facility]: Naveed Foley : 1955 BED: A DIS: 08/05/2022 SPEC #: [id number] RECD: 08/01/22 12:19 STATUS: KENNY REQ #: [id number] KATALINA: 07/31/22 09:[address]: Naveed Foley DEPT: Surgical Specimen RECD BY: Catalina Greene ENTERED: 08/01/22 12:20 SP TYPE: GB OTHR DR: MD Girish Lino Ruth Tissues: 1 - GALLBLADDER Procedures: GROSS AND MICRO LEVEL 3 Comments: [id number]
[2022-07-31] MEDS: Bupivacaine 0.25% Pres-Free 30 ML VIAL (10:03)
--- NOTE | 2022-07-31 11:16 | W.PM.OP ---
Date of service: 07/31/22 Time of Service: 11:16 Operative Note Operative Note DATE OF PROCEDURE: 07/31/22 PRE-OP DIAGNOSIS: acute Colecytitis POST-OP DIAGNOSIS: same PROCEDURE: Open Cholecystectomy SURGEON: Yolanda Velasquez GLASSWARE DEFECT REPAIRER: Eda Bonilla ANESTHESIA TYPE: General LMA/ETT Refer to Anesthesia Record ESTIMATED BLOOD LOSS: 25 PATHOLOGY: other (gallbladder) COMPLICATIONS: None Patient was transported to: ICU Patient's condition: stable Indications: Similar to his last hospital admission, his absence of abdominal complaints makes his diagnosis more complicated.? The HIDA scan showed no uptake of dye into his GB, this is suggestive of acute Cholecystitis.? Despite the fact that he has no pain this is his second admission with elevated LFT's and this time he had Leukocytosis. No signs of pneumonia. He is on ABX. Blood cultures grew strep. Dr. Bird has cleared the patient for surgery. The plan will be for admission to the ICU for close monitoring after surgery. I discussed Laparoscopic Cholecystectomy, possible open, possible Cholangiogram. I reviewed the risks which include injury to the CBD which would require transfer to [facility] or [facility] and pssible Liver transplant.? Risks, benefits, complications were reviewed with the patient in the office.? Complications include but are not limited to bleeding, infection, injury to stomach, small bowel and large bowel, injury to the pancreas, injury to the common bile duct necessitating drainage and referral to tertiary center for repair, bile leak, adverse reactions to the medications, complications of intubation including a sore throat or injury to the uvula, [place], stroke and even .? Questions were entertained and answered to her satisfaction and she wished to proceed.? No guarantees were given or implied. Laparoscopic Cholecystectomy tomorrow, possible open Findings: Thickened Gallbladder wall. enlarged lymph node Procedure Description: After informed consent was obtained the patient was brought to the operating room, placed in a supine position and monitors were applied. SCDs were applied to her lower extremities and she was placed under general anesthesia and intubated without difficulty. A ferrer catheter was placed in a standard fashion. His abdomen was then prepped and draped in a sterile fashion using ChloraPrep. At this point a timeout was done and the patient's name, date of , procedure type, allergies to medications, metal in her body, antibiotic and DVT prophylaxis, and fire risk was assessed. At this point 0.25% Bupivocaine was injected just to the right of midline, at the level of the hip, into the dermis and subcutaneous tissue. A 5 mm incision was made with an 11 blade. Dissection was done with a hemostat down to the fascia. The fascia was cut and the edges grasped with cockers. A long 5 mm visiport was then gently inserted. Once through the peritoneum all I could see was omentum. The port was removed. The patient had a midline incision from pruior surgery so I was afraid to injure the intestine if it was adhered to the abdominal wall. The local was injected in the RUQ and another 5 mm incision was made. Dissection again was done down to the fascia. The fascia was opened and The port was again gently placed through the fascia and the peritoneum. Again all I could see was omentum and even with some insufflation the omentum would not fall away from the abdominal wall. The port was removed and I made the decision to open. The local was injected about 1 inch below the right costal margine. An incision was made with a 15 blade. Dissection through the subcutaneous tissue down to the fascia was done with cuatery. The fascia was then opened with cautery. Using cautery the rectus muscle was dissected. The peritoneum was entered sharply with scissors. I then swept my finger under the peritoneum and dissected away some adhesions. The peritoneum was then opened. Omentum was retracted inferiorly. The falsiform ligament was identified and clamped, cut and suture ligated. The liver was retracted and I was then able to see the dome of the Gallbladder. The Gallbladder was grasped with a Rhett. I then the Gallbladder wall from the liver with cautery and was then able to remove the entire Gallbladder from the liver using blunt dissection with my finger. I was then able to see the Lymph node. The lymph node was dissected away with a right angle. The cystic duct and cystic artery was identified. I was able to see it go into the gallbladder. 2 clipps were placed distally on the duct and artery and both were cut. The gallbladder was removed and placed in formalin. Next the Liver bed was inspected and there was some small amount of bleeding. The right upper quadrant was irrigated and the fluid suctioned. A Lap was placed onto the liver bed and pressure was held. While The floseal was being brought to the room I lenghthened the mid abdominal incision. Using cautery the subcutaneous tissue and fascia was opened. I was then able to place my finger though the peritoneum and swept for bowel. I noted omentum stuck up. I identified a small hematoma in the omentum which is where the port was going in. I explored the omentum and the bowel behind it. No injury to the bowel was noted. The fascia was closed with #1 Vicryl. The subcutaneous tissue was re-approximated with #1 vicryl. Floseal was then placed into the liver bed to help with hemostasis. At this point the fascia in the RUQ was closed in 2 layers with #1 Vicryl. The subcutaneous tissue was re-approximated with 0 Vicryl. Both skin incision was closed with ras. The skin was cleaned and dried. A ANDREW was placed over the RUQ incision. A 4x4 was placed over the midline incision and covered with tegaderm. Sponge, instruments and needle counts were correct x 2. The patient was woken up, extubated and taken to the ICU in stable condition.
[2022-07-31] MEDS: cefTRIAXone 2 GM/50 ML BAG IVPB (11:24)
[2022-07-31] MEDS: VANCOMYCIN/WATER (PEG) 1.75 GM/350 ML BAG IVPB (11:55)
--- NOTE | 2022-07-31 12:59 | W.PM.PROGNOT ---
Date of Service Date of service: 07/31/22 Time of Service: 13:00 Assessment and Plan Assessment and plan (1) Acute cholecystitis: Status: Acute Assessment and plan: Medically cleared for surgery. Blood culture growing enterococcus faecium. D/C rocephin and flagyl. Begin Vancomying. Blood cultures in AM. (2) Hypoxemia: Status: Resolved Assessment and plan: In setting of acute on chronic R-sided CHF (milld to moderate pulmonary hypertension). Now diuresed and on RA. PO furosemide. (3) Acute on chronic right heart failure: Status: Acute Assessment and plan: As above (4) Atrial fibrillation: Assessment and plan: Rate controlled. Continue beta blockers. Holding anticoagulation in anticipation of surgery. Restart coumadin tomorrow if no evidece of bleeding. Qualifiers: Atrial fibrillation type: longstanding persistent Qualified Code(s): I48.11 - Longstanding persistent atrial fibrillation (5) IMMANUEL treated with BiPAP: Status: Acute Assessment and plan: Provide BiPAp at night. (6) DVT prophylaxis: Status: Acute Assessment and plan: SCDs while INR subtherapeutic (7) Discharge planning issues: Status: Acute Assessment and plan: Full code Likely home with nursing. Subjective Subjective Patient reports: no new complaints, feels better and afebrile; denies nausea, vomiting or shortness of breath Interval history since last seen: He states he is hungry. Feels prepared for his cholecystectomy. Exam Narrative Exam Narrative: General: Pleasant obese male who is sitting on side of bed. Pleasant, conversant. HEENT: Sclera clear , MMM Heart: regular rate and rhythm, no m/r/g Lungs: CTAB. On RA Abdomen: soft,nontender, no Mcfarland's sign, obese Extremities: +1 edema BLEs, unchanged Objective Last Vital Signs Temp 36.6 C 07/31/22 11:01 Pulse 55 L 07/31/22 11:01 Resp 21 07/31/22 11:01 BP 123/62 07/31/22 11:00 Pulse Ox 93 07/31/22 11:01 Laboratory Results - last 24 hr 07/31/22 07/31/22 07/31/22 05:56 05:56 05:56 WBC 7.85 RBC 4.16 L Hgb 13.3 L Hct 38.6 L MCV 93 MCH 32.0 MCHC 34.5 RDW 12.6 Plt Count 200 MPV 11.4 H Immature Gran % 1.1 Neutrophils % 70.2 Lymphocytes % 12.1 Monocytes % 12.0 Eosinophils % 4.1 Basophils % 0.5 Nucleated RBC % 0.0 Absolute Neutrophils 5.51 Absolute Lymphocytes 0.95 L Absolute Monocytes 0.94 H Absolute Eosinophils 0.32 Absolute Basophils 0.04 PT 12.3 H INR 1.2 H Sodium 139 Potassium 3.5 Chloride 103 Carbon Dioxide 27.4 Anion Gap 8.6 BUN 17 Creatinine 0.7 Est GFR (CKD-EPI 2020) 100.37 Glucose 117 H Calcium 8.7 Magnesium 1.8 Total Bilirubin 0.9 Conjugated Bilirubin 0.4 H AST 58 H ALT 186 H Alkaline Phosphatase 137 H Total Protein 7.1 Albumin 2.9 L Lipase 67 07/31/22 05:56 WBC RBC Hgb Hct MCV MCH MCHC RDW Plt Count MPV Immature Gran % Neutrophils % Lymphocytes % Monocytes % Eosinophils % Basophils % Nucleated RBC % Absolute Neutrophils Absolute Lymphocytes Absolute Monocytes Absolute Eosinophils Absolute Basophils PT INR Sodium Potassium Chloride Carbon Dioxide Anion Gap BUN Creatinine Est GFR (CKD-EPI 2020) Glucose Calcium Magnesium Total Bilirubin Cancelled Conjugated Bilirubin Cancelled AST Cancelled ALT Cancelled Alkaline Phosphatase Cancelled Total Protein Cancelled Albumin Cancelled Lipase
[2022-07-31] MEDS: oxyCODONE 5 MG TAB PO ×2 (13:43→20:50)
[2022-07-31] MEDS: Docusate Sodium 100 MG CAP PO (13:43)
[2022-07-31] MEDS: Acetaminophen 325 MG TAB PO ×2 (13:43→20:50)
[2022-08-01] VITALS (108 sets, daily range): BP systolic 105–157; BP diastolic 64–90; PULSE 49–96; RESP 16–35; TEMP 36.8–38.6; O2SAT 93–95
[2022-08-01] MEDS: VANCOMYCIN/WATER (PEG) 1.75 GM/350 ML BAG IVPB ×2 (00:55→12:52)
[2022-08-01 06:27] LABS: Abs Immature Grans 0.18 10^3/uL (0.0-0.06); Absolute Monocyte Count 1.28 10^3/uL (0.1-0.8); Basophils % 0.3; Eosinophils % 0.1; HCT 43.2 % (40.0-50.0); HGB 14.9 g/dL (13.5-17.5); Immature Grans % 1.2; Lymphocytes % 5.4; MCH 32.4 pg (27.0-33.0); MCHC 34.5 % (32.0-36.0); MCV 94 fL (80-95); MPV 11.8 fL (8.0-11.0); Monocytes % 8.3; Neutrophils % 84.7; Platelet Count 243 10^3/uL (130-400); RDW 12.8 % (11.8-14.1); WBC 15.48 10^3/uL (4.4-10.8)
[2022-08-01 06:30] LABS: Absolute Basophil Count 0.05 10^3/uL (0.0-0.2); Absolute Eosinophil Count 0.02 10^3/uL (0.0-0.7); Absolute Lymphocyte Count 0.84 10^3/uL (1.2-3.4); Absolute Neutrophil Count 13.11 10^3/uL (1.2-6.7)
[2022-08-01 06:33] LABS: Anion Gap 11.3 mmol/L (3-11); BUN 22 mg/dL (7-18); CO2 25.7 mmol/L (21.0-32.0); Calcium 8.9 mg/dL (8.5-10.1); Chloride 100 mmol/L (98-107); Estimated GFR 81.98 (mL/min/1.73m2); Glucose 126 mg/dL (74-106); Potassium 3.9 mmol/L (3.5-5.1); Sodium 137 mmol/L (136-145)
[2022-08-01 06:35] LABS: INR 1.2 (0.9-1.1); Prothrombin Time 12.3 sec (9.3-11.0)
--- NOTE | 2022-08-01 07:17 | PGE_ITS ---
Date of Service Date of service: 08/01/22 Time of Service: 07:17 Assessment and Plan Assessment and plan (1) Cholelithiasis: Status: Chronic Assessment and plan: Hunter is POD #1 after open Cholecystectomy He has a leukocytosis and slight fever this morning- this is not unusual after surgery. recommend continuation of his antibiotics Will remove his ferrer and transfer back [facility] Possibly home tomorrow if Leukocytosis improved and afebrile Subjective Subjective Interval history since last seen: Hunter feels OK. Having some discomfort along his incisions. Pain is well controlled on Oxycodon and tylenol. He is tolerating a clear liquid diet. His biggest complaint is the ferrer catheter Exam HENIA Head: normocephalic and atraumatic Resp Effort & Inspection: normal respiratory effort Auscultation: clear to auscultation bilaterally Cardio Rate: regular rate Rhythm: regular rhythm GI Inspection: incision (c/d/i) Palpation: soft and tender (appropriatly tender along incisions) Auscultation: normal bowel sounds Objective Last Vital Signs Temp 99.9 F H 08/01/22 06:55 Pulse 71 08/01/22 04:00 Resp 21 08/01/22 04:40 BP 126/68 08/01/22 04:00 Pulse Ox 96 07/31/22 15:00 Laboratory Results - last 24 hr 08/01/22 08/01/22 08/01/22 05:20 05:20 05:20 WBC 15.48 H RBC 4.60 Hgb 14.9 Hct 43.2 MCV 94 MCH 32.4 MCHC 34.5 RDW 12.8 Plt Count 243 MPV 11.8 H Immature Gran % 1.2 Neutrophils % 84.7 Lymphocytes % 5.4 Monocytes % 8.3 Eosinophils % 0.1 Basophils % 0.3 Nucleated RBC % 0.0 Absolute Neutrophils 13.11 H Absolute Lymphocytes 0.84 L Absolute Monocytes 1.28 H Absolute Eosinophils 0.02 Absolute Basophils 0.05 PT 12.3 H INR 1.2 H Sodium 137 Potassium 3.9 Chloride 100 Carbon Dioxide 25.7 Anion Gap 11.3 H BUN 22 H Creatinine 1.0 Est GFR (CKD-EPI 2020) 81.98 Glucose 126 H Calcium 8.9
--- NOTE | 2022-08-01 08:07 | W.ANESPOSTOP ---
Postoperative Evaluation Date, Time and Location Date Performed: 08/01/22 Time Performed: 08:07 Patient Location: Intensive Care Unit Vital Signs Most Recent Imported Vital Signs: Most Recent Vital Signs Temp Pulse Resp BP Pulse Ox 37.7 C H 85 22 145/84 H 93 08/01/22 07:36 08/01/22 07:36 08/01/22 07:36 08/01/22 07:36 08/01/22 07:36 Pain Score Most Recent Pain Score: Most Recent Pain Score Pain Level 2 08/01/22 06:22 Assessment Mental Status: Awake (Alert & Oriented to Patient Baseline) Airway and Respiratory Function: Patent airway with normal (patient baseline) respiratory exam Cardiovascular Function: Hemodynamically Stable Hydration Status: Adequately Hydrated Nausea & Vomiting: No Nausea or Vomiting Pain: Pain is tolerable per patient (states severely sore across his stomach, but he is okay and feels well. states he has a high pain tolerance. ) Peripheral Nerve Block: Patient did not receive a nerve block
[2022-08-01] MEDS: Polyethylene Glycol 3350 17 GM PACKET PO (08:34)
[2022-08-01] MEDS: oxyCODONE 5 MG TAB PO (08:35)
[2022-08-01] MEDS: Allopurinol 300 MG TAB PO (08:35)
[2022-08-01] MEDS: amLODIPine 10 MG TAB PO (08:36)
[2022-08-01] MEDS: Acetaminophen 325 MG TAB PO ×3 (08:36→19:21)
[2022-08-01] MEDS: Furosemide 40 MG TAB PO ×2 (08:36→15:18)
[2022-08-01] MEDS: Atenolol 50 MG TAB 100 MG PO (08:37)
[2022-08-01] MEDS: Docusate Sodium 100 MG CAP PO (08:37)
[2022-08-01] MEDS: Nystatin POWDER 15 GM JAR TP (08:42)
--- NOTE | 2022-08-01 08:44 | CMPROGNOTE_ITS ---
- If Service Date Differs Date of service: 08/01/22 Time of Service: 08:44 Care Management Progress Note S/O: Hunter is transferred back to the [facility] floor following a short stay in the ICU, after his cholesystectomy. He is alert, oriented and easy to engage in conversation. He is sitting in his chair and is feeling good, other than intermitted abdominal tenderness which he just received Tylenol for. Hunter mentioned that he is allergic to onions, and he had some in his lunch. CM notified nursing and allergy is now listed on his white board. A: 67 year old male admitted to [facility] on 07/28/22 for Acute right-sided CHF, Hypoxemia, Cholelithiasis. P: Anticipate, Hunter will discharge home when medically ready per Surgery, with [facility] RN services. He will be transported via private vehicle with his girlfriend Suri. He is willing to drive himself home, if able. Hunter will follow his discharge plan of care as prescribed, and follow up with community providers. CM will continue to follow.
[2022-08-01] MEDS: Enoxaparin 40 MG/0.4 ML SYR SC (10:09)
--- NOTE | 2022-08-01 15:20 | W.PM.PROGNOT ---
Date of Service Date of service: 08/01/22 Time of Service: 15:20 Assessment and Plan Assessment and plan (1) Acute cholecystitis: Status: Acute Assessment and plan: s/p open cholecystectomy Blood culture growing enterococcus faecium. D/C'd rocephin and flagyl. Cont. Vancomying. Repeated blood cultures today. (2) Hypoxemia: Status: Resolved Assessment and plan: In setting of acute on chronic R-sided CHF (milld to moderate pulmonary hypertension). He was diuresed and now continues on RA. PO furosemide. (3) Acute on chronic right heart failure: Status: Acute Assessment and plan: As above (4) Atrial fibrillation: Assessment and plan: Rate controlled. Continue beta blockers. Restart coumadin today. Hgb stable. Qualifiers: Atrial fibrillation type: longstanding persistent Qualified Code(s): I48.11 - Longstanding persistent atrial fibrillation (5) IMMNAUEL treated with BiPAP: Status: Acute Assessment and plan: Provide BiPAp at night. (6) DVT prophylaxis: Status: Acute Assessment and plan: SCDs while INR subtherapeutic / started back on coumadin. (7) Discharge planning issues: Status: Acute Assessment and plan: Full code Likely home with nursing. Subjective Subjective Patient reports: no new complaints and feels better; denies diarrhea, nausea, vomiting or shortness of breath Exam Narrative Exam Narrative: General: Pleasant obese male who is sitting in chair. Conversant. HEENT: Sclera clear , MMM Heart: regular rate and rhythm, no m/r/g Lungs: CTAB. On RA Abdomen: soft,appropriately tender at incision site. Extremities: edema BLEs, unchanged. No calf tenderness Objective Last Vital Signs Temp 38.6 C H 08/01/22 15:19 Pulse 77 08/01/22 15:19 Resp 20 08/01/22 15:19 BP 146/73 H 08/01/22 15:19 Pulse Ox 95 08/01/22 15:19 Laboratory Results - last 24 hr 08/01/22 08/01/22 08/01/22 05:20 05:20 05:20 WBC 15.48 H RBC 4.60 Hgb 14.9 Hct 43.2 MCV 94 MCH 32.4 MCHC 34.5 RDW 12.8 Plt Count 243 MPV 11.8 H Immature Gran % 1.2 Neutrophils % 84.7 Lymphocytes % 5.4 Monocytes % 8.3 Eosinophils % 0.1 Basophils % 0.3 Nucleated RBC % 0.0 Absolute Neutrophils 13.11 H Absolute Lymphocytes 0.84 L Absolute Monocytes 1.28 H Absolute Eosinophils 0.02 Absolute Basophils 0.05 PT 12.3 H INR 1.2 H Sodium 137 Potassium 3.9 Chloride 100 Carbon Dioxide 25.7 Anion Gap 11.3 H BUN 22 H Creatinine 1.0 Est GFR (CKD-EPI 2020) 81.98 Glucose 126 H Calcium 8.9
--- NOTE | 2022-08-01 16:47 | NUR.NOTE ---
Nursing Note: Pt brought from ICU room 221 to room 225. Patient is alert and oriented. Has IID x2, ANDREW dressing to abdomen with some old blood on the dressing. See shift assessment for full details.
[2022-08-01 17:12] LABS: Source Nasal/Nares
[2022-08-01] MEDS: Warfarin 5 MG TAB PO (17:40)
[2022-08-01 18:52] LABS: COVID-19 PCR Negative (Negative)
[2022-08-01 19:38] LABS: Bilirubin Negative (Negative); Blood Moderate (Negative); Clarity Clear (Clear); Glucose Negative (Negative); Ketones Negative (Negative); Leukocyte Esterase Negative (Negative); Nitrite Negative (Negative); Urobilinogen 0.2 EU/dL (Up TO 0.2); pH 5.5 (5-8)
[2022-08-01 19:53] LABS: Bacteria Negative HPF (Negative); C & S Indicated? Yes; Casts Negative LPF (Negative); Crystals Negative HPF (Negative); Epithelial Cells Rare HPF (Negative); Mucus Negative (Negative); Other Cells Negative (Negative); RBC 20-50 HPF (0-2)
[2022-08-02] VITALS (13 sets, daily range): BP systolic 124–161; BP diastolic 84–93; PULSE 77–89; RESP 18–20; TEMP 36.4–38.5; O2SAT 93–96
--- NOTE | 2022-08-02 | DI.RAD_ITS ---
Exam(s) XR CHEST 2V PA LATERAL EXAM: XR CHEST 2V PA LATERAL CLINICAL HISTORY: elevated wbc TECHNIQUE: 2D digital imaging was performed of the chest. Two images were obtained. PA and lateral views were obtained. COMPARISON: CR ABD FLAT UPRIGHT PA CHEST from 03/22/2010 FINDINGS: The examination is limited due to patient motion artifact. MEDIASTINUM: Normal. HEART: Mild cardiomegaly. PULMONARY VASCULATURE: Normal. LUNGS: Clear. PLEURAL SPACE: No pleural effusion or pneumothorax. BONE:Within normal limits for the patient's age. OTHER FINDINGS:Normal. IMPRESSION: No acute pulmonary findings. DATA REPOSITORY: RADIATION DOSE DELIVERED:
[2022-08-02] MEDS: Acetaminophen 325 MG TAB PO ×3 (00:38→15:30)
[2022-08-02] MEDS: VANCOMYCIN/WATER (PEG) 1.75 GM/350 ML BAG IVPB ×2 (00:38→12:01)
[2022-08-02] MEDS: Normal Saline Flush 10 ML SYR IVP ×5 (00:39→18:51)
[2022-08-02 06:16] LABS: Absolute Lymphocyte Count 1.66 10^3/uL (1.2-3.4); Absolute Monocyte Count 2.75 10^3/uL (0.1-0.8); Basophils % 0.5; Eosinophils % 0.1; HCT 44.8 % (40.0-50.0); Immature Grans % 2.5; MCH 32.1 pg (27.0-33.0); MCHC 33.5 % (32.0-36.0); MCV 96 fL (80-95); MPV 11.6 fL (8.0-11.0); Monocytes % 11.6; Neutrophils % 78.3; RBC 4.67 10^6/uL (4.36-5.78); RDW 12.8 % (11.8-14.1); WBC 23.68 10^3/uL (4.4-10.8)
[2022-08-02 06:20] LABS: Absolute Basophil Count 0.12 10^3/uL (0.0-0.2); Absolute Eosinophil Count 0.02 10^3/uL (0.0-0.7); Absolute Neutrophil Count 18.54 10^3/uL (1.2-6.7)
[2022-08-02 06:26] LABS: INR 1.3 (0.9-1.1)
[2022-08-02 06:36] LABS: Diff Comment Diff Reviewed; Platelet Count 225 10^3/uL (130-400); RBC Morphology Normal
[2022-08-02] MEDS: Furosemide 40 MG TAB PO ×2 (08:18→16:34)
[2022-08-02] MEDS: Allopurinol 300 MG TAB PO (08:18)
[2022-08-02] MEDS: amLODIPine 10 MG TAB PO (08:18)
[2022-08-02] MEDS: Atenolol 50 MG TAB 100 MG PO (08:18)
[2022-08-02] MEDS: Nystatin POWDER 15 GM JAR TP (08:18)
[2022-08-02] MEDS: Docusate Sodium 100 MG CAP PO (08:19)
[2022-08-02] MEDS: Enoxaparin 40 MG/0.4 ML SYR SC (10:09)
[2022-08-02] MEDS: IMIPENEM/CILASTATIN 1,000 MG in Normal Saline 250 ML 250 MG IVPB ×2 (10:09→18:51)
[2022-08-02 10:33] LABS: D-Dimer 5031 ng/mlFEU (<500)
[2022-08-02 10:38] LABS: Ferritin 584 ng/mL (26-388)
[2022-08-02 11:02] LABS: Vancomycin, Trough 17.2 ug/mL (10.0-20.0)
[2022-08-02 11:09] LABS: Procalcitonin 1.3 ng/mL
--- NOTE | 2022-08-02 11:56 | PGE_ITS ---
Date of Service Date of service: 08/02/22 Time of Service: 11:56 Assessment and Plan Assessment and plan (1) Acute cholecystitis: Status: Acute Assessment and plan: POD#2 open odell no drain abx: rocephin & flagyl were stopped yesterday. Resume Imipenen for acute odell pepcid & lovenox & IS pt appears to be developing ileus. Encourage ambulation no pneumonia on CXR no leg pain or swelling no temps UA from 08/01 is nl procal is 1.3 08/02 wound is c/d/i. PICOs in place (2) Acute on chronic right heart failure: Status: Acute Assessment and plan: per hospitalists (3) IMMANUEL treated with BiPAP: Status: Acute Assessment and plan: -cont IS (4) Sepsis: Status: Acute (5) CHF (congestive heart failure): Status: Chronic (6) Elevated INR: Status: Acute (7) Atrial fibrillation: Qualifiers: Atrial fibrillation type: longstanding persistent Qualified Code(s): I48.11 - Longstanding persistent atrial fibrillation (8) Bilateral leg edema: (9) BMI 50.0-59.9, adult: (10) Gout: (11) Hypertension: (12) Peripheral neuropathy: (13) Prediabetes: (14) Psoriasis: (15) Leukocytosis (leucocytosis): Status: Acute Assessment and plan: UA- pd CXR- negative wound: DVT: d dimer (16) Bacteremia due to Enterobacter species: Status: Acute Assessment and plan: vanco Subjective Subjective Interval history since last seen: Pt is doing well. no headaches. No CP or SOB. no productive cough. no d ysuria. no leg pain or swelling. He was passing gas earlier today. This afternoon he feels bloated adn belching. His abdomen is disteneded w/ minimal BS. Exam Const General: cooperative and no acute distress Nutritional Appearance: obese HENMT Other: No jaundice Resp Effort & Inspection: normal respiratory effort and able to speak in complete sentences Auscultation: clear to auscultation bilaterally Cardio Rate: regular rate Rhythm: regular rhythm GI Inspection: distended, large pannus and obesity Auscultation: hypoactive bowel sounds Other: PCOS dressing is over the incision. There is no strikethrough. Extrem General: no clubbing, cyanosis or edema Objective Last Vital Signs Temp 37.2 C 08/02/22 11:13 Pulse 77 08/02/22 11:13 Resp 20 08/02/22 11:13 BP 127/89 08/02/22 11:13 Pulse Ox 96 08/02/22 11:13 Laboratory Results - last 24 hr 08/01/22 08/01/22 08/02/22 17:00 19:10 05:30 WBC RBC Hgb Hct MCV MCH MCHC RDW Plt Count MPV Immature Gran % Neutrophils % Lymphocytes % Monocytes % Eosinophils % Basophils % Nucleated RBC % Absolute Neutrophils Absolute Lymphocytes Absolute Monocytes Absolute Eosinophils Absolute Basophils RBC Morphology PT 13.0 H INR 1.3 H D-Dimer Ferritin Procalcitonin Urine Color Yellow Urine Clarity Clear Urine pH 5.5 Ur Specific [place] 1.020 Urine Protein Negative Urine Ketones Negative Urine Blood Moderate H Urine Nitrite Negative Urine Bilirubin Negative Urine Urobilinogen 0.2 Ur Leukocyte Esterase Negative Urine RBC 20-50 H Urine WBC 5-10 Ur Epithelial Cells Rare Urine Crystals Negative Urine Bacteria Negative Urine Casts Negative Urine Mucus Negative Urine Other Negative Ur Culture Indicated? Yes Urine Glucose Negative Vancomycin Trough COVID-19 Source Nasal/Nares SARS-CoV-2 (PCR) Negative 08/02/22 08/02/22 08/02/22 05:30 09:45 09:45 WBC 23.68 H RBC 4.67 Hgb 15.0 Hct 44.8 MCV 96 H MCH 32.1 MCHC 33.5 RDW 12.8 Plt Count 225 MPV 11.6 H Immature Gran % 2.5 Neutrophils % 78.3 Lymphocytes % 7.0 Monocytes % 11.6 Eosinophils % 0.1 Basophils % 0.5 Nucleated RBC % 0.0 Absolute Neutrophils 18.54 H Absolute Lymphocytes 1.66 Absolute Monocytes 2.75 H Absolute Eosinophils 0.02 Absolute Basophils 0.12 RBC Morphology Normal PT INR D-Dimer Ferritin 584 H Procalcitonin Urine Color Urine Clarity Urine pH Ur Specific [place] Urine Protein Urine Ketones Urine Blood Urine Nitrite Urine Bilirubin Urine Urobilinogen Ur Leukocyte Esterase Urine RBC Urine WBC Ur Epithelial Cells Urine Crystals Urine Bacteria Urine Casts Urine Mucus Urine Other Ur Culture Indicated? Urine Glucose Vancomycin Trough 17.2 COVID-19 Source SARS-CoV-2 (PCR) 08/02/22 08/02/22 09:45 09:45 WBC RBC Hgb Hct MCV MCH MCHC RDW Plt Count MPV Immature Gran % Neutrophils % Lymphocytes % Monocytes % Eosinophils % Basophils % Nucleated RBC % Absolute Neutrophils Absolute Lymphocytes Absolute Monocytes Absolute Eosinophils Absolute Basophils RBC Morphology PT INR D-Dimer 5031 H Ferritin Procalcitonin 1.3 Urine Color Urine Clarity Urine pH Ur Specific [place] Urine Protein Urine Ketones Urine Blood Urine Nitrite Urine Bilirubin Urine Urobilinogen Ur Leukocyte Esterase Urine RBC Urine WBC Ur Epithelial Cells Urine Crystals Urine Bacteria Urine Casts Urine Mucus Urine Other Ur Culture Indicated? Urine Glucose Vancomycin Trough COVID-19 Source SARS-CoV-2 (PCR)
--- NOTE | 2022-08-02 13:33 | W.PM.PROGNOT ---
Date of Service Date of service: 08/02/22 Time of Service: 13:33 Assessment and Plan Assessment and plan (1) Acute cholecystitis: Status: Acute Assessment and plan: s/p open cholecystectomy Blood culture growing enterococcus faecium. D/C'd rocephin and flagyl. Cont. Vancomyacin Repeated blood cultures pending WBC today 23.68 Imipenem started (2) Hypoxemia: Status: Resolved Assessment and plan: In setting of acute on chronic R-sided CHF (milld to moderate pulmonary hypertension). He was diuresed and now continues on RA. SPO2>96% PO furosemide. (3) Acute on chronic right heart failure: Status: Acute Assessment and plan: As above (4) IMMANUEL treated with BiPAP: Status: Acute Assessment and plan: Provide BiPAp at night. (5) DVT prophylaxis: Status: Acute Assessment and plan: SCDs while INR subtherapeutic / started back on coumadin. INR 1.3 (6) Discharge planning issues: Status: Acute Assessment and plan: Full code Likely home with nursing. Subjective Subjective Patient reports: no new complaints Exam Narrative Exam Narrative: General: Pleasant obese male who is sitting in a chair. Pleasant, conversant. HEENT: Sclera clear , MMM Heart: regular rate and rhythm, no m/r/g Lungs: CTAB. On RA Abdomen: soft,nontender, obese Extremities: +1 edema BLEs, unchanged HENMT Head: normocephalic and atraumatic Resp Effort & Inspection: normal respiratory effort Auscultation: clear to auscultation bilaterally Cardio Rate: regular rate Rhythm: regular rhythm GI Inspection: incision (c/d/i) Palpation: soft and tender (appropriatly tender along incisions) Auscultation: normal bowel sounds Objective Last Vital Signs Temp 37.2 C 08/02/22 11:13 Pulse 77 08/02/22 11:13 Resp 20 08/02/22 11:13 BP 127/89 08/02/22 11:13 Pulse Ox 96 08/02/22 11:13 Laboratory Results - last 24 hr 08/01/22 08/01/22 08/02/22 17:00 19:10 05:30 WBC RBC Hgb Hct MCV MCH MCHC RDW Plt Count MPV Immature Gran % Neutrophils % Lymphocytes % Monocytes % Eosinophils % Basophils % Nucleated RBC % Absolute Neutrophils Absolute Lymphocytes Absolute Monocytes Absolute Eosinophils Absolute Basophils RBC Morphology PT 13.0 H INR 1.3 H D-Dimer Ferritin Procalcitonin Urine Color Yellow Urine Clarity Clear Urine pH 5.5 Ur Specific [place] 1.020 Urine Protein Negative Urine Ketones Negative Urine Blood Moderate H Urine Nitrite Negative Urine Bilirubin Negative Urine Urobilinogen 0.2 Ur Leukocyte Esterase Negative Urine RBC 20-50 H Urine WBC 5-10 Ur Epithelial Cells Rare Urine Crystals Negative Urine Bacteria Negative Urine Casts Negative Urine Mucus Negative Urine Other Negative Ur Culture Indicated? Yes Urine Glucose Negative Vancomycin Trough COVID-19 Source Nasal/Nares SARS-CoV-2 (PCR) Negative 08/02/22 08/02/22 08/02/22 05:30 09:45 09:45 WBC 23.68 H RBC 4.67 Hgb 15.0 Hct 44.8 MCV 96 H MCH 32.1 MCHC 33.5 RDW 12.8 Plt Count 225 MPV 11.6 H Immature Gran % 2.5 Neutrophils % 78.3 Lymphocytes % 7.0 Monocytes % 11.6 Eosinophils % 0.1 Basophils % 0.5 Nucleated RBC % 0.0 Absolute Neutrophils 18.54 H Absolute Lymphocytes 1.66 Absolute Monocytes 2.75 H Absolute Eosinophils 0.02 Absolute Basophils 0.12 RBC Morphology Normal PT INR D-Dimer Ferritin 584 H Procalcitonin Urine Color Urine Clarity Urine pH Ur Specific [place] Urine Protein Urine Ketones Urine Blood Urine Nitrite Urine Bilirubin Urine Urobilinogen Ur Leukocyte Esterase Urine RBC Urine WBC Ur Epithelial Cells Urine Crystals Urine Bacteria Urine Casts Urine Mucus Urine Other Ur Culture Indicated? Urine Glucose Vancomycin Trough 17.2 COVID-19 Source SARS-CoV-2 (PCR) 08/02/22 08/02/22 09:45 09:45 WBC RBC Hgb Hct MCV MCH MCHC RDW Plt Count MPV Immature Gran % Neutrophils % Lymphocytes % Monocytes % Eosinophils % Basophils % Nucleated RBC % Absolute Neutrophils Absolute Lymphocytes Absolute Monocytes Absolute Eosinophils Absolute Basophils RBC Morphology PT INR D-Dimer 5031 H Ferritin Procalcitonin 1.3 Urine Color Urine Clarity Urine pH Ur Specific [place] Urine Protein Urine Ketones Urine Blood Urine Nitrite Urine Bilirubin Urine Urobilinogen Ur Leukocyte Esterase Urine RBC Urine WBC Ur Epithelial Cells Urine Crystals Urine Bacteria Urine Casts Urine Mucus Urine Other Ur Culture Indicated? Urine Glucose Vancomycin Trough COVID-19 Source SARS-CoV-2 (PCR)
--- NOTE | 2022-08-02 14:41 | CHAPLAIN ---
Hunter was sitting up in the chair when I visited. He said he also more comfortable sleeping there too. He's beginning to feel better after having his gallbladder out, he explained, but it said it will take a while as he gallbladder wasn't good for a long time and his body is adjusting. He's in touch with family and friends and he said his girlfriend has been calling often.
--- NOTE | 2022-08-02 16:11 | PHA.REVIEW2 ---
Pharmacy Admission Review - Admission Clinical Review (Last Reviewed 07/29/22 @ 19:16 by Naveed Foley) Bacteremia due to Enterobacter species (Acute) Leukocytosis (leucocytosis) (Acute) Acute cholecystitis (Acute) Discharge planning issues (Acute) DVT prophylaxis (Acute) Acute on chronic right heart failure (Acute) IMMANUEL treated with BiPAP (Acute) Cholelithiasis (Acute) Respiratory failure (Acute) Sepsis (Acute) Acute right-sided CHF (congestive heart failure) (Acute) Elevated INR (Acute) onion Allergy (Severe, Unverified 08/01/22 12:24) Swelling/Edema ampicillin Allergy (Unknown, Unverified 07/28/22 20:50) rash,blisters lisinopril Adverse Reaction (Unknown, Unverified 07/28/22 20:50) cough losartan [Losartan] Adverse Reaction (Unknown, Unverified 07/28/22 20:50) leg cramps Resuscitation Status Full Code Height 5 ft 9 in Weight 136.5 kg - Renal Dosing Renal Dosing: BUN 22 mg/dL (7-18) H 08/01/22 05:20 Creatinine 1.0 mg/dL (0.70-1.30) 08/01/22 05:20 Medications needing adjustments: Reviewed (crcl = 97, no adjustments needed) - Anticoagulation Anticoagulation: Hgb 15.0 g/dL (13.5-17.5) 08/02/22 05:30 Hct 44.8 % (40.0-50.0) 08/02/22 05:30 Plt Count 225 10^3/uL (130-400) 08/02/22 05:30 INR 1.3 (0.9-1.1) H 08/02/22 05:30 Creatinine 1.0 mg/dL (0.70-1.30) 08/01/22 05:20 DVT Prophylaxis: Reviewed (enoxaparin 40 mg daily) Medications: Enoxaparin Therapeutic Anticoagulation: Reviewed Medications: Warfarin (warfarin 5 mg daily (restarted 08/01), INR = 1.3 - continue enoxaparin until INR therapeutic) - Opiate Usage Evaluate Pain Scale/Pains Meds: Reviewed (hydromorphone 1mg IV q3h prn ordered, has not received any) - Relevant Labs Sodium 137 mmol/L (136-145) 08/01/22 05:20 Potassium 3.9 mmol/L (3.5-5.1) 08/01/22 05:20 Chloride 100 mmol/L (98-107) 08/01/22 05:20 Magnesium 1.8 mg/dL (1.8-2.4) 07/31/22 05:56 Electrolytes, C-Reactive P, ESR: Reviewed - DM Control DM Control: Glucose 126 mg/dL (74-106) H 08/01/22 05:20 DM Control: N/A - Cardiac Review Cardiac Review: Troponin I < 50 ng/L (<or=60) 07/29/22 06:25 NT-Pro-B Natriuret Pep 935 pg/mL (<300) H 07/28/22 15:30 BP, HR, EF%: Reviewed - Qtc Review QTc: Reviewed (QTc = 564 on 07/28) - IV to PO Switch IV Medications: Reviewed - Home Meds Home Med List reviewed: Reviewed - Current meds Current Medication Order Review: Reviewed Antibiotic Review - Pharmacy Antibiotic Review Pharmacy Antibiotic Activity: Reviewed, no change (dc'd abx: doxy x 1 dose 07/28, ceftriaxone 07/28 - 07/31, flagyl 500 mg 07/29 - 07/31) Relevant Labs: Relevant Labs 08/02/22 09:45 Procalcitonin 1.3 - Antibiotic Information Antibiotic Review Info: imipenem/cilast 1 g q8h added today, continue vanco 1.75 g Q12h (trough today = 17.2 (drawn early per lab request, extrapolated = 13.1)
[2022-08-02] MEDS: Warfarin 5 MG TAB PO (16:34)
--- NOTE | 2022-08-02 17:28 | CMPROGNOTE_ITS ---
- If Service Date Differs Date of service: 08/02/22 Time of Service: 17:28 Care Management Progress Note S/O: Patient not seen by this specification writer, noted in hospitalist documentation; IV ABX changed per culture results. No change to overall plan, CM continues to follow. A: 67 year old male admitted to [facility] on 07/28/22 for Acute right-sided CHF, Hypoxemia, Cholelithiasis. P: Anticipate, Hunter will discharge home when medically ready per Surgery, with [facility] RN services. He will be transported via private vehicle with his girlfriend Suri. He is willing to drive himself home, if able. Hunter will follow his discharge plan of care as prescribed, and follow up with community providers. CM will continue to follow.
[2022-08-02] MEDS: FAMOTIDINE 20 MG in Normal Saline 100 ML 400 MG IVPB (20:06)
[2022-08-02] MEDS: Calcium Carbonate *TUMS* 500 MG CHEW 1000 MG PO (20:06)
[2022-08-02] MEDS: ACETAMINOPHEN 1,000 MG/100 ML BTL 400 MG IVPB (22:18)
[2022-08-03] VITALS (7 sets, daily range): BP systolic 118–146; BP diastolic 58–90; PULSE 51–79; RESP 16–20; TEMP 36.1–36.8; O2SAT 94–97
[2022-08-03] MEDS: Lactated Ringers 1,000 ML 100 ML IV (00:18)
[2022-08-03] MEDS: VANCOMYCIN/WATER (PEG) 1.75 GM/350 ML BAG IVPB (01:10)
[2022-08-03] MEDS: IMIPENEM/CILASTATIN 1,000 MG in Normal Saline 250 ML 250 MG IVPB ×3 (03:12→17:44)
[2022-08-03] MEDS: Calcium Carbonate *TUMS* 500 MG CHEW 1000 MG PO (04:22)
[2022-08-03 04:59] LABS: Abs Immature Grans 0.78 10^3/uL (0.0-0.06); Absolute Basophil Count 0.14 10^3/uL (0.0-0.2); Absolute Eosinophil Count 0.24 10^3/uL (0.0-0.7); Absolute Lymphocyte Count 1.59 10^3/uL (1.2-3.4); Basophils % 0.6; HCT 36.8 % (40.0-50.0); HGB 12.2 g/dL (13.5-17.5); Immature Grans % 3.2; Lymphocytes % 6.6; MCH 31.9 pg (27.0-33.0); MCHC 33.2 % (32.0-36.0); MCV 96 fL (80-95); MPV 11.8 fL (8.0-11.0); Monocytes % 10.2; Neutrophils % 78.4; RBC 3.83 10^6/uL (4.36-5.78); RDW-SD 45.4 fL; WBC 24.13 10^3/uL (4.4-10.8)
[2022-08-03 05:03] LABS: Absolute Monocyte Count 2.46 10^3/uL (0.1-0.8); Absolute Neutrophil Count 18.92 10^3/uL (1.2-6.7)
[2022-08-03 05:08] LABS: INR 1.4 (0.9-1.1); Prothrombin Time 13.5 sec (9.3-11.0)
[2022-08-03 05:13] LABS: Anion Gap 10.1 mmol/L (3-11); BUN 33 mg/dL (7-18); CO2 26.9 mmol/L (21.0-32.0); CREATININE 1.2 mg/dL (0.70-1.30); Chloride 99 mmol/L (98-107); Estimated GFR 65.87 (mL/min/1.73m2); Glucose 131 mg/dL (74-106); Potassium 3.2 mmol/L (3.5-5.1); Sodium 136 mmol/L (136-145)
[2022-08-03] MEDS: ACETAMINOPHEN 1,000 MG/100 ML BTL 400 MG IVPB ×3 (05:31→21:28)
[2022-08-03 05:53] LABS: C-Reactive Protein > 25.00 mg/dL (0.0-0.3)
[2022-08-03 06:16] LABS: Diff Comment Agrees w/ Instrument; Platelet Count 247 10^3/uL (130-400); RBC Morphology Normal
--- NOTE | 2022-08-03 07:26 | W.PM.PROGNOT ---
Date of Service Date of service: 08/03/22 Time of Service: : Assessment and Plan Assessment and plan (1) Acute cholecystitis: Status: Acute Assessment and plan: POD#3 open odell no drain abx: Continue imipenem. WBC count stable pepcid & lovenox & IS pt appears to be developing ileus. Encourage ambulation no pneumonia on CXR no leg pain or swelling no temps UA from 08/01 is nl procal is 1.3 08/02 wound is c/d/i. PICOs in place (2) Acute on chronic right heart failure: Status: Acute Assessment and plan: per hospitalists (3) IMMANUEL treated with BiPAP: Status: Acute Assessment and plan: -cont IS (4) Sepsis: Status: Acute (5) CHF (congestive heart failure): Status: Chronic (6) Elevated INR: Status: Acute (7) Atrial fibrillation: Qualifiers: Atrial fibrillation type: longstanding persistent Qualified Code(s): I48.11 - Longstanding persistent atrial fibrillation (8) Bilateral leg edema: (9) BMI 50.0-59.9, adult: (10) Gout: (11) Hypertension: (12) Peripheral neuropathy: (13) Prediabetes: (14) Psoriasis: (15) Leukocytosis (leucocytosis): Status: Acute Assessment and plan: UA- pd CXR- negative wound: DVT: d dimer (16) Bacteremia due to Enterobacter species: Status: Acute Assessment and plan: vanco Subjective Subjective Interval history since last seen: Hunter is feeling OK. He is not complaining of pain. Abdomen does feel distended to him. He states he is passing flatus and had a BM last night Afebrile and VSS are stable Exam Resp Effort & Inspection: normal respiratory effort Auscultation: clear to auscultation bilaterally Cardio Rate: regular rate Rhythm: regular rhythm GI Inspection: distended Palpation: soft and tender (along incisions) Auscultation: hypoactive bowel sounds Objective Last Vital Signs Temp 97.3 F L 08/03/22 03:47 Pulse 63 08/03/22 03:47 Resp 18 08/03/22 03:47 BP 146/79 H 08/03/22 03:47 Pulse Ox 95 08/03/22 03:47 Laboratory Results - last 24 hr 08/02/22 08/02/22 08/02/22 09:45 09:45 09:45 WBC RBC Hgb Hct MCV MCH MCHC RDW Plt Count MPV Immature Gran % Neutrophils % Lymphocytes % Monocytes % Eosinophils % Basophils % Nucleated RBC % Absolute Neutrophils Absolute Lymphocytes Absolute Monocytes Absolute Eosinophils Absolute Basophils RBC Morphology PT INR D-Dimer 5031 H Sodium Potassium Chloride Carbon Dioxide Anion Gap BUN Creatinine Est GFR (CKD-EPI 2020) Glucose Calcium Magnesium Ferritin 584 H C-Reactive Protein Procalcitonin Vancomycin Trough 17.2 08/02/22 08/03/22 08/03/22 09:45 04:40 04:40 WBC RBC Hgb Hct MCV MCH MCHC RDW Plt Count MPV Immature Gran % Neutrophils % Lymphocytes % Monocytes % Eosinophils % Basophils % Nucleated RBC % Absolute Neutrophils Absolute Lymphocytes Absolute Monocytes Absolute Eosinophils Absolute Basophils RBC Morphology PT 13.5 H INR 1.4 H D-Dimer Sodium Potassium Chloride Carbon Dioxide Anion Gap BUN Creatinine Est GFR (CKD-EPI 2020) Glucose Calcium Magnesium 2.0 Ferritin C-Reactive Protein Procalcitonin 1.3 Vancomycin Trough 08/03/22 08/03/22 04:40 04:40 WBC 24.13 H RBC 3.83 L Hgb 12.2 L D Hct 36.8 L MCV 96 H MCH 31.9 MCHC 33.2 RDW 13.0 Plt Count 247 MPV 11.8 H Immature Gran % 3.2 Neutrophils % 78.4 Lymphocytes % 6.6 Monocytes % 10.2 Eosinophils % 1.0 Basophils % 0.6 Nucleated RBC % 0.0 Absolute Neutrophils 18.92 H Absolute Lymphocytes 1.59 Absolute Monocytes 2.46 H Absolute Eosinophils 0.24 Absolute Basophils 0.14 RBC Morphology Normal PT INR D-Dimer Sodium 136 Potassium 3.2 L Chloride 99 Carbon Dioxide 26.9 Anion Gap 10.1 BUN 33 H Creatinine 1.2 Est GFR (CKD-EPI 2020) 65.87 Glucose 131 H Calcium 9.0 Magnesium Ferritin C-Reactive Protein > 25.00 H Procalcitonin Vancomycin Trough
--- NOTE | 2022-08-03 08:00 | DI.RAD_ITS ---
Exam(s) XR ABDOMEN FLAT UPRIGHT EXAM: XR ABDOMEN FLAT UPRIGHT CLINICAL HISTORY: ileus TECHNIQUE: COMPARISON: CR SMALL BOWEL SERIES from 04/20/2010 FINDINGS: Four views were obtained. There are vascular clips in the right upper quadrant consistent with prior cholecystectomy and there are multiple skin ras noted in the right upper quadrant. There is mild nonspecific small bowel dilatation. There does appear to be some gas and fecal materia l colon. IMPRESSION: Findings are consistent with a mild postoperative ileus. RADIATION DOSE DELIVERED: Total DLP
[2022-08-03] MEDS: Atenolol 50 MG TAB 100 MG PO (08:07)
[2022-08-03] MEDS: Allopurinol 300 MG TAB PO (08:07)
[2022-08-03] MEDS: Polyethylene Glycol 3350 17 GM PACKET PO (08:07)
[2022-08-03] MEDS: FAMOTIDINE 20 MG in Normal Saline 100 ML 400 MG IVPB ×2 (08:07→20:06)
[2022-08-03] MEDS: amLODIPine 10 MG TAB PO (08:08)
[2022-08-03] MEDS: Furosemide 40 MG TAB PO ×2 (08:08→16:19)
[2022-08-03] MEDS: Nystatin POWDER 15 GM JAR TP (08:08)
[2022-08-03] MEDS: Normal Saline Flush 10 ML SYR IVP (08:11)
--- NOTE | 2022-08-03 09:31 | W.PM.PROGNOT ---
Date of Service Date of service: 08/03/22 Time of Service: 16:49 Assessment and Plan Assessment and plan (1) Acute cholecystitis: Status: Acute Assessment and plan: s/p open cholecystectomy Blood culture growing enterococcus faecium. D/C'd Vancomycin Repeated blood cultures pending WBC today 24.13 Imipenem continued (2) Hypoxemia: Status: Resolved Assessment and plan: In setting of acute on chronic R-sided CHF (milld to moderate pulmonary hypertension). He was diuresed and now continues on RA. SPO2>96% PO furosemide. (3) Acute on chronic right heart failure: Status: Acute Assessment and plan: As above LR IVF discontinued (4) IMMANUEL treated with BiPAP: Status: Acute Assessment and plan: Provide BiPAp at night. (5) DVT prophylaxis: Status: Acute Assessment and plan: SCDs while INR subtherapeutic / started back on coumadin. INR 1.4. 5 mg PO coumadin today in addition to regular dose (6) Discharge planning issues: Status: Acute Assessment and plan: Full code Likely home with nursing. Subjective Subjective Patient reports: no new complaints, feels better, pain is less, voiding w/o difficulty and bowel movement; denies diarrhea, nausea or vomiting Interval history since last seen: Taking fluids, states he is hungry and feeling much better. He does look better. Exam Resp Effort & Inspection: normal respiratory effort Auscultation: clear to auscultation bilaterally Cardio Rate: regular rate Rhythm: regular rhythm GI Inspection: distended Palpation: soft and tender (along incisions) Auscultation: hypoactive bowel sounds Objective Last Vital Signs Temp 36.1 C L 08/03/22 07:29 Pulse 64 08/03/22 07:29 Resp 18 08/03/22 07:29 BP 118/58 L 08/03/22 07:29 Pulse Ox 95 08/03/22 07:29 Laboratory Results - last 24 hr 08/02/22 08/02/22 08/02/22 09:45 09:45 09:45 WBC RBC Hgb Hct MCV MCH MCHC RDW Plt Count MPV Immature Gran % Neutrophils % Lymphocytes % Monocytes % Eosinophils % Basophils % Nucleated RBC % Absolute Neutrophils Absolute Lymphocytes Absolute Monocytes Absolute Eosinophils Absolute Basophils RBC Morphology PT INR D-Dimer 5031 H Sodium Potassium Chloride Carbon Dioxide Anion Gap BUN Creatinine Est GFR (CKD-EPI 2020) Glucose Calcium Magnesium Ferritin 584 H C-Reactive Protein Procalcitonin Vancomycin Trough 17.2 08/02/22 08/03/22 08/03/22 09:45 04:40 04:40 WBC RBC Hgb Hct MCV MCH MCHC RDW Plt Count MPV Immature Gran % Neutrophils % Lymphocytes % Monocytes % Eosinophils % Basophils % Nucleated RBC % Absolute Neutrophils Absolute Lymphocytes Absolute Monocytes Absolute Eosinophils Absolute Basophils RBC Morphology PT 13.5 H INR 1.4 H D-Dimer Sodium Potassium Chloride Carbon Dioxide Anion Gap BUN Creatinine Est GFR (CKD-EPI 2020) Glucose Calcium Magnesium 2.0 Ferritin C-Reactive Protein Procalcitonin 1.3 Vancomycin Trough 08/03/22 08/03/22 04:40 04:40 WBC 24.13 H RBC 3.83 L Hgb 12.2 L D Hct 36.8 L MCV 96 H MCH 31.9 MCHC 33.2 RDW 13.0 Plt Count 247 MPV 11.8 H Immature Gran % 3.2 Neutrophils % 78.4 Lymphocytes % 6.6 Monocytes % 10.2 Eosinophils % 1.0 Basophils % 0.6 Nucleated RBC % 0.0 Absolute Neutrophils 18.92 H Absolute Lymphocytes 1.59 Absolute Monocytes 2.46 H Absolute Eosinophils 0.24 Absolute Basophils 0.14 RBC Morphology Normal PT INR D-Dimer Sodium 136 Potassium 3.2 L Chloride 99 Carbon Dioxide 26.9 Anion Gap 10.1 BUN 33 H Creatinine 1.2 Est GFR (CKD-EPI 2020) 65.87 Glucose 131 H Calcium 9.0 Magnesium Ferritin C-Reactive Protein > 25.00 H Procalcitonin Vancomycin Trough Reviewed Pertinent PMH: Yes
[2022-08-03] MEDS: Enoxaparin 40 MG/0.4 ML SYR SC (10:00)
[2022-08-03] MEDS: POTASSIUM CHLORIDE 20 MEQ/100 ML BAG 50 MEQ IVPB ×2 (10:01→11:47)
--- NOTE | 2022-08-03 15:38 | CMPROGNOTE_ITS ---
- If Service Date Differs Date of service: 08/03/22 Time of Service: 15:38 Care Management Progress Note S/O: Hunter was sitting up in his chair when CM met with him. He reported that he is feeling much better now than he did this morning. Per MD, his diet will be advanced this evening, slowly, to determine if he can tolerate it. He will be reevaluated tomorrow, and may be ready for discharge if he remains stable. He is looking forward to returning home, and stated that his girlfriend is planning to have him stay with her for a while so she can take care of him. CM will continue to follow. A: 67 year old male admitted to [facility] on 07/28/22 for Acute right-sided CHF, Hypoxemia, Cholelithiasis. P: Anticipate Hunter will discharge home when medically ready per Surgery, with New [facility] RN services. He will be transported via private vehicle with his girlfriend Suri. He is willing to drive himself home, if able. Hunter will follow his discharge plan of care as prescribed, and follow up with community providers. CM will continue to follow.
[2022-08-03] MEDS: Warfarin 5 MG TAB PO ×2 (16:19→17:44)
[2022-08-04] MEDS: IMIPENEM/CILASTATIN 1,000 MG in Normal Saline 250 ML 250 MG IVPB ×3 (02:25→18:26)
[2022-08-04 04:04] VITALS: BP 133/87; PULSE 65; RESP 17; TEMP 37.2; O2SAT 96
[2022-08-04 05:53] LABS: Abs Immature Grans 0.74 10^3/uL (0.0-0.06); Absolute Eosinophil Count 0.68 10^3/uL (0.0-0.7); Absolute Monocyte Count 1.57 10^3/uL (0.1-0.8); Basophils % 0.5; Eosinophils % 4.6; HCT 36.4 % (40.0-50.0); HGB 12.8 g/dL (13.5-17.5); Lymphocytes % 9.3; MCH 32.8 pg (27.0-33.0); MCHC 35.2 % (32.0-36.0); MCV 93 fL (80-95); MPV 12.1 fL (8.0-11.0); Monocytes % 10.6; Platelet Count 236 10^3/uL (130-400); RDW 12.7 % (11.8-14.1); RDW-SD 43.8 fL; WBC 14.77 10^3/uL (4.4-10.8)
[2022-08-04] MEDS: ACETAMINOPHEN 1,000 MG/100 ML BTL 400 MG IVPB (05:56)
[2022-08-04 05:57] LABS: Absolute Basophil Count 0.07 10^3/uL (0.0-0.2); Absolute Lymphocyte Count 1.37 10^3/uL (1.2-3.4); Absolute Neutrophil Count 10.34 10^3/uL (1.2-6.7)
[2022-08-04 06:23] LABS: INR 2.1 (0.9-1.1); Prothrombin Time 20.2 sec (9.3-11.0)
[2022-08-04 06:34] LABS: Anion Gap 8.9 mmol/L (3-11); BUN 20 mg/dL (7-18); CO2 29.1 mmol/L (21.0-32.0); CREATININE 0.9 mg/dL (0.70-1.30); Calcium 8.6 mg/dL (8.5-10.1); Chloride 100 mmol/L (98-107); Estimated GFR 93.03 (mL/min/1.73m2); Glucose 108 mg/dL (74-106); Potassium 3.2 mmol/L (3.5-5.1); Sodium 138 mmol/L (136-145)
[2022-08-04 06:41] LABS: C-Reactive Protein 17.39 mg/dL (0.0-0.3); Magnesium 1.3 mg/dL (1.8-2.4)
[2022-08-04 06:49] LABS: Diff Comment Agrees w/ Instrument; RBC Morphology Normal
[2022-08-04 07:35] LABS: Procalcitonin 0.4 ng/mL
[2022-08-04 08:44] VITALS: BP 123/72; PULSE 53; RESP 16; TEMP 36.2; O2SAT 97
[2022-08-04] MEDS: amLODIPine 10 MG TAB PO (08:55)
[2022-08-04] MEDS: Furosemide 40 MG TAB PO ×2 (08:55→15:52)
[2022-08-04] MEDS: Allopurinol 300 MG TAB PO (08:55)
[2022-08-04] MEDS: Atenolol 50 MG TAB 100 MG PO (08:55)
[2022-08-04] MEDS: Potassium Chloride 20 MEQ TABCR 40 MEQ PO (08:56)
[2022-08-04] MEDS: FAMOTIDINE 20 MG in Normal Saline 100 ML 400 MG IVPB ×2 (08:56→19:56)
[2022-08-04] MEDS: Polyethylene Glycol 3350 17 GM PACKET PO (08:57)
[2022-08-04] MEDS: Normal Saline Flush 10 ML SYR IVP ×2 (08:57→18:25)
--- NOTE | 2022-08-04 08:57 | W.PM.PROGNOT ---
Date of Service Date of service: 08/04/22 Time of Service: 08:57 Assessment and Plan Assessment and plan (1) Acute cholecystitis: Status: Acute Assessment and plan: pod#$ open odell for acute odell w/ stones D# 2 impipenem D# 5 vanco (enterococcal bactremia). [address] [facility] and hopefully home health will do home vanco. d/w hospitalists and CM. tolerated po's ambulating labs stable/leukocytosis resolving hopefully d/c home Monday INR 2.1 today (2) Bacteremia due to Enterobacter species: Status: Acute (3) Acute on chronic right heart failure: Status: Resolved (4) IMMANUEL treated with BiPAP: Status: Acute (5) CHF (congestive heart failure): Status: Chronic (6) Bilateral leg edema: (7) BMI 50.0-59.9, adult: (8) Hypertension: (9) Peripheral neuropathy: Subjective Subjective Interval history since last seen: Pt is doing well. no headaches. No CP or SOB. no productive cough. no dysuria. no leg pain or swelling. He is tolerated po diet. He did move his bowels. He has been up wlaking. Exam Narrative Exam Narrative: PHYSICAL EXAM GENERAL APPEARANCE: Alert, healthy appearance, oriented, in no acute distress HYDRATION: Well hydrated HEAD, EYES, EARS, NECK, THROAT: Head is normocephalic, pupils equal, round, reactive to light and accommodation, ocular movement intact, sclera clear and no jaundice. ?Dentition intact. No sore throat.? No jaw pain. No thrush NECK: Supple, Trachea midline. No JVD. LUNGS: normal respiration/nl chest excursion. ?Clear to auscultation B/l no R/R/W ?HEART: Regular rate and rhythm, EXTREMITY: No IV infiltration patient has chronic venous stasis and lymphedema of bilateral lower extremities and venous stasis dermatitis. This is unchanged for the patient. ABDOMEN: non tender to palpation, no masses or distention, . Normal bowel sounds wounds are c/d/i. I did change his picos today. Patient has a very large pannus. I did not visualize the skin under the pannus today. NEURO: no focal neuro deficits. Objective Last Vital Signs Temp 36.2 C L 08/04/22 08:44 Pulse 53 L 08/04/22 08:44 Resp 16 08/04/22 08:44 BP 123/72 08/04/22 08:44 Pulse Ox 97 08/04/22 08:44 Laboratory Results - last 24 hr 08/04/22 08/04/22 08/04/22 05:10 05:10 05:10 WBC RBC Hgb Hct MCV MCH MCHC RDW Plt Count MPV Immature Gran % Neutrophils % Lymphocytes % Monocytes % Eosinophils % Basophils % Nucleated RBC % Absolute Neutrophils Absolute Lymphocytes Absolute Monocytes Absolute Eosinophils Absolute Basophils RBC Morphology PT 20.2 H INR 2.1 H Sodium Potassium Chloride Carbon Dioxide Anion Gap BUN Creatinine Est GFR (CKD-EPI 2020) Glucose Calcium Magnesium 1.3 L C-Reactive Protein 17.39 H Procalcitonin 0.4 08/04/22 08/04/22 05:10 05:10 WBC 14.77 H RBC 3.90 L Hgb 12.8 L Hct 36.4 L MCV 93 MCH 32.8 MCHC 35.2 RDW 12.7 Plt Count 236 MPV 12.1 H Immature Gran % 5.0 Neutrophils % 70.0 Lymphocytes % 9.3 Monocytes % 10.6 Eosinophils % 4.6 Basophils % 0.5 Nucleated RBC % 0.0 Absolute Neutrophils 10.34 H Absolute Lymphocytes 1.37 Absolute Monocytes 1.57 H Absolute Eosinophils 0.68 Absolute Basophils 0.07 RBC Morphology Normal PT INR Sodium 138 Potassium 3.2 L Chloride 100 Carbon Dioxide 29.1 Anion Gap 8.9 BUN 20 H Creatinine 0.9 Est GFR (CKD-EPI 2020) 93.03 Glucose 108 H Calcium 8.6 Magnesium C-Reactive Protein Procalcitonin
--- NOTE | 2022-08-04 09:08 | PDOC.CMPRO ---
- If Service Date Differs Date of service: 08/04/22 Time of Service: 09:08 Care Management Progress Note S/O: Hunter was sitting up in his chair when CM met with him. He was pleasant and cheerful and informed CM that he is hoping to be discharged tomorrow. He has been told that it will likely happen if he is able to tolerate an advance in his diet. Dr. Pagan informed CM that Hunter will need another week of IV Vancomycin and she would like to pursue home infusion. CM will fax the orders to the Infusion company in the morning to determine cost and feasibility. A: 67 year old male admitted to [facility] on 07/28/22 for Acute right-sided CHF, Hypoxemia, Cholelithiasis. P: Anticipate Hunter will discharge home when medically ready per Surgery, with New [facility] RN services. He will also likely have home infusion for an additional week of IV Vancomycin. Hunter will be transported via private vehicle with his girlfriend Suri. He is willing to drive himself home, if able. Hunter will follow his discharge plan of care as prescribed, and follow up with community providers. CM will continue to follow.
[2022-08-04] MEDS: Enoxaparin 40 MG/0.4 ML SYR SC (10:16)
[2022-08-04 11:16] VITALS: BP 127/75; PULSE 52; RESP 16; TEMP 36; O2SAT 98
[2022-08-04] MEDS: MAGNESIUM SULFATE 2 GM/50 ML BAG IVPB (11:35)
[2022-08-04] MEDS: Acetaminophen 500 MG TAB 1000 MG PO ×2 (13:21→21:00)
[2022-08-04 15:36] VITALS: BP 144/83; PULSE 64; RESP 18; TEMP 36.8; O2SAT 96
[2022-08-04] MEDS: Warfarin 5 MG TAB PO (15:51)
--- NOTE | 2022-08-04 17:41 | W.PM.PROGNOT ---
Date of Service Date of service: 08/04/22 Time of Service: 17:41 Assessment and Plan Assessment and plan (1) Acute cholecystitis: Status: Acute Assessment and plan: s/p open cholecystectomy Blood culture growing enterococcus faecium-- Imipenem continued. has had one week total treatment which should be sufficient to treat according to up to date (uncomplicated 5-7 days with negative repeat cultures) Repeated blood cultures with no growth WBC today down to 14 from 24.13 surgery will be discharging home on augmentin. (2) Hypoxemia: Status: Resolved Assessment and plan: In setting of acute on chronic R-sided CHF (milld to moderate pulmonary hypertension). He was diuresed and now continues on RA. SPO2>96% PO furosemide. (3) Acute on chronic right heart failure: Status: Resolved Assessment and plan: As above LR IVF discontinued (4) IMMANUEL treated with BiPAP: Status: Acute Assessment and plan: Provide BiPAp at night. (5) DVT prophylaxis: Status: Acute Assessment and plan: INR therapeutic at 2.1 continue coumadin. and follow and adjust as needed. can stop enoxaparin (6) Discharge planning issues: Status: Acute Assessment and plan: Full code Likely home with nursing tomorrow discussed with DR Ott. Subjective Subjective Patient reports: no new complaints, feels better, tolerating liquids well, tolerating a regular diet, voiding w/o difficulty, bowel movement and afebrile; denies shortness of breath Interval history since last seen: doing well, diet advancing. hoping for discharge to home tomorrow. Exam Const General: cooperative and comfortable Nutritional Appearance: obese Orientation: alert, awake and oriented x3 HENPA Head: normal to inspection Mouth: oral mucosae normal Chest Chest: normal inspection of the chest Resp Effort & Inspection: normal respiratory effort Auscultation: clear to auscultation bilaterally Cardio Rate: regular rate Rhythm: regular rhythm GI Inspection: distended and obesity Palpation: soft and tender Auscultation: normal bowel sounds Skin Lesions: other (surgical dressing clean dry and intact to right upper abd. ) Rashes: no rashes Neuro General: patient alert, patient awake and patient oriented x3 Extrem General: normal to inspection and full ROM Objective Last Vital Signs Temp 36.8 C 08/04/22 15:36 Pulse 64 08/04/22 15:36 Resp 18 08/04/22 15:36 BP 144/83 H 08/04/22 15:36 Pulse Ox 96 08/04/22 15:36 Laboratory Results - last 24 hr 08/04/22 08/04/22 08/04/22 05:10 05:10 05:10 WBC RBC Hgb Hct MCV MCH MCHC RDW Plt Count MPV Immature Gran % Neutrophils % Lymphocytes % Monocytes % Eosinophils % Basophils % Nucleated RBC % Absolute Neutrophils Absolute Lymphocytes Absolute Monocytes Absolute Eosinophils Absolute Basophils RBC Morphology PT 20.2 H INR 2.1 H Sodium Potassium Chloride Carbon Dioxide Anion Gap BUN Creatinine Est GFR (CKD-EPI 2020) Glucose Calcium Magnesium 1.3 L C-Reactive Protein 17.39 H Procalcitonin 0.4 08/04/22 08/04/22 05:10 05:10 WBC 14.77 H RBC 3.90 L Hgb 12.8 L Hct 36.4 L MCV 93 MCH 32.8 MCHC 35.2 RDW 12.7 Plt Count 236 MPV 12.1 H Immature Gran % 5.0 Neutrophils % 70.0 Lymphocytes % 9.3 Monocytes % 10.6 Eosinophils % 4.6 Basophils % 0.5 Nucleated RBC % 0.0 Absolute Neutrophils 10.34 H Absolute Lymphocytes 1.37 Absolute Monocytes 1.57 H Absolute Eosinophils 0.68 Absolute Basophils 0.07 RBC Morphology Normal PT INR Sodium 138 Potassium 3.2 L Chloride 100 Carbon Dioxide 29.1 Anion Gap 8.9 BUN 20 H Creatinine 0.9 Est GFR (CKD-EPI 2020) 93.03 Glucose 108 H Calcium 8.6 Magnesium C-Reactive Protein Procalcitonin
[2022-08-04] MEDS: Nystatin POWDER 15 GM JAR TP (19:56)
[2022-08-04 21:01] VITALS: BP 129/79; PULSE 60; RESP 14; TEMP 36.9; O2SAT 97
[2022-08-05] MEDS: IMIPENEM/CILASTATIN 1,000 MG in Normal Saline 250 ML 250 MG IVPB ×2 (01:55→10:22)
[2022-08-05 01:56] VITALS: BP 135/73; PULSE 50; RESP 16; TEMP 37; O2SAT 96
[2022-08-05] MEDS: Normal Saline Flush 10 ML SYR IVP ×3 (01:56→10:22)
[2022-08-05 04:46] VITALS: BP 112/66; PULSE 53; RESP 14; TEMP 36.8; O2SAT 96
[2022-08-05 06:20] LABS: HCT 36.4 % (40.0-50.0); HGB 12.4 g/dL (13.5-17.5); MCH 32.3 pg (27.0-33.0); MCHC 34.1 % (32.0-36.0); MCV 95 fL (80-95); MPV 11.7 fL (8.0-11.0); Platelet Count 282 10^3/uL (130-400); RBC 3.84 10^6/uL (4.36-5.78); RDW 12.3 % (11.8-14.1); RDW-SD 42.6 fL; WBC 12.53 10^3/uL (4.4-10.8)
[2022-08-05 06:41] LABS: INR 2.8 (0.9-1.1); Prothrombin Time 26.6 sec (9.3-11.0)
[2022-08-05 06:45] LABS: C-Reactive Protein 11.24 mg/dL (0.0-0.3)
[2022-08-05] MEDS: Acetaminophen 500 MG TAB 1000 MG PO (07:00)
[2022-08-05 07:12] LABS: Absolute Eosinophil Count 0.38 10^3/uL (0.0-0.7); Absolute Monocyte Count 1.88 10^3/uL (0.1-0.8); Absolute Neutrophil Count 8.65 10^3/uL (1.2-6.7); Bands % 5; Diff Comment Manual Differential; Metamyelocytes % 1; RBC Morphology Normal
[2022-08-05] MEDS: Atenolol 50 MG TAB 100 MG PO (07:43)
[2022-08-05] MEDS: Allopurinol 300 MG TAB PO (07:43)
[2022-08-05] MEDS: FAMOTIDINE 20 MG in Normal Saline 100 ML 400 MG IVPB (07:44)
[2022-08-05] MEDS: Furosemide 40 MG TAB PO (07:44)
[2022-08-05] MEDS: amLODIPine 10 MG TAB PO (07:44)
[2022-08-05] MEDS: Polyethylene Glycol 3350 17 GM PACKET PO (07:44)
[2022-08-05 07:52] VITALS: PULSE 68
[2022-08-05 08:51] VITALS: BP 131/71; PULSE 59; RESP 16; TEMP 36.6; O2SAT 97
[2022-08-05 11:50] VITALS: BP 129/67; PULSE 57; RESP 18; TEMP 36.7; O2SAT 97
--- NOTE | 2022-08-05 12:36 | W.PM.DS.N ---
DS: Diagnosis Discharge Diagnosis (1) Acute cholecystitis: Status: Acute (2) Bacteremia due to Enterobacter species: Status: Acute (3) Acute on chronic right heart failure: Status: Resolved (4) IMMANUEL treated with BiPAP: Status: Acute (5) CHF (congestive heart failure): Status: Chronic (6) Bilateral leg edema: (7) BMI 50.0-59.9, adult: (8) Peripheral neuropathy: Discharge Plan Disposition Patient Disposition: HOME Condition: Serious Discharge Details Reason For Visit: Hypoxemia with Fever,CHF,Cholelithiasis Admit Date/Time: 07/28/22 21:02 Admit Provider: Naveed Foley Attending Provider: Naveed Foley [facility] Hospital Course: This is a 67-year-old male patient who the morning of presentation to the ED had breakfast and then became acutely short of breath.? He had fevers with chills and myalgias.He denied chest pain.? Dyspnea was of acute onset.? He had no calf pain or swelling in his lower extremities and had no nausea, vomiting or diarrhea.? ED evaluation did reveal temperature up to 102 ?F and CT evaluation revealed gallstones with a question of cholecystitis, however the patient had no abdominal pain.? He was on oxygen supplement and was initiated on IV Lasix for treatment of CHF.? He did have diminished sounds in his lungs but no overt infiltrate on imaging.? He was covered with Rocephin and Flagyl for his possible respiratory infection which appear to be viral but non-COVID. He also has possible cholecystitis. He does have a history of chronic atrial fibrillation on Coumadin and PT/INR was therapeutic with Coumadin held and daily PT/INR to be checked prior to restarting therapy. HIDA scan showed no uptake into the gallbladder which is suggestive of acute Cholecystitis He was assessed by surgery, he agreed to a surgical intervention. He was admitted to the medical floor. He was started on Rocephin and Flagyl. Blood cultures grew enterococcus faecium.D/C'd rocephin and flagyl, continued Vancomycin and started Imipenem. Regarding his CHF he diuresed well and did not require oxygen post op. He recovered well from surgery and was released to go home by surgery. He is discharged stable to home on 10 days of Linezolid. Home Meds and New Rx's Prescriptions: New linezolid 600 mg tablet 600 mg PO Q12H 10 Days Qty: 20 0RF Continued amlodipine 10 mg tablet 10 mg PO DAILY furosemide 40 mg tablet 80 mg PO DAILY diphenhydramine HCl 12.5 MG/5 ML liquid 25 mg PO Q4H PRN Label Comments: 09/05/14- took about 1 month ago atenolol 100 MG tablet 100 mg PO DAILY allopurinol 300 MG tablet 300 mg PO DAILY calcipotriene 60 ML solution 60 ml Topical BID PRN Label Comments: 09/05/14- pt has not used for about 1 month.KL warfarin 5 mg tablet 5 mg PO DAILY Qty: 90 3RF linezolid 600 mg tablet 600 mg PO BID 11 Days Qty: 22 0RF linezolid 600 mg tablet 600 mg PO BID 11 Days Qty: 22 0RF ciprofloxacin HCl [Cipro] 500 mg tablet 500 mg PO Q12H Qty: 10 0RF metronidazole 500 mg tablet 500 mg PO TID Qty: 15 0RF nystatin 100,000 unit/gram Powder 1 applic topical BID Qty: 60 5RF Discharge Instructions Instructions: Linezolid (By mouth), Probiotic (By mouth), Heart Failure (DC), Open Cholecystectomy (DC) Care Plan Goals: Care after Gallbladder Surgery -Pain control: ? Alternate Tylenol 1000mg by mouth every 8 hours, and Ibuprofen 600mg every 6 hours.? Make sure you take ibuprofen with food and not on an empty stomach.?- Use ICE! Ice really helps to keep the swelling down, and swelling causes pain. ??Twenty minutes on, and then off, continuously for the first 72hours.? After the first 72hrs, you can just use the Tylenol, ibuprofen and ice, ?when you have pain.? Make sure you are moving your bowels daily. If not, take Miralax, milk of magnesia or magnesium citrate.? - Anesthesia makes you very constipated.? Take a dose of milk of magnesia the morning after surgery. ? Use an ice bag This helps to decrease swelling, which causes pain. It is normal to be more sore/painful and swollen towards the end of the day and first thing in the morning. ? Use milk of magnesia or miralax Do not allow yourself to become constipated. ? Avoid fatty or greasy foods; introduce these slowly, with care, after about 1 month. High-fat foods include: ? Foods that are fried, like Maltese fries and potato chips ? High-fat meats, such as jennings, bologna, sausage, ground beef, and ribs, pork products ? High-fat dairy products, such as cheese, ice cream, cream, whole milk, and sour cream ? Pizza ? Foods made with lard or butter ? Creamy soups or sauces ? Meat gravies ? Chocolate ? Oils, such as palm and coconut oil ? Skin of chicken or turkey ? Nuts and nut butters ? Avacadoes ? Start out eating very small, bland amounts of food. Do not take pain pills on an empty stomach. - You will notice purple discoloration around the incisions.? This is the ?skin glue?.? This will wear off on its own.? It is OK to shower after 24hrs.? You do not need to cover the incisions. -You should walk frequently, gradually, increasing the distance. You may climb stairs, just go slowly. ? Do not go swimming or sit in a hot tub for two weeks. ? There are no stitches to remove. ? Do not drive your car 72 hrs and then only if you have no pain and can move freely. Do not drive if you are taking pain narcotic pain medications. ? You may resume sexual activity whenever pain and soreness subside, usually in 2 weeks. ? Do no lift anything over 5 lbs. for two weeks. ? You may return to work in one week, or when you feel able, provided you do not have to do any heavy lifting or prolonged standing. the [facility] at: [phone] to schedule an appointment. My Medications for pain and nausea are: Tylenol/ibuprofen ? When to Call the Office: ? If the incision becomes red or swollen, or there is more than a little drainage from it. ? If you develop a temperature higher than 100.5 F. ? If your eyes turn yellow ? Vomiting and can?t keep fluids down Stand Alone Forms: Nursing Discharge Form Referrals: Yolanda Velasquez MD [ [facility] STAFF PHYSICIAN] - 08/09/22 10:15 am ( ) Kimberly Stout [Primary Care Provider] - 08/16/22 10:15 am () Activity:: Activity as Tolerated Equipment/Supplies:: Walker Diet:: Low Sodium Discharge Orders Discharge Orders: Discharge Order (Routine); Ordered 08/05/22 Ordered By: Deepti Sams Discharge Data Discharge Date/Time-TO BE ENTERED AT DEPARTURE: 08/05/22 14:29 DS: Summary Time Spent with Patient providing and/or coordinating discharge services: Less than 30 minutes Status at Discharge Functional status at discharge: independent ambulation Overall status at discharge: patient is back to baseline Mental Status: mental status grossly normal Speech and Movement: speech and movement normal Mood: congruent mood Affect: normal affect Exam Psych Mental Status: mental status grossly normal Speech and Movement: speech and movement normal Mood: congruent mood Affect: normal affect DS: Data Vitals/I&O Vitals and I&O: Vital Signs Temperature 36.7 C 08/05/22 11:50 Temperature Source Tympanic 08/05/22 11:50 Pulse 57 L 08/05/22 11:50 Pulse Rhythm Regular 08/05/22 07:45 Pulse 86 08/01/22 07:30 Respiratory Rate 18 08/05/22 11:50 Respiratory Effort Non-Labored 08/05/22 07:45 Respiratory Depth Normal 08/05/22 07:45 Respiratory Pattern Normal 08/05/22 07:45 Blood Pressure 129/67 08/05/22 11:50 Blood Pressure Mean 104 08/01/22 07:36 Blood Pressure Position Sitting 08/01/22 07:36 Pulse Oximetry 97 08/05/22 11:50 Respiratory End-tidal CO2 38 07/31/22 12:01 Oxygen Delivery Method Room Air 08/05/22 11:50 Oxygen Flow Rate 0 08/05/22 11:50 Pain Level 2 08/05/22 07:00 Comment 08/03/22 07:29 Intake & Output 08/04/22 08/05/22 08/05/22 23:59 11:59 23:59 Intake Total 402 / 1464 352 / 602 250 / 602 Balance 402 / 1464 352 / 602 250 / 602 Intake: IV 402 / 1104 352 / 602 250 / 602 Data Completed and Pending Labs on day of discharge: Labs from last 24 hours 08/05/22 08/05/22 08/05/22 05:21 05:21 05:21 WBC 12.53 H RBC 3.84 L Hgb 12.4 L Hct 36.4 L MCV 95 MCH 32.3 MCHC 34.1 RDW 12.3 Plt Count 282 MPV 11.7 H Immature Gran % 0.0 Neutrophils % 64.0 Band Neutrophils % 5 Lymphocytes % 12.0 Monocytes % 15.0 Eosinophils % 3.0 Basophils % 0.0 Metamyelocytes % 1 Nucleated RBC % 0.0 Absolute Neutrophils 8.65 H Absolute Lymphocytes 1.50 Absolute Monocytes 1.88 H Absolute Eosinophils 0.38 Absolute Basophils 0.00 RBC Morphology Normal PT 26.6 H INR 2.8 H C-Reactive Protein 11.24 H Preliminary micro results at discharge 08/01/22 05:20 Blood Culture - Preliminary Blood NO GROWTH 96 HOURS 08/01/22 05:13 Blood Culture - Preliminary Blood NO GROWTH 96 HOURS PFSH All Active Problems (Updated 08/04/22 @ 17:52 by Loree Collins NP) Bacteremia due to Enterobacter species (Acute) Leukocytosis (leucocytosis) (Acute) Acute cholecystitis (Acute) Discharge planning issues (Acute) DVT prophylaxis (Acute) IMMANUEL treated with BiPAP (Acute) Cholelithiasis (Acute) Respiratory failure (Acute) Sepsis (Acute) CHF (congestive heart failure) (Chronic) Acute right-sided CHF (congestive heart failure) (Acute) Cholelithiasis (Chronic) Elevated INR (Acute) Bleeding from wound (Acute) Medical History Atrial fibrillation Bilateral leg edema BMI 50.0-59.9, adult Elevated LFTs Erectile dysfunction Gout Hypertension Peripheral neuropathy Prediabetes Psoriasis Shoulder dislocation Surgical History S/P exploratory laparotomy S/P right hemicolectomy Social History Smoking/Tobacco Use Status: Never Smoking risk assessment performed?: Yes Alcohol Intake: current Alcohol Intake frequency: a few times a week Alcohol type: beer Drug use: Never Substance use type: does not use Household members: none Housing: house Communication Needs: Hard of Hearing Pets and animals: No What type of physical activity do you participate in: independent ambulation Do you feel safe at home: Yes Do you feel safe in your relationship?: Yes
[2022-08-05] MEDS: Linezolid 600 MG TAB PO (12:46)
--- NOTE | 2022-08-05 14:15 | DSE_ITS ---
DS: Diagnosis Discharge Diagnosis (1) Acute cholecystitis: Status: Acute (2) Bacteremia due to Enterobacter species: Status: Acute (3) Acute on chronic right heart failure: Status: Resolved (4) IMMANUEL treated with BiPAP: Status: Acute (5) CHF (congestive heart failure): Status: Chronic (6) Bilateral leg edema: (7) BMI 50.0-59.9, adult: (8) Peripheral neuropathy: Discharge Plan Disposition Patient Disposition: HOME Condition: Serious Discharge Details Reason For Visit: Hypoxemia with Fever,CHF,Cholelithiasis Admit Date/Time: 07/28/22 21:02 Admit Provider: Naveed Foley Attending Provider: Naveed Foley Primary Care Provider: Kimberly Stout Home Meds and New Rx's Prescriptions: New linezolid 600 mg tablet 600 mg PO Q12H 10 Days Qty: 20 0RF Continued amlodipine 10 mg tablet 10 mg PO DAILY furosemide 40 mg tablet 80 mg PO DAILY diphenhydramine HCl 12.5 MG/5 ML liquid 25 mg PO Q4H PRN Label Comments: 09/05/14- took about 1 month ago atenolol 100 MG tablet 100 mg PO DAILY allopurinol 300 MG tablet 300 mg PO DAILY calcipotriene 60 ML solution 60 ml Topical BID PRN Label Comments: 09/05/14- pt has not used for about 1 month.KL warfarin 5 mg tablet 5 mg PO DAILY Qty: 90 3RF linezolid 600 mg tablet 600 mg PO BID 11 Days Qty: 22 0RF linezolid 600 mg tablet 600 mg PO BID 11 Days Qty: 22 0RF ciprofloxacin HCl [Cipro] 500 mg tablet 500 mg PO Q12H Qty: 10 0RF metronidazole 500 mg tablet 500 mg PO TID Qty: 15 0RF nystatin 100,000 unit/gram Powder 1 applic topical BID Qty: 60 5RF Discharge Instructions Instructions: Linezolid (By mouth), Probiotic (By mouth), Heart Failure (DC), Open Cholecystectomy (DC) Care Plan Goals: Care after Gallbladder Surgery -Pain control: ? Alternate Tylenol 1000mg by mouth every 8 hours, and Ibuprofen 600mg every 6 hours.? Make sure you take ibuprofen with food and not on an empty stomach.?- Use ICE! Ice really helps to keep the swelling down, and swelling causes pain. ??Twenty minutes on, and then off, continuously for the first 72hours.? After the first 72hrs, you can just use the Tylenol, ibuprofen and ice, ?when you have pain.? Make sure you are moving your bowels daily. If not, take Miralax, milk of magnesia or magnesium citrate.? - Anesthesia makes you very constipated.? Take a dose of milk of magnesia the morning after surgery. ? Use an ice bag This helps to decrease swelling, which causes pain. It is normal to be more sore/painful and swollen towards the end of the day and first thing in the morning. ? Use milk of magnesia or miralax Do not allow yourself to become constipated. ? Avoid fatty or greasy foods; introduce these slowly, with care, after about 1 month. High-fat foods include: ? Foods that are fried, like [place] fries and potato chips ? High-fat meats, such as jennings, bologna, sausage, ground beef, and ribs, pork products ? High-fat dairy products, such as cheese, ice cream, cream, whole milk, and sour cream ? Pizza ? Foods made with lard or butter ? Creamy soups or sauces ? Meat gravies ? Chocolate ? Oils, such as palm and coconut oil ? Skin of chicken or turkey ? Nuts and nut butters ? Avacadoes ? Start out eating very small, bland amounts of food. Do not take pain pills on an empty stomach. - You will notice purple discoloration around the incisions.? This is the ?skin glue?.? This will wear off on its own.? It is OK to shower after 24hrs.? You do not need to cover the incisions. -You should walk frequently, gradually, increasing the distance. You may climb stairs, just go slowly. ? Do not go swimming or sit in a hot tub for two weeks. ? There are no stitches to remove. ? Do not drive your car 72 hrs and then only if you have no pain and can move freely. Do not drive if you are taking pain narcotic pain medications. ? You may resume sexual activity whenever pain and soreness subside, usually in 2 weeks. ? Do no lift anything over 5 lbs. for two weeks. ? You may return to work in one week, or when you feel able, provided you do not have to do any heavy lifting or prolonged standing. [facility] at: [phone] to schedule an appointment. My Medications for pain and nausea are: Tylenol/ibuprofen ? When to Call the Office: ? If the incision becomes red or swollen, or there is more than a little drainage from it. ? If you develop a temperature higher than 100.5 F. ? If your eyes turn yellow ? Vomiting and can?t keep fluids down Stand Alone Forms: Nursing Discharge Form Referrals: Yolanda Velasquez MD [ [facility] STAFF PHYSICIAN] - 08/09/22 10:15 am ( ) Kimberly Stout [Primary Care Provider] - 08/16/22 10:15 am () Activity:: Activity as Tolerated Equipment/Supplies:: Walker Diet:: Low Sodium Discharge Orders Discharge Orders: Discharge Order (Routine); Ordered 08/05/22 Ordered By: Deepti Sams DS: Summary Time Spent with Patient providing and/or coordinating discharge services: Greater than 30 minutes Status at Discharge Functional status at discharge: independent ambulation Overall status at discharge: patient is back to baseline Mental Status: mental status grossly normal Speech and Movement: speech and movement normal Mood: congruent mood Affect: normal affect Exam Psych Mental Status: mental status grossly normal Speech and Movement: speech and movement normal Mood: congruent mood Affect: normal affect DS: Data Vitals/I&O Vitals and I&O: Vital Signs Temperature 36.7 C 08/05/22 11:50 Temperature Source Tympanic 08/05/22 11:50 Pulse 57 L 08/05/22 11:50 Pulse Rhythm Regular 08/05/22 07:45 Pulse 86 08/01/22 07:30 Respiratory Rate 18 08/05/22 11:50 Respiratory Effort Non-Labored 08/05/22 07:45 Respiratory Depth Normal 08/05/22 07:45 Respiratory Pattern Normal 08/05/22 07:45 Blood Pressure 129/67 08/05/22 11:50 Blood Pressure Mean 104 08/01/22 07:36 Blood Pressure Position Sitting 08/01/22 07:36 Pulse Oximetry 97 08/05/22 11:50 Respiratory End-tidal CO2 38 07/31/22 12:01 Oxygen Delivery Method Room Air 08/05/22 11:50 Oxygen Flow Rate 0 08/05/22 11:50 Pain Level 2 08/05/22 07:00 Comment 08/03/22 07:29 Intake & Output 08/04/22 08/05/22 08/05/22 23:59 11:59 23:59 Intake Total 402 / 1464 352 / 602 250 / 602 Balance 402 / 1464 352 / 602 250 / 602 Intake: IV 402 / 1104 352 / 602 250 / 602 Data Completed and Pending Labs on day of discharge: Labs from last 24 hours 08/05/22 08/05/22 08/05/22 05:21 05:21 05:21 WBC 12.53 H RBC 3.84 L Hgb 12.4 L Hct 36.4 L MCV 95 MCH 32.3 MCHC 34.1 RDW 12.3 Plt Count 282 MPV 11.7 H Immature Gran % 0.0 Neutrophils % 64.0 Band Neutrophils % 5 Lymphocytes % 12.0 Monocytes % 15.0 Eosinophils % 3.0 Basophils % 0.0 Metamyelocytes % 1 Nucleated RBC % 0.0 Absolute Neutrophils 8.65 H Absolute Lymphocytes 1.50 Absolute Monocytes 1.88 H Absolute Eosinophils 0.38 Absolute Basophils 0.00 RBC Morphology Normal PT 26.6 H INR 2.8 H C-Reactive Protein 11.24 H Preliminary micro results at discharge 08/01/22 05:20 Blood Culture - Preliminary Blood NO GROWTH 96 HOURS 08/01/22 05:13 Blood Culture - Preliminary Blood NO GROWTH 96 HOURS PFSH All Active Problems (Updated 08/04/22 @ 17:52 by Loree Collins NP) Bacteremia due to Enterobacter species (Acute) Leukocytosis (leucocytosis) (Acute) Acute cholecystitis (Acute) Discharge planning issues (Acute) DVT prophylaxis (Acute) IMMANUEL treated with BiPAP (Acute) Cholelithiasis (Acute) Respiratory failure (Acute) Sepsis (Acute) CHF (congestive heart failure) (Chronic) Acute right-sided CHF (congestive heart failure) (Acute) Cholelithiasis (Chronic) Elevated INR (Acute) Bleeding from wound (Acute) Medical History Atrial fibrillation Bilateral leg edema BMI 50.0-59.9, adult Elevated LFTs Erectile dysfunction Gout Hypertension Peripheral neuropathy Prediabetes Psoriasis Shoulder dislocation Surgical History S/P exploratory laparotomy S/P right hemicolectomy Social History Smoking/Tobacco Use Status: Never Smoking risk assessment performed?: Yes Alcohol Intake: current Alcohol Intake frequency: a few times a week Alcohol type: beer Drug use: Never Substance use type: does not use Household members: none Housing: house Communication Needs: Hard of Hearing Pets and animals: No What type of physical activity do you participate in: independent ambulation Do you feel safe at home: Yes Do you feel safe in your relationship?: Yes
--- NOTE | 2022-08-05 16:44 | PDOC.CMDIS ---
- If Service Date Differs Date of service: 08/05/22 Time of Service: 16:44 LACE Index Scoring Tool - Questions: Length of Stay (in days): 7 - 13 Acuity (Admit via E.D.?): Yes Comorbidities: Congestive Heart Failure E.D. Visits: 2 - Answers: Total Score: 12 Risk of Readmission: High Risk Care Management Discharge Reason for Hospitalization: Acute right-sided CHF, Hypoxemia, Cholelithiasis Discharge Plan: Hunter returned home today with no new services. His girlfriend drove him home via private vehicle. He will follow up with his PCP and discharge plan of care. He is happy to be able to return home today and stated that his girlfriend will be helping to take care of him post hospitalization. Patient/Family Education Needs: Review discharge instructions and limitations, discussion of self care needs including ask me three.
== END 2022-08-05 14:29 | disposition home or self-care (01) | DRG 853 ==
LOC: ER 20:53 → MS 22:16 → ICU 07-31 11:07 → MS 08-01 16:32
PROVIDERS: Family Medicine; Internal Medicine; Nurse Practitioner Family; Surgery; Admitting Provider Family Medicine; Emergency Provider Physician Assistant; PCP Nurse Practitioner Family; Visit Provider Family Medicine
PROC: 0FT44ZZ Resection of Gallbladder, Percutaneous Endoscopic Approach (ICD-10-PCS; CPT 47562; principal; 2022-07-31 09:00)
DX: A41.59 Other Gram-negative sepsis (principal); J96.00 Acute respiratory failure, unspecified whether with hypoxia or hypercapnia; I48.11 Longstanding persistent atrial fibrillation; K80.12 Calculus of gallbladder with acute and chronic cholecystitis without obstruction; K56.7 Ileus, unspecified; Z68.43 Body mass index [BMI] 50.0-59.9, adult; I50.813 Acute on chronic right heart failure; I11.0 Hypertensive heart disease with heart failure; I87.2 Venous insufficiency (chronic) (peripheral); I89.0 Lymphedema, not elsewhere classified; R79.1 Abnormal coagulation profile; Z79.01 Long term (current) use of anticoagulants; L40.9 Psoriasis, unspecified; R73.03 Prediabetes; G62.9 Polyneuropathy, unspecified; M10.9 Gout, unspecified; E66.9 Obesity, unspecified; Z90.49 Acquired absence of other specified parts of digestive tract
CPT/HCPCS: 47600; 36415; 71275; 74177; 78227; 80048; 80053; 80076; 83690; 84145; 87040; 87077; 87635; 87637; 93005; 94640; 96365; 96367; 96375; 99222; 99232; 99233; 99291; J1650; 71046; 74019; 80202; 81003; 81015; 82728; 83605; 83735; 83880; 84484; 85025; 85379; 85610; 85730; 86140; 87086; 87186; 88304; 93010; 99223; 99238; J0131; J0696; J0743; J1100; J1940; J2405; J2704; J3480; J3490; J7620

== ENCOUNTER → 2022-08-09 10:12 | Outpatient (BNVA) | payer MEDICARE, SELFPAY | PROVIDERS: PCP Nurse Practitioner Family; Referring Provider Nurse Practitioner Family; Visit Provider Surgery | DX: Z48.815 Encounter for surgical aftercare following surgery on the digestive system (principal) ==

== ENCOUNTER → 2022-08-16 09:15 | Outpatient (BNVA) | payer MEDICARE, SELFPAY | PROVIDERS: PCP Nurse Practitioner Family; Referring Provider Nurse Practitioner Family; Visit Provider Surgery | DX: Z48.815 Encounter for surgical aftercare following surgery on the digestive system (principal) ==

== ENCOUNTER 2022-08-17 09:29 | Inpatient (IN) | payer MEDICARE, SELFPAY ==
[2022-08-17] VITALS (37 sets, daily range): BP systolic 110–152; BP diastolic 64–89; PULSE 75–101; RESP 14–32; TEMP 36.1–36.5; O2SAT 93–100
--- NOTE | 2022-08-17 09:45 | DI.CT_ITS ---
Exam(s) CT ABDOMEN PELVIS W EXAM: CT ABDOMEN PELVIS W CLINICAL HISTORY: vomiting, LLQ pain, recent lap odell TECHNIQUE: COMPARISON: CT CT CHEST PE ABD PELVIS W from 07/28/2022 FINDINGS: CT examination of the abdomen and pelvis was performed with bolus infusion of 100 cc of Omnipaque 350 . Images obtained through the lung bases are unremarkable. The liver appears normal with no evidence of a focal mass. Spleen is unremarkable in appearance.. Has been surgically removed, reportedly July 31, with small quantity of fluid in the gallbladd er fossa, bile ducts are unremarkable. The quantity of fluid in the gallbladder fossa is consistent with normal postoperative appearance. Pancreas is unremarkable in appearance. Adrenals appear normal bilaterally. Kidneys appear normal with no evidence of renal mass, hydronephrosis, or nephrolithiasis. Unremarkab le bladder. There is no evidence of abdominal or pelvic adenopathy. Abdominal aorta is of normal diameter and no abnormality is seen involving major visceral branches.. Appendix is not specifically visualized.. There is moderate amount of free intraperitoneal air, this is unusual for patient who is over 2 weeks status post surgery. There are focal areas of fat infiltration small fluid collections and free air adjacent to loops of small bowel in the mid abdomen, there is question narrowing and wall thickening of small bowel at this site and the bowel is dilated proximal and distal to the site. Findings woul d be somewhat concerning for viscus rupture in this area. No free fluid in the pelvis. No gross abscess formation. No significant abdominal wall hernia seen. Impression: Free intraperitoneal air and areas of abnormal fat attenuation, possible small free fluid collection, and bowel wall abnormality involving small bowel in the mid abdomen in a patient who is approximatel y 2 weeks post laparoscopic cholecystectomy. The findings are somewhat suspicious for viscus rupture , although rarely this quantity of free air could be seen as part of the normal postoperative course. Appropriate follow-up examination is recommended, surgical consult suggested.. RADIATION DOSE DELIVERED: Total DLP Total DLP !Error CTDIvol DATA REPOSITORY: All CT scans at this facility are submitted to the National Radiology Data Registry (NRDR) Dose Index Registry (DIR) with the [employer] (A[employer]). RADIATION OPTIMIZATION: All CT scans at this facility use at least one of these dose optimization te chniques: automated exposure control; mA and/or kV adjustment per patient size (includes targeted exa ms where dose is matched to clinical indication); or iterative reconstruction.
--- NOTE | 2022-08-17 09:45 | RT.EKG_ITS ---
APPROVED REPORT Exam: Resting ECG Reason for Exam: vomiting Patient Location: E HR:97 bpm ECG Measurements Heart Rate 97 AXIS NE [id number] P [id number] QRSd 106 QRS 37 QT 364 T 250 QTc 463 Conclusion Atrial fibrillation...? atrial activity Borderline repol abnormality, diffuse leads...ST dep, T flat/neg, ant/lat/inf atrial fibrillation at 97, normal axis, nonspecific ST changes, no STEMI, nondiagnostic EKG
[2022-08-17] MEDS: Ondansetron O.D.T. 4 MG TABEF (10:00)
--- NOTE | 2022-08-17 10:00 | W.ED.GENAD ---
Discharge Plan Disposition Patient Disposition: [facility] INPATIENT Discharge Details Chief Complaint: Abd Prob Clinical Impression: Ileus, Vomiting Admit Date/Time: 08/17/22 13:26 Admit Provider: Jarocho Reese Attending Provider: Jarocho Reese Primary Care Provider: Kimberly Stout ED Provider: Charline Fletcher Medical Decision Making Concern for postoperative complication including infection/abscess, pancreatitis, colitis, diverticulitis, other. Doubt acute coronary syndrome. Exam/history at this time is not consistent with sepsis, acute aortic pathology. Plan for EKG, IV placement, IV fluid hydration, Zofran, screening labs, CT abdomen/pelvis, telemetry. Will monitor and reassess. Labs reviewed, WBC 21.06, hemoglobin 14.3, INR 2.5, potassium 3.4, creatinine 1.9 (baseline 0.9), magnesium 1.4, lipase 572, troponin negative. I discussed patient presentation and lab results with Dr. Reese of surgery, who saw patient at bedside, states he will make further recommendations after CT abdomen/pelvis resulted. Per radiology CT abdomen/pelvis shows free fluid/air possibly consistent with viscus perforation, possible ileus, possible early abscess formation. Surgery paged. Plan for IV cefepime, Flagyl (patient with ampicillin allergy). Dr. Reese of surgery returned to see patient after CT resulted, plan for admission, no further recommendations at this time. Medical Records Medical records reviewed: Yes I reviewed the patient's medical records. Imaging Data Radiologic Study: Attestation: I personally reviewed and interpreted this imaging study as follows: Radiologist's impression: EXAM:? CT ABDOMEN ? PELVIS W CLINICAL HISTORY:? vomiting, LLQ pain, recent lap odell TECHNIQUE:? COMPARISON:? CT CT CHEST PE ABD ? PELVIS W from 07/28/2022 FINDINGS: CT examination of the abdomen and pelvis was performed with bolus infusion of 100 cc of Omnipaque 350. Images obtained through the lung bases are unremarkable. The liver appears normal with no evidence of a focal mass. Spleen is unremarkable in appearance.. Has been surgically removed, reportedly July 31, with small quantity of fluid in the gallbladder fossa, bile ducts are unremarkable.? The quantity of fluid in the gallbladder fossa is consistent with normal postoperative appearance. Pancreas is unremarkable in appearance. Adrenals appear normal bilaterally. Kidneys appear normal with no evidence of renal mass, hydronephrosis, or nephrolithiasis.? Unremarkable bladder. There is no evidence of abdominal or pelvic adenopathy. Abdominal aorta is of normal diameter and no abnormality is seen involving major visceral branches.. Appendix is not specifically visualized.. There is moderate amount of free intraperitoneal air, this is unusual for patient who is over 2 weeks status post surgery.? There are focal areas of fat infiltration small fluid collections and free air adjacent to loops of small bowel in the mid abdomen, there is question narrowing and wall thickening of small bowel at this site and the bowel is dilated proximal and distal to the site.? Findings would be somewhat concerning for viscus rupture in this area. No free fluid in the pelvis.? No gross abscess formation. No significant abdominal wall hernia seen. Impression: Free intraperitoneal air and areas of abnormal fat attenuation, possible small free fluid collection, and bowel wall abnormality involving small bowel in the mid abdomen in a patient who is approximately 2 weeks post laparoscopic cholecystectomy.? The findings are somewhat suspicious for viscus rupture, although rarely this quantity of free air could be seen as part of the normal postoperative course.? Appropriate follow-up examination is recommended, surgical consult suggested.. Lab Data Lab results reviewed: Yes I reviewed the patient's lab results. Labs: Laboratory Tests Range/Units 08/17/22 08/17/22 08/17/22 10:05 10:05 10:05 WBC (4.4-10.8) 10^3/uL 21.06 H RBC (4.36-5.78) 10^6/uL 4.50 Hgb (13.5-17.5) g/dL 14.3 Hct (40.0-50.0) % 41.4 MCV (80-95) fL 92 MCH (27.0-33.0) pg 31.8 MCHC (32.0-36.0) % 34.5 RDW (11.8-14.1) % 12.2 Plt Count (130-400) 10^3/uL 494 H MPV (8.0-11.0) fL 11.3 H Immature Gran % See Differential Neutrophils % 77.0 Band Neutrophils % 1 Lymphocytes % 7.0 Monocytes % 12.0 Eosinophils % 2.0 Basophils % 1.0 Nucleated RBC % (0.0-0.3) % 0.0 Absolute Neutrophils (1.2-6.7) 10^3/uL 16.43 H Absolute Lymphocytes (1.2-3.4) 10^3/uL 1.47 Absolute Monocytes (0.1-0.8) 10^3/uL 2.53 H Absolute Eosinophils (0.0-0.7) 10^3/uL 0.42 Absolute Basophils (0.0-0.2) 10^3/uL 0.21 H RBC Morphology Normal PT (9.3-11.0) sec 23.7 H INR (0.9-1.1) 2.5 H Sodium (136-145) mmol/L 134 L Potassium (3.5-5.1) mmol/L 3.4 L Chloride (98-107) mmol/L 92 L Carbon Dioxide (21.0-32.0) mmol/L 29.3 Anion Gap (3-11) mmol/L 12.7 H BUN (7-18) mg/dL 58 H Creatinine (0.70-1.30) mg/dL 1.9 H Est GFR (CKD-EPI 2020) (mL/min/1.73m2) 37.95 Glucose (74-106) mg/dL 149 H Calcium (8.5-10.1) mg/dL 8.9 Magnesium (1.8-2.4) mg/dL 1.4 L Total Bilirubin (0.2-1.0) mg/dL 1.0 AST (15-37) U/L 35 ALT (16-63) U/L 90 H Alkaline Phosphatase (46-116) U/L 414 H Troponin I (<or=60) ng/L < 50 Total Protein (6.4-8.2) g/dL 8.4 H Albumin (3.4-5.0) g/dL 3.1 L Lipase (73-393) U/L 572 H COVID-19 Source Range/Units 08/17/22 08/17/22 12:55 13:33 WBC (4.4-10.8) 10^3/uL RBC (4.36-5.78) 10^6/uL Hgb (13.5-17.5) g/dL Hct (40.0-50.0) % MCV (80-95) fL MCH (27.0-33.0) pg MCHC (32.0-36.0) % RDW (11.8-14.1) % Plt Count (130-400) 10^3/uL MPV (8.0-11.0) fL Immature Gran % Neutrophils % Band Neutrophils % Lymphocytes % Monocytes % Eosinophils % Basophils % Nucleated RBC % (0.0-0.3) % Absolute Neutrophils (1.2-6.7) 10^3/uL Absolute Lymphocytes (1.2-3.4) 10^3/uL Absolute Monocytes (0.1-0.8) 10^3/uL Absolute Eosinophils (0.0-0.7) 10^3/uL Absolute Basophils (0.0-0.2) 10^3/uL RBC Morphology PT (9.3-11.0) sec INR (0.9-1.1) Sodium (136-145) mmol/L Potassium (3.5-5.1) mmol/L Chloride (98-107) mmol/L Carbon Dioxide (21.0-32.0) mmol/L Anion Gap (3-11) mmol/L BUN (7-18) mg/dL Creatinine (0.70-1.30) mg/dL Est GFR (CKD-EPI 2020) (mL/min/1.73m2) Glucose (74-106) mg/dL Calcium (8.5-10.1) mg/dL Magnesium (1.8-2.4) mg/dL Total Bilirubin (0.2-1.0) mg/dL AST (15-37) U/L ALT (16-63) U/L Alkaline Phosphatase (46-116) U/L Troponin I (<or=60) ng/L < 50 Total Protein (6.4-8.2) g/dL Albumin (3.4-5.0) g/dL Lipase (73-393) U/L COVID-19 Source Nasal/Nares ECG Data Attestation: I personally reviewed and interpreted this ECG (s) as follows: Interpretation: EKG shows atrial fibrillation at 97, normal axis, nonspecific ST changes, no STEMI, nondiagnostic EKG HPI General Mode of arrival: ambulatory. Date/Time Provider Initiated Documentation: 08/17/22 09:46. Limitations to Documentation: no limitations. Information obtained by: patient, RN notes reviewed and old records reviewed. HPI Narrative: Hunter Ortiz is a 67-year-old man with a history of hypertension, A. fib on Coumadin, CHF presenting to emergency department with abdominal pain and vomiting. Patient reports that he had a cholecystectomy performed here on 07/31/2022. Patient reports that recovery from surgery had been going well until 3 to 4 days ago when he developed left lower quadrant abdominal pain, nausea, and persistent vomiting. Patient reports that he has had many episodes of vomiting since onset, states that he has not been able to hold down food or fluids until this morning when he ate Jell-O had not yet vomited (however as I was taking history from patient he had copious yellow emesis). Patient reports that he has had several bowel movements today, all formed stool, normal color. He denies constipation or diarrhea, denies black or bloody stool. Patient reports that he has had left lower quadrant pain that is worse with lying down since onset of vomiting. He denies any other pain, fever, cough, shortness of breath, numbness, weakness, rash. Related Data Home Medications Medication Instructions Recorded Confirmed allopurinol 300 mg tablet 300 mg PO DAILY 08/18/14 08/17/22 atenolol 100 mg tablet 100 mg PO DAILY 08/18/14 08/17/22 calcipotriene 0.005 % scalp 60 ml topical BID PRN 08/18/14 08/17/22 solution diphenhydramine HCl 12.5 mg/5 mL 25 mg PO Q4H PRN 08/18/14 08/17/22 oral liquid amlodipine 10 mg tablet 10 mg PO DAILY 01/02/20 08/17/22 furosemide 40 mg tablet 80 mg PO DAILY 01/02/20 08/17/22 nystatin 100,000 unit/gram topical 1 applic topical BID #60 grams 05/16/22 08/17/22 powder warfarin 5 mg tablet 2.5 - 5 mg PO DAILY 08/17/22 08/17/22 Previous Rx's Medication Instructions Recorded nystatin 100,000 unit/gram topical 1 applic topical BID #60 grams 05/16/22 powder Allergies Allergy/AdvReac Type Severity Reaction Status Date / Time onion Allergy Severe Swelling/Ed Unverified 08/17/22 09:41 octavia ampicillin Allergy Unknown rash,bliste Unverified 08/17/22 09:41 rs lisinopril AdvReac Unknown cough Unverified 08/17/22 09:41 losartan [Losartan] AdvReac Unknown leg cramps Unverified 08/17/22 09:41 General Stated Complaint: Abd Prob SUE: 3 Review of Systems Narrative: Constitutional: denies fevers Eyes: denies eye pain ENT: denies ear pain, dental pain, sore throat Cardiovascular: denies chest pain Respiratory: denies SOB, cough GI: Reports abdominal pain, vomiting, denies constipation, diarrhea : denies flank pain MSK: denies back pain, neck pain, arthralgias, myalgias Skin: denies rash Neuro: denies headaches, numbness, weakness PFSH All Active Problems (Updated 08/17/22 @ 15:11 by Charline Fletcher MD) Ileus (Acute) Vomiting (Acute) IMMANUEL treated with BiPAP (Acute) Respiratory failure (Acute) Sepsis (Acute) CHF (congestive heart failure) (Chronic) Acute right-sided CHF (congestive heart failure) (Acute) Elevated INR (Acute) Bleeding from wound (Acute) Medical History Acute cholecystitis Atrial fibrillation Bilateral leg edema BMI 50.0-59.9, adult Cholelithiasis Elevated LFTs Erectile dysfunction Gout Hypertension Peripheral neuropathy Prediabetes Psoriasis Shoulder dislocation Surgical History Hx of cholecystectomy (~07/31/22) S/P exploratory laparotomy S/P right hemicolectomy Social History Smoking/Tobacco Use Status: Never Smoking risk assessment performed?: Yes Alcohol Intake: current Alcohol Intake frequency: a few times a week Alcohol type: beer Drug use: Never Substance use type: does not use Household members: none Housing: house Communication Needs: Hard of Hearing Pets and animals: No What type of physical activity do you participate in: independent ambulation Do you feel safe at home: Yes Do you feel safe in your relationship?: Yes Exam Narrative Exam Narrative: Constitutional: [id number], pleasant, appears nauseated and actively vomited x1 during encounter otherwise conversing normally HENT: head atraumatic/normocephalic/normal inspection, mucous membranes moist Eyes: conjunctiva normal, sclera normal, pupils 3mm b/l Neck: no stridor, normal ROM, trachea midline Chest: normal inspection Resp: normal work of breathing, speaking in full sentences Cardio: normal rate, normal rhythm GI: abdomen soft, tenderness to palpation in the left lower abdomen, no rebound, no guarding Skin: warm, dry, normal color, no rash Neuro: alert, not altered, grossly non-focal, normal tone Ext: no edema, moving all extremities equally Psych: normal mood, normal affect, normal behavior Course Vital Signs Vital signs: Vital Signs Temperature 36.1 C L 08/17/22 09:33 Pulse 86 08/17/22 09:33 Respiratory Rate 20 08/17/22 09:33 Blood Pressure 152/81 H 08/17/22 09:33 Pulse Oximetry 100 08/17/22 09:33 Temperature 36.1 C L 08/17/22 09:33 Temperature Source Skin 08/17/22 09:33 Pulse 86 08/17/22 09:33 Respiratory Rate 20 08/17/22 09:33 Respiratory Effort 08/17/22 09:44 Blood Pressure 152/81 H 08/17/22 09:33 Pulse Oximetry 100 08/17/22 09:33 Oxygen Delivery Method Room Air 08/17/22 09:33 Oxygen Flow Rate 0 08/17/22 09:33 Pain Level 7 08/17/22 09:33 Comment 08/17/22 09:33
[2022-08-17] MEDS: Normal Saline 500 ML IV (10:08)
[2022-08-17 10:12] LABS: Abs Immature Grans 0.96 10^3/uL (0.0-0.06); HCT 41.4 % (40.0-50.0); HGB 14.3 g/dL (13.5-17.5); MCH 31.8 pg (27.0-33.0); MCHC 34.5 % (32.0-36.0); MCV 92 fL (80-95); MPV 11.3 fL (8.0-11.0); Platelet Count 494 10^3/uL (130-400); RDW 12.2 % (11.8-14.1); RDW-SD 41.1 fL; WBC 21.06 10^3/uL (4.4-10.8)
[2022-08-17 10:30] LABS: ALT 90 U/L (16-63); AST 35 U/L (15-37); Albumin 3.1 g/dL (3.4-5.0); Alkaline Phosphatase 414 U/L (46-116); Anion Gap 12.7 mmol/L (3-11); BUN 58 mg/dL (7-18); CO2 29.3 mmol/L (21.0-32.0); CREATININE 1.9 mg/dL (0.70-1.30); Calcium 8.9 mg/dL (8.5-10.1); Chloride 92 mmol/L (98-107); Estimated GFR 37.95 (mL/min/1.73m2); Glucose 149 mg/dL (74-106); Lipase 572 U/L (73-393); Magnesium 1.4 mg/dL (1.8-2.4); Potassium 3.4 mmol/L (3.5-5.1); Sodium 134 mmol/L (136-145); Total Protein 8.4 g/dL (6.4-8.2); Troponin I < 50 ng/L (<or=60)
[2022-08-17 10:31] LABS: Absolute Basophil Count 0.21 10^3/uL (0.0-0.2); Absolute Eosinophil Count 0.42 10^3/uL (0.0-0.7); Absolute Lymphocyte Count 1.47 10^3/uL (1.2-3.4); Absolute Monocyte Count 2.53 10^3/uL (0.1-0.8); Absolute Neutrophil Count 16.43 10^3/uL (1.2-6.7); Bands % 1; Diff Comment Manual Differential; RBC Morphology Normal
[2022-08-17 10:45] LABS: INR 2.5 (0.9-1.1); Prothrombin Time 23.7 sec (9.3-11.0)
[2022-08-17] MEDS: MAGNESIUM SULFATE 1 GM/100 ML BAG IVPB (11:08)
[2022-08-17] MEDS: Omnipaque 350 MG/ML 500 ML BTL-Imaging package IJ (11:44)
[2022-08-17] MEDS: CEFEPIME 2 GM in Normal Saline 100 ML IVPB ×2 (12:32→19:42)
[2022-08-17] MEDS: Ondansetron 4 MG/2 ML VIAL (12:32)
[2022-08-17] MEDS: metroNIDAZOLE 500 MG/100 ML BAG 100 MG IVPB ×2 (12:36→17:11)
[2022-08-17 13:16] LABS: Troponin I < 50 ng/L (<or=60)
[2022-08-17 13:39] LABS: Source Nasal/Nares
[2022-08-17 14:12] LABS: COVID-19 PCR Negative (Negative)
[2022-08-17 15:33] LABS: Bilirubin Negative (Negative); Blood Negative (Negative); Clarity Clear (Clear); Glucose Negative (Negative); Ketones Negative (Negative); Leukocyte Esterase Negative (Negative); Nitrite Negative (Negative); Urobilinogen 0.2 EU/dL (Up TO 0.2)
[2022-08-17] MEDS: Normal Saline Flush 10 ML SYR IVP ×2 (15:36→17:20)
[2022-08-17] MEDS: Lactated Ringers 1,000 ML 75 ML IV (15:36)
[2022-08-17] MEDS: Enoxaparin 40 MG/0.4 ML SYR SC (17:11)
[2022-08-17] MEDS: MORPHine 2 MG/ML SYR IVP (17:19)
--- NOTE | 2022-08-17 17:59 | RESPIRATORY ---
RT spoke with patient concerning history of IMMANUEL being treated with Bipap. Patient refused to use hospital unit and stated he stopped using his due to nose bleeds from INR being out of range. Does not use any type of Oxygen at night in replacement of the device.
[2022-08-17] MEDS: Simethicone 80 MG CHEW 160 MG PO (20:51)
[2022-08-18] VITALS (9 sets, daily range): BP systolic 113–125; BP diastolic 55–77; PULSE 63–95; RESP 18–22; TEMP 36.3–36.8; O2SAT 92–96
[2022-08-18] MEDS: metroNIDAZOLE 500 MG/100 ML BAG 100 MG IVPB ×4 (00:07→17:55)
[2022-08-18] MEDS: CEFEPIME 2 GM in Normal Saline 100 ML IVPB ×3 (04:56→19:32)
--- NOTE | 2022-08-18 05:23 | W.PM.HP.N ---
Date of service: 08/17/22 Time of Service: 14:00 Assessment and Plan Assessment and plan (1) Vomiting: Status: Acute Assessment and plan: We talked for a while about how he is feeling, and the results of the CAT scan. I suspect he has a partial small bowel injury perhaps as a complication of his original cholecystectomy. His past surgical history is quite complicated and is most significant for a small bowel resection, as well as a ileocecectomy (or perhaps right hemicolectomy). Although his symptoms and white blood cell count are certainly concerning for localized peritonitis, his heart rate and blood pressure are reassuring, and his exam supports a localized process. Furthermore, there is a significant amount of fluid in the small bowel and colon, that I do not see freely extravasating into the peritoneal cavity. In light of his history, comorbidities, and recent open cholecystectomy, I think it is reasonable to proceed with a trial of antibiotic guided therapy in an effort to avoid more abdominal surgery. I did explain the complications that might arise, and the severity of them. He seems to have a good understanding that if his hemodynamics change at all, or if he does not have some improvement in terms of his biochemistry with broad-spectrum antibiotics, then surgery may be the only option. For now, we will continue with cefepime and Flagyl, gentle IV fluid resuscitation, diet restriction, and repeat blood work in the next 24 hours. History of Present Illness History of Present Illness Chief Complaint: vomiting Narrative: Hunter is 67 years old and he underwent laparoscopic converted to open cholecystectomy approximately 2 weeks ago. He has been doing pretty well postoperatively. He was actually in the office yesterday. At that time, he did report some nausea and vomiting that started a day or 2 before. This was associated with some left-sided abdominal pain. He denied any subjective fevers. He returned home from the office, and tried to make some dietary changes to help with the nausea. Unfortunately, he had ongoing vomiting through the night, and came into the emergency department for that main reason today. In the emergency department, he was found to have a leukocytosis to 21,000. He underwent a CAT scan of the abdomen and pelvis that shows trace amounts of diffuse pneumoperitoneum, and stranding of the small bowel mesentery with a possible small focus of fluid collection. Review of Systems Constitutional Constitutional: Denies chills, Reports difficulty sleeping, Denies fever(s), Reports lethargy, Reports poor appetite and Denies weakness Eyes Eyes: Reports system reviewed and no additional complaints, except as documented ENT Ears, Nose, Mouth, and Throat: Denies system reviewed and no additional complaints, except as documented and Denies dizziness Cardiovascular Cardiovascular: Denies chest pain and Denies dyspnea Respiratory Respiratory: Denies chest congestion, Reports cough, Denies pain with cough and Denies dyspnea Gastrointestinal Gastrointestinal: Reports abdominal pain, Reports belching, Denies change in bowel habits, Denies diarrhea, Reports nausea, Reports vomiting and Denies hematemesis Genitourinary Genitourinary: Reports system reviewed and no additional complaints, except as documented Musculoskeletal Musculoskeletal: Reports back pain, Denies myalgias, Denies arthralgias and Denies muscle cramps Neurologic Neurologic: Denies confusion, Denies dizziness and Denies weakness Psychiatric Psychiatric: Reports system reviewed and no additional complaints, except as documented and Denies confusion Endocrine Endocrine: Reports polydipsia Allergic/Immunologic Allergic/Immunologic: Reports system reviewed and no additional complaints, except as documented PFSH All Active Problems (Updated 08/18/22 @ 05:33 by Jarocho Reese MD) Ileus (Acute) Vomiting (Acute) IMMANUEL treated with BiPAP (Acute) Respiratory failure (Acute) Sepsis (Acute) CHF (congestive heart failure) (Chronic) Acute right-sided CHF (congestive heart failure) (Acute) Elevated INR (Acute) Medical History (Updated 08/18/22 @ 05:33 by Jarocho Reese MD) Acute cholecystitis Atrial fibrillation Bilateral leg edema Bleeding from wound BMI 50.0-59.9, adult Cholelithiasis Elevated LFTs Erectile dysfunction Gout Hypertension Peripheral neuropathy Prediabetes Psoriasis Shoulder dislocation Surgical History Hx of cholecystectomy (~07/31/22) S/P exploratory laparotomy S/P right hemicolectomy Social History Smoking/Tobacco Use Status: Never Smoking risk assessment performed?: Yes Alcohol Intake: current Alcohol Intake frequency: a few times a week Alcohol type: beer Drug use: Never Substance use type: does not use Household members: none Housing: house Communication Needs: Hard of Hearing Pets and animals: No What type of physical activity do you participate in: independent ambulation Do you feel safe at home: Yes Do you feel safe in your relationship?: Yes Meds Allergies and Home Medications Allergies Allergy/AdvReac Type Severity Reaction Status Date / Time onion Allergy Severe Swelling/Ed Unverified 08/17/22 09:41 octavia ampicillin Allergy Unknown rash,bliste Unverified 08/17/22 09:41 rs lisinopril AdvReac Unknown cough Unverified 08/17/22 09:41 losartan [Losartan] AdvReac Unknown leg cramps Unverified 08/17/22 09:41 Home Medications Medication Instructions Recorded Confirmed Type allopurinol 300 mg tablet 300 mg PO DAILY 08/18/14 08/17/22 History atenolol 100 mg tablet 100 mg PO DAILY 08/18/14 08/17/22 History calcipotriene 0.005 % scalp 60 ml topical BID PRN 08/18/14 08/17/22 History solution diphenhydramine HCl 12.5 mg/5 mL 25 mg PO Q4H PRN 08/18/14 08/17/22 History oral liquid amlodipine 10 mg tablet 10 mg PO DAILY 01/02/20 08/17/22 History furosemide 40 mg tablet 80 mg PO DAILY 01/02/20 08/17/22 History nystatin 100,000 unit/gram topical 1 applic topical BID #60 grams 05/16/22 08/17/22 Rx powder warfarin 5 mg tablet 2.5 - 5 mg PO DAILY 08/17/22 08/17/22 History Exam Const General: cooperative and no acute distress Nutritional Appearance: obese Orientation: alert, awake and oriented x3 HENMT Head: normal to inspection Face and sinus: dry mucous membranes Eyes General: appearance normal, both eyes and all related structures Neck Neck: normal visual inspection, supple and no lymphadenopathy noted Chest Chest: normal inspection of the chest Resp Effort & Inspection: normal respiratory effort and able to speak in complete sentences Auscultation: clear to auscultation bilaterally Cardio Jugular venous pressure: no JVD Rate: regular rate Rhythm: regular rhythm GI Inspection: distended, incision (clean, healed) and large pannus Palpation: soft, no guarding, no hernias and tender Percussion: normal to percussion Auscultation: hyperactive bowel sounds Skin General skin exam: no rashes or lesions noted Nails: yellow and thickened Neuro General: patient alert, patient awake and patient oriented x3 Cognition: normal cognition Speech: speech normal Motor: strength 5/5 throughout Sensory Exam: no sensory deficits noted Extrem Right lower extremity: edema Left lower extremity: edema Psych Appearance: grossly normal Results Labs Result diagrams: 08/17/22 10:05 08/18/22 05:27 Labs: Laboratory Results - last 24 hr 08/17/22 08/17/22 08/17/22 10:05 10:05 10:05 WBC 21.06 H RBC 4.50 Hgb 14.3 Hct 41.4 MCV 92 MCH 31.8 MCHC 34.5 RDW 12.2 Plt Count 494 H MPV 11.3 H Immature Gran % See Differential Neutrophils % 77.0 Band Neutrophils % 1 Lymphocytes % 7.0 Monocytes % 12.0 Eosinophils % 2.0 Basophils % 1.0 Nucleated RBC % 0.0 Absolute Neutrophils 16.43 H Absolute Lymphocytes 1.47 Absolute Monocytes 2.53 H Absolute Eosinophils 0.42 Absolute Basophils 0.21 H RBC Morphology Normal PT 23.7 H INR 2.5 H Sodium 134 L Potassium 3.4 L Chloride 92 L Carbon Dioxide 29.3 Anion Gap 12.7 H BUN 58 H Creatinine 1.9 H Est GFR (CKD-EPI 2020) 37.95 Glucose 149 H Calcium 8.9 Magnesium 1.4 L Total Bilirubin 1.0 AST 35 ALT 90 H Alkaline Phosphatase 414 H Troponin I < 50 Total Protein 8.4 H Albumin 3.1 L Lipase 572 H Urine Color Urine Clarity Urine pH Ur Specific [place] Urine Protein Urine Ketones Urine Blood Urine Nitrite Urine Bilirubin Urine Urobilinogen Ur Leukocyte Esterase Urine Glucose COVID-19 Source SARS-CoV-2 (PCR) 08/17/22 08/17/22 08/17/22 12:55 13:33 15:17 WBC RBC Hgb Hct MCV MCH MCHC RDW Plt Count MPV Immature Gran % Neutrophils % Band Neutrophils % Lymphocytes % Monocytes % Eosinophils % Basophils % Nucleated RBC % Absolute Neutrophils Absolute Lymphocytes Absolute Monocytes Absolute Eosinophils Absolute Basophils RBC Morphology PT INR Sodium Potassium Chloride Carbon Dioxide Anion Gap BUN Creatinine Est GFR (CKD-EPI 2020) Glucose Calcium Magnesium Total Bilirubin AST ALT Alkaline Phosphatase Troponin I < 50 Total Protein Albumin Lipase Urine Color Yellow Urine Clarity Clear Urine pH 6.0 Ur Specific [place] 1.020 Urine Protein Negative Urine Ketones Negative Urine Blood Negative Urine Nitrite Negative Urine Bilirubin Negative Urine Urobilinogen 0.2 Ur Leukocyte Esterase Negative Urine Glucose Negative COVID-19 Source Nasal/Nares SARS-CoV-2 (PCR) Negative Last Vital Signs Temp 97.3 F L 08/18/22 03:31 Pulse 73 08/18/22 03:31 Resp 20 08/18/22 03:31 BP 123/73 08/18/22 03:31 Pulse Ox 94 08/18/22 03:31
[2022-08-18 06:24] LABS: HCT 36.8 % (40.0-50.0); HGB 12.3 g/dL (13.5-17.5); MCH 31.6 pg (27.0-33.0); MCHC 33.4 % (32.0-36.0); MCV 95 fL (80-95); MPV 11.7 fL (8.0-11.0); Platelet Count 385 10^3/uL (130-400); RBC 3.89 10^6/uL (4.36-5.78); RDW 12.4 % (11.8-14.1); RDW-SD 42.9 fL; WBC 14.86 10^3/uL (4.4-10.8)
[2022-08-18 06:26] LABS: Anion Gap 9.3 mmol/L (3-11); BUN 55 mg/dL (7-18); CO2 29.7 mmol/L (21.0-32.0); CREATININE 1.3 mg/dL (0.70-1.30); Calcium 7.7 mg/dL (8.5-10.1); Chloride 100 mmol/L (98-107); Estimated GFR 59.84 (mL/min/1.73m2); Glucose 112 mg/dL (74-106); Potassium 3.3 mmol/L (3.5-5.1); Sodium 139 mmol/L (136-145)
[2022-08-18 06:47] LABS: INR 1.8 (0.9-1.1); Prothrombin Time 17.3 sec (9.3-11.0)
[2022-08-18 07:26] LABS: Absolute Eosinophil Count 1.19 10^3/uL (0.0-0.7); Absolute Lymphocyte Count 1.63 10^3/uL (1.2-3.4); Absolute Monocyte Count 1.34 10^3/uL (0.1-0.8); Absolute Neutrophil Count 10.25 10^3/uL (1.2-6.7); Bands % 1; Diff Comment Manual Differential; Metamyelocytes % 1; RBC Morphology Normal
[2022-08-18] MEDS: Lactated Ringers 1,000 ML 75 ML IV (08:17)
[2022-08-18] MEDS: Allopurinol 300 MG TAB PO (08:18)
[2022-08-18] MEDS: amLODIPine 10 MG TAB PO (08:18)
[2022-08-18] MEDS: Atenolol 50 MG TAB 100 MG PO (08:18)
[2022-08-18] MEDS: Furosemide 40 MG TAB 80 MG PO (08:18)
--- NOTE | 2022-08-18 10:19 | PGE_ITS ---
Date of Service Date of service: 08/18/22 Time of Service: :19 Assessment and Plan Assessment and plan (1) Ileus: Status: Acute (2) Vomiting: Status: Acute (3) Acute on chronic right heart failure: Status: Resolved (4) IMMANUEL treated with BiPAP: Status: Acute (5) Sepsis: Status: Acute (6) CHF (congestive heart failure): Status: Chronic (7) Atrial fibrillation: Qualifiers: Atrial fibrillation type: longstanding persistent Qualified Code(s): I48.11 - Longstanding persistent atrial fibrillation (8) Bilateral leg edema: (9) BMI 50.0-59.9, adult: (10) Gout: (11) Hypertension: (12) Peripheral neuropathy: (13) Hx of cholecystectomy: Assessment and plan: Patient is feeling significantly better today. He has had no fever or chills. He is hungry. He has been up walking and is passing gas. He would like to try of clear liquid diet. I did review his labs and his CT scan today. We will try some juice for lunch and see how that goes. If he tolerates this we will advance to clear liquids for p.m. meal. At this point we will continue with conservative conservative medical management. I see no indications for any further surgical exploration. We will see how his condition progresses in the next 2 to 3 weeks time. We will continue to hold the Coumadin at this time. The case was reviewed with Dr. Bird. Subjective Subjective Interval history since last seen: Pt is doing well. no headaches. No CP or SOB. no productive cough. no dysuria. no leg pain or swelling. Patient states he is feeling better. He has no nausea and vomiting. He is hungry. He is passing gas and had a bowel movement. He has had no fever or chills. He is hungry and would like to try to eat something. Exam Resp Effort & Inspection: normal respiratory effort and able to speak in complete sentences Auscultation: wheezes lower bilaterally Cardio Other: Chronic A. fib rate controlled GI Other: Incision is clean dry and healing nicely. Christie are out. He has no abdominal tenderness. He has good bowel sounds. Extrem Other: He has chronic venous stasis/lymphedema/stasis dermatitis. No changes in his normal degree of swelling. No redness. No tenderness. Objective Last Vital Signs Temp 36.3 C L 08/18/22 07:31 Pulse 82 08/18/22 07:31 Resp 20 08/18/22 07:31 BP 122/65 08/18/22 07:31 Pulse Ox 95 08/18/22 07:31 Laboratory Results - last 24 hr 08/17/22 08/17/22 08/17/22 10:05 10:05 10:05 WBC 21.06 H RBC 4.50 Hgb 14.3 Hct 41.4 MCV 92 MCH 31.8 MCHC 34.5 RDW 12.2 Plt Count 494 H MPV 11.3 H Immature Gran % See Differential Neutrophils % 77.0 Band Neutrophils % 1 Lymphocytes % 7.0 Monocytes % 12.0 Eosinophils % 2.0 Basophils % 1.0 Metamyelocytes % Nucleated RBC % 0.0 Absolute Neutrophils 16.43 H Absolute Lymphocytes 1.47 Absolute Monocytes 2.53 H Absolute Eosinophils 0.42 Absolute Basophils 0.21 H RBC Morphology Normal PT 23.7 H INR 2.5 H Sodium 134 L Potassium 3.4 L Chloride 92 L Carbon Dioxide 29.3 Anion Gap 12.7 H BUN 58 H Creatinine 1.9 H Est GFR (CKD-EPI 2020) 37.95 Glucose 149 H Calcium 8.9 Magnesium 1.4 L Total Bilirubin 1.0 AST 35 ALT 90 H Alkaline Phosphatase 414 H Troponin I < 50 Total Protein 8.4 H Albumin 3.1 L Lipase 572 H Urine Color Urine Clarity Urine pH Ur Specific Jefferson Urine Protein Urine Ketones Urine Blood Urine Nitrite Urine Bilirubin Urine Urobilinogen Ur Leukocyte Esterase Urine Glucose COVID-19 Source SARS-CoV-2 (PCR) 08/17/22 08/17/22 08/17/22 12:55 13:33 15:17 WBC RBC Hgb Hct MCV MCH MCHC RDW Plt Count MPV Immature Gran % Neutrophils % Band Neutrophils % Lymphocytes % Monocytes % Eosinophils % Basophils % Metamyelocytes % Nucleated RBC % Absolute Neutrophils Absolute Lymphocytes Absolute Monocytes Absolute Eosinophils Absolute Basophils RBC Morphology PT INR Sodium Potassium Chloride Carbon Dioxide Anion Gap BUN Creatinine Est GFR (CKD-EPI 2020) Glucose Calcium Magnesium Total Bilirubin AST ALT Alkaline Phosphatase Troponin I < 50 Total Protein Albumin Lipase Urine Color Yellow Urine Clarity Clear Urine pH 6.0 Ur Specific [place] 1.020 Urine Protein Negative Urine Ketones Negative Urine Blood Negative Urine Nitrite Negative Urine Bilirubin Negative Urine Urobilinogen 0.2 Ur Leukocyte Esterase Negative Urine Glucose Negative COVID-19 Source Nasal/Nares SARS-CoV-2 (PCR) Negative 08/18/22 08/18/22 08/18/22 05:27 05:27 05:27 WBC 14.86 H RBC 3.89 L Hgb 12.3 L D Hct 36.8 L MCV 95 MCH 31.6 MCHC 33.4 RDW 12.4 Plt Count 385 MPV 11.7 H Immature Gran % 0.0 Neutrophils % 68.0 Band Neutrophils % 1 Lymphocytes % 11.0 Monocytes % 9.0 Eosinophils % 8.0 Basophils % 2.0 Metamyelocytes % 1 Nucleated RBC % 0.0 Absolute Neutrophils 10.25 H Absolute Lymphocytes 1.63 Absolute Monocytes 1.34 H Absolute Eosinophils 1.19 H Absolute Basophils 0.30 H RBC Morphology Normal PT 17.3 H INR 1.8 H Sodium 139 Potassium 3.3 L Chloride 100 Carbon Dioxide 29.7 Anion Gap 9.3 BUN 55 H Creatinine 1.3 Est GFR (CKD-EPI 2020) 59.84 Glucose 112 H Calcium 7.7 L Magnesium Total Bilirubin AST ALT Alkaline Phosphatase Troponin I Total Protein Albumin Lipase Urine Color Urine Clarity Urine pH Ur Specific [place] Urine Protein Urine Ketones Urine Blood Urine Nitrite Urine Bilirubin Urine Urobilinogen Ur Leukocyte Esterase Urine Glucose COVID-19 Source SARS-CoV-2 (PCR)
[2022-08-18 11:48] LABS: Lab Add On Test DONE
[2022-08-18 12:40] LABS: Lipase 413 U/L (73-393); Magnesium 1.6 mg/dL (1.8-2.4); NT-proBNP 546 pg/mL (<300)
[2022-08-18] MEDS: POTASSIUM CHLORIDE 10 MEQ/100 ML BAG 100 MEQ IVPB (12:46)
--- NOTE | 2022-08-18 16:21 | INITIAL_ITS ---
- If Service Date Differs Date of service: 08/18/22 Time of Service: 16:21 Care Management Initial Assess REASON FOR HOSPITALIZATION:: peritonitis PAST MEDICAL HISTORY/PAST SURGICAL HISTORY:: All Active Problems (Updated 07/29/22 @ 05:58 by Naveed Foley). Hypoxemia (Acute). Acute right-sided CHF (congestive heart failure) (Acute). Cholelithiasis (Acute). Elevated INR (Acute). Bleeding from wound (Acute). Medical History . Atrial fibrillation. Bilateral leg edema. BMI 50.0-59.9, adult. Elevated LFTs. Erectile dysfunction. Gout. Hypertension. Peripheral neuropathy. Prediabetes. Psoriasis. Shoulder dislocation. Surgical History . S/P exploratory laparotomy. S/P right hemicolectomy PREVIOUS FUNCTIONAL STATUS/SOCIAL/FAMILY SUPPORTS:: Hunter lives in [place]. He is retired from working at [employer], but keeps himself busy working on his property. He grew up in [place] with 8 siblings on a farm, and is close with his family. His children are grown up and live locally. He has friends and family to support him if needed, but he is very independent. 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 CURRENT FUNCTIONAL STATUS:: Hunter was sitting up in his chair when CM met with him. He reported that he is NPO because he has been vomiting, but he feels very thirsty. He is receiving IV hydration. He reported that he spoke to the MD this morning, and is unsure how long he will remain inpatient. He stated that he felt ready for discharge on his last admission, but returned to the hospital when he was not able to keep food down. CM will continue to follow. ADVANCE DIRECTIVES:: None on file. Has patient been provided with info about the portal/API?: Yes Did the patient sign up for the portal?: No CODE STATUS:: Full Code INSURANCE COVERAGE / FINANCIAL ISSUES:: Medicare, [employer] CURRENT HOME/COMMUNITY SERVICES/EQUIPMENT:: None PRIMARY CARE PHYSICIAN:: Kimberly Stout POTENTIAL DISCHARGE NEEDS:: Follow up PCP and [facility]. PATIENT/FAMILY EDUCATION NEEDS:: Review discharge instructions and limitations, discussion of self care needs including ask me three. ANTICIPATED BARRIERS TO DISCHARGE:: None TRANSPORTATION:: Via private vehicle with [employer]. PLAN:: Anticipate, Hunter will return home when medically cleared. He will be driven home via private vehicle by a friend, but also has a car in the parkinglot if able to drive home. He will follow up with his PCP and discharge plan of care. CM will continue to follow. Readmission - Within the Past 30 Days Yes or No: Y - Date of First Admission Date of 1st Admission: 07/28/22 - Date of this Admission Date of Admission: 08/17/22 This admission was: Through ED - Office Visit Since 1st Admission Have you seen your PCP in the office since discharge?: Yes Date of PCP Appointment: 08/16/22 Had an appointment Been Scheduled?: Yes Date of Scheduled Appointment: 08/16/22 - Speicalist Appointments Have you seen any other specialist since your 1st Admission?: Yes Date you saw the Specialist: 08/16/22 Specialist Seen: Dr. Velasquez, [facility]. - I. Interview patient and/or Family Difficulty reaching your doctor or getting an office appt?: No Have you had trouble purchasing/ or taking medication?: No How do you take your medications and set up your pills?: independently Have you had trouble with getting meals at home?: No Did you feel ready for discharge when you left the last time: Yes Were services received that you thought were set up on disch: No If patient did not receive services, were there orders at: Yes Reason there were no orders at discharge: Not needed at the time of discharge. Did you call your physician beore you came to the ED?: Yes Did your physician tell you to come in?: Yes How do you think you became sick enough to come back?: Per Hunter, complication from surgery, causing infection. Vomiting, not able to keep food down. - ED visits How many ED visits in the past 12 months: 3 - Assessment for Readmission Summary of readmission circumstances, based upon interviews: Hunter stated that he felt ready for discharge from his previous admission, and that he became sick due to a complication from his surgery. He had seen both his PCP and [facility] earlier this week. When he felt sick, he called [facility] and they directed him to go to the ED. He was admitted from that ED visit. He is pleasant and easy to engage in conversation. He is NPO currently and hoping he will have his diet advanced soon.
[2022-08-18] MEDS: Enoxaparin 40 MG/0.4 ML SYR SC (17:55)
[2022-08-18] MEDS: Simethicone 80 MG CHEW 160 MG PO (19:45)
--- NOTE | 2022-08-18 20:02 | W.MEDCONSULT ---
Date of service: 08/18/22 Time of Service: 20:02 Assessment and Plan Assessment and plan (1) Atrial fibrillation: Assessment and plan: Given no h/o CVA, the patient does not need to be fully anticoagulated at all times. His coumadin can be held while his surgical plan is unclear. He does not require bridging. He can be put on DVT ppx doses of lovenox or heparin. Qualifiers: Atrial fibrillation type: longstanding persistent Qualified Code(s): I48.11 - Longstanding persistent atrial fibrillation (2) Pulmonary hypertension: Status: Chronic Assessment and plan: I suspect that this is due to underlying IMMANUEL. Given that the patient is tolerating PO and is normotensive, d/c IVF. (3) Chronic right-sided heart failure: Status: Chronic Assessment and plan: Euvolemic at this time. 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 D/c IVF. Continue home furosemide. (4) IMMANUEL treated with BiPAP: Status: Acute Assessment and plan: As above. (5) Sepsis following intra-abdominal surgery: Status: Acute Assessment and plan: Defer to primary team History of Present Illness History of Present Illness Chief Complaint: Consult for recommendations re coumadin as well as CHF Narrative: Mr Ortiz is a 67 year old male with PMhx of Afib on coumadin, hypertension, prediabetes, IMMANUEL, pulmonary hypertension, who is admitted to the general surgical service for an abscess in the gallbladder fossa as well as a question of small intestinal perforation. He is on antibiotics (cefepime and flagyl). He is on furosemide 80 mg PO daily. He is also on LR@ 75 cc continuously. He is tolerating a clear liquid diet. At this time, it is not clear whether he will require a surgical intervention. His last echo was in 2019 with LVEF of 55-59%, normal diastolic function, no significant valvular disease, borderline dilated atria. RVSP 35-40 mmHg. His NT-proBNP today is 546. He is saturating 96% on RA and has not required imaging of his chest on this admission. Review of Systems All systems reviewed & are unremarkable except as noted in HPI and below PFSH All Active Problems (Updated 08/18/22 @ 20:25 by Ragini Bird MD) Sepsis following intra-abdominal surgery (Acute) Chronic right-sided heart failure (Chronic) Pulmonary hypertension (Chronic) Ileus (Acute) Vomiting (Acute) IMMANUEL treated with BiPAP (Acute) Respiratory failure (Acute) Sepsis (Acute) CHF (congestive heart failure) (Chronic) Acute right-sided CHF (congestive heart failure) (Acute) Elevated INR (Acute) Medical History (Updated 08/18/22 @ 20:25 by Ragini Bird MD) Acute cholecystitis Atrial fibrillation Bilateral leg edema Bleeding from wound BMI 50.0-59.9, adult Cholelithiasis Elevated LFTs Erectile dysfunction Gout Hypertension Peripheral neuropathy Prediabetes Psoriasis Shoulder dislocation Surgical History Hx of cholecystectomy (~07/31/22) S/P exploratory laparotomy S/P right hemicolectomy Social History Smoking/Tobacco Use Status: Never Smoking risk assessment performed?: Yes Alcohol Intake: current Alcohol Intake frequency: a few times a week Alcohol type: beer Drug use: Never Substance use type: does not use Household members: none Housing: house Communication Needs: Hard of Hearing Pets and animals: No What type of physical activity do you participate in: independent ambulation Do you feel safe at home: Yes Do you feel safe in your relationship?: Yes Exam Narrative Exam Narrative: General: [] Neurological: [] Psychiatric: [] Skin: [] HEENT: [] Cardiovascular: [] Lungs: [] Gastrointestinal: [] Genitourinary: [] Extremities: [] Results Last Vital Signs Temp 36.7 C 08/18/22 19:22 Pulse 72 08/18/22 19:22 Resp 18 08/18/22 19:22 BP 122/68 08/18/22 19:22 Pulse Ox 96 08/18/22 19:22 Labs Result diagrams: 08/18/22 05:27 08/18/22 05:27 Labs: Laboratory Results - last 24 hr 08/18/22 08/18/22 08/18/22 05:27 05:27 05:27 WBC 14.86 H RBC 3.89 L Hgb 12.3 L D Hct 36.8 L MCV 95 MCH 31.6 MCHC 33.4 RDW 12.4 Plt Count 385 MPV 11.7 H Immature Gran % 0.0 Neutrophils % 68.0 Band Neutrophils % 1 Lymphocytes % 11.0 Monocytes % 9.0 Eosinophils % 8.0 Basophils % 2.0 Metamyelocytes % 1 Nucleated RBC % 0.0 Absolute Neutrophils 10.25 H Absolute Lymphocytes 1.63 Absolute Monocytes 1.34 H Absolute Eosinophils 1.19 H Absolute Basophils 0.30 H RBC Morphology Normal PT 17.3 H INR 1.8 H Sodium 139 Potassium 3.3 L Chloride 100 Carbon Dioxide 29.7 Anion Gap 9.3 BUN 55 H Creatinine 1.3 Est GFR (CKD-EPI 2020) 59.84 Glucose 112 H Calcium 7.7 L Magnesium NT-Pro-B Natriuret Pep Lipase Add-On Test Request 08/18/22 08/18/22 05:27 05:27 WBC RBC Hgb Hct MCV MCH MCHC RDW Plt Count MPV Immature Gran % Neutrophils % Band Neutrophils % Lymphocytes % Monocytes % Eosinophils % Basophils % Metamyelocytes % Nucleated RBC % Absolute Neutrophils Absolute Lymphocytes Absolute Monocytes Absolute Eosinophils Absolute Basophils RBC Morphology PT INR Sodium Potassium Chloride Carbon Dioxide Anion Gap BUN Creatinine Est GFR (CKD-EPI 2020) Glucose Calcium Magnesium 1.6 L NT-Pro-B Natriuret Pep 546 H Lipase 413 H Add-On Test Request DONE Imaging Additional studies: CT abdomen/pelvis: Free intraperitoneal air and areas of abnormal fat attenuation, possible small free fluid collection, and bowel wall abnormality involving small bowel in the mid abdomen in a patient who is approximately 2 weeks post laparoscopic cholecystectomy.? The findings are somewhat suspicious for viscus rupture, although rarely this quantity of free air could be seen as part of the normal postoperative course.? Appropriate follow-up examination is recommended, surgical consult suggested..
[2022-08-19] VITALS (9 sets, daily range): BP systolic 114–133; BP diastolic 68–80; PULSE 60–88; RESP 16–19; TEMP 36.3–37.3; O2SAT 93–97
[2022-08-19] MEDS: metroNIDAZOLE 500 MG/100 ML BAG 100 MG IVPB ×5 (00:23→23:53)
[2022-08-19] MEDS: Normal Saline Flush 10 ML SYR IVP ×5 (00:23→17:46)
[2022-08-19] MEDS: Simethicone 80 MG CHEW 160 MG PO ×2 (03:09→11:46)
[2022-08-19] MEDS: CEFEPIME 2 GM in Normal Saline 100 ML IVPB ×3 (03:27→19:57)
[2022-08-19 06:55] LABS: HCT 37.3 % (40.0-50.0); HGB 12.8 g/dL (13.5-17.5); MCH 32.3 pg (27.0-33.0); MCHC 34.3 % (32.0-36.0); MCV 94 fL (80-95); Platelet Count 380 10^3/uL (130-400); RBC 3.96 10^6/uL (4.36-5.78); RDW 12.2 % (11.8-14.1); RDW-SD 42.5 fL; WBC 14.49 10^3/uL (4.4-10.8)
[2022-08-19 07:35] LABS: Absolute Eosinophil Count 0.14 10^3/uL (0.0-0.7); Absolute Lymphocyte Count 1.01 10^3/uL (1.2-3.4); Absolute Monocyte Count 1.59 10^3/uL (0.1-0.8); Bands % 4; Diff Comment Manual Differential; Metamyelocytes % 3; RBC Morphology Normal
[2022-08-19 07:43] LABS: ALT 52 U/L (16-63); AST 28 U/L (15-37); Albumin 2.7 g/dL (3.4-5.0); Alkaline Phosphatase 274 U/L (46-116); Anion Gap 7.3 mmol/L (3-11); BUN 37 mg/dL (7-18); Bilirubin, Total 0.8 mg/dL (0.2-1.0); CO2 28.7 mmol/L (21.0-32.0); CREATININE 1.1 mg/dL (0.70-1.30); Calcium 8.2 mg/dL (8.5-10.1); Chloride 101 mmol/L (98-107); Estimated GFR 73.12 (mL/min/1.73m2); Glucose 126 mg/dL (74-106); Lipase 379 U/L (73-393); Magnesium 1.6 mg/dL (1.8-2.4); NT-proBNP 953 pg/mL (<300); Potassium 3.4 mmol/L (3.5-5.1); Sodium 137 mmol/L (136-145); Total Protein 7.1 g/dL (6.4-8.2)
[2022-08-19 08:19] LABS: Procalcitonin 0.2 ng/mL
--- NOTE | 2022-08-19 08:38 | W.PM.PROGNOT ---
Date of Service Date of service: 08/19/22 Time of Service: 08:39 Assessment and Plan Assessment and plan (1) Ileus: Status: Acute Assessment and plan: resolved (2) Acute on chronic right heart failure: Status: Resolved Assessment and plan: Need to be careful with IV fluids (3) IMMANUEL treated with BiPAP: Status: Acute (4) Sepsis: Status: Acute Assessment and plan: Procalcitonin is normal today (5) Atrial fibrillation: Assessment and plan: Continue on lovenox Qualifiers: Atrial fibrillation type: longstanding persistent Qualified Code(s): I48.11 - Longstanding persistent atrial fibrillation (6) Hx of cholecystectomy: Assessment and plan: Patient is feeling significantly better today. He has had no fever or chills. He is hungry. He has been up walking and is passing gas. He was started on a clear liquid diet last night and is doing well. At this point we will continue with conservative conservative medical management. I see no indications for any further surgical exploration. We will see how his condition progresses in the next 2 to 3 days time. We will continue to hold the Coumadin at this time. (7) Hypokalemia: Status: Acute Assessment and plan: Will give po potassium (8) Hypomagnesemia: Status: Acute Assessment and plan: give po magnesium Subjective Subjective Interval history since last seen: Hunter is feeling much better. he is passing gas and had several small BM's. Abdomen is non-tender per patient Exam Const General: comfortable and no acute distress Resp Effort & Inspection: normal respiratory effort Auscultation: clear to auscultation bilaterally Cardio Rate: regular rate Rhythm: abnormal rhythm GI Inspection: incision (c/d/i) and obesity Auscultation: normoactive bowel sounds Objective Last Vital Signs Temp 98.8 F 08/19/22 08:24 Pulse 86 08/19/22 08:24 Resp 16 08/19/22 08:24 BP 122/78 08/19/22 08:24 Pulse Ox 97 08/19/22 08:24 Laboratory Results - last 24 hr 08/18/22 08/18/22 08/19/22 05:27 05:27 06:05 WBC RBC Hgb Hct MCV MCH MCHC RDW Plt Count MPV Immature Gran % Neutrophils % Band Neutrophils % Lymphocytes % Monocytes % Eosinophils % Basophils % Metamyelocytes % Nucleated RBC % Absolute Neutrophils Absolute Lymphocytes Absolute Monocytes Absolute Eosinophils Absolute Basophils RBC Morphology Sodium 137 Potassium 3.4 L Chloride 101 Carbon Dioxide 28.7 Anion Gap 7.3 BUN 37 H Creatinine 1.1 Est GFR (CKD-EPI 2020) 73.12 Glucose 126 H Calcium 8.2 L Magnesium 1.6 L 1.6 L Total Bilirubin 0.8 AST 28 ALT 52 Alkaline Phosphatase 274 H NT-Pro-B Natriuret Pep 546 H 953 H Total Protein 7.1 Albumin 2.7 L Lipase 413 H 379 Procalcitonin Add-On Test Request DONE 08/19/22 08/19/22 06:05 06:05 WBC 14.49 H RBC 3.96 L Hgb 12.8 L Hct 37.3 L MCV 94 MCH 32.3 MCHC 34.3 RDW 12.2 Plt Count 380 MPV 12.0 H Immature Gran % 0.0 Neutrophils % 74.0 Band Neutrophils % 4 Lymphocytes % 7.0 Monocytes % 11.0 Eosinophils % 1.0 Basophils % 0.0 Metamyelocytes % 3 Nucleated RBC % 0.0 Absolute Neutrophils 11.30 H Absolute Lymphocytes 1.01 L Absolute Monocytes 1.59 H Absolute Eosinophils 0.14 Absolute Basophils 0.00 RBC Morphology Normal Sodium Potassium Chloride Carbon Dioxide Anion Gap BUN Creatinine Est GFR (CKD-EPI 2020) Glucose Calcium Magnesium Total Bilirubin AST ALT Alkaline Phosphatase NT-Pro-B Natriuret Pep Total Protein Albumin Lipase Procalcitonin 0.2 Add-On Test Request
[2022-08-19] MEDS: Furosemide 40 MG TAB 80 MG PO (08:41)
[2022-08-19] MEDS: amLODIPine 10 MG TAB PO (08:42)
[2022-08-19] MEDS: Allopurinol 300 MG TAB PO (08:42)
[2022-08-19] MEDS: Atenolol 50 MG TAB 100 MG PO (08:42)
[2022-08-19] MEDS: Potassium Chloride 20 MEQ TABCR PO (09:47)
[2022-08-19] MEDS: Magnesium Chloride 64 MG TABCR PO (09:47)
--- NOTE | 2022-08-19 13:47 | CMPROGNOTE_ITS ---
- If Service Date Differs Date of service: 08/19/22 Time of Service: 13:47 Care Management Progress Note S/O: Hunter was sitting in his chair napping when CM entered the room. He woke up and engaged with CM, reporting that he is NPO again, as he didn't tolerate the upgraded diet. CM informed him that his truck is safe in the parking lot until he is ready for discharge, per [facility] staff, as Hunter had expressed concern about it being towed away. He was happy to hear this news. Per report, he will continue to be monitored with conservative management unless there are indications for surgical intervention. CM will continue to follow. A: Hunter is a 67 year old male admitted to [facility] on 08/17/22 with peritonitis. P: Anticipate, Hunter will return home when medically cleared. He will be driven home via private vehicle by a friend, but also has a car in the parking lot if able to drive home. He will follow up with his PCP and discharge plan of care. CM will continue to follow.
[2022-08-19] MEDS: ACETAMINOPHEN 1,000 MG/100 ML BTL 400 MG IVPB (13:57)
--- NOTE | 2022-08-19 15:55 | CHAPLAIN ---
Hunter was sitting up in a chair when I visited. He said he was just trying to relax because he hadn't been able to. We talked about doing some deep breaths to relax some. He's in touch with family by phone. Hunter was appreciative of a visit. I left when he got a phone call.
--- NOTE | 2022-08-19 16:30 | DI.RAD_ITS ---
Exam(s) XR PORTABLE CHEST AP POST LINE EXAM: XR PORTABLE CHEST AP POST LINE CLINICAL HISTORY: post line TECHNIQUE: 2D digital imaging was performed of the chest. One image was obtained. An AP view was ob tained. COMPARISON: CR XR CHEST 2V PA LATERAL from 08/02/2022 FINDINGS: MEDIASTINUM: Normal. HEART: Normal. PULMONARY VASCULATURE: Normal. LUNGS: Clear. PLEURAL SPACE: No pleural effusion or pneumothorax. BONE:Within normal limits for the patient's age. OTHER FINDINGS:The tip of the left PICC line is in good position in the superior vena cava. IMPRESSION: 1. The tip of the left PICC line is in good position in the superior vena cava. 2. No acute pulmonary process. DATA REPOSITORY: RADIATION DOSE DELIVERED:
--- NOTE | 2022-08-19 17:23 | DI.VRAD_ITS ---
PROCEDURE INFORMATION: Exam: XR Chest Exam date and time: 08/19/2022 4:32 PM Age: 67 years old Clinical indication: Device placement; Picc; Additional info: Post line TECHNIQUE: Imaging protocol: Radiologic exam of the chest. Views: 1 view. COMPARISON: CR XR CHEST 2V PA LATERAL 08/02/2022 9:32 AM FINDINGS: Tubes, catheters and devices: Left PICC line tip in SVC. Lungs: Unremarkable. No consolidation. Pleural spaces: Unremarkable. No pleural effusion. No pneumothorax. Heart/Mediastinum: Unremarkable. No cardiomegaly. Bones/joints: Unremarkable. IMPRESSION: Left PICC line tip in SVC Dictated and Authenticated by: Camila Liao MD. Ordering:SATHISH Guerrero MD
[2022-08-19] MEDS: Enoxaparin 40 MG/0.4 ML SYR SC (17:31)
[2022-08-19] MEDS: Ondansetron 4 MG/2 ML VIAL IVP (18:04)
[2022-08-19] MEDS: Insulin Aspart 300 UNITS/3 ML PEN SC ×2 (18:29→23:52)
[2022-08-20] VITALS (9 sets, daily range): BP systolic 106–146; BP diastolic 68–72; PULSE 53–71; RESP 16–20; TEMP 35.8–37.1; O2SAT 93–98
[2022-08-20] MEDS: CEFEPIME 2 GM in Normal Saline 100 ML IVPB ×3 (03:50→20:00)
[2022-08-20] MEDS: metroNIDAZOLE 500 MG/100 ML BAG 100 MG IVPB ×3 (05:35→17:57)
[2022-08-20] MEDS: Normal Saline Flush 10 ML SYR IVP ×5 (05:44→21:19)
[2022-08-20 06:13] LABS: Abs Immature Grans 0.88 10^3/uL (0.0-0.06); HCT 35.1 % (40.0-50.0); HGB 11.8 g/dL (13.5-17.5); MCH 32.1 pg (27.0-33.0); MCHC 33.6 % (32.0-36.0); MCV 95 fL (80-95); MPV 11.6 fL (8.0-11.0); Platelet Count 323 10^3/uL (130-400); RBC 3.68 10^6/uL (4.36-5.78); RDW 12.2 % (11.8-14.1); RDW-SD 42.4 fL; WBC 14.01 10^3/uL (4.4-10.8)
[2022-08-20 06:33] LABS: ALT 41 U/L (16-63); AST 24 U/L (15-37); Albumin 2.3 g/dL (3.4-5.0); Alkaline Phosphatase 225 U/L (46-116); Anion Gap 7.1 mmol/L (3-11); BUN 29 mg/dL (7-18); Bilirubin, Total 0.6 mg/dL (0.2-1.0); CO2 26.9 mmol/L (21.0-32.0); CREATININE 0.9 mg/dL (0.70-1.30); Calcium 7.9 mg/dL (8.5-10.1); Chloride 104 mmol/L (98-107); Estimated GFR 93.03 (mL/min/1.73m2); Glucose 129 mg/dL (74-106); Magnesium 1.5 mg/dL (1.8-2.4); Potassium 3.5 mmol/L (3.5-5.1); Sodium 138 mmol/L (136-145); Total Protein 6.3 g/dL (6.4-8.2)
[2022-08-20 06:34] LABS: Absolute Eosinophil Count 0.42 10^3/uL (0.0-0.7); Absolute Lymphocyte Count 1.96 10^3/uL (1.2-3.4); Absolute Monocyte Count 1.68 10^3/uL (0.1-0.8); Absolute Neutrophil Count 9.25 10^3/uL (1.2-6.7); Atypical Lymphocytes % 2; Metamyelocytes % 3; Myelocytes % 2
[2022-08-20 06:35] LABS: Diff Comment Manual Differential; RBC Morphology Normal
[2022-08-20 06:50] LABS: PHOSPHORUS 2.3 mg/dL (2.6-4.7)
--- NOTE | 2022-08-20 09:25 | W.NUTCONSULT ---
Date of service: 08/20/22 Time of Service: 09:26 Nutritional Consult ASSESSMENT: Mr. Ortiz has had a prolonged NPO status. He is currently receiving 2.0 L of 5/15 and 250 ml of 20% Lipid daily which provides 1920 kcals and 100 g of protein He is 175 cm and 130.5 kg. His BMI is 42.5 kg/m2 which is c/w class 3 severe obesity. His adjusted ideal body is 99 kg. Estimated energy needs are 2850 kcal/day (REE x 1.2) Estimated protein needs are 100 g/day (1.0 g/kg/day of adjusted ideal body weight) Estimated fluid needs are 2.0 L/day (1 ml/kcal provided) Mr. Ortiz has sustained an 11.5 % weight loss in 7 months which is significant. He has lost 4% of his body weight in the past month which is a mild weight loss. Of note, Mr. Ortiz is allergic to onions NUTRITIONAL DIAGNOSIS: Inability to take oral foods and fluids related to prolonged ileus. INTERVENTION: Mr. Ortiz is on TPN. The TPN is providing 1920 kcals and his estimated needs for maintenance are 2850 kcals per day. Although it would be reasonable for him to have a hypocaloric diet given his obesity, we will have to watch for weight loss that is too rapid. He has also had a significant weight loss already. We want to preserve his lean body mass. MONITORING AND EVALUATION: Will monitor his weight and watch for advance to PO. Will evaluate nutrition care plan ongoing and adjust as needed. Time Spent in Nutritional Counseling and Treatment: 0
[2022-08-20] MEDS: Insulin Aspart 300 UNITS/3 ML PEN SC ×2 (12:13→17:56)
--- NOTE | 2022-08-20 12:36 | W.PM.PROGNOT ---
Date of Service Date of service: 08/20/22 Time of Service: 12:36 Assessment and Plan Assessment and plan (1) Ileus: Status: Acute Assessment and plan: high pitched bowel sounds Await return of normal bowel function before starting clears (2) Acute on chronic right heart failure: Status: Resolved Assessment and plan: Need to be careful with IV fluids- on IV lasix (3) IMMANUEL treated with BiPAP: Status: Acute (4) Sepsis: Status: Acute Assessment and plan: Procalcitonin is normal today (5) Atrial fibrillation: Assessment and plan: Continue on lovenox Qualifiers: Atrial fibrillation type: longstanding persistent Qualified Code(s): I48.11 - Longstanding persistent atrial fibrillation (6) Hx of cholecystectomy: Assessment and plan: At this point we will continue with conservative conservative medical management. I see no indications for any further surgical exploration. We will see how his condition progresses in the next 2 to 3 days time. We will continue to hold the Coumadin at this time. (7) Hypokalemia: Status: Acute Assessment and plan: IV potassium (8) Hypomagnesemia: Status: Acute Assessment and plan: IV magnesium (9) Nutritional assessment: Status: Acute Assessment and plan: Continue on TPN for now Subjective Subjective Interval history since last seen: Hunter is feeling well. HIs abdomen is soft. He has had no N/V since Ng tube was placed Exam HENMT Head: normocephalic and atraumatic Resp Effort & Inspection: normal respiratory effort Auscultation: clear to auscultation bilaterally Cardio Rate: regular rate Rhythm: regular rhythm GI Inspection: incision (c/d/i) Palpation: soft and tender (mild around the umbilicus) Auscultation: high-pitched sounds Objective Last Vital Signs Temp 97.2 F L 08/20/22 11:39 Pulse 53 L 08/20/22 11:39 Resp 16 08/20/22 11:39 BP 123/71 08/20/22 11:39 Pulse Ox 96 08/20/22 11:39 Laboratory Results - last 24 hr 08/20/22 08/20/22 08/20/22 05:50 05:50 05:50 WBC 14.01 H RBC 3.68 L Hgb 11.8 L Hct 35.1 L MCV 95 MCH 32.1 MCHC 33.6 RDW 12.2 Plt Count 323 MPV 11.6 H Immature Gran % 0.0 Neutrophils % 66.0 Lymphocytes % 12.0 Atypical Lymphs % 2 Monocytes % 12.0 Eosinophils % 3.0 Basophils % 0.0 Metamyelocytes % 3 Myelocytes % 2 Nucleated RBC % 0.0 Absolute Neutrophils 9.25 H Absolute Lymphocytes 1.96 Absolute Monocytes 1.68 H Absolute Eosinophils 0.42 Absolute Basophils 0.00 RBC Morphology Normal Sodium 138 Potassium 3.5 Chloride 104 Carbon Dioxide 26.9 Anion Gap 7.1 BUN 29 H Creatinine 0.9 Est GFR (CKD-EPI 2020) 93.03 Glucose 129 H Calcium 7.9 L Phosphorus 2.3 L Magnesium 1.5 L Total Bilirubin 0.6 AST 24 ALT 41 Alkaline Phosphatase 225 H Total Protein 6.3 L Albumin 2.3 L
[2022-08-20] MEDS: MAGNESIUM SULFATE 2 GM/50 ML BAG IVPB (13:42)
[2022-08-20] MEDS: POTASSIUM CHLORIDE 20 MEQ/100 ML BAG 50 MEQ IVPB (14:06)
[2022-08-20] MEDS: Furosemide 40 MG/4 ML VIAL IVP (16:08)
[2022-08-20] MEDS: Enoxaparin 40 MG/0.4 ML SYR SC (17:57)
[2022-08-21] VITALS (10 sets, daily range): BP systolic 112–161; BP diastolic 68–87; PULSE 40–84; RESP 18–20; TEMP 36.3–36.8; O2SAT 93–96
--- NOTE | 2022-08-21 | DI.RAD_ITS ---
Exam(s) XR ABDOMEN FLAT UPRIGHT EXAM: 2D digital imaging was performed. CLINICAL HISTORY: sbo. COMPARISON: CR XR ABDOMEN FLAT UPRIGHT from 08/03/[address] ABDOMEN PELVIS W from 08/17/2022 TECHNIQUE: Supine and upright views of the abdomen was performed. Five images were obtained. FINDINGS: LUNG BASES: Clear. BOWEL GAS PATTERN: There are distended bowel loops with air-fluid levels. This may represent obstruc tion or an ileus. FREE AIR: No definite free air is seen. CALCIFICATIONS: Atherosclerosis is present. OSSEOUS STRUCTURES: Normal for age. OTHER FINDINGS: The tip of the nasogastric tube is in the stomach. There are surgical clips in the r ight upper quadrant of the abdomen. IMPRESSION: Multiple distended loops of bowel with air-fluid levels which may represent obstruction versus ileus. DATA REPOSITORY: RADIATION DOSE DELIVERED:
[2022-08-21] MEDS: Insulin Aspart 300 UNITS/3 ML PEN SC (00:01)
[2022-08-21] MEDS: CEFEPIME 2 GM in Normal Saline 100 ML IVPB ×3 (03:46→19:58)
[2022-08-21] MEDS: Normal Saline Flush 10 ML SYR IVP ×4 (06:13→19:59)
[2022-08-21] MEDS: metroNIDAZOLE 500 MG/100 ML BAG 100 MG IVPB ×4 (06:13→18:22)
[2022-08-21] MEDS: Furosemide 40 MG/4 ML VIAL IVP ×2 (07:54→15:41)
[2022-08-21] MEDS: amLODIPine 10 MG TAB PO (07:55)
[2022-08-21] MEDS: Atenolol 50 MG TAB 100 MG PO (07:55)
[2022-08-21 10:44] LABS: HCT 34.9 % (40.0-50.0); HGB 11.9 g/dL (13.5-17.5); MCH 32.2 pg (27.0-33.0); MCHC 34.1 % (32.0-36.0); MCV 95 fL (80-95); Platelet Count 284 10^3/uL (130-400); RBC 3.69 10^6/uL (4.36-5.78); RDW 12.1 % (11.8-14.1); RDW-SD 42.1 fL; WBC 14.85 10^3/uL (4.4-10.8)
[2022-08-21 11:00] LABS: ALT 33 U/L (16-63); AST 25 U/L (15-37); Albumin 2.6 g/dL (3.4-5.0); Alkaline Phosphatase 201 U/L (46-116); Anion Gap 6.6 mmol/L (3-11); BUN 20 mg/dL (7-18); Bilirubin, Total 0.6 mg/dL (0.2-1.0); CO2 28.4 mmol/L (21.0-32.0); CREATININE 0.8 mg/dL (0.70-1.30); Calcium 8.4 mg/dL (8.5-10.1); Chloride 107 mmol/L (98-107); Glucose 131 mg/dL (74-106); Magnesium 1.5 mg/dL (1.8-2.4); PHOSPHORUS < 2.0 mg/dL (2.6-4.7); Potassium 3.8 mmol/L (3.5-5.1); Sodium 142 mmol/L (136-145); Total Protein 6.9 g/dL (6.4-8.2)
[2022-08-21 11:12] LABS: Absolute Basophil Count 0.15 10^3/uL (0.0-0.2); Absolute Eosinophil Count 0.45 10^3/uL (0.0-0.7); Absolute Lymphocyte Count 0.59 10^3/uL (1.2-3.4); Absolute Monocyte Count 1.34 10^3/uL (0.1-0.8); Absolute Neutrophil Count 12.03 10^3/uL (1.2-6.7); Bands % 1; Diff Comment Manual Differential; Metamyelocytes % 2; RBC Morphology Normal
--- NOTE | 2022-08-21 14:29 | PGE_ITS ---
Date of Service Date of service: 08/21/22 Time of Service: 14:29 Assessment and Plan Assessment and plan (1) Sepsis following intra-abdominal surgery: Status: Acute Assessment and plan: -Possible bowel injury following open cholecystectomy versus ileus. Patient's prognosis continues to wax and wane without clear resolution of his symptoms. -White count has been static at 14 for the past 4 days. Patient states he is not having any pain and he is hungry. He has tolerated his NG tube being clamped for the past 12 hours. However his bowel sounds are still high-pitched. Awaiting on flatplate of the abdomen. Possible repeat CT later on today. - Day 5 of cefepime and Flagyl -Continue TPN. Electrolytes were adjusted. -PICC line was placed 08/19 -No breakdown -Continue to hold Coumadin. Patient is a have a history of A. fib Continue supportive care- (2) Nutritional assessment: Status: Acute (3) Hypomagnesemia: Status: Acute (4) Hypokalemia: Status: Acute (5) Chronic right-sided heart failure: Status: Chronic (6) Pulmonary hypertension: Status: Chronic (7) Ileus: Status: Acute (8) IMMANUEL treated with BiPAP: Status: Acute (9) Atrial fibrillation: Qualifiers: Atrial fibrillation type: longstanding persistent Qualified Code(s): I48.11 - Longstanding persistent atrial fibrillation (10) Hypertension: (11) Peripheral neuropathy: (12) Prediabetes: Subjective Subjective Interval history since last seen: Patient's NG tube is been clamped for 12 hours. He did have multiple bowel movements overnight. However he is not passing gas this afternoon. He says he feels good and he was very hungry and wants to eat. He does not have any tenderness to palpation. Exam Narrative Exam Narrative: PHYSICAL EXAM GENERAL APPEARANCE: Alert, healthy appearance, oriented, in no acute distress SKIN: No rashes.? No breakdown HYDRATION: Well hydrated HEAD, EYES, EARS, NECK, THROAT: Head is normocephalic, pupils equal, round, reactive to light and accommodation, ocular movement intact, sclera clear and no jaundice. ?Dentition poor. No sore throat.? No jaw pain. No thrush NECK: Supple, Trachea midline. No JVD. LUNGS: normal respiration/nl chest excursion. ?Clear to auscultation B/l no R/R/W ?HEART: Regular rate and rhythm, EXTREMITY: No edema or cyanosis? no leg pain, redness, swelling.? No IV infiltration ABDOMEN: Incisions are well-healed. He says he does not have any pain. It is difficult to tell if he is distended or not. His bowel sounds are very high- pitched and tinkling suggestive of ileus or obstruction. NEURO: no focal neuro deficits. Objective Last Vital Signs Temp 36.4 C L 08/21/22 12:30 Pulse 42 L 08/21/22 12:30 Resp 18 08/21/22 12:30 BP 127/72 08/21/22 12:30 Pulse Ox 95 08/21/22 12:30 Laboratory Results - last 24 hr 08/21/22 08/21/22 08/21/22 10:30 10:30 10:30 WBC 14.85 H RBC 3.69 L Hgb 11.9 L Hct 34.9 L MCV 95 MCH 32.2 MCHC 34.1 RDW 12.1 Plt Count 284 MPV 12.0 H Immature Gran % See Differential Neutrophils % 80.0 Band Neutrophils % 1 Lymphocytes % 4.0 Monocytes % 9.0 Eosinophils % 3.0 Basophils % 1.0 Metamyelocytes % 2 Nucleated RBC % 0.0 Absolute Neutrophils 12.03 H Absolute Lymphocytes 0.59 L Absolute Monocytes 1.34 H Absolute Eosinophils 0.45 Absolute Basophils 0.15 RBC Morphology Normal Sodium 142 Potassium 3.8 Chloride 107 Carbon Dioxide 28.4 Anion Gap 6.6 BUN 20 H Creatinine 0.8 Est GFR (CKD-EPI 2020) 96.40 Glucose 131 H Calcium 8.4 L Phosphorus < 2.0 L Magnesium 1.5 L Total Bilirubin 0.6 AST 25 ALT 33 Alkaline Phosphatase 201 H Total Protein 6.9 Albumin 2.6 L
--- NOTE | 2022-08-21 15:05 | DI.VRAD_ITS ---
PROCEDURE INFORMATION: Exam: XR Abdomen Exam date and time: 08/21/2022 2:32 PM Age: 67 years old Clinical indication: Other: Sbo TECHNIQUE: Imaging protocol: Radiologic exam of the abdomen. Views: 2 Views. Upright and supine views. COMPARISON: CT ABDOMEN PELVIS W 08/17/2022 11:36 AM FINDINGS: Gastrointestinal tract: Multiple loops of distended bowel throughout the abdomen may represent obstruction or ileus.. There are multiple air-fluid levels which may reflect small bowel obstruction. They were present on the CT dated August 17 Intraperitoneal space: Normal. No free air. Bones/joints: Unremarkable for age. IMPRESSION: Multiple loops of distended bowel throughout the abdomen may represent obstruction or ileus.. There are multiple air-fluid levels which may reflect small bowel obstruction. They were present on the CT dated August 17 Dictated and Authenticated by: Buffy Epperson MD. Ordering:CAMI Mora MD
[2022-08-21] MEDS: Breeza Beverage 473 ML BTL PO (15:19)
[2022-08-21] MEDS: Gastrografin 120 ML BTL PO (15:20)
--- NOTE | 2022-08-21 16:40 | DI.CT_ITS ---
Exam(s) CT ABDOMEN PELVIS W EXAM: CT ABDOMEN PELVIS W CLINICAL HISTORY: obstruction/possible bowel perforation TECHNIQUE: Imaging Protocol: Axial computed tomography images with coronal and sagittal reformatted images were created and reviewed CONTRAST MATERIAL: Intravenous: Omnipaque 350 Contrast volume:100 mL Oral: No COMPARISON: CT ABD PELVIS WITH CONTRAST from 05/18/[address] CHEST/ABD/PEL WO from 05/14/[address] CHEST PE ABD PELVIS W from 07/28/[address] ABDOMEN PELVIS W from 08/17/2022 FINDINGS: ABDOMEN: Lung Bases: Cardiomegaly. Liver: Normal density. No measurable mass. Portal, Superior Mesenteric, and Splenic Veins: Unremarkable. Gallbladder and Biliary Tract: Status post cholecystectomy. There is a small amount of fluid seen in the gallbladder fossa. This is unchanged. There is no biliary ductal dilatation. Pancreas: Normal density, no abnormal calcifications or inflammatory process. Spleen: Normal. Adrenals: No masses seen. Kidneys: Normal size, contour and axis. No radiodense stones or obstructive uropathy. No masses seen. Abdominal Aorta: Abdominal portion non-dilated. Marked atherosclerosis. Bowel: Postsurgical changes seen in the right abdomen. There does appear to be pneumatosis and loops of small bowel in the right upper quadrant. There are dilated loops of small and large bowel with a ir-fluid levels. There is an area of transition in the central abdomen in loop of small bowel. (Ser ies 4, image 50-52.). There is diverticulosis seen in the sigmoid colon but no evidence of acute div erticulitis. No evidence of appendicitis. The tip of the nasogastric tube is seen in the stomach. Peritoneal Cavity: No ascites, collection or mesenteric inflammatory response. There is a small amou nt of free air seen in the right upper quadrant. Overall the amount of free air has slightly decreas ed compared to 08/17/2022. Lymph Nodes: Within normal limits. Bones: Within normal limits for the patient's age. Soft Tissues: There is a small subcutaneous fluid collection in the right upper abdominal wall with i nfiltration of the subcutaneous fat. This may represent a small hematoma or abscess. There is a que stion of defect in the wall in the abdominal wall wall in this area reflecting the surgical site. PELVIS: Bladder: Symmetric distention, no gross wall thickening. Reproductive Organs: Unremarkable as visualized. Lymph Nodes: Within normal limits. Bones: Within normal limits for the patient's age. IMPRESSION: 1. Pneumatosis in bowel loops in the right upper quadrant are worrisome for ischemic bowel. 2. Small pneumoperitoneum or perforation. 3. Transition in the central abdomen in the small bowel loops concerning for obstruction. 4. Postsurgical changes seen in the right anterior abdominal wall with a small fluid collection prese nt. This may represent a hematoma or abscess. There is a suggestion of a small defect in the anteri or abdominal wall which may be the surgical site. (Series 7, image 190). RADIATION DOSE DELIVERED: 1,690.74mGy.cm Total DLP DATA REPOSITORY: All CT scans at this facility are submitted to the National Radiology Data Registry (NRDR) Dose Index Registry (DIR) with the [employer] (ACR). RADIATION OPTIMIZATION: All CT scans at this facility use at least one of these dose optimization te chniques: automated exposure control; mA and/or kV adjustment per patient size (includes targeted exa ms where dose is matched to clinical indication); or iterative reconstruction.
[2022-08-21] MEDS: Omnipaque 350 MG/ML 100 ML BTL IJ (16:53)
--- NOTE | 2022-08-21 17:08 | DI.VRAD_ITS ---
Addendum created by Buffy Epperson MD on 08/21/2022 5:15:00 PM EDT: THIS REPORT CONTAINS FINDINGS THAT MAY BE CRITICAL TO PATIENT CARE. The findings were verbally communicated via telephone conference with Dr. Webb 5:14 PM EDT on 08/21/2022. The findings were acknowledged and understood. Initial report created on 08/21/2022 5:07:54 PM EDT: PROCEDURE INFORMATION: Exam: CT Abdomen And Pelvis With Contrast Exam date and time: 08/21/2022 4:42 PM Age: 67 years old Clinical indication: Other: Obstruction/possible bowel perforatio; Additional info: Oral and iv contrast TECHNIQUE: Imaging protocol: Computed tomography of the abdomen and pelvis with contrast. COMPARISON: CT ABDOMEN PELVIS W 08/17/2022 11:36 AM FINDINGS: Tubes, catheters and devices: An enteric feeding tube is present, with its tip located in the stomach in good position. Liver: 23 mm simple cyst right lobe of the liver Gallbladder and bile ducts: Cholecystectomy Pancreas: Normal. No ductal dilation. Spleen: Normal. No splenomegaly. Adrenal glands: Normal. No mass. Kidneys and ureters: Normal. No hydronephrosis. Stomach and bowel: Pneumatosis in loops of bowel in the right upper quadrant worrisome for ischemic bowel. . Abrupt narrowing of loops of bowel in the anterior abdomen. Series 4, image 51-52 May represent obstruction. Possible volvulus in this region.. Appendix: No evidence of appendicitis. Intraperitoneal space: Pneumoperitoneum in several locations anteriorly on the right consistent with perforation. There are also evidence of perforation on the left. Vasculature: No portal venous air Lymph nodes: Unremarkable. No enlarged lymph nodes. Urinary bladder: Unremarkable as visualized. Reproductive: Unremarkable as visualized. Bones/joints: Unremarkable. No acute fracture. Soft tissues: Unremarkable. IMPRESSION: 1. Pneumatosis in loops of bowel in the right upper quadrant worrisome for ischemic bowel. . 2. Pneumoperitoneum in several locations anteriorly on the right consistent with perforation. There are also evidence of perforation on the left. 3. Abrupt narrowing of loops of bowel in the anterior abdomen. Series 4, image 51-52 May represent obstruction. Possible volvulus in this region.. Dictated and Authenticated by: Buffy Epperson MD. Ordering:CAMI Mora MD
[2022-08-21] MEDS: Enoxaparin 40 MG/0.4 ML SYR SC (18:22)
[2022-08-22] MEDS: Normal Saline Flush 10 ML SYR IVP ×8 (00:18→21:53)
[2022-08-22] MEDS: metroNIDAZOLE 500 MG/100 ML BAG 100 MG IVPB ×4 (00:18→17:35)
[2022-08-22 03:51] VITALS: BP 145/62; PULSE 58; RESP 20; TEMP 36.3; O2SAT 97
[2022-08-22] MEDS: CEFEPIME 2 GM in Normal Saline 100 ML IVPB ×3 (04:12→19:17)
[2022-08-22 07:37] LABS: Abs Immature Grans 0.85 10^3/uL (0.0-0.06); HCT 34.5 % (40.0-50.0); HGB 11.7 g/dL (13.5-17.5); MCH 31.9 pg (27.0-33.0); MCHC 33.9 % (32.0-36.0); MCV 94 fL (80-95); MPV 12.6 fL (8.0-11.0); Platelet Count 254 10^3/uL (130-400); RBC 3.67 10^6/uL (4.36-5.78); RDW 12.3 % (11.8-14.1); WBC 13.76 10^3/uL (4.4-10.8)
[2022-08-22 08:05] LABS: Folate 11.1 ng/mL (8.6-20.0)
[2022-08-22 08:25] LABS: Anion Gap 9.4 mmol/L (3-11); BUN 17 mg/dL (7-18); CO2 24.6 mmol/L (21.0-32.0); CREATININE 0.8 mg/dL (0.70-1.30); Calcium 8.4 mg/dL (8.5-10.1); Chloride 107 mmol/L (98-107); Glucose 120 mg/dL (74-106); PHOSPHORUS 2.8 mg/dL (2.6-4.7); Potassium 3.7 mmol/L (3.5-5.1); Sodium 141 mmol/L (136-145)
[2022-08-22 08:27] LABS: Absolute Eosinophil Count 0.69 10^3/uL (0.0-0.7); Absolute Lymphocyte Count 2.61 10^3/uL (1.2-3.4); Absolute Monocyte Count 0.55 10^3/uL (0.1-0.8); Absolute Neutrophil Count 9.77 10^3/uL (1.2-6.7); Atypical Lymphocytes % 10; Metamyelocytes % 1
[2022-08-22 08:28] LABS: Diff Comment Manual Differential; RBC Morphology Normal
[2022-08-22 09:00] LABS: Procalcitonin < 0.1 ng/mL
[2022-08-22 09:19] VITALS: PULSE 58
[2022-08-22 09:26] LABS: Vitamin B12 460 pg/mL (193-986)
[2022-08-22] MEDS: Atenolol 50 MG TAB 100 MG PO (09:44)
[2022-08-22] MEDS: amLODIPine 10 MG TAB PO (09:45)
[2022-08-22] MEDS: Furosemide 40 MG/4 ML VIAL IVP ×2 (09:52→15:55)
--- NOTE | 2022-08-22 11:06 | CMPROGNOTE_ITS ---
- If Service Date Differs Date of service: 08/22/22 Time of Service: 11:06 Care Management Progress Note S/O: Hunter was sitting up in his chair when CM met with him. He reported that he is feeling much better today, but over the weekend he had an NG tube placed. He stated that he hasn't been able to eat real food since last monday. Per MD, his NG tube may be removed tomorrow, if he continues to improve. CM will continue to follow. A: Hunter is a 67 year old male admitted to [facility] on 08/17/22 with peritonitis. P: Anticipate, Hunter will return home when medically cleared. He will be driven home via private vehicle by a friend, but also has a car in the parking lot if able to drive home. He will follow up with his PCP and discharge plan of care. CM will continue to follow.
[2022-08-22 15:03] VITALS: PULSE 57
[2022-08-22 15:10] VITALS: BP 130/74; PULSE 60; RESP 17; TEMP 36.5; O2SAT 97
[2022-08-22] MEDS: Enoxaparin 40 MG/0.4 ML SYR SC (17:35)
[2022-08-22] MEDS: Normal Saline 500 ML 30 ML IV (17:41)
--- NOTE | 2022-08-22 17:45 | W.PM.PROGNOT ---
Date of Service Date of service: 08/22/22 Time of Service: 17:45 Assessment and Plan Assessment and plan (1) Sepsis following intra-abdominal surgery: Status: Acute Assessment and plan: I reviewed his CAT scan that was performed yesterday. He still has some dilated proximal and distal small intestine. There is certainly less intra-abdominal free air than his previous CAT scan. The interpretation raises some concern for pneumatosis, which I disagree with. Certainly, the CT scan remains concerning. However, based on the amount of fluid within the lumen of the small intestine, if he had active ongoing leakage, I would expect to see an abscess by now. Generally, this seems more consistent with an early postoperative small bowel obstruction. I think that another operation at this point would add considerable morbidity to his recovery. Since he is not having any nausea (in fact his appetite is increased over the past several days) I think it is reasonable to remove the nasogastric tube today. We will repeat his labs tomorrow. Subjective Subjective Interval history since last seen: He says he feels pretty good today. He denies any nausea or vomiting with the nasogastric tube clamped for over 48 hours. He is passing gas, and he had a bowel movement. He says he has some mild abdominal discomfort, but not really any pain. Exam GI Inspection: distended and large pannus Palpation: soft, no guarding and nontender Percussion: tympanic to percussion Auscultation: absent bowel sounds Objective Last Vital Signs Temp 97.7 F 08/22/22 15:10 Pulse 60 08/22/22 15:10 Resp 17 08/22/22 15:10 BP 130/74 08/22/22 15:10 Pulse Ox 97 08/22/22 15:10 Laboratory Results - last 24 hr 08/22/22 08/22/22 08/22/22 06:50 06:50 06:50 WBC RBC Hgb Hct MCV MCH MCHC RDW Plt Count MPV Immature Gran % Neutrophils % Lymphocytes % Atypical Lymphs % Monocytes % Eosinophils % Basophils % Metamyelocytes % Nucleated RBC % Absolute Neutrophils Absolute Lymphocytes Absolute Monocytes Absolute Eosinophils Absolute Basophils RBC Morphology Sodium 141 Potassium 3.7 Chloride 107 Carbon Dioxide 24.6 Anion Gap 9.4 BUN 17 Creatinine 0.8 Est GFR (CKD-EPI 2020) 96.40 Glucose 120 H Calcium 8.4 L Phosphorus 2.8 Magnesium 2.0 Vitamin B12 460 Folate Procalcitonin < 0.1 08/22/22 08/22/22 06:50 06:50 WBC 13.76 H RBC 3.67 L Hgb 11.7 L Hct 34.5 L MCV 94 MCH 31.9 MCHC 33.9 RDW 12.3 Plt Count 254 MPV 12.6 H Immature Gran % 0.0 Neutrophils % 71.0 Lymphocytes % 9.0 Atypical Lymphs % 10 Monocytes % 4.0 Eosinophils % 5.0 Basophils % 0.0 Metamyelocytes % 1 Nucleated RBC % 0.0 Absolute Neutrophils 9.77 H Absolute Lymphocytes 2.61 Absolute Monocytes 0.55 Absolute Eosinophils 0.69 Absolute Basophils 0.00 RBC Morphology Normal Sodium Potassium Chloride Carbon Dioxide Anion Gap BUN Creatinine Est GFR (CKD-EPI 2020) Glucose Calcium Phosphorus Magnesium Vitamin B12 Folate 11.1 Procalcitonin
[2022-08-22 19:25] VITALS: BP 131/65; PULSE 68; RESP 18; TEMP 36.7; O2SAT 99
[2022-08-22 20:42] LABS: INR 1.1 (0.9-1.1); Prothrombin Time 10.9 sec (9.3-11.0)
[2022-08-22 20:45] LABS: ALT 36 U/L (16-63); AST 31 U/L (15-37); Albumin 2.6 g/dL (3.4-5.0); Alkaline Phosphatase 180 U/L (46-116); BUN 19 mg/dL (7-18); Bilirubin, Total 0.4 mg/dL (0.2-1.0); CREATININE 0.7 mg/dL (0.70-1.30); Calcium 8.6 mg/dL (8.5-10.1); Chloride 107 mmol/L (98-107); Estimated GFR 100.37 (mL/min/1.73m2); Glucose 115 mg/dL (74-106); Potassium 3.7 mmol/L (3.5-5.1); Sodium 140 mmol/L (136-145)
[2022-08-22 23:49] VITALS: BP 130/65; PULSE 68; RESP 18; TEMP 36.8; O2SAT 99
[2022-08-23] VITALS (7 sets, daily range): BP systolic 130–153; BP diastolic 65–80; PULSE 53–68; RESP 18–22; TEMP 36.2–36.7; O2SAT 97–99
[2022-08-23] MEDS: metroNIDAZOLE 500 MG/100 ML BAG 100 MG IVPB ×4 (01:27→18:58)
[2022-08-23] MEDS: Normal Saline Flush 10 ML SYR IVP ×5 (01:29→21:30)
[2022-08-23] MEDS: CEFEPIME 2 GM in Normal Saline 100 ML IVPB ×3 (04:56→18:13)
[2022-08-23] MEDS: Normal Saline 500 ML 30 ML IV (04:58)
[2022-08-23 06:37] LABS: Abs Immature Grans 0.63 10^3/uL (0.0-0.06); HCT 34.6 % (40.0-50.0); HGB 11.4 g/dL (13.5-17.5); MCH 31.5 pg (27.0-33.0); MCHC 32.9 % (32.0-36.0); MCV 96 fL (80-95); MPV 12.2 fL (8.0-11.0); Platelet Count 247 10^3/uL (130-400); RBC 3.62 10^6/uL (4.36-5.78); RDW 12.4 % (11.8-14.1); RDW-SD 42.7 fL; WBC 12.84 10^3/uL (4.4-10.8)
[2022-08-23 06:49] LABS: Anion Gap 6.2 mmol/L (3-11); BUN 17 mg/dL (7-18); CO2 25.8 mmol/L (21.0-32.0); CREATININE 0.7 mg/dL (0.70-1.30); Calcium 8.6 mg/dL (8.5-10.1); Chloride 108 mmol/L (98-107); Estimated GFR 100.37 (mL/min/1.73m2); Glucose 104 mg/dL (74-106); Magnesium 1.7 mg/dL (1.8-2.4); Potassium 4.1 mmol/L (3.5-5.1); Sodium 140 mmol/L (136-145)
[2022-08-23 06:58] LABS: PHOSPHORUS 3.4 mg/dL (2.6-4.7)
[2022-08-23 07:36] LABS: Absolute Eosinophil Count 0.64 10^3/uL (0.0-0.7); Diff Comment Manual Differential; Metamyelocytes % 1; RBC Morphology Normal
[2022-08-23] MEDS: Atenolol 50 MG TAB 100 MG PO (08:24)
[2022-08-23] MEDS: Furosemide 40 MG/4 ML VIAL IVP ×2 (08:24→16:13)
[2022-08-23] MEDS: amLODIPine 10 MG TAB PO (08:24)
--- NOTE | 2022-08-23 14:55 | PDOC.CMPRO ---
- If Service Date Differs Date of service: 08/23/22 Time of Service: 14:55 Care Management Progress Note S/O: Hunter was sitting up in his chair when CM met with him. He reported that he is feeling much better today, especially since his NG tube was removed last night. He stated that he is hoping to have his diet advanced. Per MD, he will remain NPO at this time. He is receiving TPN and can have some water and ice chips. CM will continue to follow. A: Hunter is a 67 year old male admitted to [facility] on 08/17/22 with peritonitis. P: Anticipate, Hunter will return home when medically cleared. He will be driven home via private vehicle by a friend, but also has a car in the parking lot if able to drive home. He will follow up with his PCP and discharge plan of care. CM will continue to follow.
--- NOTE | 2022-08-23 14:58 | W.PM.PROGNOT ---
Date of Service Date of service: 08/23/22 Time of Service: 14:58 Assessment and Plan Assessment and plan (1) Ileus: Status: Acute Assessment and plan: - Patient states he he is feeling good. That he is not having any abdominal pain or fevers. He is having bowel movements. -His white count did start to trend down today. -On auscultation, his stomach is still sounding like it did on Monday- on CT He has multiple dilated loops of distal ileum. - -Cefepime/Flagyl D#7. Will check C. diff -holding coumadin currently -I am going to hold feedings one more day as WBC is trending down. (2) Nutritional assessment: Status: Acute (3) Hypomagnesemia: Status: Acute (4) Hypokalemia: Status: Acute (5) Sepsis following intra-abdominal surgery: Status: Acute (6) Pulmonary hypertension: Status: Chronic (7) Respiratory failure: Status: Acute (8) BMI 50.0-59.9, adult: (9) Atrial fibrillation: Qualifiers: Atrial fibrillation type: longstanding persistent Qualified Code(s): I48.11 - Longstanding persistent atrial fibrillation Subjective Subjective Interval history since last seen: Patient states he is feeling good. He is not having any fever or chills. He is passing gas and having bowel movements. He denies any pain. no headaches. No CP or SOB. no productive cough. no dysuria. no leg pain or swelling. Exam Narrative Exam Narrative: PHYSICAL EXAM GENERAL APPEARANCE: Alert, healthy appearance, oriented, in no acute distress SKIN: yeast under pannus HYDRATION: Well hydrated HEAD, EYES, EARS, NECK, THROAT: Head is normocephalic, pupils equal, round, reactive to light and accommodation, ocular movement intact, sclera clear and no jaundice. ?Dentition poor. LUNGS: normal respiration/nl chest excursion. ?Clear to auscultation B/l no R/R/W ?HEART: Regular rate and rhythm, EXTREMITY: Chronic venous stasis/venous stasis dermatitis and lower extremity edema, nonpitting. PICC: No redness/drainage/swelling ABDOMEN: Incisions are clean dry and intact and well-healed. He denies abdominal tenderness. He still has significant borborygmi and high-pitched bowel sounds indicative of obstruction. Const Other: PHYSICAL EXAM GENERAL APPEARANCE: Alert, healthy appearance, oriented, in no acute distress SKIN: No rashes.? No breakdown chronic yeast under his pannus HYDRATION: Well hydrated HEAD, EYES, EARS, NECK, THROAT: Head is normocephalic, pupils equal, round, reactive to light and accommodation, ocular movement intact, sclera clear and no jaundice. ?Dentition none No sore throat.? No jaw pain. No thrush NECK: Supple, Trachea midline. No JVD. LUNGS: normal respiration/nl chest excursion. ?Clear to auscultation B/l no R/R/W ?HEART: Regular rate and rhythm, EXTREMITY: No edema or cyanosis? no leg pain, redness, swelling.? No IV infiltration-Line site is clean dry and intact ABDOMEN: Incision is healing nicely. He denies any pain. Bowel sounds are still high-pitched and sound like a bowel obstruction. NEURO: no focal neuro deficits. Objective Last Vital Signs Temp 36.7 C 08/23/22 11:59 Pulse 56 L 08/23/22 11:59 Resp 22 08/23/22 11:59 BP 133/74 08/23/22 11:59 Pulse Ox 98 08/23/22 11:59 Laboratory Results - last 24 hr 08/22/22 08/22/22 08/22/22 19:36 20:16 20:16 WBC RBC Hgb Hct MCV MCH MCHC RDW Plt Count MPV Immature Gran % Neutrophils % Lymphocytes % Monocytes % Eosinophils % Basophils % Metamyelocytes % Nucleated RBC % Absolute Neutrophils Absolute Lymphocytes Absolute Monocytes Absolute Eosinophils Absolute Basophils RBC Morphology PT Cancelled 10.9 INR Cancelled 1.1 Sodium 140 Potassium 3.7 Chloride 107 Carbon Dioxide 25.0 Anion Gap 8.0 BUN 19 H Creatinine 0.7 Est GFR (CKD-EPI 2020) 100.37 Glucose 115 H Calcium 8.6 Phosphorus Magnesium Total Bilirubin 0.4 AST 31 ALT 36 Alkaline Phosphatase 180 H Total Protein 7.0 Albumin 2.6 L 08/23/22 08/23/22 08/23/22 06:00 06:00 Unknown WBC 12.84 H RBC 3.62 L Hgb 11.4 L Hct 34.6 L MCV 96 H MCH 31.5 MCHC 32.9 RDW 12.4 Plt Count 247 MPV 12.2 H Immature Gran % See Differential Neutrophils % 67.0 Lymphocytes % 14.0 Monocytes % 14.0 Eosinophils % 5.0 Basophils % 0.0 Metamyelocytes % 1 Nucleated RBC % 0.0 Absolute Neutrophils 8.60 H Absolute Lymphocytes 1.80 Absolute Monocytes 1.80 H Absolute Eosinophils 0.64 Absolute Basophils 0.00 RBC Morphology Normal PT INR Sodium 140 Cancelled Potassium 4.1 Cancelled Chloride 108 H Cancelled Carbon Dioxide 25.8 Cancelled Anion Gap 6.2 Cancelled BUN 17 Cancelled Creatinine 0.7 Cancelled Est GFR (CKD-EPI 2020) 100.37 Cancelled Glucose 104 Cancelled Calcium 8.6 Cancelled Phosphorus 3.4 Magnesium 1.7 L Total Bilirubin AST ALT Alkaline Phosphatase Total Protein Albumin
[2022-08-23] MEDS: Enoxaparin 40 MG/0.4 ML SYR SC (18:16)
[2022-08-24] VITALS (8 sets, daily range): BP systolic 109–161; BP diastolic 58–84; PULSE 42–65; RESP 18; TEMP 35.7–36.7; O2SAT 96–98
[2022-08-24] MEDS: metroNIDAZOLE 500 MG/100 ML BAG 100 MG IVPB ×4 (00:50→18:09)
[2022-08-24 04:55] LABS: C Diff PCR Negative (Negative)
[2022-08-24] MEDS: CEFEPIME 2 GM in Normal Saline 100 ML IVPB ×3 (05:12→20:51)
[2022-08-24] MEDS: Normal Saline Flush 10 ML SYR IVP ×4 (06:47→20:51)
[2022-08-24 07:09] LABS: HCT 33.6 % (40.0-50.0); HGB 11.6 g/dL (13.5-17.5); MCH 32.3 pg (27.0-33.0); MCHC 34.5 % (32.0-36.0); MCV 94 fL (80-95); MPV 12.2 fL (8.0-11.0); Platelet Count 239 10^3/uL (130-400); RBC 3.59 10^6/uL (4.36-5.78); RDW 12.5 % (11.8-14.1); RDW-SD 42.5 fL; WBC 12.85 10^3/uL (4.4-10.8)
[2022-08-24 07:26] LABS: Absolute Eosinophil Count 0.64 10^3/uL (0.0-0.7); Absolute Lymphocyte Count 1.93 10^3/uL (1.2-3.4); Absolute Monocyte Count 1.16 10^3/uL (0.1-0.8); Absolute Neutrophil Count 8.87 10^3/uL (1.2-6.7); Bands % 2; Diff Comment Manual Differential; Metamyelocytes % 2; RBC Morphology Normal
[2022-08-24 07:28] LABS: Anion Gap 7.9 mmol/L (3-11); BUN 18 mg/dL (7-18); C-Reactive Protein 1.03 mg/dL (0.0-0.3); CO2 24.1 mmol/L (21.0-32.0); CREATININE 0.7 mg/dL (0.70-1.30); Calcium 8.6 mg/dL (8.5-10.1); Chloride 110 mmol/L (98-107); Estimated GFR 100.37 (mL/min/1.73m2); Glucose 104 mg/dL (74-106); Magnesium 1.7 mg/dL (1.8-2.4); PHOSPHORUS 3.5 mg/dL (2.6-4.7); Potassium 4.3 mmol/L (3.5-5.1); Sodium 142 mmol/L (136-145)
[2022-08-24] MEDS: Furosemide 40 MG/4 ML VIAL IVP ×2 (08:17→15:48)
[2022-08-24] MEDS: amLODIPine 10 MG TAB PO (08:18)
[2022-08-24] MEDS: Atenolol 50 MG TAB 100 MG PO (08:18)
--- NOTE | 2022-08-24 10:10 | CMPROGNOTE_ITS ---
- If Service Date Differs Date of service: 08/24/22 Time of Service: 10:10 Care Management Progress Note S/O: Hunter was sitting up in his chair today drawing a picture of a covered bridge when CM met with him. He stated that he is feeling good, and just spoke to the MD, who reported that he will be able to have some sips of juice today. He is looking forward to his diet being advanced. CM will continue to follow. A: Hunter is a 67 year old male admitted to [facility] on 08/17/22 with peritonitis. P: Anticipate, Hunter will return home when medically cleared. He will be driven home via private vehicle by a friend, but also has a car in the parking lot if able to drive home. He will follow up with his PCP and discharge plan of care. CM will continue to follow.
--- NOTE | 2022-08-24 10:41 | W.PM.PROGNOT ---
Date of Service Date of service: 08/24/22 Time of Service: 10:41 Assessment and Plan Assessment and plan (1) Ileus: Status: Acute Assessment and plan: - Patient states he he is feeling good. That he is not having any abdominal pain or fevers. He is having bowel movements. -His white count did start to trend down today. -On auscultation,he has a few more BS -Cefepime/Flagyl D#7. Will check C. diff -pending -holding coumadin currently -giving him some sips of juice. No full tray Continue TPN (2) Nutritional assessment: Status: Acute (3) Hypomagnesemia: Status: Acute Assessment and plan: replace again today (4) BMI 50.0-59.9, adult: (5) Atrial fibrillation: Qualifiers: Atrial fibrillation type: longstanding persistent Qualified Code(s): I48.11 - Longstanding persistent atrial fibrillation Subjective Subjective Interval history since last seen: Hunter feels well No pain No N/V Wants to eat Exam Const General: comfortable and no acute distress Orientation: alert and oriented x3 HENMT Head: normocephalic and atraumatic Resp Effort & Inspection: normal respiratory effort Auscultation: clear to auscultation bilaterally Cardio Rate: regular rate Rhythm: regular rhythm GI Inspection: incision (c/d/i) and obesity Auscultation: normoactive bowel sounds Objective Last Vital Signs Temp 97.5 F L 08/24/22 07:27 Pulse 59 L 08/24/22 07:27 Resp 18 08/24/22 07:27 BP 128/72 08/24/22 07:27 Pulse Ox 97 08/24/22 07:27 Laboratory Results - last 24 hr 08/24/22 08/24/22 08/24/22 04:05 06:45 06:45 WBC 12.85 H RBC 3.59 L Hgb 11.6 L Hct 33.6 L MCV 94 MCH 32.3 MCHC 34.5 RDW 12.5 Plt Count 239 MPV 12.2 H Immature Gran % 0.0 Neutrophils % 67.0 Band Neutrophils % 2 Lymphocytes % 15.0 Monocytes % 9.0 Eosinophils % 5.0 Basophils % 0.0 Metamyelocytes % 2 Nucleated RBC % 0.0 Absolute Neutrophils 8.87 H Absolute Lymphocytes 1.93 Absolute Monocytes 1.16 H Absolute Eosinophils 0.64 Absolute Basophils 0.00 RBC Morphology Normal Sodium 142 Potassium 4.3 Chloride 110 H Carbon Dioxide 24.1 Anion Gap 7.9 BUN 18 Creatinine 0.7 Est GFR (CKD-EPI 2020) 100.37 Glucose 104 Calcium 8.6 Phosphorus 3.5 Magnesium 1.7 L C-Reactive Protein 1.03 H Stl C.difficile Tox PCR Negative
[2022-08-24] MEDS: MAGNESIUM SULFATE 2 GM/50 ML BAG IVPB (11:05)
[2022-08-24] MEDS: Normal Saline 500 ML 30 ML IV (11:05)
[2022-08-24] MEDS: Enoxaparin 40 MG/0.4 ML SYR SC (18:10)
[2022-08-25] VITALS (8 sets, daily range): BP systolic 125–159; BP diastolic 69–78; PULSE 55–66; RESP 16–19; TEMP 36.3–36.9; O2SAT 96–99
[2022-08-25] MEDS: metroNIDAZOLE 500 MG/100 ML BAG 100 MG IVPB ×4 (00:55→18:10)
[2022-08-25] MEDS: CEFEPIME 2 GM in Normal Saline 100 ML IVPB ×3 (04:39→20:12)
[2022-08-25] MEDS: Normal Saline Flush 10 ML SYR IVP ×8 (05:40→23:50)
[2022-08-25 06:25] LABS: HCT 34.1 % (40.0-50.0); HGB 11.6 g/dL (13.5-17.5); MCH 31.7 pg (27.0-33.0); MCV 93 fL (80-95); MPV 12.4 fL (8.0-11.0); Platelet Count 218 10^3/uL (130-400); RBC 3.66 10^6/uL (4.36-5.78); RDW 12.7 % (11.8-14.1); RDW-SD 43.5 fL; WBC 11.75 10^3/uL (4.4-10.8)
[2022-08-25 06:44] LABS: Anion Gap 7.1 mmol/L (3-11); BUN 16 mg/dL (7-18); CO2 23.9 mmol/L (21.0-32.0); CREATININE 0.7 mg/dL (0.70-1.30); Calcium 8.5 mg/dL (8.5-10.1); Chloride 110 mmol/L (98-107); Estimated GFR 100.37 (mL/min/1.73m2); Glucose 102 mg/dL (74-106); Magnesium 1.7 mg/dL (1.8-2.4); PHOSPHORUS 3.4 mg/dL (2.6-4.7); Potassium 4.3 mmol/L (3.5-5.1); Sodium 141 mmol/L (136-145)
[2022-08-25] MEDS: Furosemide 40 MG/4 ML VIAL IVP ×2 (08:30→16:38)
[2022-08-25] MEDS: amLODIPine 10 MG TAB PO (08:34)
--- NOTE | 2022-08-25 12:19 | PDOC.CMPRO ---
- If Service Date Differs Date of service: 08/25/22 Time of Service: 12:19 Care Management Progress Note S/O: Hunter was sitting up in his chair, drawing a picture of a tree lined driveway when CM met with him. He reported that he was able to have juice, which he was very happy about. He stated that per MD, his diet will be advanced slowly, and when he is able to have solid food and tolerate it, he will likely be ready for discharge. He is comfortable with this plan, and hopes that he will be discharged soon. CM will continue to follow. A: Hunter is a 67 year old male admitted to [facility] on 08/17/22 with peritonitis. P: Anticipate, Hunter will return home when medically cleared. He will be driven home via private vehicle by a friend, but also has a car in the parking lot if able to drive home. He will follow up with his PCP and discharge plan of care. CM will continue to follow.
[2022-08-25] MEDS: Enoxaparin 40 MG/0.4 ML SYR SC (18:10)
--- NOTE | 2022-08-25 20:03 | W.PM.PROGNOT ---
Date of Service Date of service: 08/25/22 Time of Service: 13:00 Assessment and Plan Assessment and plan (1) Ileus: Status: Acute Assessment and plan: His white blood cell count continues to improve overall, and he remains afebrile despite taking some sips of liquids. I think is reasonable to slowly advance his diet today. I will move him up to small servings of postoperative diet, and we can see how he feels. Subjective Subjective Interval history since last seen: He says he has been tolerating the sips of liquids without any nausea or vomiting. He says he had a bowel movement. He denies any abdominal pain today. Exam GI Inspection: distended, large pannus and obesity Palpation: soft, guarding and nontender Percussion: normal to percussion Auscultation: hypoactive bowel sounds Objective Last Vital Signs Temp 97.9 F 08/25/22 15:02 Pulse 58 L 08/25/22 15:02 Resp 16 08/25/22 15:02 BP 158/74 H 08/25/22 15:02 Pulse Ox 99 08/25/22 15:02 Laboratory Results - last 24 hr 08/25/22 08/25/22 05:59 05:59 WBC 11.75 H RBC 3.66 L Hgb 11.6 L Hct 34.1 L MCV 93 MCH 31.7 MCHC 34.0 RDW 12.7 Plt Count 218 MPV 12.4 H Sodium 141 Potassium 4.3 Chloride 110 H Carbon Dioxide 23.9 Anion Gap 7.1 BUN 16 Creatinine 0.7 Est GFR (CKD-EPI 2020) 100.37 Glucose 102 Calcium 8.5 Phosphorus 3.4 Magnesium 1.7 L
[2022-08-25] MEDS: ACETAMINOPHEN 1,000 MG/100 ML BTL 400 MG IVPB (23:50)
[2022-08-26] VITALS (9 sets, daily range): BP systolic 107–148; BP diastolic 66–86; PULSE 46–66; RESP 16–19; TEMP 35.8–37.2; O2SAT 96–99
[2022-08-26] MEDS: metroNIDAZOLE 500 MG/100 ML BAG 100 MG IVPB ×3 (01:11→12:42)
[2022-08-26] MEDS: CEFEPIME 2 GM in Normal Saline 100 ML IVPB ×2 (03:40→11:51)
[2022-08-26 06:18] LABS: HCT 32.8 % (40.0-50.0); HGB 11.4 g/dL (13.5-17.5); MCH 32.3 pg (27.0-33.0); MCHC 34.8 % (32.0-36.0); MCV 93 fL (80-95); MPV 12.2 fL (8.0-11.0); Platelet Count 225 10^3/uL (130-400); RBC 3.53 10^6/uL (4.36-5.78); RDW 12.7 % (11.8-14.1); RDW-SD 42.9 fL; WBC 10.44 10^3/uL (4.4-10.8)
[2022-08-26 06:29] LABS: INR 1.1 (0.9-1.1); Prothrombin Time 10.9 sec (9.3-11.0)
[2022-08-26 06:41] LABS: ALT 23 U/L (16-63); AST 22 U/L (15-37); Albumin 2.5 g/dL (3.4-5.0); Alkaline Phosphatase 127 U/L (46-116); Anion Gap 7.1 mmol/L (3-11); BUN 15 mg/dL (7-18); Bilirubin, Total 0.4 mg/dL (0.2-1.0); CO2 24.9 mmol/L (21.0-32.0); CREATININE 0.7 mg/dL (0.70-1.30); Calcium 8.6 mg/dL (8.5-10.1); Chloride 108 mmol/L (98-107); Estimated GFR 100.37 (mL/min/1.73m2); Glucose 110 mg/dL (74-106); Potassium 4.3 mmol/L (3.5-5.1); Sodium 140 mmol/L (136-145); Total Protein 6.7 g/dL (6.4-8.2)
[2022-08-26 06:42] LABS: Magnesium 1.8 mg/dL (1.8-2.4); PHOSPHORUS 3.3 mg/dL (2.6-4.7)
[2022-08-26 07:11] LABS: Procalcitonin < 0.1 ng/mL
[2022-08-26] MEDS: Furosemide 40 MG/4 ML VIAL IVP ×2 (07:59→16:34)
[2022-08-26] MEDS: Atenolol 50 MG TAB 100 MG PO (08:00)
[2022-08-26] MEDS: amLODIPine 10 MG TAB PO (08:00)
[2022-08-26] MEDS: Normal Saline Flush 10 ML SYR IVP ×3 (08:01→22:59)
--- NOTE | 2022-08-26 08:42 | CMPROGNOTE_ITS ---
- If Service Date Differs Date of service: 08/26/22 Time of Service: 08:43 Care Management Progress Note S/O: Hunter was sitting up in his chair when CM met with him. He stated that he was able to eat a small amount of solid food for dinner last night, which he felt was like Thanksgiving dinner, as he has not been able to eat solid food since 08/16/22. He reported that per MD, if he continues to tolerate his diet well, he may be ready for discharge in the next couple of days. He is looking forward to returning home, and does not feel that he will require any services upon discharge. CM will continue to follow. A: Hunter is a 67 year old male admitted to [facility] on 08/17/22 with peritonitis. P: Anticipate, Hunter will return home when medically cleared. He will be driven home via private vehicle by a friend, but also has a car in the parking lot if able to drive home. He will follow up with his PCP and discharge plan of care. CM will continue to follow.
--- NOTE | 2022-08-26 09:47 | W.PM.PROGNOT ---
Date of Service Date of service: 08/26/22 Time of Service: 09:47 Assessment and Plan Assessment and plan (1) Sepsis following intra-abdominal surgery: Status: Acute Assessment and plan: At this point it does not appear that his ileus and postop infection have resolved. He has had no fever or white count for the past 24 hours. He is tolerating regular diet. We will wean to off on his TPN today. Today is day 10 of antibiotics. We will discontinue those as well. We will recheck labs in AM. If they remain normal then we will plan on discharge in a.m. on 08/27 I am going to resume his Coumadin for A. fib today. (2) Chronic right-sided heart failure: Status: Chronic (3) Ileus: Status: Acute (4) Vomiting: Status: Acute (5) IMMANUEL treated with BiPAP: Status: Acute (6) Atrial fibrillation: Qualifiers: Atrial fibrillation type: longstanding persistent Qualified Code(s): I48.11 - Longstanding persistent atrial fibrillation (7) Bilateral leg edema: Subjective Subjective Interval history since last seen: Pt is doing well. no headaches. No CP or SOB. no productive cough. no dysuria. no leg pain or swelling. Patient is doing well. He is tolerating a surgical soft diet. We are in the process of weaning the TPN. Today is day 10 of antibiotics. he had a soft formed bowel movement yesterday. He is tolerating p.o.'s with no nausea or vomiting or distention. He is eager to go home. Exam Const Other: PHYSICAL EXAM GENERAL APPEARANCE: Alert, healthy appearance, oriented, in no acute distress HYDRATION: Well hydrated HEAD, EYES, EARS, NECK, THROAT: Head is normocephalic, pupils equal, round, reactive to light and accommodation, ocular movement intact, sclera clear and no jaundice. ?Edentulous LUNGS: normal respiration/nl chest excursion. ?Clear to auscultation B/l no R/R/W ?HEART: Regular rate and rhythm, EXTREMITY: Chronic lymphedema/venous stasis/venous dermatitis. ABDOMEN: non tender to palpation. Incisions are clean dry and intact. Normal bowel sounds. Abdomen tender Objective Last Vital Signs Temp 36.0 C L 08/26/22 07:57 Pulse 64 08/26/22 07:57 Resp 18 08/26/22 07:57 BP 124/75 08/26/22 07:57 Pulse Ox 96 08/26/22 07:57 Laboratory Results - last 24 hr 08/26/22 08/26/22 08/26/22 05:52 05:52 05:52 WBC RBC Hgb Hct MCV MCH MCHC RDW Plt Count MPV PT 10.9 INR 1.1 Sodium Cancelled 140 Potassium Cancelled 4.3 Chloride Cancelled 108 H Carbon Dioxide Cancelled 24.9 Anion Gap Cancelled 7.1 BUN Cancelled 15 Creatinine Cancelled 0.7 Est GFR (CKD-EPI 2020) Cancelled 100.37 Glucose Cancelled 110 H Calcium Cancelled 8.6 Phosphorus 3.3 Magnesium 1.8 Total Bilirubin 0.4 AST 22 ALT 23 Alkaline Phosphatase 127 H Total Protein 6.7 Albumin 2.5 L Procalcitonin 08/26/22 08/26/22 05:52 05:52 WBC 10.44 RBC 3.53 L Hgb 11.4 L Hct 32.8 L MCV 93 MCH 32.3 MCHC 34.8 RDW 12.7 Plt Count 225 MPV 12.2 H PT INR Sodium Potassium Chloride Carbon Dioxide Anion Gap BUN Creatinine Est GFR (CKD-EPI 2020) Glucose Calcium Phosphorus Magnesium Total Bilirubin AST ALT Alkaline Phosphatase Total Protein Albumin Procalcitonin < 0.1
[2022-08-26] MEDS: Normal Saline 500 ML 30 ML IV (11:50)
--- NOTE | 2022-08-26 12:37 | NUR.NOTE ---
Nursing Note: Patient has eaten 100 of meals since diet was advanced and is tolerating well.
--- NOTE | 2022-08-26 14:21 | CHAPLAIN ---
Hunter said he is feeling better than when I visited a few days ago, and that he's been able to eat solids food. This seemed very important to him. He hopes to be discharged soon.
[2022-08-26] MEDS: Enoxaparin 40 MG/0.4 ML SYR SC (18:00)
--- NOTE | 2022-08-26 20:04 | DSE_ITS ---
Date of service: 08/27/22 Time of Service: 13:29 DS: Diagnosis Discharge Diagnosis (1) Sepsis following intra-abdominal surgery: Status: Acute (2) Chronic right-sided heart failure: Status: Chronic (3) Ileus: Status: Acute (4) Vomiting: Status: Acute (5) IMMANUEL treated with BiPAP: Status: Acute (6) Atrial fibrillation: (7) Bilateral leg edema: Discharge Plan Disposition Patient Disposition: HOME Condition: Improving Discharge Details Reason For Visit: postOp ileus Admit Date/Time: 08/17/22 13:26 Admit Provider: Jarocho Reese Attending Provider: Jarocho Reese Primary Care Provider: Kimberly Stout Hospital Course Hospital Course: see addendum Home Meds and New Rx's Prescriptions: Continued amlodipine 10 mg tablet 10 mg PO DAILY furosemide 40 mg tablet 80 mg PO DAILY diphenhydramine HCl 12.5 MG/5 ML liquid 25 mg PO Q4H PRN Label Comments: 09/05/14- took about 1 month ago atenolol 100 MG tablet 100 mg PO DAILY allopurinol 300 MG tablet 300 mg PO DAILY calcipotriene 60 ML solution 60 ml Topical BID PRN Label Comments: 09/05/14- pt has not used for about 1 month.KL nystatin 100,000 unit/gram Powder 1 applic topical BID Qty: 60 5RF Discontinued warfarin 5 mg tablet 2.5 - 5 mg PO DAILY Label Comments: did not take today as INR was high Rx Instructions: 2.5mg on ///Garrett 5mg on // Discharge Instructions Instructions: Ileus (DC) Additional Instructions: Keep an ice bag on the incision. 20 minutes on and 20 minutes off. Ice keeps the swelling down and swelling causes pain. Make sure you wrap the ice pack in a towel and don't apply directly to the skin. -No driving x1 week or of you are taking narcotic pain medication. -Follow-up with Dr. Velasquez next Monday. You will need to call the clinic for an appt. on Monday: [phone] -No restrictions on diet -no straining to move bowels -pain meds are very constipating: if you do not move your bowels daily take a dose of OTC of Mirlax -It is ok to shower. No bathe, soaking, swimming or hot tubs -Keep wound clean and dry. Wash incision with soap and water daily. Pat dry, don't rub. -Protein supplements daily (Such as Boost or Ensure) You may find that your appetite is smaller. Eat 3-6 small meals throughout the day. It is important to drink lots of water after surgery, 6-10 glasses a day. -If you were given an incentive spirometry (breathing manufacturing support engineer?), continue to do this 10x/hour while awake. -We do want you up walking, at least 5-6 times per day. This is very important to prevent pneumonia and blood clots. You can climb stairs, take them slowly. -No lifting over 5 pounds. This is very important to avoid developing a hernia in your incision. -You may find that you are very tired after surgery- this is normal. -Continue Coumadin as previously scheduled. 2.5 mg on Monday/Monday/Monday/Monday. Coumadin 5 mg every Monday//Monday Stand Alone Forms: Nursing Discharge Form Referrals: Jarocho Reese MD [ [facility] STAFF PHYSICIAN] - (Call the office Monday for an appointment [phone]) Activity:: see above Equipment/Supplies:: No Equipment Needed Diet:: As Tolerated Discharge Orders Discharge Orders: Discharge Order (Routine); Ordered 08/27/22 Ordered By: Abby Pagan DS: Summary Time Spent with Patient providing and/or coordinating discharge services: Greater than 30 minutes Status at Discharge Functional status at discharge: independent ambulation Overall status at discharge: patient is progressing back to baseline Mental Status: mental status grossly normal Speech and Movement: speech and movement normal Mood: congruent mood Affect: normal affect Exam Psych Mental Status: mental status grossly normal Speech and Movement: speech and movement normal Mood: congruent mood Affect: normal affect DS: Data Vitals/I&O Vitals and I&O: Vital Signs Temperature 36.7 C 08/26/22 19:18 Temperature Source Tympanic 08/26/22 19:18 Pulse 62 08/26/22 19:18 Pulse Rhythm Irregular 08/26/22 15:40 Pulse 84 08/17/22 13:15 Respiratory Rate 17 08/26/22 19:18 Respiratory Effort Non-Labored 08/26/22 15:40 Respiratory Depth Normal 08/26/22 15:40 Respiratory Pattern Normal 08/26/22 15:40 Blood Pressure 123/86 08/26/22 19:18 Blood Pressure Mean 79 08/17/22 13:15 Pulse Oximetry 98 08/26/22 19:18 Oxygen Delivery Method Room Air 08/26/22 19:18 Oxygen Flow Rate 0 08/26/22 19:18 Pain Level 0 08/26/22 19:18 Comment 08/26/22 03:30 Intake & Output 08/25/22 08/26/22 08/26/22 23:59 11:59 23:59 Intake Total 1580 / 3909 890 / 2490.667 1600.667 / 2490.667 Output Total 350 / 350 1000 / 1800 800 / 1800 Balance 1230 / 3559 -110 / 690.667 800.667 / 690.667 Weight 128.8 kg Intake: IV 1460 / 3545 650 / 8332.585 6024.667 / 1770.667 Oral 120 / 364 240 / 720 480 / 720 Output: Urine 350 / 350 1000 / 1800 800 / 1800 Other: Urine Color Yellow Yellow Straw Urine Appearance Clear Clear Urine Odor Foul Normal Strong Comment emptied commmode, assisted full, mixed with stool. [id number] over care @ 1530 mixed with stool Urine mixed with small amount bowel movement. Stool Size Moderate Small Stool Characteristics Liquid Liquid Brown Voiding Methods Bedside Commode Bedside Commode Bedside Commode Data Completed and Pending Labs on day of discharge: Labs from last 24 hours 08/26/22 08/26/22 08/26/22 05:52 05:52 05:52 WBC 10.44 RBC 3.53 L Hgb 11.4 L Hct 32.8 L MCV 93 MCH 32.3 MCHC 34.8 RDW 12.7 Plt Count 225 MPV 12.2 H PT 10.9 INR 1.1 Sodium Potassium Chloride Carbon Dioxide Anion Gap BUN Creatinine Est GFR (CKD-EPI 2020) Glucose Calcium Phosphorus Magnesium Total Bilirubin AST ALT Alkaline Phosphatase Total Protein Albumin Procalcitonin < 0.1 08/26/22 08/26/22 05:52 05:52 WBC RBC Hgb Hct MCV MCH MCHC RDW Plt Count MPV PT INR Sodium 140 Cancelled Potassium 4.3 Cancelled Chloride 108 H Cancelled Carbon Dioxide 24.9 Cancelled Anion Gap 7.1 Cancelled BUN 15 Cancelled Creatinine 0.7 Cancelled Est GFR (CKD-EPI 2020) 100.37 Cancelled Glucose 110 H Cancelled Calcium 8.6 Cancelled Phosphorus 3.3 Magnesium 1.8 Total Bilirubin 0.4 AST 22 ALT 23 Alkaline Phosphatase 127 H Total Protein 6.7 Albumin 2.5 L Procalcitonin PFSH All Active Problems (Updated 08/20/22 @ 12:40 by Yolanda Velasquez MD) Nutritional assessment (Acute) Hypomagnesemia (Acute) Hypokalemia (Acute) Sepsis following intra-abdominal surgery (Acute) Chronic right-sided heart failure (Chronic) Pulmonary hypertension (Chronic) Ileus (Acute) Vomiting (Acute) IMMANUEL treated with BiPAP (Acute) Respiratory failure (Acute) Sepsis (Acute) CHF (congestive heart failure) (Chronic) Acute right-sided CHF (congestive heart failure) (Acute) Elevated INR (Acute) Medical History (Updated 08/20/22 @ 12:40 by Yolanda Velasquez MD) Acute cholecystitis Atrial fibrillation Bilateral leg edema Bleeding from wound BMI 50.0-59.9, adult Cholelithiasis Elevated LFTs Erectile dysfunction Gout Hypertension Peripheral neuropathy Prediabetes Psoriasis Shoulder dislocation Surgical History Hx of cholecystectomy (~07/31/22) S/P exploratory laparotomy S/P right hemicolectomy Social History Smoking/Tobacco Use Status: Never Smoking risk assessment performed?: Yes Alcohol Intake: current Alcohol Intake frequency: a few times a week Alcohol type: beer Drug use: Never Substance use type: does not use Household members: none Housing: house Communication Needs: Hard of Hearing Pets and animals: No What type of physical activity do you participate in: independent ambulation Do you feel safe at home: Yes Do you feel safe in your relationship?: Yes
[2022-08-26] MEDS: Apixaban 2.5 MG TAB PO (20:05)
[2022-08-27 02:56] VITALS: BP 134/78; PULSE 61; RESP 19; TEMP 36.5; O2SAT 95
[2022-08-27] MEDS: Normal Saline Flush 10 ML SYR IVP ×2 (05:55→09:55)
[2022-08-27 06:10] LABS: Abs Immature Grans 0.26 10^3/uL (0.0-0.06); Absolute Basophil Count 0.08 10^3/uL (0.0-0.2); Absolute Lymphocyte Count 1.35 10^3/uL (1.2-3.4); Basophils % 0.7; HCT 32.7 % (40.0-50.0); Immature Grans % 2.2; Lymphocytes % 11.4; MCH 31.8 pg (27.0-33.0); MCHC 33.6 % (32.0-36.0); MCV 95 fL (80-95); MPV 11.8 fL (8.0-11.0); Monocytes % 10.9; Neutrophils % 70.8; Platelet Count 229 10^3/uL (130-400); RBC 3.46 10^6/uL (4.36-5.78); RDW 12.8 % (11.8-14.1); RDW-SD 43.9 fL; WBC 11.88 10^3/uL (4.4-10.8)
[2022-08-27 06:12] LABS: Absolute Eosinophil Count 0.48 10^3/uL (0.0-0.7); Absolute Monocyte Count 1.29 10^3/uL (0.1-0.8); Absolute Neutrophil Count 8.41 10^3/uL (1.2-6.7)
[2022-08-27 06:21] LABS: INR 1.1 (0.9-1.1); Prothrombin Time 10.9 sec (9.3-11.0)
[2022-08-27 06:50] LABS: C-Reactive Protein 0.75 mg/dL (0.0-0.3)
[2022-08-27 07:35] VITALS: BP 121/70; PULSE 56; RESP 16; TEMP 36.5; O2SAT 98
--- NOTE | 2022-08-27 09:28 | W.PM.PROGNOT ---
Date of Service Date of service: 08/27/22 Time of Service: 09:28 Assessment and Plan Assessment and plan (1) Hypokalemia: Status: Resolved (2) CHF (congestive heart failure): Status: Chronic (3) IMMANUEL treated with BiPAP: Status: Acute (4) Ileus: Status: Acute Assessment and plan: This has resolved at this point He is tolerating a regular diet. He is having regular formed bowel movements. He is having no fever and chills. His insurance will not cover Eliquis so we will resume Coumadin. He will follow-up with Dr. Velasquez in the clinic next Monday. see d/c instruction (5) Pulmonary hypertension: Status: Chronic (6) Chronic right-sided heart failure: Status: Chronic (7) Sepsis following intra-abdominal surgery: Status: Acute (8) Nutritional assessment: Status: Acute Subjective Subjective Interval history since last seen: Pt is doing well. no headaches. No CP or SOB. no productive cough. no dysuria. no leg pain or swelling. He is tolerating a regular diet. He is not having any fever or chills. He has been able to move his bowels. Exam Narrative Exam Narrative: PHYSICAL EXAM GENERAL APPEARANCE: Alert, healthy appearance, oriented, in no acute distress SKIN: No rashes.? No breakdown HYDRATION: Well hydrated HEAD, EYES, EARS, NECK, THROAT: Head is normocephalic, pupils equal, round, reactive to light and accommodation, ocular movement intact, sclera clear and no jaundice. ?Edentulous no thrush LUNGS: normal respiration/nl chest excursion. ?Clear to auscultation B/l no R/R/W ?HEART: A fib EXTREMITY: Chronic venous stasis dermatitis/stasis/lymphedema without any changes.? No IV infiltration ABDOMEN: non tender to palpation, no masses or distention, no hernias. Normal bowel sounds mild thrush under pannus NEURO: no focal neuro deficits. Objective Last Vital Signs Temp 36.5 C 08/27/22 07:35 Pulse 56 L 08/27/22 07:35 Resp 16 08/27/22 07:35 BP 121/70 08/27/22 07:35 Pulse Ox 98 08/27/22 07:35 Laboratory Results - last 24 hr 08/27/22 08/27/22 08/27/22 05:58 05:58 05:58 WBC 11.88 H RBC 3.46 L Hgb 11.0 L Hct 32.7 L MCV 95 MCH 31.8 MCHC 33.6 RDW 12.8 Plt Count 229 MPV 11.8 H Immature Gran % 2.2 Neutrophils % 70.8 Lymphocytes % 11.4 Monocytes % 10.9 Eosinophils % 4.0 Basophils % 0.7 Nucleated RBC % 0.0 Absolute Neutrophils 8.41 H Absolute Lymphocytes 1.35 Absolute Monocytes 1.29 H Absolute Eosinophils 0.48 Absolute Basophils 0.08 PT 10.9 INR 1.1 C-Reactive Protein 0.75 H
[2022-08-27] MEDS: Furosemide 40 MG/4 ML VIAL IVP (09:55)
[2022-08-27] MEDS: Apixaban 2.5 MG TAB PO (09:57)
[2022-08-27] MEDS: amLODIPine 10 MG TAB PO (09:57)
[2022-08-27 11:28] VITALS: BP 117/76; PULSE 73; RESP 16; TEMP 36.8; O2SAT 97
--- NOTE | 2022-08-27 13:31 | DSE_ITS ---
Date of service: 08/27/22 Time of Service: 13:32 DS: Diagnosis Discharge Diagnosis (1) Sepsis following intra-abdominal surgery: Status: Acute (2) Chronic right-sided heart failure: Status: Chronic (3) Ileus: Status: Acute (4) Vomiting: Status: Acute (5) IMMANUEL treated with BiPAP: Status: Acute (6) Atrial fibrillation: (7) Bilateral leg edema: Discharge Plan Disposition Patient Disposition: HOME Condition: Improving Discharge Details Reason For Visit: postOp ileus Admit Date/Time: 08/17/22 13:26 Admit Provider: Jarocho Reese Attending Provider: Jarocho Reese Primary Care Provider: Kimberly Stout Hospital Course Hospital Course: see addendum Home Meds and New Rx's Prescriptions: Continued amlodipine 10 mg tablet 10 mg PO DAILY furosemide 40 mg tablet 80 mg PO DAILY diphenhydramine HCl 12.5 MG/5 ML liquid 25 mg PO Q4H PRN Label Comments: 09/05/14- took about 1 month ago atenolol 100 MG tablet 100 mg PO DAILY allopurinol 300 MG tablet 300 mg PO DAILY calcipotriene 60 ML solution 60 ml Topical BID PRN Label Comments: 09/05/14- pt has not used for about 1 month.KL nystatin 100,000 unit/gram Powder 1 applic topical BID Qty: 60 5RF Discontinued warfarin 5 mg tablet 2.5 - 5 mg PO DAILY Label Comments: did not take today as INR was high Rx Instructions: 2.5mg on ///Garrett 5mg on // Discharge Instructions Instructions: Ileus (DC) Additional Instructions: Keep an ice bag on the incision. 20 minutes on and 20 minutes off. Ice keeps the swelling down and swelling causes pain. Make sure you wrap the ice pack in a towel and don't apply directly to the skin. -No driving x1 week or of you are taking narcotic pain medication. -Follow-up with Dr. Velasquez next Monday. You will need to call the clinic for an appt. on Monday: [phone] -No restrictions on diet -no straining to move bowels -pain meds are very constipating: if you do not move your bowels daily take a dose of OTC of Mirlax -It is ok to shower. No bathe, soaking, swimming or hot tubs -Keep wound clean and dry. Wash incision with soap and water daily. Pat dry, don't rub. -Protein supplements daily (Such as Boost or Ensure) You may find that your appetite is smaller. Eat 3-6 small meals throughout the day. It is important to drink lots of water after surgery, 6-10 glasses a day. -If you were given an incentive spirometry (breathing puttying and calking supervisor?), continue to do this 10x/hour while awake. -We do want you up walking, at least 5-6 times per day. This is very important to prevent pneumonia and blood clots. You can climb stairs, take them slowly. -No lifting over 5 pounds. This is very important to avoid developing a hernia in your incision. -You may find that you are very tired after surgery- this is normal. -Continue Coumadin as previously scheduled. 2.5 mg on Monday/Monday/Monday/Monday. Coumadin 5 mg every Monday//Monday Stand Alone Forms: Nursing Discharge Form Referrals: Jarocho Reese MD [ [facility] STAFF PHYSICIAN] - (Call the office Monday for an appointment [phone]) Activity:: see above Equipment/Supplies:: No Equipment Needed Diet:: As Tolerated Discharge Orders Discharge Orders: Discharge Order (Routine); Ordered 08/27/22 Ordered By: Abby Pagan DS: Summary Time Spent with Patient providing and/or coordinating discharge services: Greater than 30 minutes Status at Discharge Functional status at discharge: independent ambulation Overall status at discharge: patient is back to baseline Mental Status: mental status grossly normal Speech and Movement: speech and movement normal Mood: congruent mood Affect: normal affect Exam Psych Mental Status: mental status grossly normal Speech and Movement: speech and movement normal Mood: congruent mood Affect: normal affect DS: Data Vitals/I&O Vitals and I&O: Vital Signs Temperature 36.8 C 08/27/22 11:28 Temperature Source Tympanic 08/27/22 11:28 Pulse 73 08/27/22 11:28 Pulse Rhythm Irregular 08/27/22 06:03 Pulse 84 08/17/22 13:15 Respiratory Rate 16 08/27/22 11:28 Respiratory Effort Non-Labored 08/27/22 06:03 Respiratory Depth Normal 08/27/22 06:03 Respiratory Pattern Normal 08/27/22 06:03 Blood Pressure 117/76 08/27/22 11:28 Blood Pressure Mean 79 08/17/22 13:15 Pulse Oximetry 97 08/27/22 11:28 Oxygen Delivery Method Room Air 08/27/22 11:28 Oxygen Flow Rate 0 08/27/22 11:28 Pain Level 0 08/27/22 11:28 Comment 08/26/22 03:30 Intake & Output 08/26/22 08/27/22 08/27/22 23:59 11:59 23:59 Intake Total 1700.000 / 2590.000 2014 Output Total 1200 / 2200 Balance 500.000 / 127.142 1183 / 2015 Weight 128.5 kg Intake: IV 1220.000 / 3959.150 6165 / 1535 Oral 480 / 720 480 / 480 Output: Urine 1200 / 2200 Other: Urine Color Straw Urine Appearance Clear Clear Urine Odor Normal Comment Urine mixed with small amount bowel movement. Stool Size Small Stool Characteristics Liquid Brown Voiding Methods Bedside Commode Toilet Data Completed and Pending Labs on day of discharge: Labs from last 24 hours 08/27/22 08/27/22 08/27/22 05:58 05:58 05:58 WBC 11.88 H RBC 3.46 L Hgb 11.0 L Hct 32.7 L MCV 95 MCH 31.8 MCHC 33.6 RDW 12.8 Plt Count 229 MPV 11.8 H Immature Gran % 2.2 Neutrophils % 70.8 Lymphocytes % 11.4 Monocytes % 10.9 Eosinophils % 4.0 Basophils % 0.7 Nucleated RBC % 0.0 Absolute Neutrophils 8.41 H Absolute Lymphocytes 1.35 Absolute Monocytes 1.29 H Absolute Eosinophils 0.48 Absolute Basophils 0.08 PT 10.9 INR 1.1 C-Reactive Protein 0.75 H PFSH All Active Problems (Updated 08/20/22 @ 12:40 by Yolanda Velasquez MD) Nutritional assessment (Acute) Hypomagnesemia (Acute) Hypokalemia (Acute) Sepsis following intra-abdominal surgery (Acute) Chronic right-sided heart failure (Chronic) Pulmonary hypertension (Chronic) Ileus (Acute) Vomiting (Acute) IMMANUEL treated with BiPAP (Acute) Respiratory failure (Acute) Sepsis (Acute) CHF (congestive heart failure) (Chronic) Acute right-sided CHF (congestive heart failure) (Acute) Elevated INR (Acute) Medical History (Updated 08/20/22 @ 12:40 by Yolanda Velasquez MD) Acute cholecystitis Atrial fibrillation Bilateral leg edema Bleeding from wound BMI 50.0-59.9, adult Cholelithiasis Elevated LFTs Erectile dysfunction Gout Hypertension Peripheral neuropathy Prediabetes Psoriasis Shoulder dislocation Surgical History Hx of cholecystectomy (~07/31/22) S/P exploratory laparotomy S/P right hemicolectomy Social History Smoking/Tobacco Use Status: Never Smoking risk assessment performed?: Yes Alcohol Intake: current Alcohol Intake frequency: a few times a week Alcohol type: beer Drug use: Never Substance use type: does not use Household members: none Housing: house Communication Needs: Hard of Hearing Pets and animals: No What type of physical activity do you participate in: independent ambulation Do you feel safe at home: Yes Do you feel safe in your relationship?: Yes
== END 2022-08-27 14:35 | disposition home or self-care (01) | DRG 863 ==
LOC: ER 13:46 → MS 14:53
PROVIDERS: Surgery; Admitting Provider Surgery; Emergency Provider Student in an Organized Health Care Education/Training Program; PCP Nurse Practitioner Family; Visit Provider Surgery
DX: T81.44XA Sepsis following a procedure, initial encounter (principal); Z68.41 Body mass index [BMI] 40.0-44.9, adult; I48.11 Longstanding persistent atrial fibrillation; K91.89 Other postprocedural complications and disorders of digestive system; K56.7 Ileus, unspecified; G47.33 Obstructive sleep apnea (adult) (pediatric); M10.9 Gout, unspecified; G62.9 Polyneuropathy, unspecified; R73.03 Prediabetes; L40.9 Psoriasis, unspecified; E66.9 Obesity, unspecified; I87.2 Venous insufficiency (chronic) (peripheral); I89.0 Lymphedema, not elsewhere classified; I27.20 Pulmonary hypertension, unspecified; I11.0 Hypertensive heart disease with heart failure; Z79.01 Long term (current) use of anticoagulants; I50.813 Acute on chronic right heart failure; E83.42 Hypomagnesemia; E87.6 Hypokalemia
CPT/HCPCS: 36569; 36415; 71045; 80048; 80053; 83690; 84145; 85027; 87493; 87635; 93005; 96361; 96365; 96366; 96368; 99285; J1650; 74019; 74177; 81003; 82607; 82746; 83735; 83880; 84100; 84484; 85025; 85610; 86140; 93010; 99223; J0131; J1940; J2270; J2405; J3475; J3480; J3490

== ENCOUNTER → 2022-09-02 11:27 | Outpatient (BNVA) | payer MEDICARE, SELFPAY | PROVIDERS: PCP Nurse Practitioner Family; Referring Provider Nurse Practitioner Family; Visit Provider Surgery | DX: K56.7 Ileus, unspecified (principal) ==

== ENCOUNTER → 2022-10-24 13:29 | Outpatient (CLI) | payer MEDICARE, SELFPAY ==
--- NOTE | 2022-10-24 11:37 | DI.RAD_ITS ---
Exam(s) XR CHEST 2V PA LATERAL EXAM: XR CHEST 2V PA LATERAL CLINICAL HISTORY: URI, J06.9; BRONCHOSPASTIC COUGH, DIMINISHED LUNG SOUNDS RML AND RLL TECHNIQUE: 2D digital imaging was performed. COMPARISON: CR XR CHEST 2V PA LATERAL from 08/02/2022 CR,XR XR PORTABLE CHEST AP POST LINE from 08/19/[address] ABDOMEN PELVIS W from 08/21/2022 FINDINGS: PICC line is been removed. HEART: Enlarged, unchanged. Aorta: Not dilated. Calcification at the arch. PULMONARY VASCULATURE: Normal. LUNGS: Question of patchy infiltrates right middle lobe. Question mildly increased densities in th e lingula. PLEURAL SPACE: No pleural effusion or pneumothorax. BONE:Degenerative changes with flowing osteophytes. IMPRESSION: question right middle lobe and lingular infiltrates versus under penetration.. DATA REPOSITORY: RADIATION DOSE DELIVERED:
== END ==
PROVIDERS: PCP Nurse Practitioner Family; Visit Provider Nurse Practitioner Family
DX: J06.9 Acute upper respiratory infection, unspecified (principal); R05.8 Other specified cough; I51.7 Cardiomegaly; R91.8 Other nonspecific abnormal finding of lung field
CPT/HCPCS: 71046

== ENCOUNTER 2022-10-24 15:42 | Outpatient (REF) | payer MEDICARE, SELFPAY ==
[2022-10-26 12:27] LABS: COVID-19 RT-PCR UVMMC Result Negative (Negative)
== END 2022-10-24 15:43 | disposition home or self-care (01) ==
LOC: LBN 15:42
PROVIDERS: PCP Nurse Practitioner Family; Visit Provider Nurse Practitioner Family
DX: Z20.822 Contact with and (suspected) exposure to COVID-19 (principal); B34.9 Viral infection, unspecified
CPT/HCPCS: U0003

== ENCOUNTER → 2023-01-10 09:41 | Outpatient (BNVA) | payer MEDICARE, SELFPAY | PROVIDERS: PCP Nurse Practitioner Family; Visit Provider Internal Medicine Cardiovascular Disease | DX: I48.21 Permanent atrial fibrillation (principal); I50.812 Chronic right heart failure; G47.33 Obstructive sleep apnea (adult) (pediatric); I10 Essential (primary) hypertension | CPT/HCPCS: 99213 ==

== ENCOUNTER 2023-07-27 10:49 | Emergency (ER) | payer MEDICARE, SELFPAY ==
[2023-07-27 10:50] VITALS: BP 145/90; PULSE 58; RESP 18; TEMP 37; O2SAT 99
[2023-07-27] MEDS: Balanced Salt Solution 15 ML BTL (11:07)
[2023-07-27] MEDS: Fluorescein STRIPS 100/BOX 1 MG (11:08)
--- NOTE | 2023-07-27 11:32 | ED.GENADUL_ITS ---
Discharge Plan Disposition Patient Disposition: Home Condition: Good Discharge Details Clinical Impression: CHUNG (subconjunctival hemorrhage) Primary Care Provider: Kimberly Stout ED Provider: Lalitha Osorio Home Meds and New Rx's Prescriptions: No Action amlodipine 10 mg tablet 10 mg PO DAILY furosemide 40 mg tablet 80 mg PO DAILY diphenhydramine HCl 12.5 MG/5 ML liquid 25 mg PO Q4H PRN Patient Comments: 09/05/14- took about 1 month ago atenolol 100 MG tablet 100 mg PO DAILY allopurinol 300 MG tablet 300 mg PO DAILY calcipotriene 60 ML solution 60 ml Topical BID PRN Patient Comments: 09/05/14- pt has not used for about 1 month.KL nystatin 100,000 unit/gram Powder 1 applic topical BID Qty: 60 5RF Discharge Instructions Instructions: Subconjunctival Hemorrhage (ED) Additional Instructions: Call your primary care doctor today to schedule an appointment within one week to followup on your visit here. If your symptoms worsen or are not improving within two weeks, please follow-up with ophthalmology. Return to the emergency department for new or worsening symptoms including vision changes, eye pain, discharge from your eye, or if you have any other concerns. Referrals: [facility] [Provider Group] Medical Decision Making 68yo male with HTN, CHF, not on anticoagulation, presenting with left eye redness for two days. No eye pain or discharge, no trauma to the area. Vital signs reassuring, not profoundly hypertensive. Exam with limbic-sparing subconjuctival hemmorahge, no hyphema, no corneal abrasion, no Seidels to suggest globe rupture. No periseptal or periorbital celluitis. No discharge to suggest infection. Normal pressure; not glaucoma. Good visual acuity in both eyes (patient states left is usually slight worse than right; 20/40 on left toda y). With first CHUNG, would not check coags or workup further. Discharged home to follow up with PCP; discharge instructions and return precautions were reviewed with patient who verbalized understanding. All questions were answered and he is in full agreement with the plan. HPI General Mode of arrival: ambulatory . Date/Time Provider Initiated Documentation: 07/27/23 11:01 . Limitations to Documentation: no limitations . Information obtained by: patient . HPI Narrative: 68yo male with HTN, CHF, not on anticoagulation, presenting with left eye redness for two days. Woke up two days ago with eye redness. No pain or discharge. Not pruritic. Reports vision is unchanged. Does not recall any trauma to the area. Has never had anything like this happen before. He is otherwise in his usual state of heatlh. Related Data Home Medications Medication Instructions Recorded Confirmed allopurinol 300 mg tablet 300 mg PO DAILY 08/18/14 01/10/23 atenolol 100 mg tablet 100 mg PO DAILY 08/18/14 01/10/23 calcipotriene 0.005 % scalp 60 ml topical BID PRN 08/18/14 01/10/23 solution diphenhydramine HCl 12.5 mg/5 mL 25 mg PO Q4H PRN 08/18/14 01/10/23 oral liquid amlodipine 10 mg tablet 10 mg PO DAILY 01/02/20 01/10/23 furosemide 40 mg tablet 80 mg PO DAILY 01/02/20 01/10/23 nystatin 100,000 unit/gram topical 1 applic topical BID #60 grams 05/16/22 01/10/23 powder Previous Rx's Medication Instructions Recorded nystatin 100,000 unit/gram topical 1 applic topical BID #60 grams 05/16/22 powder Allergies Allergy/AdvReac Type Severity Reaction Status Date / Time onion Allergy Severe Swelling/Ed Verified 07/27/23 10:55 octavia ampicillin Allergy Unknown rash,bliste Verified 07/27/23 10:55 rs lisinopril AdvReac Unknown cough Verified 07/27/23 10:55 losartan [Losartan] AdvReac Unknown leg cramps Verified 07/27/23 10:55 General Stated Complaint: EyeProblem SUE: 4 Review of Systems Narrative: see HPI PFSH All Active Problems (Updated 07/27/23 @ 11:34 by Lalitha Osorio MD) CHUNG (subconjunctival hemorrhage) (Acute) Nutritional assessment (Acute) Chronic right-sided heart failure (Chronic) Pulmonary hypertension (Chronic) IMMANUEL treated with BiPAP (Acute) CHF (congestive heart failure) (Chronic) Medical History Acute cholecystitis Acute on chronic right heart failure Atrial fibrillation Bilateral leg edema Bleeding from wound BMI 50.0-59.9, adult Cholelithiasis Elevated LFTs Erectile dysfunction Gout Hypertension Hypoxemia Peripheral neuropathy Prediabetes Psoriasis Respiratory failure Shoulder dislocation Surgical History Hx of cholecystectomy (~07/31/22) S/P exploratory laparotomy S/P right hemicolectomy Social History Smoking/Tobacco Use Status: Never Smoking risk assessment performed?: Yes Alcohol Intake: current Alcohol Intake frequency: a few times a week Alcohol type: beer Drug use: Never Substance use type: does not use Household members: none Housing: house Communication Needs: Hard of Hearing Pets and animals: No What type of physical activity do you participate in: independent ambulation Do you feel safe at home: Yes Do you feel safe in your relationship?: Yes Exam Narrative Exam Narrative: General: Alert, well appearing, well nourished, in no acute distress. Head: Normocephalic, atraumatic. Facial bones without tenderness. Neck: Trachea midline, Neck supple. Resp: No respiratory distress. Speaking in full sentences. Abd: Non-distended. Extremities: No deformities. No peripheral edema. Neurologic: GCS 15. Moves all extremities freely against gravity Detailed Eye Eye: PERRL EOM full and pain free. Visual elizabeth intact to confrontation bilaterally R: VA- 20/20 IOP- NM Lids/lashes- nml Conjuctiva-white Cornea: Clear L: VA- 20/40 IOP- 17.4 Lids/lashes- nml Conjuctiva-Large left subconjuctival hemorrhage from 1 oclock to 6 o'lock, limbic sparing. Cornea: Clear. No hyphema. Fluorscein: Negative Siedels. No corneal abrasion. No dendrites. Course Vital Signs Vital signs: Vital Signs Temperature 37 C 07/27/23 10:50 Pulse 58 L 07/27/23 10:50 Respiratory Rate 18 07/27/23 10:50 Blood Pressure 145/90 H 07/27/23 10:50 Pulse Oximetry 99 07/27/23 10:50 Temperature 37 C 07/27/23 10:50 Temperature Source Tympanic 07/27/23 10:50 Pulse 58 L 07/27/23 10:50 Respiratory Rate 18 07/27/23 10:50 Respiratory Effort Normal 07/27/23 10:56 Blood Pressure 145/90 H 07/27/23 10:50 Blood Pressure Position Sitting 07/27/23 10:50 Pulse Oximetry 99 07/27/23 10:50 Oxygen Delivery Method Room Air 07/27/23 10:50 Oxygen Flow Rate 0 07/27/23 10:50 Pain Level 3 07/27/23 10:50 PAWSS Have you Been Recently Intoxicated or Drunk Within the Last 30 days?: No Have you Ever Experienced Previous Episodes of Alcohol Withdrawal?: No Have you ever Experienced Withdrawal Seizures?: No Have you ever Experienced Delirium Tremens(DT)s?: No Have you ever undergone Alcohol Rehabilitation Treatment (i.e, inpt ot outpatient treatment programs)?: No Have you ever Experienced Blackouts?: No Have you ever Combined Alcohol with other Downers within the last 90 days?: No Have you ever Combined Alcohol with any other Substance of Abuse during the last 90 days?: No Positive Blood Alcohol level on Presentation? [PCS.BAL]: No Evidence of Increased Autonomic Activity (i.e. HR>120, tremor, sweating, agitation, nausea)?: No Result: 0
== END 2023-07-27 11:44 | disposition home or self-care (01) ==
PROVIDERS: Emergency Provider Student in an Organized Health Care Education/Training Program; PCP Nurse Practitioner Family
DX: H11.32 Conjunctival hemorrhage, left eye (principal); I11.0 Hypertensive heart disease with heart failure; I50.9 Heart failure, unspecified
CPT/HCPCS: 99282

== ENCOUNTER 2023-08-17 15:00 | Outpatient (REF) | payer MEDICARE, SELFPAY ==
[2023-08-17 16:16] LABS: Absolute Basophil Count 0.05 10^3/uL (0.0-0.2); Absolute Eosinophil Count 0.22 10^3/uL (0.0-0.7); Absolute Lymphocyte Count 1.13 10^3/uL (1.2-3.4); Absolute Monocyte Count 1.18 10^3/uL (0.1-0.8); Absolute Neutrophil Count 5.51 10^3/uL (1.2-6.7); Basophils % 0.6; Eosinophils % 2.7; HGB 13.6 g/dL (13.5-17.5); Immature Grans % 1.2; Lymphocytes % 13.8; MCHC 34.9 % (32.0-36.0); MCV 92 fL (80-95); MPV 11.6 fL (8.0-11.0); Monocytes % 14.4; Neutrophils % 67.3; Platelet Count 214 10^3/uL (130-400); RBC 4.25 10^6/uL (4.36-5.78); RDW 12.9 % (11.8-14.1); RDW-SD 42.4 fL; WBC 8.19 10^3/uL (4.4-10.8)
[2023-08-17 16:23] LABS: INR 2.1 (0.9-1.1)
[2023-08-17 17:26] LABS: Hemoglobin A1C 5.7 % (<5.7)
[2023-08-17 17:29] LABS: ALT 31 U/L (16-63); AST 22 U/L (15-37); Albumin 3.3 g/dL (3.4-5.0); Alkaline Phosphatase 95 U/L (46-116); Anion Gap 7.6 mmol/L (3-11); BUN 15 mg/dL (7-18); Bilirubin, Total 0.5 mg/dL (0.2-1.0); CO2 27.4 mmol/L (21.0-32.0); CREATININE 0.8 mg/dL (0.70-1.30); Calcium 9.4 mg/dL (8.5-10.1); Calculated LDL 72 mg/dL (<100); Chloride 105 mmol/L (98-107); Cholesterol 139 mg/dL (<200); Glucose 102 mg/dL (74-106); HDL Cholesterol 43 mg/dL (40-60); Potassium 3.9 mmol/L (3.5-5.1); Sodium 140 mmol/L (136-145); Total Protein 7.2 g/dL (6.4-8.2); Triglyceride 121 mg/dL (<150)
== END 2023-08-17 15:01 | disposition home or self-care (01) ==
LOC: NCHCN 15:00
PROVIDERS: PCP Nurse Practitioner Family; Visit Provider Nurse Practitioner Family
DX: I10 Essential (primary) hypertension (principal); R73.03 Prediabetes; Z79.01 Long term (current) use of anticoagulants
CPT/HCPCS: 80053; 80061; 83036; 85025; 85610

== ENCOUNTER → 2024-01-04 03:33 | Outpatient (CLI) | payer MEDICARE, SELFPAY ==
--- NOTE | 2024-01-04 12:30 | DI.US_ITS ---
APPROVED REPORT EXAM: Comprehensive 2D, Doppler, and color-flow Echocardiogram Patient Location: Out-Patient Emulsion Coater: Ana Gupta RDCS (AE) Indications: LV and RV function, CHF, A Fib, Chronic rt sided heart failure Other Information Study Quality: Fair. Technically limited study due to body habitus. Conclusion Technically difficult study Normal left ventricular wall thickness and chamber size. Ejection fraction is approximately 50% with global hypokinesis. Patient is in atrial fibrillation with [id number] variation that affects ass essment of systolic function Mildly dilated right ventricle Both atria are moderately enlarged Sclerotic aortic valve with trace regurgitation. There is mild aortic stenosis. Peak gradient is 2 9, mean 16 mmHg Estimated right ventricular systolic pressure is 39 mmHg Ascending aorta measures 4.16 cm Wall motion Left Ventricle The left ventricle is upper normal size. Left ventricular systolic function is borderline There is no rmal left ventricular wall thickness. There is global hypokinesis of the left ventricle. There is no ventricular septal defect visualized. LVEF is 50%. Right Ventricle Right ventricle is borderline dilated. Right ventricular systolic function is grossly normal. Atria Left atrium is moderately dilated. Right atrium is moderately dilated. The interatrial septum is inta ct with no evidence for an atrial septal defect. Aortic Valve The Aortic valve is sclerotic. Number of aortic valve leaflets could not be assessed. Mild aortic rain nosis. Peak aortic valve gradient is 29.11mmHg. Highest mean aortic valve gradient is 16.44mmHg. Calc ulated ALINE by the continuity equation is 1.6cm2. Trace aortic regurgitation. Mitral Valve The mitral valve is normal in structure. No evidence of mitral valve stenosis. Mild mitral regurgitat ion. Tricuspid Valve The tricuspid valve is normal in structure. There is no tricuspid valve stenosis. Mild tricuspid regu rgitation. The RVSP is 38.9_ mmHg. Pulmonic Valve Pulmonic valve is not well visualized. There is no pulmonic valvular stenosis. There is no pulmonic v alvular regurgitation. Great Vessels The aortic root is normal in size. The ascending aorta is moderately dilated. IVC is normal in size a nd collapses >50% with inspiration. Pericardium There is no pericardial effusion. 2D Dimensions IVSD d PLAX 1.00 cm M: 0.6-1.2 Ao Root d 3.33 cm M: 3.1 - 3.7 LVPW d PLAX 1.02 cm M: 0.6 - 1.2 Ao Asc Diam d 4.16 cm M: 2.6 - 3.4 LVID d PLAX 5.88 cm M: 4.2 - 5.8 LVDs 4.51 cm M: 2.5 - 4.0 LV EF Teichholz 45.9 % FS 23.29 % LV EDV (Teich) 172.2 mL LV ESV (Teich) 93.1 mL M-Mode TAPSE 1.98 cm (M/F) >1.7 LA Volume LA Length A4C 7.8 cm LA Length A2C 7.5 cm LA Area A4C s 37.48 cm2 LA Area A2C s 39.97 cm2 LA Vol A4C A-L 153.30 mL LA Vol A2C A-L 180.51 mL LA Vol Biplane A-L 169.3 mL LA Vol/BSA A4C A-L LA Vol/BSA A2C A-L LA Vol/BSA BP A-L 69.1 mL/m2 LA Vol A4C MOD 145.4 mL LA Vol A2C MOD 169.6 mL LA Vol BP MOD 159.7 mL RA Volume RA Area A4C 31.3 cm2 RA ESV A4C (A-L) 107.7mL RA Vol/BSA A4C A-L RA Length A4C 7.7 cm RA ESV A4C (MOD) 102.2mL LV Diastology MV E' medial 0.087 (>0.07 m/s) MV E Vmax 1.33 (0.4-1.3 m/s) MV E/E' MED 15.28 (<14) MV E' lateral 0.128 (>0.1 m/s) MV E/E' LAT 10.38 (<14) MV E' Average 0.108 m/s MV E/E'(average) 12.37 Aortic Valve AoV Vmax 2.70 m/s LVOT Vmax 1.02 m/s AoV Peak Grad 29.1 mmHg LVOT Peak Grad 4.2 mmHg AoV Area (Vmax) 1.34 cm2 LVOT VTI 0.267 m AoV VTI 0.581 m LVOT Mean Grad 3.0 mmHg AoV Mean Zi. 1.92 m/s LVOT SV 94.36 mL AoV Mean Grad 16.4 mmHg LVOT Diam s 2.10 cm AoV Area (VTI) 1.62 cm2 Velocity Ratio 0.38 Mitral Valve MV DT 217 (160-240 msec) MV Vmax TIPS 1.41 m/s MV Mean Grad 2.4 (<2mmHg) MV VTI 0.384 m Pulmonary Valve PV Vmax 0.92 (0.5-1.5 m/s) RVOT Vmax 0.84 m/s PV Peak Grad 3.4 mmHg RVOT Peak Gr. 2.8 mmHg PV Mean Zi 0.69 m/s RVOT VTI 0.211 m PV Mean Grad 2.1 mmHg RVOT Mean Gr. 1.8 mmHg Tricuspid Valve RA Pressure 3.00 mmHg TR Vmax 3.00 m/s TV S' 0.14 m/s TR Peak Grad 35.9 mmHg RVSP (TR) 38.9 mmHg
== END ==
PROVIDERS: PCP Nurse Practitioner Family; Visit Provider Internal Medicine Cardiovascular Disease
DX: I50.9 Heart failure, unspecified (principal); I48.91 Unspecified atrial fibrillation; I50.812 Chronic right heart failure
CPT/HCPCS: 93306

== ENCOUNTER → 2024-01-11 09:53 | Outpatient (BNVA) | payer MEDICARE, SELFPAY | PROVIDERS: PCP Nurse Practitioner Family; Visit Provider Internal Medicine Cardiovascular Disease | DX: I27.20 Pulmonary hypertension, unspecified (principal); I48.11 Longstanding persistent atrial fibrillation; I50.812 Chronic right heart failure; I10 Essential (primary) hypertension; G47.33 Obstructive sleep apnea (adult) (pediatric) | CPT/HCPCS: 99213 ==

== ENCOUNTER 2024-02-19 18:39 | Outpatient (REF) | payer MEDICARE, SELFPAY ==
[2024-02-19 20:06] LABS: Absolute Basophil Count 0.07 10^3/uL (0.0-0.2); Absolute Eosinophil Count 0.26 10^3/uL (0.0-0.7); Absolute Lymphocyte Count 1.29 10^3/uL (1.2-3.4); Absolute Monocyte Count 1.27 10^3/uL (0.1-0.8); Absolute Neutrophil Count 5.72 10^3/uL (1.2-6.7); Basophils % 0.8; HCT 40.2 % (40.0-50.0); Immature Grans % 1.1; Lymphocytes % 14.8; MCHC 34.8 % (32.0-36.0); MCV 92 fL (80-95); MPV 11.5 fL (8.0-11.0); Monocytes % 14.6; Neutrophils % 65.7; Platelet Count 225 10^3/uL (130-400); RBC 4.38 10^6/uL (4.36-5.78); RDW-SD 43.5 fL; WBC 8.71 10^3/uL (4.4-10.8)
[2024-02-19 20:18] LABS: ALT 32 U/L (16-63); AST 27 U/L (15-37); Albumin 3.3 g/dL (3.4-5.0); Alkaline Phosphatase 117 U/L (46-116); Anion Gap 7.5 mmol/L (3-11); BUN 12 mg/dL (7-18); Bilirubin, Total 0.5 mg/dL (0.2-1.0); CO2 30.5 mmol/L (21.0-32.0); CREATININE 0.7 mg/dL (0.70-1.30); Calcium 8.4 mg/dL (8.5-10.1); Chloride 105 mmol/L (98-107); Estimated GFR 99.12 (mL/min/1.73m2); Glucose 104 mg/dL (74-106); Potassium 4.2 mmol/L (3.5-5.1); Sodium 143 mmol/L (136-145); Total Protein 6.7 g/dL (6.4-8.2)
[2024-02-19 20:19] LABS: INR 2.9 (0.9-1.1); Prothrombin Time 26.8 sec (9.1-11.1)
[2024-02-19 20:58] LABS: Hemoglobin A1C 5.7 % (<5.7)
== END 2024-02-19 18:40 | disposition home or self-care (01) ==
LOC: NCHCN 18:39
PROVIDERS: PCP Nurse Practitioner Family; Visit Provider Nurse Practitioner Family
DX: R73.03 Prediabetes (principal); I10 Essential (primary) hypertension; I50.9 Heart failure, unspecified; Z79.01 Long term (current) use of anticoagulants
CPT/HCPCS: 80053; 83036; 85025; 85610

== ENCOUNTER 2024-05-31 02:05 | Outpatient (CLI) | payer MEDICARE, SELFPAY ==
[2024-05-31] MEDS: Levalbuterol HFA 15 GM INH 4 PUFF IH (11:14)
[2024-05-31] MEDS: Inhaler, Assist Device 1 EACH MC (11:14)
--- NOTE | 2024-06-03 14:21 | W.PFT ---
Date of service: 05/31/24 Time of Service: 10:00 Pulmonary Function Test Result Requesting Provider Becky Mcneal Indications: MCGINNIS Impression Spirometry shows normal FEV1/FVC but decreased FEV1 and FVC. Lungs volumes shows moderate restriction and w/ normal diffusion. Flow volume curve suggests restriction. Clinical Correlation therefore is recommended.
== END 2024-05-31 02:06 | disposition home or self-care (01) ==
LOC: RT 02:07
PROVIDERS: Visit Provider Nurse Practitioner Family
DX: R06.09 Other forms of dyspnea (principal)
CPT/HCPCS: 00123; 94060; 94726; 94729

== ENCOUNTER 2024-06-25 01:15 | Outpatient (CLI) | payer MEDICARE, SELFPAY ==
--- NOTE | 2024-06-25 | DI.CT_ITS ---
Exam(s) CT CHEST WO EXAM: CT CHEST WO CLINICAL HISTORY: EXPOSURE TO CHEM POLLUTION, OCCUPATIONAL Z57.5 TECHNIQUE: Imaging Protocol: Axial computed tomography images with coronal and sagittal reformatted images were created and reviewed CONTRAST MATERIAL: Intravenous: Omnipaque 350 Contrast volume:structured data ml. COMPARISON: CR XR CHEST 2V PA LATERAL from 10/24/2022 FINDINGS: Pulmonary parenchyma: No consolidation. No dominant measurable mass. Scattered calcified granulomas. No emphysematous or fibrotic changes. No ground-glass opacities. Tracheobronchial tree: No bronchiectasis or mucous plugging. Mediastinum and Gillian: No dominant adenopathy or fluid collection. Pleura: No effusion. No pneumothorax. Heart: The heart is moderately dilated. Moderate to severe coronary artery calcifications are seen. Mitral annular calcification. Aorta: Thoracic aorta non-dilated. Mild to moderate atherosclerotic changes. Pulmonary arteries: No gross evidence of emboli. Upper abdomen: No acute findings. Status post cholecystectomy. Bones: Degenerative changes in the spine, with prominent endplate osteophytes consistent with DISH. . Soft tissues: Unremarkable. IMPRESSION: No acute abnormality. RADIATION DOSE DELIVERED: Total DLP DATA REPOSITORY: All CT scans at this facility are submitted to the National Radiology Data Registry (NRDR) Dose Index Registry (DIR) with the [employer] (A[employer]). RADIATION OPTIMIZATION: All CT scans at this facility use at least one of these dose optimization te chniques: automated exposure control; mA and/or kV adjustment per patient size (includes targeted exa ms where dose is matched to clinical indication); or iterative reconstruction.
== END 2024-06-25 01:35 ==
LOC: DI 01:15
PROVIDERS: Visit Provider Nurse Practitioner Family
DX: Z57.5 Occupational exposure to toxic agents in other industries (principal); I25.84 Coronary atherosclerosis due to calcified coronary lesion
CPT/HCPCS: 71250

== ENCOUNTER 2024-10-22 12:10 | Outpatient (CLI) | payer MEDICARE, SELFPAY ==
[2024-10-22 12:26] LABS: Abs Immature Grans 0.09 10^3/uL (0.0-0.06); Absolute Basophil Count 0.04 10^3/uL (0.0-0.2); Absolute Eosinophil Count 0.35 10^3/uL (0.0-0.7); Absolute Lymphocyte Count 1.41 10^3/uL (1.2-3.4); Absolute Monocyte Count 1.33 10^3/uL (0.1-0.8); Absolute Neutrophil Count 6.97 10^3/uL (1.2-6.7); Basophils % 0.4 %; Eosinophils % 3.4 %; HCT 40.7 % (40.0-50.0); Immature Grans % 0.9 %; Lymphocytes % 13.8 %; MCH 31.9 pg (27.0-33.0); MCHC 34.4 % (32.0-36.0); MCV 93 fL (80-95); MPV 10.5 fL (8.0-11.0); Monocytes % 13.1 %; Neutrophils % 68.4 %; Platelet Count 221 10^3/uL (130-400); RBC 4.39 10^6/uL (4.36-5.78); RDW-SD 43.8 fL; WBC 10.19 10^3/uL (4.4-10.8)
[2024-10-22 13:20] LABS: ALT 25 U/L (16-63); AST 27 U/L (15-37); Albumin 3.4 g/dL (3.4-5.0); Alkaline Phosphatase 102 U/L (46-116); Anion Gap 7.9 mmol/L (3-11); BUN 22 mg/dL (7-18); Bilirubin, Total 0.65 mg/dL (0.2-1.0); CO2 29.1 mmol/L (21.0-32.0); CREATININE 0.9 mg/dL (0.70-1.30); Calcium 9.2 mg/dL (8.5-10.1); Calculated LDL 87 mg/dL (<100); Chloride 104 mmol/L (98-107); Cholesterol 163 mg/dL (<200); Estimated GFR 91.88 (mL/min/1.73m2); Glucose 108 mg/dL (74-106); HDL Cholesterol 51 mg/dL (40-60); Potassium 4.2 mmol/L (3.5-5.1); Sodium 141 mmol/L (136-145); Total Protein 7.5 g/dL (6.4-8.2); Triglyceride 128 mg/dL (<150)
[2024-10-22 14:55] LABS: INR 2.9 (0.9-1.1); Prothrombin Time 26.3 sec (9.1-11.1)
[2024-10-22 15:01] LABS: Hemoglobin A1C 5.5 % (<5.7)
== END 2024-10-22 12:11 | disposition home or self-care (01) ==
LOC: LBO 12:10
PROVIDERS: PCP Nurse Practitioner Family; Visit Provider Nurse Practitioner Family
DX: I10 Essential (primary) hypertension (principal); R73.03 Prediabetes; I48.0 Paroxysmal atrial fibrillation
CPT/HCPCS: 36415; 80053; 80061; 83036; 85025; 85610

== ENCOUNTER 2025-01-09 08:06 | Outpatient (CLI) | payer MEDICARE, SELFPAY ==
--- NOTE | 2025-01-09 08:00 | RT.EKG_ITS ---
APPROVED REPORT Exam: Resting ECG Reason for Exam: afib Patient Location: O HR:46 bpm ECG Measurements Heart Rate 46 AXIS AR [id number] P [id number] QRSd 110 QRS 33 QT 475 T 24 QTc 416 Conclusion Atrial fibrillation... Otherwise unremarkable
== END 2025-01-09 08:07 | disposition home or self-care (01) ==
LOC: DI.CARD 08:06
PROVIDERS: PCP Nurse Practitioner Family; Visit Provider Internal Medicine Cardiovascular Disease
DX: I48.11 Longstanding persistent atrial fibrillation (principal)
CPT/HCPCS: 93010

== ENCOUNTER → 2025-01-09 09:46 | Outpatient (BNVA) | payer MEDICARE, SELFPAY | PROVIDERS: PCP Nurse Practitioner Family; Visit Provider Internal Medicine Cardiovascular Disease | DX: I48.11 Longstanding persistent atrial fibrillation (principal); I50.812 Chronic right heart failure; G47.33 Obstructive sleep apnea (adult) (pediatric) | CPT/HCPCS: 93005; 99214 ==

== ENCOUNTER 2025-01-23 18:22 | Emergency (ER) | payer MEDICARE, SELFPAY ==
[2025-01-23] VITALS (31 sets, daily range): BP systolic 128–165; BP diastolic 57–91; PULSE 53–82; RESP 13–29; TEMP 37.2; O2SAT 91–100
--- NOTE | 2025-01-23 18:15 | RT.EKG_ITS ---
APPROVED REPORT Exam: Resting ECG Reason for Exam: chest pain Patient Location: E HR:66 bpm ECG Measurements Heart Rate 66 AXIS MI [id number] P [id number] QRSd 138 QRS 39 QT 426 T 39 QTc 446 Conclusion Atrial fibrillation 66 RBBB no stemi
--- NOTE | 2025-01-23 18:45 | DI.CT_ITS ---
Exam(s) CT CHEST PE CTA EXAM: CT CHEST PE CTA CLINICAL HISTORY: chest pain, pleuritic. TECHNIQUE: Imaging Protocol: Axial CT angiography was performed with multi-slice acquisition and mu lti-planar reconstructions as well as axial, coronal and sagittal MIP reconstructions. Computer aided detection (CAD) was utilized. CONTRAST MATERIAL: Intravenous: Omnipaque 350 Contrast volume:90 mL COMPARISON: CR XR CHEST 2V PA LATERAL from 10/24/[address] CHEST WO from 06/25/2024 FINDINGS: Pulmonary Arteries: No evidence of filling defect to suggest pulmonary emboli. Mediastinum and Gillian: No dominant adenopathy or fluid collection. Pulmonary parenchyma: No consolidation or dominant measurable mass. Pleura: No effusion or pneumothorax. Heart: The heart is moderately dilated. Mitral annular calcification. Moderate coronary artery calc ifications are seen. Aorta: Thoracic aorta non-dilated. No dissection. Upper abdomen: No acute findings. Enlarged fatty liver. Cholecystectomy. Bones: Prominent endplate osteophytes in the thoracic spine. Tubes, Catheters, and Lines: None Soft tissues: Unremarkable. IMPRESSION: No evidence of pulmonary embolism or other acute abnormality. RADIATION DOSE DELIVERED: 399.14mGy.cm Total DLP DATA REPOSITORY: All CT scans at this facility are submitted to the National Radiology Data Registry (NRDR) Dose Index Registry (DIR) with the [employer] (ACR). RADIATION OPTIMIZATION: All CT scans at this facility use at least one of these dose optimization te chniques: automated exposure control; mA and/or kV adjustment per patient size (includes targeted exa ms where dose is matched to clinical indication); or iterative reconstruction.
[2025-01-23 19:14] LABS: Abs Immature Grans 0.07 10^3/uL (0.0-0.06); Absolute Basophil Count 0.04 10^3/uL (0.0-0.2); Absolute Eosinophil Count 0.13 10^3/uL (0.0-0.7); Absolute Monocyte Count 1.74 10^3/uL (0.1-0.8); Absolute Neutrophil Count 6.87 10^3/uL (1.2-6.7); Basophils % 0.4 %; Eosinophils % 1.3 %; HCT 38.5 % (40.0-50.0); HGB 13.3 g/dL (13.5-17.5); Immature Grans % 0.7 %; Lymphocytes % 11.9 %; MCH 31.8 pg (27.0-33.0); MCHC 34.5 % (32.0-36.0); MCV 92 fL (80-95); MPV 10.7 fL (8.0-11.0); Monocytes % 17.3 %; Neutrophils % 68.4 %; Platelet Count 201 10^3/uL (130-400); RBC 4.18 10^6/uL (4.36-5.78); RDW 12.6 % (11.8-14.1); RDW-SD 42.3 fL; WBC 10.05 10^3/uL (4.4-10.8)
[2025-01-23 19:18] LABS: ESR 25 mm/hr (0-20)
[2025-01-23 19:26] LABS: INR 2.9 (0.9-1.1); Prothrombin Time 26.9 sec (9.1-11.1)
[2025-01-23 19:34] LABS: Lipase 28 U/L (<78)
[2025-01-23 19:35] LABS: Diff Comment Agrees w/ Instrument; RBC Morphology Normal
--- NOTE | 2025-01-23 19:45 | RT.EKG_ITS ---
APPROVED REPORT Exam: Resting ECG Reason for Exam: chest pain Patient Location: E HR:66 bpm ECG Measurements Heart Rate 66 AXIS WV [id number] P [id number] QRSd 168 QRS 41 QT 455 T 29 QTc 478 Conclusion Atrial fibrillation 66 RBBB no stemi
[2025-01-23 19:46] LABS: ALT 27 U/L (16-63); AST 16 U/L (15-37); Albumin 3.1 g/dL (3.4-5.0); Alkaline Phosphatase 105 U/L (46-116); Anion Gap 6.4 mmol/L (3-11); BUN 17 mg/dL (7-18); Bilirubin, Total 0.6 mg/dL (0.2-1.0); CO2 29.6 mmol/L (21.0-32.0); CREATININE 0.7 mg/dL (0.70-1.30); Calcium 9.2 mg/dL (8.5-10.1); Chloride 105 mmol/L (98-107); Estimated GFR 99.12 (mL/min/1.73m2); Glucose 108 mg/dL (74-106); NT-proBNP 754 pg/mL (<300); Potassium 3.8 mmol/L (3.5-5.1); Sodium 141 mmol/L (136-145); Total Protein 6.8 g/dL (6.4-8.2); Troponin I 13 ng/L (<or=76)
[2025-01-23] MEDS: Omnipaque 350 MG/ML 100 ML BTL IJ (19:49)
[2025-01-23] MEDS: Normal Saline - Diluent 50 ML VIAL IJ (19:50)
[2025-01-23 19:52] LABS: COVID-19 PCR Negative (Negative); Influenza A PCR Negative (Negative); Influenza B PCR Negative (Negative); RSV PCR Negative (Negative); Source Nasopharynx
--- NOTE | 2025-01-23 20:09 | NUR.NOTE ---
Nursing Note: pt was at CT, and during the scan he began to get extremely nauseated and after the dye was infused he felt hot on his neck and began to vomit clear liquid. ED Provider made aware, pt medicated per order. the pt was back into room 3, placed on monitor, he stated that he was feeling better, but would like to sit up with his legs over the side of the bed.
[2025-01-23 20:11] LABS: Troponin I 14 ng/L (<or=76)
[2025-01-23] MEDS: Prochlorperazine 10 MG/2 ML VIAL 5 MG IVP (20:13)
--- NOTE | 2025-01-23 20:31 | DI.VRAD_ITS ---
PROCEDURE INFORMATION: Exam: CTA Chest With Contrast Exam date and time: 01/23/2025 19:50 Age: 69 years old Clinical indication: Pleuordynia; Pleuritic chest pain TECHNIQUE: Imaging protocol: Computed tomographic angiography of the chest with contrast. Exam focused on the arteries. 3D rendering (Not supervised by radiologist): MIP and/or 3D reconstructed images were created by the technologist. COMPARISON: CT CHEST PE ABD PELVIS W 07/28/2022 17:07 FINDINGS: Pulmonary arteries: No pulmonary emboli. Aorta: No aortic aneurysm. Study not timed to optimally assess the aorta for dissection. Lungs: There are benign, calcified pulmonary granulomas. Scattered microatelectasis. No airspace consolidation. Favor minor chronic scarring left upper lobe, similar to prior. Pleural spaces: No pneumothorax. No pleural effusion. Heart: Moderate cardiomegaly, similar to prior. Lymph nodes: No enlarged lymph nodes. Gallbladder and biliary ducts: Cholecystectomy. Bones/joints: Chronic bony changes with no acute fracture. Soft tissues: Prominent subcutaneous fat. IMPRESSION: No pulmonary emboli are seen. Chronic findings as above. Dictated and Authenticated by: Araceli Mason MD. Orderin Columba Arnold MD
[2025-01-23] MEDS: Prochlorperazine 10 MG TAB PO (21:17)
--- NOTE | 2025-01-23 22:21 | ED.GENADUL_ITS ---
Discharge Plan Disposition Patient Disposition: Home Condition: Stable Discharge Details Clinical Impression: Chest pain Primary Care Provider: Becky Mcneal ED Provider: Catalina Waterman Home Meds and New Rx's Prescriptions: Continued warfarin 3 mg tablet 5 mg PO DAILY Patient Comments: 01/11/24 pt states managed by PCP, he doesn't know dosing EH amlodipine 10 mg tablet 20 mg PO DAILY furosemide 40 mg tablet 80 mg PO DAILY allopurinol 300 MG tablet 300 mg PO DAILY atenolol 50 mg tablet 100 mg PO DAILY nystatin 100,000 unit/gram Powder 1 applic topical BID Qty: 60 5RF Discharge Instructions Instructions: Chest Pain (DC) Additional Instructions: Take Tylenol as needed for discomfort You may take Compazine as needed for nausea and vomiting Return should you develop any worsening chest pain, fever, chills, or should any new concerns arise CAT scan and blood work are reassuring I recommend an outpatient stress test, please talk to your doctor about ordering this study Referrals: Becky Mcenal [Primary Care Provider] - 1 day HPI General Date/Time Provider Initiated Documentation: 01/23/25 18:27 . HPI Narrative: This 69-year-old male with history of chronic right heart failure pulmonary hypertension presents with report of chest pain which she describes as pleuritic in nature. Denies history of similar symptoms in the past. Denies any new swelling to his lower extremities or shortness of breath. States he has not had any chest pain with exertion. He denies known trauma to the affected area or history of PE. He has history of atrial fibrillation has been taking his Coumadin as prescribed. He does state he has a known history of murmur. Related Data Home Medications ?Medication ?Instructions ?Recorded ?Confirmed allopurinol 300 mg tablet 300 mg PO DAILY 08/18/14 01/23/25 amlodipine 10 mg tablet 20 mg PO DAILY 01/02/20 01/23/25 furosemide 40 mg tablet 80 mg PO DAILY 01/02/20 01/23/25 nystatin 100,000 unit/gram topical 1 applic topical BID #60 grams 05/16/22 01/23/25 powder warfarin 3 mg tablet 5 mg PO DAILY 01/11/24 01/23/25 atenolol 50 mg tablet 100 mg PO DAILY 01/23/25 01/23/25 Previous Rx's ?Medication ?Instructions ?Recorded nystatin 100,000 unit/gram topical 1 applic topical BID #60 grams 05/16/22 powder Allergies Allergy/AdvReac Type Severity Reaction Status Date / Time onion Allergy Severe Swelling/Ed Verified 01/23/25 19:11 octavia ampicillin Allergy Unknown rash,bliste Verified 01/23/25 19:11 rs lisinopril AdvReac Unknown cough Verified 01/23/25 19:11 losartan (Losartan) AdvReac Unknown leg cramps Verified 01/23/25 19:11 General Stated Complaint: Chest Pain SUE: 3 Exam Narrative Exam Narrative: Alert and oriented 69-year-old male in no acute distress, reproducible tenderness in the sternal region without crepitus lungs clear to auscultation murmur noted no abdominal tenderness alert and oriented x 41+ edema to bilateral lower extremities Course Vital Signs Vital signs: Vital Signs Temperature 37.2 C 01/23/25 18:30 Pulse 69 01/23/25 18:30 Respiratory Rate 22 01/23/25 18:30 Blood Pressure 165/91 H 01/23/25 18:30 Pulse Oximetry 95 01/23/25 18:30 Temperature 37.2 C 01/23/25 18:30 Temperature Source Oral 01/23/25 18:30 Pulse 63 01/23/25 20:50 Respiratory Rate 13 01/23/25 20:50 Respiratory Effort Normal, Non-Labored 01/23/25 19:13 Respiratory Depth Normal 01/23/25 19:13 Respiratory Pattern Normal 01/23/25 19:13 Blood Pressure 134/65 01/23/25 20:46 Pulse Oximetry 93 01/23/25 20:50 Lab/Test Results Lab/Test Results: Laboratory Tests Range/Units 01/23/25 01/23/25 01/23/25 19:02 19:47 21:52 WBC (4.4-10.8) 10^3/uL 10.05 RBC (4.36-5.78) 10^6/uL 4.18 L Hgb (13.5-17.5) g/dL 13.3 L Hct (40.0-50.0) % 38.5 L MCV (80-95) fL 92 MCH (27.0-33.0) pg 31.8 MCHC (32.0-36.0) % 34.5 RDW (11.8-14.1) % 12.6 Plt Count (130-400) 10^3/uL 201 MPV (8.0-11.0) fL 10.7 Immature Gran % % 0.7 Neutrophils % % 68.4 Lymphocytes % % 11.9 Monocytes % % 17.3 Eosinophils % % 1.3 Basophils % % 0.4 Nucleated RBC % (0.0-0.3) % 0.0 Absolute Neutrophils (1.2-6.7) 10^3/uL 6.87 H Absolute Lymphocytes (1.2-3.4) 10^3/uL 1.20 Absolute Monocytes (0.1-0.8) 10^3/uL 1.74 H Absolute Eosinophils (0.0-0.7) 10^3/uL 0.13 Absolute Basophils (0.0-0.2) 10^3/uL 0.04 RBC Morphology Normal ESR (0-20) mm/hr 25 H PT (9.1-11.1) sec 26.9 H INR (0.9-1.1) 2.9 H Sodium (136-145) mmol/L 141 Potassium (3.5-5.1) mmol/L 3.8 Chloride (98-107) mmol/L 105 Carbon Dioxide (21.0-32.0) mmol/L 29.6 Anion Gap (3-11) mmol/L 6.4 BUN (7-18) mg/dL 17 Creatinine (0.70-1.30) mg/dL 0.7 Est GFR (CKD-EPI 2020) (mL/min/1.73m2) 99.12 Glucose (74-106) mg/dL 108 H Calcium (8.5-10.1) mg/dL 9.2 Total Bilirubin (0.2-1.0) mg/dL 0.6 AST (15-37) U/L 16 ALT (16-63) U/L 27 Alkaline Phosphatase (46-116) U/L 105 Troponin I (<or=76) ng/L 13 14 Cancelled NT-Pro-B Natriuret Pep (<300) pg/mL 754 H Total Protein (6.4-8.2) g/dL 6.8 Albumin (3.4-5.0) g/dL 3.1 L Lipase (<78) U/L 28 COVID-19 Source Nasopharynx SARS-CoV-2 (PCR) (Negative) Negative Influenza Type A (PCR) (Negative) Negative Influenza Type B (PCR) (Negative) Negative RSV (PCR) (Negative) Negative Medical Decision Making 6-year-old male presenting with pleuritic chest pain which started this morning. Denies history of PE takes Coumadin for atrial fibrillation INR 2.9. CTA was ordered given age and medical comorbidities and does not show evidence of acute abnormality per radiology interpretation my review. Diagnostic labs including 2 troponins are reassuring, first troponin 13-second 14. EKG does show change, patient has a new right bundle branch block but he is not having typical chest pain and low suspicion clinically for cardiac etiology of symptoms. At time of reassessment patient is completely asymptomatic. He did immediately after contrast was pushed had an episode of nausea and vomiting but this resolved with 5 mg of Compazine and on reassessment patient does not display any evidence of anaphylaxis or allergic reaction and states his pain has completely resolved. This male has not had stress test in the past I think he would benefit from having a nuc med stress test given his medical comorbidities he has had echocardiograms which do not show significant pathology. He does have a preserved ejection fraction of 50% he is given the threshold to return should he have new or worsening complaints discharged home in stable condition with stable vitals. Did consider pericarditis however patient has a normal sed rate does not have a new murmur and EKG without obvious evidence of pericarditis. Quality:SDOH Health Related Social Needs: No Data to Display PFSH All Active Problems (Updated 01/23/25 @ 21:13 by CITLALI Dia) Chest pain (Acute) Nutritional assessment (Acute) Chronic right-sided heart failure (Chronic) Pulmonary hypertension (Chronic) IMMANUEL treated with BiPAP (Acute) CHF (congestive heart failure) (Chronic) Medical History Acute cholecystitis Acute on chronic right heart failure Respiratory failure Hypoxemia Cholelithiasis Elevated LFTs Bleeding from wound Psoriasis Erectile dysfunction Atrial fibrillation Gout BMI 50.0-59.9, adult Hypertension Bilateral leg edema Peripheral neuropathy Prediabetes Shoulder dislocation Surgical History Hx of cholecystectomy (~07/31/22) S/P exploratory laparotomy S/P right hemicolectomy Social History Smoking/Tobacco Use Status: Never Smoking risk assessment performed?: Yes Alcohol Intake: current Alcohol Intake frequency: a few times a week Alcohol type: beer Drug use: Never Substance use type: does not use Household members: none Housing: house Communication Needs: Hard of Hearing Pets and animals: No What type of physical activity do you participate in: independent ambulation Do you feel safe at home: Yes Do you feel safe in your relationship?: Yes
== END 2025-01-23 21:31 | disposition home or self-care (01) ==
LOC: ER 21:27
PROVIDERS: Emergency Provider Physician Assistant; PCP Nurse Practitioner Family
DX: R07.9 Chest pain, unspecified (principal); R06.02 Shortness of breath; I11.0 Hypertensive heart disease with heart failure; I50.813 Acute on chronic right heart failure; I27.81 Cor pulmonale (chronic); I48.91 Unspecified atrial fibrillation; Z79.01 Long term (current) use of anticoagulants
CPT/HCPCS: 36415; 71275; 80053; 83690; 85652; 87637; 93005; 96374; 99285; 83880; 84484; 85025; 85610; 93010; 99284; J0780; J3490

== ENCOUNTER 2025-02-10 01:50 | Outpatient (CLI) | payer MEDICARE, SELFPAY ==
--- NOTE | 2025-02-10 08:30 | DI.US_ITS ---
APPROVED REPORT EXAM: Comprehensive 2D, Doppler, and color-flow Echocardiogram Patient Location: Out-Patient [employer] Worker: Mike George RDCS (AE) Indications: CHF; check LV function and aortic valve Other Information Study Quality: Technically Limited. Technically limited study due to body habitus. Conclusion Technically difficult and suboptimal study Mild concentric left ventricular hypertrophy. Ejection fraction is 50 to 55%. There are no segmenta l wall motion abnormalities Mildly dilated and hypocontractile right ventricle Both atria are moderately enlarged Aortic valve is sclerotic and trileaflet. There is mild aortic stenosis with a peak gradient of 21, mean of 12. There is trace aortic regurgitation Mitral annular calcification. Thickened mitral leaflets. Trace to mild mitral regurgitation Mild to moderate tricuspid regurgitation with an estimated right ventricular systolic pressure of 45 mmHg Ascending aorta measures 4.13 cm Wall motion Left Ventricle The left ventricle is normal size. Left ventricular systolic function is borderline. Mild concentric left ventricular hypertrophy No segmental wall motion abnormalities There is no ventricular septal de fect visualized. LVEF is 50-55%. Right Ventricle Right ventricle is mildly dilated. Right ventricle is mildly hypokinetic. Atria Left atrium is moderately dilated. Right atrium is moderately dilated. The interatrial septum is inta ct with no evidence for an atrial septal defect. Aortic Valve The aortic valve is sclerotic. Aortic valve is trileaflet. Mild aortic stenosis. Trace aortic regurgi tation. Mitral Valve Mitral valve leaflets are mildly thickened. Mitral annular calcification. No evidence of mitral valve stenosis. Trace to mild mitral regurgitation. Tricuspid Valve The tricuspid valve is normal in structure. There is no tricuspid valve stenosis. Mild to moderate tr icuspid regurgitation. The RVSP is 45 mmHg. Pulmonic Valve The pulmonary valve is normal in structure. There is no pulmonic valvular stenosis. There is no pulmo stef valvular regurgitation. Great Vessels The aortic root is normal in size. The ascending aorta is moderately dilated. Aortic arch is not well visualized. IVC is normal in size and collapses >50% with inspiration. Pericardium There is no pericardial effusion. 2D Dimensions IVSD d PLAX 1.19 cm M: 0.6-1.2 Ao Root d 2.19 cm M: 3.1 - 3.7 LVPW d PLAX 1.17 cm M: 0.6 - 1.2 Ao Asc Diam d 4.13 cm M: 2.6 - 3.4 LVID d PLAX 6.10 cm M: 4.2 - 5.8 LVDs 4.52 cm M: 2.5 - 4.0 LV EF Teichholz 49.9 % FS 25.84 % LV EDV (Teich) 186.6 mL LV ESV (Teich) 93.4 mL Stroke Vol Index (Teich) 37.28 M-Mode TAPSE 1.78 cm (M/F) >1.7 Auto EF LV EDV A4C 149.0 mL LV EDV A2C 203.0 mL LV EDV BP 175.8 mL LV ESV A4C 74.3 mL LV ESV A2C 102.2 mL LV ESV BP 88.1 mL LVEF(%) A4C 50.1 % LVEF(%) A2C 49.7 % LVEF(%) BP 49.9 % LV SV A4C 74.7 ml LV SV A2C 100.9 ml LV SV BP 87.7 ml LV CO A4C 3.1 L/min LV CO A2C 3.3 L/min LV CO BP 3.2 L/min HR A4C 41.52 BPM HR A2C 32.35 BPM LV EDV Index (BP) LA Volume LA Length A4C 7.5 cm LA Length A2C 7.5 cm LA Area A4C s 34.56 cm2 LA Area A2C s 33.84 cm2 LA Vol A4C A-L 134.33 mL LA Vol A2C A-L 128.97 mL LA Vol Biplane A-L 131.7 mL LA Vol/BSA A4C A-L LA Vol/BSA A2C A-L LA Vol/BSA BP A-L 52.7 mL/m2 LA Vol A4C MOD 125.0 mL LA Vol A2C MOD 123.2 mL LA Vol BP MOD 123.2 mL RA Volume RA Area A4C 26.5 cm2 RA ESV A4C (A-L) 93.6mL RA Vol/BSA A4C A-L RA Length A4C 6.4 cm RA ESV A4C (MOD) 85.5mL LV Diastology MV E' medial 0.086 (>0.07 m/s) MV E Vmax 1.41 (0.4-1.3 m/s) MV E/E' MED 16.36 (<14) MV E' lateral 0.096 (>0.1 m/s) MV E/E' LAT 14.80 (<14) MV E' Average 0.091 m/s MV E/E'(average) 15.54 Aortic Valve AoV Vmax 2.45 m/s LVOT Vmax 0.79 m/s AoV Peak Grad 24.1 mmHg LVOT Peak Grad 2.5 mmHg AoV Area (Vmax) 0.72 cm2 LVOT VTI 0.220 m AoV VTI 0.641 m LVOT Mean Grad 1.4 mmHg AoV Mean Zi. 1.66 m/s LVOT SV 49.42 mL AoV Mean Grad 12.5 mmHg LVOT Diam s 1.65 cm AoV Area (VTI) 0.77 cm2 AV Regurg Peak Gr. 24.05 mmHg Velocity Ratio 0.32 Mitral Valve MV DT 186 (160-240 msec) MV Vmax TIPS 1.47 m/s MV Mean Grad 2.3 (<2mmHg) MV VTI 0.435 m Pulmonary Valve PV Vmax 0.76 (0.5-1.5 m/s) PV Peak Grad 2.3 mmHg PV Mean Zi 0.55 m/s PV Mean Grad 1.4 mmHg Tricuspid Valve RA Pressure 3.00 mmHg TR Vmax 3.22 m/s TV S' 0.09 m/s TR Peak Grad 41.4 mmHg RVSP (TR) 44.5 mmHg
== END 2025-02-10 02:10 ==
LOC: DI 01:50
PROVIDERS: PCP Nurse Practitioner Family; Visit Provider Internal Medicine Cardiovascular Disease
DX: I50.9 Heart failure, unspecified (principal); I08.3 Combined rheumatic disorders of mitral, aortic and tricuspid valves
CPT/HCPCS: 93306

== ENCOUNTER 2025-02-20 00:23 | Outpatient (CLI) | payer MEDICARE, SELFPAY ==
--- NOTE | 2025-02-20 | DI.NM_ITS ---
APPROVED REPORT Exam: Pharmacologic Patient Location: Out-Patient Room/Bed: Stress Nurse: Dolores Thibodeaux RN Ordering Provider:BASSAM STORM, Contact Number: [phone] BMI: 44.88 Baseline Rhythm: Atrial Fibrillation Indications: Other chest pain, hx R sided HF, permanent a fib Medical History Medical History: Chronic R sided heart failure, pulmonary HTN, IMMANUEL (treated with BIPAP), CHF, prediab etes, bilateral LE edema Cardiac Medications: Allopurinol, amlodipine, atenolol, furosemide, warfarin Allergies: Onion, ampicillin, lisinopril, losartan Cardiac Risk Factors: Diabetes, HTN, obesity Previous Cardiac Procedures: None Pretest Chest Pain Characteristics: None Exercise History: Sedentary Physical Disabilities: Back pain Lung Sounds: Diminished throughout Heart Sounds: Irregular Stress Test Details Test: Pharmacologic stress testing performed using 0.4 mg of regadenoson per 5 mL given IV over 10 s econds. Reason for pharmacologic stress test: physical limitation. Nuclear Acquisition: Rest Tc-99m/Stress Tc-99m 1 day Rest Isotope: Tc-99m Sestamibi. Dose: 15.0 Date: 02/20/2025 Injection Time: 0830 Stress Isotope: Tc-99m Sestamibi. Dose: 45.0 Date: 02/20/2025 Injection Time: 1012 HR Resting HR Supine: 47 bpm Max Heart Rate (APMHR): 149 bpm Target HR (85% APMHR): 127 bpm Max HR Achieved: 71 bpm % of APMHR: 48 Recovery HR: 87 bpm BP Resting BP Supine: 142/70 mmHg Max BP: 145/68 mmHg Recovery BP: 138/66 mmHg ECG Resting ECG: Atrial Fibrillation Ectopy: Rarel PVC's Stress ECG: Atrial Fibrillation ST Change: Nondiagnostic low heart rate Arrhythmia: Rare PVC's Recovery ECG: Atrial Fibrillation Recovery ST Change: Nondiagnostic low heart rate Clinical Stress Symptoms: Mild SOB Angina Score: None Rate Pressure Product: [id number] Stress ECG Conclusion 1. Resting electrocardiogram showed poor R wave progression 2. Patient underwent testing using pharmacologic stress with regadenoson 3. Peak heart rate achieved was 48% of maximal predicted for age 4. Electrocardiographic portion of the test was nondiagnostic 5. Atrial fibrillation was present throughout 6. See MPI report Stress Test Summary STAGE HR BP SpO2 Symptoms NOTES Supine 47 142/70 93% 1 min post Lexiscan injection 70 145/68 94% 3 min post Lexiscan injection 58 138/80 96% 6 min post Lexiscan injection 87 138/66 97% All symptoms resolved. Patient proceeded to imaging ambulatory in no apparent distress. MPI Conclusion Myocardial perfusion is normal. There is no ischemia or evidence of prior infarction Ejection fraction is 53% with normal wall motion
[2025-02-20] MEDS: Regadenoson 0.4 MG/5 ML SYR IVP (11:19)
== END 2025-02-20 00:43 ==
LOC: DI 00:23
PROVIDERS: PCP Nurse Practitioner Family; Visit Provider Internal Medicine Cardiovascular Disease
DX: R07.89 Other chest pain (principal); I48.0 Paroxysmal atrial fibrillation
CPT/HCPCS: 78452; 93016; 93018; 93017; J2785

== ENCOUNTER 2025-06-30 07:57 | Emergency (ER) | payer MEDICARE, SELFPAY ==
[2025-06-30] VITALS (77 sets, daily range): BP systolic 122–182; BP diastolic 43–121; PULSE 41–66; RESP 13–29; TEMP 36.7; O2SAT 84–97
--- NOTE | 2025-06-30 08:10 | DI.RAD_ITS ---
Exam(s) XR PORTABLE CHEST AP EXAM: XR PORTABLE CHEST AP CLINICAL HISTORY: AMS TECHNIQUE: 2D digital imaging was performed of the chest. One image was obtained. An AP view was obtained. COMPARISON: CR,XR XR PORTABLE CHEST AP POST LINE from 08/19/2022 CR XR CHEST 2V PA LATERAL from 10/24/[address] CHEST PE CTA from 01/23/2025 FINDINGS: MEDIASTINUM: Normal. HEART: There is again seen marked cardiomegaly. PULMONARY VASCULATURE: Normal. LUNGS: There are no focal consolidating infiltrates. There is mild diffuse prominence of the interstitium. This may represent interstitial edema. An interstitial pneumonia cannot be excluded. PLEURAL SPACE: No pleural effusion or pneumothorax. BONE:Within normal limits for the patient's age. OTHER FINDINGS:Normal. IMPRESSION: 1. Stable cardiomegaly. 2. Mild prominence of the interstitium bilaterally. This may represent interstitial edema. Interstitial pneumonia cannot be excluded excluded. Please correlate clinically. DATA REPOSITORY: RADIATION DOSE DELIVERED:
--- NOTE | 2025-06-30 08:15 | RT.EKG_ITS ---
APPROVED REPORT Exam: Resting ECG Reason for Exam: ams Patient Location: E HR:57 bpm ECG Measurements Heart Rate 57 AXIS OR [id number] P [id number] QRSd 102 QRS 36 QT 461 T 22 QTc 451 Conclusion Atrial fibrillation...? atrial activity No Occlusion [place]
[2025-06-30] MEDS: Normal Saline - Diluent 50 ML VIAL IJ (08:18)
[2025-06-30] MEDS: Normal Saline Flush 10 ML SYR IVP (08:18)
[2025-06-30] MEDS: Omnipaque 350 MG/ML 500 ML BTL-Imaging package IJ (08:19)
--- NOTE | 2025-06-30 08:19 | W.ED.GENAD ---
Discharge Plan Disposition Patient Disposition: Transfer-Acute Inpatient Care Specific Acute Inpt Facility: [facility] Discharge Details Clinical Impression: Dysarthria, Acute cerebrovascular accident (CVA), Subtherapeutic international normalized ratio (INR) Primary Care Provider: Becky Mcneal ED Provider: Armand Barnhart Home Meds and New Rx's Prescriptions: No Action warfarin 3 mg tablet 5 mg PO DAILY Patient Comments: Pt reports he takes 3 mg on Monday and 1 mg all other days of the week based on adj from PCP from INR 2 weeks ago amlodipine 10 mg tablet 20 mg PO DAILY furosemide 40 mg tablet 80 mg PO DAILY allopurinol 300 MG tablet 300 mg PO DAILY atenolol 50 mg tablet 100 mg PO DAILY albuterol sulfate 90 mcg/actuation HFA aerosol inhaler 2 inh INHALATION Q4H PRN Patient Comments: INHALE 2 PUFFS BY MOUTH EVERY 4 TO 6 HOURS NEEDED FOR SHORTNESS OF BREATH HPI General Date/Time Provider Initiated Documentation: 06/30/25 08:04. HPI Narrative: MDM This is a 70-year-old male on warfarin arriving to emergency department via private vehicle in the setting of dysarthria concerning for the possibility of CVA for which patient will undergo CT angiogram of his head and neck along with neurological consultation. No tonic-clonic activity to suggest seizure so no indication for EEG. No nuchal rigidity to suggest meningitis. Patient has not been vomiting to suggest increased risk for acute electrolyte abnormalities. Will obtain an ECG to assess for dysrhythmia. Will obtain CBC to assess for anemia. Given warfarin use will obtain INR. Will reassess following CT scan. 8:40 AM CBC lacks anemia thrombocytopenia and leukocytosis. 8:55 AM Reassuring basic metabolic panel with no OPAL. Subtherapeutic INR 1.1. I was in touch with Arely Crawford from [facility] who advised TNK in setting of the patient's significant dysarthria on subtherapeutic INR with a background of permanent atrial fibrillation. I spoke with Dr. Reese who is reviewing the patient's CT angiogram. Will ensure that there is no significant hemorrhage or LVO's prior to pushing TNK. 9:[address] head was negative for any acute intercranial hemorrhage and any large vessel occlusion obtained verbal and written consent from patient and his significant other, Suri Dawkins to administer TNK at a dose of 25 mg per neurologist. Will try to transfer [place] [facility] [place]. No LVO so patient is not a candidate for thrombectomy. 11:52 AM I was in touch with Dr. Lowe from [facility] who graciously accepted the patient in transfer as [facility] was full. Patient did have interstitial edema on chest x-ray for which I obtained a rapid COVID swab. Rapid COVID swab negative. Patient is a negative troponins. He did not have significant improvement in his deficits during his ED course. 3:30 PM Patient's blood pressures remain at goal during his ED stay. He was transferred via medics to [facility]. Indications: Recent neurodeficits consistent with acute ischemic stroke. Contraindications: No history of recent or prior intercranial bleed or surgery, known AVM or neoplasm No history of recent serious head trauma No history of recent stroke within the past 3 months. No seizure at outside. No evidence of active internal bleeding, platelets greater than 100,000, no heparin within the past 48 hours, no use of warfarin with INR greater than 1.7, no use of direct thrombin inhibitors, nor direct factor Xa inhibitors. No major surgery or trauma within the past 14 days. No evidence of GI bleed based on history no black or bloody stools No recent lumbar puncture. No suspicion of aortic dissection or pericarditis. Medications: tNK Patient provided verbal & written consent. Consent was obtained the patient's girlfriend in the room. Chronic conditions affecting the care of the patient: Permanent atrial fibrillation with a heart failure History obtained from an outside historian: Patient's partner External record review: N/A Diagnostic interpretations performed by me: Per my independent interpretation chest x-ray shows: Per my independent interpretation EKG shows: No acute injury pattern. Atrial fibrillation rate controlled interventricular conduction delay. QTc within normal limits. ]Medications: TNK Social determinants of health affecting disposition: N/A Management discussed with: Neurology Treatment/interventions considered: N/A Response to therapies provided: N/A HPI This is a patient presenting with symptoms suggestive of a stroke. He is accompanied by his significant other. The patient began experiencing symptoms around 6:30 AM, including drooling and slurred speech. He arrived at his significant other's residence approximately an hour later. Currently, his speech remains impaired. However, he does not exhibit any physical difficulties or numbness on one side of his body. He was able to drive himself to his significant other's house and subsequently to the hospital. The patient reports no history of diabetes or cardiac issues. He has been consuming a significant amount of Yessica iced tea. Exam General: Chronically ill-appearing in no acute distress speaking in complete sentences. Head: Normocephalic, atraumatic. Eye:[Pupils equal, round reactive to light.] Extraocular eye movements intact. No conjunctival injection. No scleral icterus. Ear, nose, mouth, throat: Grossly normal inspection. Normal voice, handling secretions normally. Neck: Trachea midline. Cardiovascular: Well-perfused distal extremities. Respiratory: Nonlabored respiration. Gastrointestinal: Nondistended abdomen. Musculoskeletal: No edema. Moving all 4 extremities spontaneously. Skin: Normal for age and race, grossly normal temperature and turgor. No acute rash. Neurologic: Alert and appropriate. GCS 15. Dysarthria. No aphasia. 5 out of 5 bilateral upper and lower extremity strength. No significant facial droop. Related Data Home Medications ?Medication ?Instructions ?Recorded ?Confirmed allopurinol 300 mg tablet 300 mg PO DAILY 08/18/14 06/30/25 amlodipine 10 mg tablet 20 mg PO DAILY 01/02/20 06/30/25 furosemide 40 mg tablet 80 mg PO DAILY 01/02/20 06/30/25 warfarin 3 mg tablet 5 mg PO DAILY 01/11/24 06/30/25 atenolol 50 mg tablet 100 mg PO DAILY 01/23/25 06/30/25 albuterol sulfate 90 mcg/actuation 2 inh inhalation Q4H PRN 06/30/25 06/30/25 aerosol inhaler Allergies Allergy/AdvReac Type Severity Reaction Status Date / Time onion Allergy Severe Swelling/Ed Verified 06/30/25 08:44 octavia ampicillin Allergy Unknown rash,bliste Verified 06/30/25 08:44 rs lisinopril AdvReac Unknown cough Verified 06/30/25 08:44 losartan (Losartan) AdvReac Unknown leg cramps Verified 06/30/25 08:44 General Stated Complaint: CVA/TIA SUE: 2 Course Vital Signs Vital signs: Vital Signs Temperature 36.7 C 06/30/25 08:03 Pulse 60 06/30/25 08:03 Respiratory Rate 17 06/30/25 08:03 Blood Pressure 162/68 H 06/30/25 08:03 Pulse Oximetry 97 06/30/25 08:03 Temperature 36.7 C 06/30/25 08:03 Temperature Source Oral 06/30/25 08:03 Pulse 60 06/30/25 08:03 Respiratory Rate 17 06/30/25 08:03 Blood Pressure 162/68 H 06/30/25 08:03 Blood Pressure Position Sitting 06/30/25 08:03 Pulse Oximetry 97 06/30/25 08:03 Oxygen Delivery Method Room Air 06/30/25 08:03 Oxygen Flow Rate 0 06/30/25 08:03 Critical Care Time Critical Care Time Critical Care Time: Yes Total Critical Care Time: 60 Attestation: Dysarthria in the setting of acute CVA. PFSH All Active Problems (Updated 06/30/25 @ 14:36 by Armand Barnhart MD) Subtherapeutic international normalized ratio (INR) (Acute) Acute cerebrovascular accident (CVA) (Acute) Dysarthria (Acute) Nutritional assessment (Acute) Chronic right-sided heart failure (Chronic) Pulmonary hypertension (Chronic) IMMANUEL treated with BiPAP (Acute) CHF (congestive heart failure) (Chronic) Medical History Acute cholecystitis Acute on chronic right heart failure Respiratory failure Hypoxemia Cholelithiasis Elevated LFTs Bleeding from wound Psoriasis Erectile dysfunction Atrial fibrillation Gout BMI 50.0-59.9, adult Hypertension Bilateral leg edema Peripheral neuropathy Prediabetes Shoulder dislocation Surgical History Hx of cholecystectomy (~07/31/22) S/P exploratory laparotomy S/P right hemicolectomy Social History Smoking/Tobacco Use Status: Never Smoking risk assessment performed?: Yes Alcohol Intake: current Alcohol Intake frequency: a few times a week Alcohol type: beer Drug use: Never Substance use type: does not use Household members: none Housing: house Communication Needs: Hard of Hearing Pets and animals: No What type of physical activity do you participate in: independent ambulation Do you feel safe at home: Yes Do you feel safe in your relationship?: Yes
[2025-06-30 08:22] LABS: Abs Immature Grans 0.10 10^3/uL (0.0-0.06); HCT 42.1 % (40.0-50.0); HGB 14.3 g/dL (13.5-17.5); Immature Grans % 1.2 %; MCH 31.6 pg (27.0-33.0); MCHC 34.0 % (32.0-36.0); MCV 93 fL (80-95); MPV 10.2 fL (8.0-11.0); Platelet Count 222 10^3/uL (130-400); RBC 4.53 10^6/uL (4.36-5.78); RDW 12.8 % (11.8-14.1); RDW-SD 43.1 fL; WBC 8.69 10^3/uL (4.4-10.8)
[2025-06-30] MEDS: Ondansetron 4 MG/2 ML VIAL (08:32)
--- NOTE | 2025-06-30 08:33 | DI.CT_ITS ---
Exam(s) CT BRAIN NECK CTA EXAM: CT BRAIN NECK CTA CLINICAL HISTORY: Dysarthria. TECHNIQUE: Imaging Protocol: Axial CT angiography was performed with multi- slice acquisition and multi-planar and/or 3D reconstructions. CONTRAST MATERIAL: Intravenous: Omnipaque 350 contrast volume:70 mL COMPARISON: No exams were available for comparison FINDINGS: CT Head W/O and W: Ventricles and Extra axial spaces: Normal in size and morphology for the patient's age. Hemorrhage: None. Cerebral parenchyma: There are areas of decreased attenuation in the white matter most suggestive of chronic microvascular ischemic disease. There is no acute mass effect or evidence to suggest an acute territorial infarct at this time. Midline shift: None. Brainstem/Cerebellum: Normal. Calvarium: Normal. Visualized Paranasal sinuses/Mastoids: Clear. Soft Tissues: Unremarkable. Enhancement: Unremarkable. CTA Neck W: Common Carotid: There is mild atherosclerotic calcification in the common carotid arteries bilaterally. Right: No dissection, occlusion or significant stenosis. Left: No dissection, occlusion or significant stenosis. External Carotid: There is mild atherosclerotic calcification at the origins of both external carotid arteries. Right: No occlusion or significant stenosis. Left: No occlusion or significant stenosis. Internal Carotid: Right: There is atherosclerotic calcification seen in the proximal right internal carotid artery with marked stenosis. There is no occlusion. There is no evidence of dissection. Left: There is significant atherosclerotic calcification seen in the left internal carotid artery just distal to its origin causing marked stenosis. There is no occlusion. No evidence of dissection is present. Vertebral Artery: Right: No dissection, occlusion or significant stenosis. Atherosclerotic calcification is present. Left: The proximal left vertebral artery is not visualized. There are multiple areas of stenosis seen throughout its length distally. There is reconstitution of the left vertebral artery at the C3-4 level. Lung Apices: Normal. Bones: Within normal limits for the patient's age. Soft Tissues: Normal. Thyroid gland: Unremarkable. CTA Brain W: Internal Carotid Arteries: There is atherosclerotic calcifications seen bilaterally predominantly involving the cavernous portions of the internal carotid arteries. There is moderately severe stenosis. No aneurysm or occlusion is seen. Anterior Cerebral Arteries: Right: No aneurysm, occlusion or significant stenosis. Left: No aneurysm, occlusion or significant stenosis. Middle Cerebral Arteries: Right: No aneurysm, occlusion or significant stenosis. Left: No aneurysm, occlusion or significant stenosis. Posterior Cerebral Arteries: Right: No aneurysm, occlusion or significant stenosis. Left: No aneurysm, occlusion or significant stenosis. The left posterior cerebral artery arises in part from the left posterior communicating artery. Vertebral Arteries: Right: No aneurysm, occlusion or significant stenosis. Left: No aneurysm, occlusion or significant stenosis. Basilar Artery: No aneurysm, occlusion or significant stenosis. IMPRESSION: 1. Atherosclerotic calcification of the cavernous portions of the internal carotid arteries bilaterally causing moderately severe stenosis. No occlusion is seen. 2. No acute intracranial process. 3. The proximal vertebral artery is nonvisualized. There is reconstitution of the left vertebral artery at the C3-C4 level. 4. If there is continued concern for an infarct, MRI should be considered for further evaluation. RADIATION DOSE DELIVERED: 2,938.13mGy.cm Total DLP DATA REPOSITORY: All CT scans at this facility are submitted to the National Radiology Data Registry (NRDR) Dose Index Registry (DIR) with the [employer] (ACR). RADIATION OPTIMIZATION: All CT scans at this facility use at least one of these dose optimization techniques: automated exposure control; mA and/or kV adjustment per patient size (includes targeted exams where dose is matched to clinical indication); or iterative reconstruction.
[2025-06-30 08:42] LABS: INR 1.1 (0.9-1.1); PTT Activated 26.5 sec (20.6-30.2); Prothrombin Time 10.9 sec (9.1-11.1)
[2025-06-30 08:50] LABS: Anion Gap 8.6 mmol/L (3-11); BUN 17 mg/dL (7-18); CO2 29.4 mmol/L (21.0-32.0); Calcium 9.7 mg/dL (8.5-10.1); Chloride 104 mmol/L (98-107); Estimated GFR 91.31 (mL/min/1.73m2); Glucose 132 mg/dL (74-106); Potassium 4.1 mmol/L (3.5-5.1); Sodium 142 mmol/L (136-145)
[2025-06-30] MEDS: Tenecteplase 50 MG KIT IVP (09:04)
[2025-06-30 09:06] LABS: Magnesium 1.8 mg/dL (1.8-2.4); TSH (W/Ref FT4) 2.42 uIU/mL (0.36-3.74); Troponin I 15 ng/L (<or=76)
[2025-06-30 10:23] LABS: Troponin I 13 ng/L (<or=76)
[2025-06-30 11:59] LABS: Troponin I 13 ng/L (<or=76)
== END 2025-06-30 15:23 | disposition short-term general hospital (02) ==
PROVIDERS: Emergency Provider Emergency Medicine; PCP Nurse Practitioner Family
DX: I63.9 Cerebral infarction, unspecified (principal); R47.1 Dysarthria and anarthria; R79.1 Abnormal coagulation profile
CPT/HCPCS: 36415; 36416; 70496; 70498; 80048; 82962; 87428; 93005; 96374; 96376; 99291; 71045; 80320; 83735; 84443; 84484; 85025; 85610; 85730; 93010; J2405; J3101

== ENCOUNTER 2025-08-04 16:00 | Observation (INO) | payer MEDICARE, SELFPAY ==
[2025-08-04] VITALS (48 sets, daily range): BP systolic 110–148; BP diastolic 70–99; PULSE 53–87; RESP 13–30; TEMP 36.9; O2SAT 84–97
--- NOTE | 2025-08-04 16:00 | RT.EKG_ITS ---
APPROVED REPORT Exam: Resting ECG Reason for Exam: SOB Patient Location: E HR:70 bpm ECG Measurements Heart Rate 70 AXIS WV [id number] P [id number] QRSd 103 QRS 53 QT [id number] T 58 QTc 0 Conclusion Atrial fibrillation...V-rate 53- 81, irreg A-activity Low voltage, precordial leads...precordial leads <1.0mV Nonspecific T abnrm, anterolateral leads...T <-0.10mV, I aVL V2-V6
--- NOTE | 2025-08-04 16:04 | W.ED.GENAD ---
Discharge Plan Disposition Patient Disposition: Admit to [facility] Discharge Details Clinical Impression: Pericardial effusion, Hypomagnesemia Primary Care Provider: Becky Mcneal ED Provider: Lynette Ronquillo Home Meds and New Rx's Prescriptions: No Action warfarin 3 mg tablet 5 mg PO DAILY Patient Comments: Pt reports he takes 3 mg on Monday and 1 mg all other days of the week based on adj from PCP from INR 2 weeks ago furosemide 40 mg tablet 80 mg PO DAILY allopurinol 300 MG tablet 300 mg PO DAILY amlodipine 10 mg tablet 10 mg PO DAILY atenolol 50 mg tablet 50 mg PO DAILY calcipotriene 0.005 % solution 1 applic topical DAILY PRN Rx Instructions: rub in gently and completely magnesium oxide 400 mg magnesium capsule 400 mg PO DAILY albuterol sulfate 90 mcg/actuation HFA aerosol inhaler 2 inh INHALATION Q4H PRN Patient Comments: INHALE 2 PUFFS BY MOUTH EVERY 4 TO 6 HOURS NEEDED FOR SHORTNESS OF BREATH Xarelto 20 mg tablet 20 mg PO DAILY Rx Instructions: must administer with evening meal atorvastatin [Lipitor] 80 mg tablet 80 mg PO DAILY fluticasone propion-salmeterol [Advair HFA] 115-21 mcg/actuation HFA aerosol inhaler 2 inh inhalation BID fluticasone propionate 110 mcg/actuation HFA aerosol inhaler 1 inh inhalation BID HPI General Date/Time Provider Initiated Documentation: 08/04/25 16:03. HPI Narrative: Hunter is a 70-year-old male who presents to the emergency department today for evaluation of shortness of breath (and occasional dizziness) with exertion x 2 days. He reports he has noticed dyspnea for the past few days, occurs with any exertion including walking on flat ground. Admits that sometimes he feels dizzy when ambulating as well. No orthopnea or pedal edema. Denies associated symptoms such as recent illness, fever/chills, headache, congestion, ear pain, sore throat, cough, chest pain, diaphoresis, abdominal pain/bloating, nausea/vomiting, or changes in bowel habits. No recent surgeries or illnesses requiring bed rest, hormone use, or current cancer diagnosis. No known recent exposure to flu or COVID-19. He reports that he fell a week ago, stubbed a little toe of his right foot and pulled the muscles in his chest. Denies direct trauma to the chest wall. PAST SURGICAL HISTORY: Ileum carcinoid tumor resection, partial colectomy, and small intestine resection by Dr. Mon in 2010. Cholecystectomy 1.5 to 2 years ago. PMH significant for: CHF, chronic right-sided heart failure, A-fib anticoagulated with Xarelto, HTN, pulmonary hypertension, CVA (June 2025), IMMANUEL, obesity Related Data Home Medications ?Medication ?Instructions ?Recorded ?Confirmed allopurinol 300 mg tablet 300 mg PO DAILY 08/18/14 08/04/25 furosemide 40 mg tablet 80 mg PO DAILY 01/02/20 08/04/25 warfarin 3 mg tablet 5 mg PO DAILY 01/11/24 08/04/25 albuterol sulfate 90 mcg/actuation 2 inh inhalation Q4H PRN 06/30/25 08/04/25 aerosol inhaler amlodipine 10 mg tablet 10 mg PO DAILY 07/21/25 08/04/25 atenolol 50 mg tablet 50 mg PO DAILY 07/21/25 08/04/25 calcipotriene 0.005 % scalp 1 applic topical DAILY PRN 07/21/25 08/04/25 solution magnesium oxide 400 mg PO DAILY 07/21/25 08/04/25 atorvastatin 80 mg tablet (Lipitor) 80 mg PO DAILY 08/04/25 08/04/25 fluticasone propionate 110 1 inh inhalation BID 08/04/25 08/04/25 mcg/actuation HFA aerosol inhaler fluticasone propionate 115 2 inh inhalation BID 08/04/25 08/04/25 mcg-salmeterol 21 mcg/actuation HFA inhaler (Advair HFA) rivaroxaban 20 mg tablet (Xarelto) 20 mg PO DAILY 08/04/25 08/04/25 Allergies Allergy/AdvReac Type Severity Reaction Status Date / Time onion Allergy Severe Swelling/Ed Verified 08/04/25 16:11 octavia Iodinated Contrast Media Allergy Mild vomiting Verified 08/04/25 18:13 ampicillin Allergy Unknown rash,bliste Verified 08/04/25 16:11 rs lisinopril AdvReac Unknown cough Verified 08/04/25 16:11 losartan (Losartan) AdvReac Unknown leg cramps Verified 08/04/25 16:11 General SUE: 2 Exam Narrative Exam Narrative: General Appearance: Normal. Patient alert and oriented, no acute distress Vital signs: Within normal limits, mild hypertension noted BP 144/78, this appears in line with patient's baseline HEENT: Slightly tacky mucous membranes, white film on tongue. Clear voice. Respiratory: Easy work of breathing, end expiratory crackles noted bilaterally. No obvious JVD or pedal edema. Cardiovascular: Regular heart sounds, irregularly irregular rate. Bilateral radial pulses equal. GI: Abdomen softly distended, nontender to palpation. Skin: Warm and dry, no rash. Psychiatric: Normal. Medical Decision Making Initial Assessment: 71-year-old male with dyspnea for the past few days, particularly when walking on flat ground. No fever, chills, headache, congestion, ear pain, sore throat, or cough. No orthopnea, chest pain, diaphoresis, or gastrointestinal issues. History of atrial fibrillation and CHF, reports he has been taking his medications as prescribed. Differential Diagnosis: CHF exacerbation, pneumonia, cardiac arrhythmia, pericardial effusion, pleural effusion, neoplasm, viral illness, dehydration, severe anemia, electrolyte imbalance ED Course: - Chest x-ray, blood work, and EKG obtained I independently interpreted the following tests: EKG shows A-fib with rate 70, flat T waves, no changes consistent with acute ischemia. CBC notable for mild anemia (11.5/33.9 today vs 14.3/42.1 on 06/30/25), mild leukocytosis with WBC 11.7. CMP reassuring. Mild hypomagnesemia, 1.4. Troponins flat, 12 and 12. BMP elevated but in line with previous (462). No change in BP with inspiration/expiration (negative pulsus paradoxus) CT chest with contrast notable for moderate pericardial effusion measuring up to 3 cm and tiny bilateral pleural effusions. While in the emergency department Hunter received 250 cc fluid bolus and 2 g mag sulfate. He is comfortable at rest, visibly winded with ambulation. Clinical Impression: - Pericardial effusion Discussed case with Dr. Wallace, electromagnet crane operator at [facility]. Patient is accepted to the care of Dr. Hagan, cardiology, beds not available until August 06. Recommends echo in morning to rule out tamponade, holding Xarelto (last dose was this AM) and starting heparin in the morning, as well as holding amlodipine and atenolol. Also requesting daily pulses paradoxus checks and fluid boluses to maintain MAP 65 as needed. Pt ok to be on normal diet. Presented case to Dr. Charles, hospitalist, who accepted pt for evaluation and management of pericardial effusion. I did review recommendations as detailed above. As we did have numerous borders in the ED, I did attempt to transfer patient laterally until [facility] bed opens up, however patient was declined from [facility] and [facility], [facility] and [facility], and multiple other [facility]. Patient was able to be accepted and moved to the ICU here at [facility] for monitoring. Patient consented to the use of [facility] Imaging Data Radiologic Study: Radiologist's impression: Exam(s) CT CHEST W EXAM: CT CHEST W CLINICAL HISTORY: further eval SOB TECHNIQUE: Imaging Protocol: Axial computed tomography images with coronal and sagittal reformatted images were created and reviewed. Computer aided detection (CAD) was utilized. CONTRAST MATERIAL: Intravenous: Omnipaque 350 Contrast volume:70 ml. COMPARISON: CT CT CHEST PE CTA from 01/23/2025 CR XR CHEST 2V PA LATERAL from 08/04/2025 FINDINGS: Pulmonary parenchyma: No consolidation. No dominant measurable mass. There are mild bilateral basilar dependent changes. Tracheobronchial tree: No bronchiectasis or mucous plugging. Mediastinum and Gillian: No dominant adenopathy or fluid collection. Pleura: There are tiny bilateral pleural effusions. No pneumothorax. Heart: There is a pericardial effusion measuring up to 3 cm. The heart is enlarged. The coronary artery calcifications as well as mitral valve calcifications. There is dilatation of the left atrium as well as mild dilatation of the right atrium. There is no obvious compression of the heart secondary to the pericardial effusion. There is again noted to be abundant fat surrounding of the heart. Aorta: Thoracic aorta non-dilated. Mild atherosclerotic changes. Pulmonary arteries: No gross evidence of emboli. Upper abdomen: No acute findings. The liver appears enlarged and shows fatty infiltration. Cholecystectomy. Bones: Degenerative changes in the spine, with prominent endplate osteophytes. Soft tissues: Unremarkable. IMPRESSION: Moderate pericardial effusion. Tiny bilateral pleural effusions. PFSH All Active Problems (Updated 08/04/25 @ 22:32 by Lynette Kingsley) Hypomagnesemia (Acute) Pericardial effusion (Acute) Personal history of colon cancer (Acute) Nutritional assessment (Acute) Chronic right-sided heart failure (Chronic) Pulmonary hypertension (Chronic) IMMANUEL treated with BiPAP (Acute) CHF (congestive heart failure) (Chronic) Medical History Acute cholecystitis Acute on chronic right heart failure Respiratory failure Hypoxemia Cholelithiasis Elevated LFTs Bleeding from wound Psoriasis Erectile dysfunction Atrial fibrillation Gout BMI 50.0-59.9, adult Hypertension Bilateral leg edema Peripheral neuropathy Prediabetes Shoulder dislocation Surgical History Hx of cholecystectomy (~07/31/22) S/P exploratory laparotomy S/P right hemicolectomy Social History Smoking/Tobacco Use Status: Never Smoking risk assessment performed?: Yes Alcohol Intake: current Alcohol Intake frequency: a few times a week Alcohol type: beer Drug use: Never Substance use type: does not use Household members: none Housing: house Communication Needs: Hard of Hearing Pets and animals: No What type of physical activity do you participate in: independent ambulation Do you feel safe at home: Yes Do you feel safe in your relationship?: Yes
--- NOTE | 2025-08-04 16:15 | DI.RAD_ITS ---
Exam(s) XR CHEST 2V PA LATERAL EXAM: XR CHEST 2V PA LATERAL CLINICAL HISTORY: SOB TECHNIQUE: 2D digital imaging was performed. Two views. COMPARISON: CR XR CHEST 2V PA LATERAL from 10/24/[address] CHEST PE CTA from 01/23/2025 CR XR PORTABLE CHEST AP from 06/30/2025 FINDINGS: HEART: Markedly enlarged, similar to prior. Aorta: Not dilated. PULMONARY VASCULATURE: Normal. MEDIASTINUM: Unremarkable. LUNGS: Clear where visualized. Large portions of the lungs are obscured by the cardiac silhouette. PLEURAL SPACE: There is minimal blunting at the left costophrenic angle. No pneumothorax. BONE:Unremarkable for age. SOFT TISSUES: Unremarkable. IMPRESSION: Marked cardiomegaly. No visible infiltrates or pulmonary edema. DATA REPOSITORY: RADIATION DOSE DELIVERED:
[2025-08-04 16:44] LABS: Abs Immature Grans 0.16 10^3/uL (0.0-0.06); HCT 33.9 % (40.0-50.0); HGB 11.5 g/dL (13.5-17.5); Immature Grans % 1.4 %; MCH 31.9 pg (27.0-33.0); MCHC 33.9 % (32.0-36.0); MCV 94 fL (80-95); MPV 10.7 fL (8.0-11.0); Platelet Count 285 10^3/uL (130-400); RBC 3.61 10^6/uL (4.36-5.78); RDW 12.8 % (11.8-14.1); RDW-SD 43.3 fL; WBC 11.71 10^3/uL (4.4-10.8)
[2025-08-04 17:03] LABS: INR 1.6 (0.9-1.1); PTT Activated 37.4 sec (20.6-30.2); Prothrombin Time 15.2 sec (9.1-11.1)
[2025-08-04 17:11] LABS: ALT 27 U/L (16-63); AST 18 U/L (15-37); Albumin 3.0 g/dL (3.4-5.0); Alkaline Phosphatase 111 U/L (46-116); Anion Gap 8.7 mmol/L (3-11); BUN 19 mg/dL (7-18); Bilirubin, Total 0.6 mg/dL (0.2-1.0); CO2 29.3 mmol/L (21.0-32.0); Calcium 9.2 mg/dL (8.5-10.1); Chloride 104 mmol/L (98-107); Estimated GFR 80.47 (mL/min/1.73m2); Glucose 111 mg/dL (74-106); Magnesium 1.4 mg/dL (1.8-2.4); NT-proBNP 462 pg/mL (<300); Potassium 3.6 mmol/L (3.5-5.1); Sodium 142 mmol/L (136-145); Total Protein 7.3 g/dL (6.4-8.2); Troponin I 12 ng/L (<or=76)
--- NOTE | 2025-08-04 17:25 | DI.CT_ITS ---
Exam(s) CT CHEST W EXAM: CT CHEST W CLINICAL HISTORY: further eval SOB TECHNIQUE: Imaging Protocol: Axial computed tomography images with coronal and sagittal reformatted images were created and reviewed. Computer aided detection (CAD) was utilized. CONTRAST MATERIAL: Intravenous: Omnipaque 350 Contrast volume:70 ml. COMPARISON: CT CT CHEST PE CTA from 01/23/2025 CR XR CHEST 2V PA LATERAL from 08/04/2025 FINDINGS: Pulmonary parenchyma: No consolidation. No dominant measurable mass. There are mild bilateral basilar dependent changes. Tracheobronchial tree: No bronchiectasis or mucous plugging. Mediastinum and Gillian: No dominant adenopathy or fluid collection. Pleura: There are tiny bilateral pleural effusions. No pneumothorax. Heart: There is a pericardial effusion measuring up to 3 cm. The heart is enlarged. The coronary artery calcifications as well as mitral valve calcifications. There is dilatation of the left atrium as well as mild dilatation of the right atrium. There is no obvious compression of the heart secondary to the pericardial effusion. There is again noted to be abundant fat surrounding of the heart. Aorta: Thoracic aorta non-dilated. Mild atherosclerotic changes. Pulmonary arteries: No gross evidence of emboli. Upper abdomen: No acute findings. The liver appears enlarged and shows fatty infiltration. Cholecystectomy. Bones: Degenerative changes in the spine, with prominent endplate osteophytes. Soft tissues: Unremarkable. IMPRESSION: Moderate pericardial effusion. Tiny bilateral pleural effusions. RADIATION DOSE DELIVERED: Total DLP DATA REPOSITORY: All CT scans at this facility are submitted to the National Radiology Data Registry (NRDR) Dose Index Registry (DIR) with the [employer] (ACR). RADIATION OPTIMIZATION: All CT scans at this facility use at least one of these dose optimization techniques: automated exposure control; mA and/or kV adjustment per patient size (includes targeted exams where dose is matched to clinical indication); or iterative reconstruction.
[2025-08-04] MEDS: Normal Saline - Diluent 50 ML VIAL IJ (17:49)
[2025-08-04] MEDS: Omnipaque 350 MG/ML 100 ML BTL IJ (17:50)
[2025-08-04] MEDS: Normal Saline Flush 10 ML SYR IVP (17:50)
[2025-08-04 18:08] LABS: Troponin I 12 ng/L (<or=76)
[2025-08-04] MEDS: diphenhydrAMINE 50 MG/ML VIAL (18:13)
[2025-08-04] MEDS: Normal Saline 250 ML IV (18:58)
[2025-08-04] MEDS: MAGNESIUM SULFATE 2 GM/50 ML BAG IV_INF (19:32)
[2025-08-04 21:02] LABS: ESR 30 mm/hr (0-20)
[2025-08-04 21:10] LABS: C-Reactive Protein 5.54 mg/dL (<or=0.5)
--- NOTE | 2025-08-04 22:22 | W.PM.HP.N ---
Date of service: 08/04/25 Time of Service: 00:00 Assessment and Plan Assessment and plan (1) Pericardial effusion, acute: Status: Acute Assessment and plan: Likely explanation for exercise dyspnea Per [facility] cardiology, hold rivaroxaban and start heparin gtt Hold amlodipine, atenolol Check for pulsus paradoxus q4h, if present, escalate transfer Maintain MAP above 65 Anticipate [facility] transfer August 06 (2) Chronic atrial fibrillation: Status: Acute Assessment and plan: Patient was on warfarin until he had his CVA in June Hold rivaroxaban as above (3) Chronic right-sided heart failure: Status: Chronic Assessment and plan: February 2025 echocardiogram showing LVEF 50-55%, mildly dilated and hypocontractile RV, bilateral atrial enlargement, mild aortic stenosis, mild/moderate TR with elevated RV systolic pressure Hold beta edwin and calcium channel edwin Continue home furosemide (4) Hypomagnesemia: Status: Acute Assessment and plan: Acute on chronic, takes home supplements Repleted in ED, will recheck in the AM (5) Personal history of colon cancer: Status: Acute Assessment and plan: 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 He has also been feeling dizzy when he is walking. He reports that he has not been ill and has not been around those who are ill. He has been eating and drinking normally and taking his meds regularly. He denies chest pain, abdominal pain, headache, N/V/D. In the ED his pulse was low 57, BP slightly high 144/78, tachypnea 25-30. EKG with afib, low precordial voltage, nonspecific T abnormality. Negative troponins. CBC with mild neutrophilic leukocytosis 11.71, elevated ESR 30. Elevated INR 1.6. Hypomagnesemia 1.4. Elevated CRP 5.54. Elevated BNP 462. CXR with chronic cardiomegaly, no acute findings. CT chest with pericardial effusion <= 3 cm. He was given NS 250 bolus and IV magnesium. PMH includes 2024 CVA, afib on rivaroxaban, chronic right heart failure, pulmonary HTN, IMMANUEL, obesity BMI 44, ileum carcinoid s/p partial colectomy 2009 PFSH All Active Problems (Updated 08/05/25 @ 02:32 by [place] Charles MD) IMMANUEL (obstructive sleep apnea) (Chronic) Morbid obesity with BMI of 40.0-44.9, adult (Acute) Chronic atrial fibrillation (Acute) Pericardial effusion, acute (Acute) Hypomagnesemia (Acute) Pericardial effusion (Acute) Personal history of colon cancer (Acute) Nutritional assessment (Acute) Chronic right-sided heart failure (Chronic) Pulmonary hypertension (Chronic) IMMANUEL treated with BiPAP (Acute) CHF (congestive heart failure) (Chronic) Medical History Acute cholecystitis Acute on chronic right heart failure Respiratory failure Hypoxemia Cholelithiasis Elevated LFTs Bleeding from wound Psoriasis Erectile dysfunction Atrial fibrillation Gout BMI 50.0-59.9, adult Hypertension Bilateral leg edema Peripheral neuropathy Prediabetes Shoulder dislocation Surgical History Hx of cholecystectomy (~07/31/22) S/P exploratory laparotomy S/P right hemicolectomy Social History Smoking/Tobacco Use Status: Never Smoking risk assessment performed?: Yes Alcohol Intake: current Alcohol Intake frequency: a few times a week Alcohol type: beer Drug use: Never Substance use type: does not use Household members: none Housing: apartment Communication Needs: Hard of Hearing Pets and animals: No What type of physical activity do you participate in: independent ambulation Do you feel safe at home: Yes Do you feel safe in your relationship?: Yes Meds Allergies and Home Medications Allergies Allergy/AdvReac Type Severity Reaction Status Date / Time onion Allergy Severe Swelling/Ed Verified 08/04/25 16:11 octavia Iodinated Contrast Media Allergy Mild vomiting Verified 08/04/25 18:13 ampicillin Allergy Unknown rash,bliste Verified 08/04/25 16:11 rs lisinopril AdvReac Unknown cough Verified 08/04/25 16:11 losartan (Losartan) AdvReac Unknown leg cramps Verified 08/04/25 16:11 Home Medications ?Medication ?Instructions ?Recorded ?Confirmed ?Type allopurinol 300 mg tablet 300 mg PO DAILY 08/18/14 08/04/25 History furosemide 40 mg tablet 80 mg PO DAILY 01/02/20 08/04/25 History warfarin 3 mg tablet 5 mg PO DAILY 01/11/24 08/04/25 History albuterol sulfate 90 mcg/actuation 2 inh inhalation Q4H PRN 06/30/25 08/04/25 History aerosol inhaler amlodipine 10 mg tablet 10 mg PO DAILY 07/21/25 08/04/25 History atenolol 50 mg tablet 50 mg PO DAILY 07/21/25 08/04/25 History calcipotriene 0.005 % scalp 1 applic topical DAILY PRN 07/21/25 08/04/25 History solution magnesium oxide 400 mg PO DAILY 07/21/25 08/04/25 History atorvastatin 80 mg tablet (Lipitor) 80 mg PO DAILY 08/04/25 08/04/25 History fluticasone propionate 110 1 inh inhalation BID 08/04/25 08/04/25 History mcg/actuation HFA aerosol inhaler fluticasone propionate 115 2 inh inhalation BID 08/04/25 08/04/25 History mcg-salmeterol 21 mcg/actuation HFA inhaler (Advair HFA) rivaroxaban 20 mg tablet (Xarelto) 20 mg PO DAILY 08/04/25 08/04/25 History Exam Narrative Exam Narrative: General: This is a pleasant man in no distress HEENT: Normocephalic, atraumatic. Mucous membranes and tongue are dry. CV: irregular rate and irregular rhythm, no murmur, no pulsus paradoxus by radial pulse monitoring Resp: CTAB Abd: soft, NTND MSK: voluntary motion x4 Neuro: awake, alert, no focal deficits Results Labs 08/04/25 16:35 08/04/25 16:35 Labs: Laboratory Results - last 24 hr 08/04/25 08/04/25 08/04/25 16:35 17:40 19:26 WBC 11.71 H RBC 3.61 L Hgb 11.5 L Hct 33.9 L MCV 94 MCH 31.9 MCHC 33.9 RDW 12.8 Plt Count 285 MPV 10.7 Immature Gran % 1.4 Neutrophils % 78.6 Lymphocytes % 8.5 Monocytes % 10.2 Eosinophils % 1.0 Basophils % 0.3 Nucleated RBC % 0.0 Absolute Neutrophils 9.20 H Absolute Lymphocytes 1.00 L Absolute Monocytes 1.19 H Absolute Eosinophils 0.12 Absolute Basophils 0.04 ESR 30 H PT 15.2 H INR 1.6 H APTT 37.4 H Sodium 142 Potassium 3.6 Chloride 104 Carbon Dioxide 29.3 Anion Gap 8.7 BUN 19 H Creatinine 1.0 Est GFR (CKD-EPI 2020) 80.47 Glucose 111 H Calcium 9.2 Magnesium 1.4 L Total Bilirubin 0.6 AST 18 ALT 27 Alkaline Phosphatase 111 Troponin I 12 12 Cancelled C-Reactive Protein 5.54 H NT-Pro-B Natriuret Pep 462 H Total Protein 7.3 Albumin 3.0 L Last Vital Signs Temp 36.9 C 08/04/25 16:14 Pulse 58 L 08/04/25 21:23 Resp 16 08/04/25 21:23 BP 134/83 08/04/25 21:23 Pulse Ox 95 08/04/25 21:20 Time Spent Time spent with Patient: 40-54 minutes Time was spent: preparing to see the patient(eg.review tests), obtaining and/or reviewing separately otained hiistory, ordering medications,tests, procedures, referring, communicating with other health direct care provider, indepentently interpreting results, counseling the patient and care coordination
[2025-08-05] VITALS (69 sets, daily range): BP systolic 100–154; BP diastolic 62–92; PULSE 51–96; RESP 12–32; TEMP 36.7–37.5; O2SAT 90–96
[2025-08-05] MEDS: Heparin in 0.45% NaCl 25,000 UNIT/250 ML BAG 10 UNIT IVINF (03:27)
[2025-08-05 06:14] LABS: Abs Immature Grans 0.15 10^3/uL (0.0-0.06); HCT 33.1 % (40.0-50.0); HGB 10.9 g/dL (13.5-17.5); Immature Grans % 1.4 %; MCH 30.5 pg (27.0-33.0); MCHC 32.9 % (32.0-36.0); MCV 93 fL (80-95); MPV 11.7 fL (8.0-11.0); Platelet Count 265 10^3/uL (130-400); RBC 3.57 10^6/uL (4.36-5.78); RDW 12.7 % (11.8-14.1); RDW-SD 42.9 fL; WBC 10.66 10^3/uL (4.4-10.8)
[2025-08-05 06:44] LABS: INR 1.3 (0.9-1.1); Prothrombin Time 12.9 sec (9.1-11.1)
[2025-08-05 06:45] LABS: ALT 28 U/L (16-63); AST 22 U/L (15-37); Albumin 2.9 g/dL (3.4-5.0); Alkaline Phosphatase 113 U/L (46-116); Anion Gap 9.8 mmol/L (3-11); BUN 17 mg/dL (7-18); Bilirubin, Total 1.2 mg/dL (0.2-1.0); CO2 28.2 mmol/L (21.0-32.0); Calcium 8.8 mg/dL (8.5-10.1); Chloride 104 mmol/L (98-107); Estimated GFR 98.51 (mL/min/1.73m2); Glucose 108 mg/dL (74-106); Magnesium 2.0 mg/dL (1.8-2.4); Potassium 3.3 mmol/L (3.5-5.1); Sodium 142 mmol/L (136-145); Total Protein 7.3 g/dL (6.4-8.2)
--- NOTE | 2025-08-05 08:17 | PDOC.CMIN ---
Date of service: 08/05/25 Time of Service: 08:18 Care Management Initial Assmt Initial Assessment Reason for Hospitalization: pericardial effusion Functional Status/Living Situation Patient Presentation: Hunter lives alone in a mobile home in [place]. He has a long time girlfriend, Suri, and he shared that he frequently stays at her place. He has no children.Hunter is retired. He worked for [employer] for 28 years and [employer] for 13 years. He is independnet with ADLs and does not receive any community services. Hunter was sitting up in bed in the ICU when CM met with him. He was admitted on 08/04/25 with shortness of breath and was found to have a pericardial effusion. He has been accepted in transfer to [facility] likely for [place]. Hunter's vital signs are stable and his oxygen saturation is in the mid-nineties on room air. Town of Residence: [place] Resides with: Alone Significant Other/Family: Local Natural Supports: partner Suri Dawkins Employment Status: Retired Instrumental Activities of Daily Living (ADLs): Independent Medications Medication Management: No Issues/Barriers identified Physical Functioning/Mobility Assistive Device: none Advance Directives Advance Directives: Do you have an Advance Directive: N 05/06/13, 08:29 AD On File at [facility]: N 05/06/13, 08:29 Date Asked 08/04/25 08/04/25, 16:03 AD Date Reviewed COLST On File at [facility] COLST Date Scanned Code Status Resuscitation Status Full Code Portal Pt does not currently have a portal and education provided: Yes Insurance Coverage/Financial Issues Insurance: Medicare Care Team Visit Care Team Role Provider Type Armand Roper MD [facility] STAFF PHYSICIAN Becky Mcneal Primary Care Provider NURSE PRACTITIONER Lynette Kingsley Emergency Provider NURSE PRACTITIONER [place] MD Admit Provider [facility] STAFF PHYSICIAN Attending Provider Discharge Potential Discharge Needs: PCP F/U Appt Anticipated Barriers to Discharge: None Identified Patient/Family Education Needs: Review discharge instructions, discuss Ask Me Three Transportation: Private vehicle Plan: Anticipate Hunter will be transferred to [facility] when a bed becomes available. He will follow up with the facility providers and plan of care and transport via EMS. CM will follow and offer support. Social Determinants of Health Screening Social Determinants of health last assessed in clinic: 08/05/25 Will the Patient Participate in the Screening?: Yes Do you worry about having a steady place to live?: yes What is your living situation today?: I have housing today, but am worried about losing it Problems where you live: no known problems In the past 12 months, have you had to go without electric, gas, oil or water in your home?: no 1. Within the past 12 months, we worried whether our food would run out before we got money to buy more.: Never true 2. Within the past 12 months, the food we bought just didn't last and we didn't have money to get more.: Never true Has lack of transportation kept you from medical appointments or from doing things needed for daily living?: no Has anyone in your life made you feel unsafe or unsupported?: no How hard is it for you to pay for the very basics like food, housing, medical care, and heating? Would you say it is:: Not hard at all Do you want help finding or keeping work or a job?: I do not need or want help If for any reason you need help with day-to-day activities such as bathing, preparing meals, shopping, managing finances, etc., do you get the help you need?: I don?t need any help How often do you feel lonely or isolated from those around you?: Never Do you speak a language other than Montenegr[place] at home?: No Does the patient want assistance with any of the above?: No Health Related Social Needs Health related social needs: housing instability, housed, with risk of homelessness (Z59.811) Health related social needs details: has girlfriend PFSH All Active Problems (Updated 08/05/25 @ 02:32 by [place] Charles MD) IMMANUEL (obstructive sleep apnea) (Chronic) Morbid obesity with BMI of 40.0-44.9, adult (Acute) Chronic atrial fibrillation (Acute) Pericardial effusion, acute (Acute) Hypomagnesemia (Acute) Pericardial effusion (Acute) Personal history of colon cancer (Acute) Nutritional assessment (Acute) Chronic right-sided heart failure (Chronic) Pulmonary hypertension (Chronic) IMMANUEL treated with BiPAP (Acute) CHF (congestive heart failure) (Chronic) Medical History Acute cholecystitis Acute on chronic right heart failure Respiratory failure Hypoxemia Cholelithiasis Elevated LFTs Bleeding from wound Psoriasis Erectile dysfunction Atrial fibrillation Gout BMI 50.0-59.9, adult Hypertension Bilateral leg edema Peripheral neuropathy Prediabetes Shoulder dislocation Surgical History Hx of cholecystectomy (~07/31/22) S/P exploratory laparotomy S/P right hemicolectomy Social History Smoking/Tobacco Use Status: Never Smoking risk assessment performed?: Yes Alcohol Intake: current Alcohol Intake frequency: a few times a week Alcohol type: beer Drug use: Never Substance use type: does not use Household members: none Housing: apartment Communication Needs: Hard of Hearing Pets and animals: No What type of physical activity do you participate in: independent ambulation Do you feel safe at home: Yes Do you feel safe in your relationship?: Yes
[2025-08-05] MEDS: Atorvastatin 40 MG TAB 80 MG PO (08:54)
[2025-08-05] MEDS: Allopurinol 300 MG TAB PO (08:54)
[2025-08-05] MEDS: Normal Saline Flush 10 ML SYR IVP ×2 (08:55→19:44)
[2025-08-05] MEDS: Furosemide 40 MG TAB 80 MG PO (08:55)
--- NOTE | 2025-08-05 09:29 | DI.US_ITS ---
APPROVED REPORT EXAM: Comprehensive 2D, Doppler, and color-flow Echocardiogram Patient Location: In-Patient Room/Bed: [facility] Caseworker: Ana Gupta RDCS (AE) Indications: Pericardial effusion Other Information Study Quality: Fair. Technically limited study due to body habitus, inability to position patient exam done supine bedside. Conclusion Normal left ventricular wall thickness and chamber size. Ejection fraction is 55% Right ventricle appears normal in size Both atria are enlarged Calcified aortic valve with trace regurgitation Mitral annular calcification, trace to mild mitral regurgitation Estimated right ventricular systolic pressure is 51 mmHg Moderate to large circumferential pericardial effusion. Right atrial diastolic early collapse suggests cardiac tamponade Wall motion Left Ventricle The left ventricle is normal size. The left ventricular systolic function is normal. The left ventricular ejection fraction is within the normal range. There is normal left ventricular wall thickness. There is normal LV segmental wall motion. There is no ventricular septal defect visualized. LVEF is 55%. Right Ventricle The right ventricle is normal size. The right ventricular systolic function is normal. Atria Left atrium is severely dilated. Right atrium is moderately dilated. The interatrial septum is intact with no evidence for an atrial septal defect. Aortic Valve Aortic valve is calcified. Number of aortic valve leaflets could not be assessed. No hemodynamically significant valvular aortic stenosis. Trace aortic regurgitation. Mitral Valve Mild mitral annular calcification. No evidence of mitral valve stenosis. Trace to mild mitral regurgitation. Tricuspid Valve The tricuspid valve is normal in structure. There is no tricuspid valve stenosis. Trace tricuspid regurgitation. The RVSP is 50.7 mmHg. Pulmonic Valve The pulmonary valve is normal in structure. There is no pulmonic valvular stenosis. There is no pulmonic valvular regurgitation. Great Vessels The aortic root is normal in size. Aortic arch is not well visualized. The ascending aorta is mildly dilated. The IVC collapses <50% with inspiration. Pericardium Moderate circumferential pericardial effusion. Mild diastolic right atrial compression suggests early tamponade 2D Dimensions IVSD d PLAX 1.11 cm M: 0.6-1.2 Ao Root d 3.28 cm M: 3.1 - 3.7 LVPW d PLAX 1.11 cm M: 0.6 - 1.2 Ao Asc Diam d 3.81 cm M: 2.6 - 3.4 LVID d PLAX 5.31 cm M: 4.2 - 5.8 LVDs 3.83 cm M: 2.5 - 4.0 LV EF Teichholz 53.6 % FS 27.93 % LV EDV (Teich) 135.8 mL LV ESV (Teich) 63.0 mL M-Mode TAPSE 2.64 cm (M/F) >1.7 LV Volumes - Method of Disks (Calle's) Single Plane 2D LV Volumes Biplane 2D LV Volumes LV EDV A4C 136.5 mL LV EDV BP 142.43 mL M: 62 - 150 LV ESV A4C 60.7 mL LV ESV BP 66.3 mL LVEF(%) A4C 55.5 % LVEF(%) BP 53.46 % M: 52 - 72 LV EDV A2C 145.5 mL LV EDV BP Index 58.85 mL/m2 M: 34 - 74 LV ESV A2C 72.0 mL SV BP LVEF(%) A2C 50.5 % SV Index LA Volume LA Length A4C 7.9 cm LA Length A2C 8.3 cm LA Area A4C s 46.82 cm2 LA Area A2C s 47.02 cm2 LA Vol A4C A-L 235.75 mL LA Vol A2C A-L 227.44 mL LA Vol Biplane A-L 236.8 mL LA Vol/BSA A4C A-L LA Vol/BSA A2C A-L LA Vol/BSA BP A-L 97.8 mL/m2 LA Vol A4C MOD 223.7 mL LA Vol A2C MOD 216.4 mL LA Vol BP MOD 224.8 mL RA Volume RA Area A4C 22.8 cm2 RA ESV A4C (A-L) 66.4mL RA Vol/BSA A4C A-L RA Length A4C 6.7 cm RA ESV A4C (MOD) 60.4mL LV Diastology MV E' medial 0.129 (>0.07 m/s) MV E Vmax 1.39 (0.4-1.3 m/s) MV E/E' MED 10.84 (<14) MV E' lateral 0.097 (>0.1 m/s) MV E/E' LAT 14.33 (<14) MV E' Average 0.113 m/s MV E/E'(average) 12.34 Aortic Valve AoV Vmax 2.60 m/s LVOT Vmax 1.22 m/s AoV Peak Grad 27.0 mmHg LVOT Peak Grad 6.0 mmHg AoV Area (Vmax) 1.68 cm2 LVOT VTI 0.274 m AoV VTI 0.544 m LVOT Mean Grad 3.9 mmHg AoV Mean Zi. 1.88 m/s LVOT SV 97.80 mL AoV Mean Grad 15.8 mmHg LVOT Diam s 2.10 cm AoV Area (VTI) 1.80 cm2 AV Regurg Peak Gr. 27.03 mmHg Velocity Ratio 0.47 Mitral Valve MV DT 228 (160-240 msec) MV Vmax TIPS 1.19 m/s MV Mean Grad 2.1 (<2mmHg) MV VTI 0.269 m Pulmonary Valve PV Vmax 0.94 (0.5-1.5 m/s) RVOT Vmax 0.78 m/s PV Peak Grad 3.5 mmHg RVOT Peak Gr. 2.4 mmHg PV Mean Zi 0.60 m/s RVOT VTI 0.146 m PV Mean Grad 1.8 mmHg RVOT Mean Gr. 1.3 mmHg Tricuspid Valve RA Pressure 8.00 mmHg TR Vmax 3.27 m/s TV S' 0.19 m/s TR Peak Grad 42.6 mmHg RVSP (TR) 50.7 mmHg
[2025-08-05 10:51] LABS: PTT Activated 37.7 sec (20.6-30.2)
--- NOTE | 2025-08-05 16:19 | PGE_ITS ---
Date of Service Date of service: 08/05/25 Time of Service: 16:19 Assessment and Plan Assessment and plan (1) Pericardial effusion, acute: Status: Acute Assessment and plan: Likely explanation for new exertional dyspnea Per [facility] cardiology, hold rivaroxaban and start heparin gtt, transfer pending bed availability Holding amlodipine, atenolol Check for pulsus paradoxus q4h, if present, accelerate transfer Maintain MAP above 65 Anticipate [facility] transfer August 06 (2) Chronic atrial fibrillation: Status: Acute Assessment and plan: Patient was on warfarin until he had his CVA in June Hold rivaroxaban as above, on heparin instead pending possible procedure, cover es VTE prophylaxis (3) Chronic right-sided heart failure: Status: Chronic Assessment and plan: February 2025 echocardiogram showing LVEF 50-55%, mildly dilated and hypocontractile RV, bilateral atrial enlargement, mild aortic stenosis, mild/moderate TR with elevated RV systolic pressure, no significant change other than moderate pericardial effusion today. Hold beta edwin and calcium channel edwin Continue home furosemide (4) Hypomagnesemia: Status: Acute Assessment and plan: Acute on chronic, takes home supplements Repleted in ED, normalized K+ also supplemented (5) IMMANUEL (obstructive sleep apnea): Status: Chronic Assessment and plan: Previously on bipap, not used since June CVA (6) Morbid obesity with BMI of 40.0-44.9, adult: Status: Acute Assessment and plan: BMI was over 50 a year ago, weight loss was intentional then exacerbated by CVA (7) Hyperbilirubinemia: Status: Acute Assessment and plan: mild, no symptoms, follow Subjective Subjective Patient reports: no new complaints, voiding w/o difficulty and shortness of breath; denies nausea, vomiting or fever Interval history since last seen: Events: Echocardiogram done this morning No evidence of pulsus paradoxus on monitoring. He feels okay. No pain, but he is short of breath, mild at rest and worse with any exertion. Exam Narrative Exam Narrative: General: This is a pleasant man in no distress CV: irregular rate and irregular rhythm, no murmur, no pulsus paradoxus by radial pulse monitoring, no elevation JVP appreciable Resp: CTAB, mild increase effort with moving around Abd: soft, NTND Ext: no cyanosis, NT, no edema Objective Last Vital Signs Temp 37.1 C 08/05/25 13:46 Pulse 73 08/05/25 13:02 Resp 29 H 08/05/25 13:02 BP 128/70 08/05/25 13:46 Pulse Ox 94 08/05/25 13:02 Laboratory Results - last 24 hr 08/04/25 08/04/25 08/04/25 16:35 17:40 19:26 WBC 11.71 H RBC 3.61 L Hgb 11.5 L Hct 33.9 L MCV 94 MCH 31.9 MCHC 33.9 RDW 12.8 Plt Count 285 MPV 10.7 Immature Gran % 1.4 Neutrophils % 78.6 Lymphocytes % 8.5 Monocytes % 10.2 Eosinophils % 1.0 Basophils % 0.3 Nucleated RBC % 0.0 Absolute Neutrophils 9.20 H Absolute Lymphocytes 1.00 L Absolute Monocytes 1.19 H Absolute Eosinophils 0.12 Absolute Basophils 0.04 ESR 30 H PT 15.2 H INR 1.6 H APTT 37.4 H Sodium 142 Potassium 3.6 Chloride 104 Carbon Dioxide 29.3 Anion Gap 8.7 BUN 19 H Creatinine 1.0 Est GFR (CKD-EPI 2020) 80.47 Glucose 111 H Calcium 9.2 Magnesium 1.4 L Total Bilirubin 0.6 AST 18 ALT 27 Alkaline Phosphatase 111 Troponin I 12 12 Cancelled C-Reactive Protein 5.54 H NT-Pro-B Natriuret Pep 462 H Total Protein 7.3 Albumin 3.0 L 08/05/25 08/05/25 05:40 10:30 WBC 10.66 RBC 3.57 L Hgb 10.9 L Hct 33.1 L MCV 93 MCH 30.5 MCHC 32.9 RDW 12.7 Plt Count 265 MPV 11.7 H Immature Gran % 1.4 Neutrophils % 76.4 Lymphocytes % 8.2 Monocytes % 11.9 Eosinophils % 1.5 Basophils % 0.6 Nucleated RBC % 0.0 Absolute Neutrophils 8.15 H Absolute Lymphocytes 0.87 L Absolute Monocytes 1.27 H Absolute Eosinophils 0.16 Absolute Basophils 0.06 ESR PT 12.9 H INR 1.3 H APTT 37.7 H Sodium 142 Potassium 3.3 L Chloride 104 Carbon Dioxide 28.2 Anion Gap 9.8 BUN 17 Creatinine 0.7 Est GFR (CKD-EPI 2020) 98.51 Glucose 108 H Calcium 8.8 Magnesium 2.0 Total Bilirubin 1.2 H AST 22 ALT 28 Alkaline Phosphatase 113 Troponin I C-Reactive Protein NT-Pro-B Natriuret Pep Total Protein 7.3 Albumin 2.9 L Time Spent with Patient Time Spent with Patient: 35-49 minutes Time was spent: preparing to see the patient(eg.review tests), obtaining and/or reviewing separately otained hiistory, ordering medications,tests, procedures, referring, communicating with other health chiropractic care, indepentently interpreting results, counseling the patient and care coordination
[2025-08-05] MEDS: Potassium Chloride 20 MEQ TABCR 40 MEQ PO ×2 (17:24→19:43)
[2025-08-05] MEDS: Heparin in 0.45% NaCl 25,000 UNIT/250 ML BAG 12.5 UNIT IVINF (17:25)
[2025-08-05 17:39] LABS: PTT Activated 39.1 sec (20.6-30.2)
[2025-08-06] VITALS (17 sets, daily range): BP systolic 123–147; BP diastolic 77–97; PULSE 78–100; RESP 18–35; TEMP 37.5; O2SAT 92–98
[2025-08-06 00:04] LABS: PTT Activated 46.8 sec (20.6-30.2)
[2025-08-06] MEDS: Heparin in 0.45% NaCl 25,000 UNIT/250 ML BAG 17.5 UNIT IVINF (05:06)
[2025-08-06 07:21] LABS: ALT 27 U/L (16-63); AST 17 U/L (15-37); Albumin 3.1 g/dL (3.4-5.0); Alkaline Phosphatase 116 U/L (46-116); Anion Gap 7.8 mmol/L (3-11); BUN 18 mg/dL (7-18); Bilirubin, Total 0.9 mg/dL (0.2-1.0); CO2 26.2 mmol/L (21.0-32.0); Calcium 9.1 mg/dL (8.5-10.1); Chloride 108 mmol/L (98-107); Estimated GFR 94.62 (mL/min/1.73m2); Glucose 115 mg/dL (74-106); Potassium 4.0 mmol/L (3.5-5.1); Sodium 142 mmol/L (136-145); Total Protein 7.5 g/dL (6.4-8.2)
[2025-08-06 07:22] LABS: PTT Activated 43.2 sec (20.6-30.2)
[2025-08-06] MEDS: Furosemide 40 MG TAB 80 MG PO (09:06)
[2025-08-06] MEDS: Atorvastatin 40 MG TAB 80 MG PO (09:06)
[2025-08-06] MEDS: Allopurinol 300 MG TAB PO (09:06)
[2025-08-06] MEDS: Potassium Chloride 20 MEQ TABCR 40 MEQ PO (09:06)
[2025-08-06] MEDS: Normal Saline Flush 10 ML SYR IVP (09:10)
--- NOTE | 2025-08-06 09:28 | DSE_ITS ---
Date of service: 08/06/25 Time of Service: 09:28 DS: Diagnosis Discharge Diagnosis (1) Pericardial effusion, acute: Status: Acute (2) Chronic atrial fibrillation: Status: Acute (3) Chronic right-sided heart failure: Status: Chronic (4) Hypomagnesemia: Status: Acute (5) IMMANUEL (obstructive sleep apnea): Status: Chronic (6) Morbid obesity with BMI of 40.0-44.9, adult: Status: Acute (7) Hyperbilirubinemia: Status: Acute Discharge Plan Disposition Patient Disposition: Transfer-Acute Inpatient Care Specific Acute Inpt Facility: [facility] Condition: Fair Discharge Details Reason For Visit: Pericardial Effusion Admit Date/Time: 08/04/25 22:00 Admit Provider: [place] Attending Provider: [place] Primary Care Provider: Becky Mcneal Hospital Course Hospital Course: Hunter Ortiz is a 70 year old man with PMH significant for CVA in June 2025, afib on rivaroxaban, chronic right heart failure, pulmonary HTN, gout, IMMANUEL, obesity BMI 44, and ileum carcinoid s/p partial colectomy 2009 who presented August 04 with 2 days of worsening shortness of breath with any exertion and dizziness with walking. ED evaluation was significant for EKG showing low voltage, CXR showing cardiomegaly, and 3cm pericardial effusion on POCUS. Tro ponins were negative. He was given 250ml NS bolus in the ED. The case was reviewed with cardiology who accepted the patient for transfer pending bed availability. His rivaroxaban was held (last take 08/04 AM) and he was placed on a heparin drip for possible pending pericardiocentesis. CRP was elevated at 5.54 with ESR of 30, but he was not started on steroids or colchicine and there was no clear infection. He was monitoring including q4h pulses paradoxus and this remained normal. Echocardiogram showed LVEF 55%, grossly normal RV function, RVSP 51mmHg, moderate to severe pericardial effusion, and right atrial early collapse suggesting early cardiac tamponade. He appeared moderately fluid overloaded clinically but diuresis above his daily oral furosemide was withheld for concern for adequate preload given early tamponade physiology on echocardiogram. He was hemodynamically stable with no events on cardiac monitoring. He was NPO for pending procedure 08/06, but fluids were withheld as he was clinically fluid overloaded. Amlodipine and atenolol were held to maintain adequate blood pressure. His magnesium was 1.4 on admission and was replaced. His bilirubin was 1.2 on 08/05, but this normalized to 0.9. He was transferred to [facility] Cardiology service under the care of Dr. Hagan and team. Home Meds and New Rx's Prescriptions: No Action furosemide 40 mg tablet 80 mg PO DAILY allopurinol 300 MG tablet 300 mg PO DAILY amlodipine 10 mg tablet 10 mg PO DAILY atenolol 50 mg tablet 50 mg PO DAILY calcipotriene 0.005 % solution 1 applic topical DAILY PRN Rx Instructions: rub in gently and completely magnesium oxide 400 mg magnesium capsule 400 mg PO DAILY albuterol sulfate 90 mcg/actuation HFA aerosol inhaler 2 inh INHALATION Q4H PRN Patient Comments: INHALE 2 PUFFS BY MOUTH EVERY 4 TO 6 HOURS NEEDED FOR SHORTNESS OF BREATH Xarelto 20 mg tablet 20 mg PO DAILY Rx Instructions: must administer with evening meal atorvastatin [Lipitor] 80 mg tablet 80 mg PO DAILY fluticasone propion-salmeterol [Advair HFA] 115-21 mcg/actuation HFA aerosol inhaler 2 inh inhalation BID fluticasone propionate 110 mcg/actuation HFA aerosol inhaler 1 inh inhalation BID Discharge Instructions Activity:: bedrest Equipment/Supplies:: No Equipment Needed Diet:: NPO Discharge Orders Discharge Orders: Discharge Order (Routine); Ordered 08/06/25 Ordered By: Armand Roper DS: Summary Time Spent with Patient providing and/or coordinating discharge services: Greater than 30 minutes Status at Discharge Functional status at discharge: bed bound Overall status at discharge: patient is not back to baseline Mental Status: mental status grossly normal Speech and Movement: speech and movement normal Mood: congruent mood Affect: normal affect Quality:SDOH Health Related Social Needs: Health related social needs risk of homeless Health related social needs details has girlfriend Health related social needs details: has girlfriend Exam Narrative Exam Narrative: General: This is a pleasant man in no distress sitting up in chair CV: irregular rate and irregular rhythm, no murmur, no pulsus paradoxus by radial pulse monitoring, mild JVP eelvation appreciable Resp: CTAB, mild increase effort with moving around Abd: soft, NTND Ext: no cyanosis, NT, 1-2+ LE edema to shins raphael Psych Mental Status: mental status grossly normal Speech and Movement: speech and movement normal Mood: congruent mood Affect: normal affect DS: Data Vitals/I&O Vitals and I&O: Vital Signs Temperature 37.5 C 08/06/25 00:49 Temperature Source Temporal Artery Scan 08/06/25 00:49 Pulse 84 08/06/25 08:03 Pulse 99 H 08/06/25 08:03 Respiratory Rate 27 H 08/06/25 08:03 Respiratory Effort Short of Breath 08/05/25 00:08 Respiratory Depth Normal 08/05/25 00:08 Respiratory Pattern Tachypnea 08/05/25 00:08 Blood Pressure 137/85 08/06/25 08:03 Blood Pressure Mean 101 08/06/25 08:03 Blood Pressure Position Supine 08/05/25 00:08 Pulse Oximetry 98 08/06/25 01:37 Oxygen Delivery Method Room Air 08/06/25 01:37 Oxygen Flow Rate 0 08/06/25 01:37 Pain Level 0 08/05/25 20:45 Intake & Output 08/05/25 08/05/25 08/06/25 11:59 23:59 11:59 Intake Total 615.833 / 1591.042 975.209 / 1591.042 729.000 / 729.000 Output Total 525 / 925 400 / 925 Balance 90.833 / 666.042 575.209 / 666.042 729.000 / 729.000 Weight 136.2 kg 135.8 kg Intake: IV 75.833 / 161.042 85.209 / 161.042 229.000 / 229.000 Oral 540 / 1430 890 / 1430 500 / 500 Output: Urine 525 / 925 400 / 925 Other: Urine Color Light Carmel Light Carmel Urine Appearance Clear Clear Urine Odor Normal Strong Comment Unable to measure or assess appearance - total 400ml mixed with liquid stool. Stool Characteristics Liquid Brown Data Completed and Pending Labs on day of discharge: Labs from last 24 hours 08/06/25 08/06/25 08/05/25 14:00 06:27 23:45 APTT Pending 43.2 H 46.8 H Sodium 142 Potassium 4.0 Chloride 108 H Carbon Dioxide 26.2 Anion Gap 7.8 BUN 18 Creatinine 0.8 Est GFR (CKD-EPI 2020) 94.62 Glucose 115 H Calcium 9.1 Total Bilirubin 0.9 AST 17 ALT 27 Alkaline Phosphatase 116 Total Protein 7.5 Albumin 3.1 L 08/05/25 08/05/25 17:15 10:30 APTT 39.1 H 37.7 H Sodium Potassium Chloride Carbon Dioxide Anion Gap BUN Creatinine Est GFR (CKD-EPI 2020) Glucose Calcium Total Bilirubin AST ALT Alkaline Phosphatase Total Protein Albumin PFSH All Active Problems (Updated 08/06/25 @ 09:21 by Armand Roper) Hyperbilirubinemia (Acute) IMMANUEL (obstructive sleep apnea) (Chronic) Morbid obesity with BMI of 40.0-44.9, adult (Acute) Chronic atrial fibrillation (Acute) Pericardial effusion, acute (Acute) Hypomagnesemia (Acute) Pericardial effusion (Acute) Personal history of colon cancer (Acute) Nutritional assessment (Acute) Chronic right-sided heart failure (Chronic) Pulmonary hypertension (Chronic) IMMANUEL treated with BiPAP (Acute) CHF (congestive heart failure) (Chronic) Medical History Acute cholecystitis Acute on chronic right heart failure Respiratory failure Hypoxemia Cholelithiasis Elevated LFTs Bleeding from wound Psoriasis Erectile dysfunction Atrial fibrillation Gout BMI 50.0-59.9, adult Hypertension Bilateral leg edema Peripheral neuropathy Prediabetes Shoulder dislocation Surgical History Hx of cholecystectomy (~07/31/22) S/P exploratory laparotomy S/P right hemicolectomy Social History Smoking/Tobacco Use Status: Never Smoking risk assessment performed?: Yes Alcohol Intake: current Alcohol Intake frequency: a few times a week Alcohol type: beer Drug use: Never Substance use type: does not use Household members: none Housing: apartment Communication Needs: Hard of Hearing Pets and animals: No What type of physical activity do you participate in: independent ambulation Do you feel safe at home: Yes Do you feel safe in your relationship?: Yes Time Spent with Patient Time Spent with Patient: 45-69 minutes Time was spent: preparing to see the patient(eg.review tests), obtaining and/or reviewing separately otained hiistory, ordering medications,tests, procedures, referring, communicating with other health manager intensive care, indepentently interpreting results, counseling the patient and care coordination
--- NOTE | 2025-08-06 17:39 | PDOC.CMPRO ---
Date of service: 08/06/25 Time of Service: 17:39 Care Management Progress Note Progress Note Text Progress Note Text: Per report, Hunter has been [place] [facility] became available this morning, and he was transferred [place] [facility]. He transported via EMS, coordinated by RN tool and die supervisor. Social Determinants of Health Screening Social Determinants of health last assessed in clinic: 08/06/25 Will the Patient Participate in the Screening?: Yes Do you worry about having a steady place to live?: yes What is your living situation today?: I have housing today, but am worried about losing it Problems where you live: no known problems In the past 12 months, have you had to go without electric, gas, oil or water in your home?: no 1. Within the past 12 months, we worried whether our food would run out before we got money to buy more.: Don't know/refused 2. Within the past 12 months, the food we bought just didn't last and we didn't have money to get more.: Don't know/refused Has lack of transportation kept you from medical appointments or from doing things needed for daily living?: no Has anyone in your life made you feel unsafe or unsupported?: no How hard is it for you to pay for the very basics like food, housing, medical care, and heating? Would you say it is:: Not hard at all Do you want help finding or keeping work or a job?: I do not need or want help If for any reason you need help with day-to-day activities such as bathing, preparing meals, shopping, managing finances, etc., do you get the help you need?: I don?t need any help How often do you feel lonely or isolated from those around you?: Never Do you speak a language other than Telugu at home?: No Does the patient want assistance with any of the above?: No Health Related Social Needs Health related social needs: housing instability, housed, with risk of homelessness (Z59.811) Health related social needs details: has girlfriend
== END 2025-08-06 10:20 | disposition short-term general hospital (02) ==
LOC: ER 22:32 → ICU 08-05 00:33
PROVIDERS: Admitting Provider Family Medicine; Emergency Provider Nurse Practitioner Family; PCP Nurse Practitioner Family; Responsible Provider Family Medicine; Visit Provider Family Medicine
DX: I30.9 Acute pericarditis, unspecified (principal); I48.20 Chronic atrial fibrillation, unspecified; I50.812 Chronic right heart failure; R42 Dizziness and giddiness; E83.42 Hypomagnesemia; R06.02 Shortness of breath; G47.33 Obstructive sleep apnea (adult) (pediatric); I27.20 Pulmonary hypertension, unspecified; E66.01 Morbid (severe) obesity due to excess calories; R73.03 Prediabetes; I25.10 Atherosclerotic heart disease of native coronary artery without angina pectoris; Z68.41 Body mass index [BMI] 40.0-44.9, adult; G62.9 Polyneuropathy, unspecified; E80.6 Other disorders of bilirubin metabolism; Z85.038 Personal history of other malignant neoplasm of large intestine; Z79.899 Other long term (current) drug therapy; I35.0 Nonrheumatic aortic (valve) stenosis; I08.2 Rheumatic disorders of both aortic and tricuspid valves; Z59.811 Housing instability, housed, with risk of homelessness; I11.0 Hypertensive heart disease with heart failure; I50.9 Heart failure, unspecified; Z79.01 Long term (current) use of anticoagulants; Z86.73 Personal history of transient ischemic attack (TIA), and cerebral infarction without residual deficits
CPT/HCPCS: 00123; 36415; 80053; 85652; 93005; 93306; 96361; 96365; 96366; 96375; 99285; 71046; 71260; 83735; 83880; 84484; 85025; 85610; 85730; 86140; 93010; 99222; 99232; 99239; G0378; J1200; J1644; J3475; J3490

== ENCOUNTER 2025-08-15 17:07 | Outpatient (REF) | payer MEDICARE, SELFPAY ==
[2025-08-15 18:11] LABS: Calculated LDL 41 mg/dL (<100); Cholesterol 92 mg/dL (<200); HDL Cholesterol 37 mg/dL (>or=40); Triglyceride 72 mg/dL (<150)
== END 2025-08-15 17:08 | disposition home or self-care (01) ==
LOC: NCHCN 17:07
PROVIDERS: PCP Nurse Practitioner Family; Visit Provider Student in an Organized Health Care Education/Training Program
DX: I63.9 Cerebral infarction, unspecified (principal)
CPT/HCPCS: 80061

== ENCOUNTER 2025-08-20 00:10 | Outpatient (CLI) | payer MEDICARE, SELFPAY ==
--- NOTE | 2025-08-20 07:30 | DI.US_ITS ---
APPROVED REPORT EXAM: Comprehensive 2D, Doppler, and color-flow Echocardiogram Patient Location: Out-Patient Director Life Sales: Ana Gupta RDCS (AE) Indications: Pericardial Effusion Other Information Study Quality: Fair. Technically limited study due to body habitus. Conclusion Normal left ventricular wall thickness and chamber size. Ejection fraction is 55%. No wall motion abnormalities are identified Grossly normal right ventricular size and function Both atria are severely enlarged Aortic valve is calcified, trace aortic regurgitation Thickened mitral leaflets. Trace to mild mitral regurgitation Mild tricuspid regurgitation. Estimated right ventricular systolic pressure is 31 mmHg Trivial pericardial effusion Wall motion Left Ventricle The overall left ventricular systolic function appears normal. Regional wall motion is not well visualized but grossly normal. There is no ventricular septal defect visualized. LVEF is 54%. Right Ventricle Right ventricle is grossly normal in size. Right ventricular systolic function is grossly normal. Atria Left atrium is severely dilated. Right atrium is severely dilated. The interatrial septum is intact with no evidence for an atrial septal defect. Aortic Valve Aortic valve is calcified. Number of aortic valve leaflets could not be assessed. No hemodynamically significant valvular aortic stenosis. Trace aortic regurgitation. Mitral Valve Mild mitral annular calcification. No evidence of mitral valve stenosis. Trace to mild mitral regurgitation. Tricuspid Valve The tricuspid valve is normal in structure. There is no tricuspid valve stenosis. Mild tricuspid regurgitation. The RVSP is 30.6_ mmHg. Pulmonic Valve Pulmonic valve is not well visualized. There is no pulmonic valvular stenosis. There is no pulmonic valvular regurgitation. Great Vessels Aortic arch is not well visualized. IVC is normal in size and collapses >50% with inspiration. Pericardium Trace pericardial effusion. Auto EF LV EDV A4C 149.8 mL LV EDV A2C 156.0 mL LV EDV BP 152.3 mL LV ESV A4C 66.8 mL LV ESV A2C 75.4 mL LV ESV BP 71.8 mL LVEF(%) A4C 55.4 % LVEF(%) A2C 51.7 % LVEF(%) BP 52.8 % LV SV A4C 83.0 ml LV SV A2C 80.6 ml LV SV BP 80.5 ml LV CO A4C 8.5 L/min LV CO A2C 8.1 L/min LV CO BP 8.3 L/min HR A4C 101.96 BPM HR A2C 100.84 BPM LV EDV Index (BP) LA Volume LA Length A4C 7.2 cm LA Length A2C 7.3 cm LA Area A4C s 34.07 cm2 LA Area A2C s 37.01 cm2 LA Vol A4C A-L 137.49 mL LA Vol A2C A-L 159.16 mL LA Vol Biplane A-L 149.4 mL LA Vol/BSA A4C A-L LA Vol/BSA A2C A-L LA Vol/BSA BP A-L 61.0 mL/m2 LA Vol A4C MOD 129.7 mL LA Vol A2C MOD 149.6 mL LA Vol BP MOD 140.3 mL RA Volume RA Area A4C 26.1 cm2 RA ESV A4C (A-L) 105.4mL RA Vol/BSA A4C A-L RA Length A4C 5.5 cm RA ESV A4C (MOD) 94.1mL LV Diastology MV E' medial 0.069 (>0.07 m/s) MV E Vmax 1.15 (0.4-1.3 m/s) MV E/E' MED 16.61 (<14) MV E' lateral 0.086 (>0.1 m/s) MV E/E' LAT 13.31 (<14) MV E' Average 0.078 m/s MV E/E'(average) 14.78 Aortic Valve AoV Vmax 2.30 m/s LVOT Vmax 0.76 m/s AoV Peak Grad 46.8 mmHg LVOT Peak Grad 2.3 mmHg AoV VTI 0.389 m LVOT VTI 0.123 m AoV Mean Zi. 1.62 m/s LVOT Mean Grad 1.6 mmHg AoV Mean Grad 12.2 mmHg AV Regurg Peak Gr. 21.16 mmHg Velocity Ratio 0.33 AR Decel [place] 2.1m/sec2 AR DT 2018 msec AR PHT 585 msec AR Vmax 4.25 m/s Mitral Valve MV DT 198 (160-240 msec) MV Vmax TIPS 1.11 m/s MV Mean Grad 1.8 (<2mmHg) MV VTI 0.251 m Pulmonary Valve PV Vmax 0.95 (0.5-1.5 m/s) RVOT Vmax 0.78 m/s PV Peak Grad 3.6 mmHg RVOT Peak Gr. 2.4 mmHg PV Mean Zi 0.63 m/s RVOT VTI 0.131 m PV Mean Grad 1.8 mmHg RVOT Mean Gr. 1.3 mmHg Tricuspid Valve RA Pressure 3.00 mmHg TR Vmax 2.62 m/s TV S' 0.12 m/s TR Peak Grad 27.5 mmHg RVSP (TR) 30.6 mmHg
== END 2025-08-20 00:30 ==
PROVIDERS: PCP Nurse Practitioner Family; Visit Provider Nurse Practitioner Family
DX: I31.39 Other pericardial effusion (noninflammatory) (principal)
CPT/HCPCS: 93306

== ENCOUNTER → 2025-08-26 11:11 | Outpatient (BNVA) | payer MEDICARE, SELFPAY | PROVIDERS: PCP Nurse Practitioner Family; Referring Provider Nurse Practitioner Family; Visit Provider Internal Medicine Cardiovascular Disease | DX: I48.20 Chronic atrial fibrillation, unspecified (principal); I50.812 Chronic right heart failure; I30.9 Acute pericarditis, unspecified; Z79.01 Long term (current) use of anticoagulants | CPT/HCPCS: 99214 ==